=== PATIENT | female | born 1980 ===

== ENCOUNTER 2020-12-05 18:24 | Emergency (ER) | payer OTHER, SELFPAY ==
--- NOTE | ~2020-12-05 | XR_ITS ---
EXAMINATION: XR CHEST CLINICAL INFORMATION: Chest pain COMPARISON: CT chest dated 12/31/2017 TECHNIQUE: Frontal view of the chest was obtained. FINDINGS: Normal symmetric lung volumes. No parenchymal consolidation. No pleural effusion. No pneumothorax. Cardiomediastinal silhouette and pulmonary vascularity are within normal limits. No acute osseous abnormalities. XR/XR chest 1V IMPRESSION: No acute findings
[2020-12-05 18:32] VITALS: BP 131/68; PULSE 74; RESP 18; TEMP 36.6; O2SAT 100; BMI 30.9
--- NOTE | 2020-12-05 18:34 | ECG_ITS ---
Test Reason : HEADACHES Blood Pressure : / mmHG Vent. Rate : 078 BPM Atrial Rate : 078 BPM P-R Int : 144 ms QRS Dur : 072 ms QT Int : 374 ms P-R-T Axes : 031 014 013 degrees QTc Int : 426 ms Normal sinus rhythm Normal ECG When compared with ECG of 09-MAY-2018 08:07, No significant change was found Referred By: Generic ED Physician Electronically Signed By:EVELYNE TAYLOR
[2020-12-05 18:57] LABS: MANUAL DIFF FLAG NO
[2020-12-05 18:59] LABS: Basophils Percent Auto 0.2 % (0-2); Eosinophils Absolute Auto 0.2 X10*3/uL (0.0-0.4); Hematocrit 38.4 % (37-47); Hemoglobin 12.7 g/dl (12.0-16.0); Imm Gran Abs Auto 0.02 X10*3/uL (0.00-0.03); Imm Gran Pct Auto 0.2 % (0.0-0.4); Lymphocytes Absolute Auto 1.6 X10*3/uL (1.2-4.9); Lymphocytes Percent Auto 20.5 % (20-40); Mean Corpuscular HGB Conc 33.1 g/dl (31.0-35.0); Mean Corpuscular Hemoglobin 29.3 pg (27.0-33.0); Mean Corpuscular Volume 88.5 fL (80-98); Mean Platelet Volume 10.9 fL (9.4-12.3); Monocytes Absolute Auto 0.7 X10*3/uL (0.1-1.2); Monocytes Percent Auto 9.1 % (2-11); Neutrophils Absolute Auto 5.4 X10*3/uL (2.0-8.3); Platelet Count 267 X10*3/uL (160-400); Red Blood Count 4.34 X10*6/uL (4.20-5.50); Red Cell Distribution Width 12.2 % (11.0-16.0)
[2020-12-05 19:32] LABS: Anion Gap 13 (12-20); Blood Urea Nitrogen 17 mg/dL (9-16); Calcium 8.6 mg/dL (8.4-10.2); Carbon Dioxide 23 mmol/L (22-29); Chloride 106 mmol/L (96-108); Creatinine Clr Calc Pharmacy 79.6; Estimated Glomerular Filt Rate > 60; Glucose Random 108 mg/dL (60-115); Potassium 4.6 mmol/L (3.3-5.1); Sodium 137 mmol/L (135-145)
[2020-12-05 19:40] LABS: Troponin-I High Sensitivity < 3.5 ng/L (<3.5-17.0)
[2020-12-05 20:50] VITALS: BP 106/51; PULSE 79; RESP 20; TEMP 36.8; O2SAT 100
--- NOTE | 2020-12-05 21:41 | ED_ITS ---
HPI - Headache General Chief Complaint: Chest Pain Stated Complaint: chest pain Time Seen by Provider: 12/05/20 21:00 Source: patient Mode of arrival: ambulatory Limitations: language barrier History of Present Illness HPI Narrative: Patient's history of migraine headaches complaining of headache for last 3 days similar to that in the past also complaining of pain in the upper back with similar history in the past and history of fibromyalgia patient take Fioricet which is not helping and she does not have any more Fioricet left at home. Patient also continue nausea vomited 2 times sensitive to light patient does get headache almost every 2 weeks MD elicited complaint: headache and migraine Onset (ago): day(s) (3) Onset description: gradually Location: frontal Severity: moderate Quality & Timing: throbbing Exacerbating factors: light and noise Relieving factors: nothing Context: occurred at rest Associated symptoms: nausea and vomiting Related Data Previous Rx's Medication Instructions Recorded montelukast 10 mg tablet 10 mg PO DAILY #30 tab 08/22/20 omeprazole 20 mg capsule,delayed 20 mg PO DAILY 90 Days #90 cap 11/14/20 release upbnnjuztt-enxzxxfdojgrj-svti 1 cap PO Q6H PRN #20 cap 12/05/20 [Fioricet] Allergies Allergy/AdvReac Type Severity Reaction Status Date / Time sumatriptan [From IMITREX] Allergy Severe PALPITAITONS, Verified 12/05/20 21:00 palpitations aspirin [ASA] Allergy Intermediate HIVES, rash Verified 12/05/20 21:00 ibuprofen [IBUPROFEN] Allergy Unknown LIP Verified 12/05/20 21:00 SWELLING/RASH rizatriptan Allergy Unknown swelling, Verified 12/05/20 21:00 pruritus Review of Systems Review of Systems: Constitutional : No Weight loss, No Fever, No Chills ENT/Mouth : No sore throat, No Rhinorrhea Eyes: No Eye Pain, No Swelling Cardiovascular : + Chest Pain, no palpitations Respiratory : No Cough, No Sputum, no shortness of breath Gastrointestinal : no Nausea, No Vomiting, No Diarrhea, No abdominal Pain, no black stools Genitourinary : No Dysuria, No Urinary Frequency Musculoskeletal : No joint pain, + Myalgias, No Joint Swelling Skin : No Skin Lesions, No rash Neuro : No Weakness, No Numbness, No Dizziness, No Headache Psych : No Anxiety/Panic, No Depression Heme/Lymph: No Bruising, No Lymphadenopathy Endocrine : No Polyuria, No Polydipsia All other systems reviewed and are negative [facility] Social History Social History Alcohol intake: never Smoking Status: Never smoker Use of substances other than those prescribed or required for medical reasons: No Advance Directives: No Physical Exam Vital Signs: Vital Signs: Last Vital Signs Temp 98.0 F 12/05/20 22:45 Pulse 83 12/05/20 22:45 Resp 20 12/05/20 22:45 BP 116/78 12/05/20 22:45 Pulse Ox 100 12/05/20 22:45 Body Mass Index 30.9 Appearance: Alert. Oriented X3. Moderate distress , light sensitive Eyes: Pupils equal, round and reactive to light. Photosensitive ENT: Pharynx normal. Neck is supple .,temporal artery nontender sinuses nontender Neck: Normal inspection. Neck supple. Tender to touch upper back area CVS: Normal heart rate and rhythm. Pulses normal. Respiratory: No respiratory distress. Breath sounds normal. Abdomen: Soft and nontender. Bowel sounds are present, no mass palpable, no CVA tenderness Skin: Skin warm and dry. Normal skin color. Normal skin turgor. Extremities: No lower extremity edema. Neuro: Oriented X 3. No motor deficit. No sensory deficit. MDM - Headache MDM Narrative Medical decision making narrative: Patient migraine headache typical has in the past feeling much better now after morphine and Zofran patient unable to take T oradol or any other medication because of allergies will discharge her home on Fioricet Differential Diagnosis Differential diagnosis: Likely migraine Lab Data Attestation: I reviewed the patient's lab results. Result diagrams: 12/05/20 18:49 12/05/20 18:49 Labs: Lab Results 12/05/20 12/05/20 12/05/20 Range/Units 18:49 18:49 18:49 WBC 8.0 (4.8-10.8) X10*3/uL RBC 4.34 (4.20-5.50) X10*6/uL Hgb 12.7 (12.0-16.0) g/dl Hct 38.4 (37-47) % MCV 88.5 (80-98) fL MCH 29.3 (27.0-33.0) pg MCHC 33.1 (31.0-35.0) g/dl RDW 12.2 (11.0-16.0) % Plt Count 267 (160-400) X10*3/uL MPV 10.9 (9.4-12.3) fL Immature Gran % (Auto) 0.2 (0.0-0.4) % Neut % (Auto) 68.0 (45-73) % Lymph % (Auto) 20.5 (20-40) % [place] % (Auto) 9.1 (2-11) % Eos % (Auto) 2.0 (0-4) % Baso % (Auto) 0.2 (0-2) % Lymph # (Auto) 1.6 (1.2-4.9) X10*3/uL [place] # (Auto) 0.7 (0.1-1.2) X10*3/uL Eos # (Auto) 0.2 (0.0-0.4) X10*3/uL Baso # (Auto) 0.0 (0.0-0.2) X10*3/uL Abs Immat Gran (auto) 0.02 (0.00-0.03) X10*3/uL Absolute Neuts (auto) 5.4 (2.0-8.3) X10*3/uL Absolute Nucleated RBC 0.000 (0.0-0.012) X10*3/uL Nucleated RBC % (auto) 0.0 (0.0-0.2) /100WBC Hold Blue Top SEE NOTE Sodium 137 (135-145) mmol/L Potassium 4.6 (3.3-5.1) mmol/L Chloride 106 (96-108) mmol/L Carbon Dioxide 23 (22-29) mmol/L Anion Gap 13 (12-20) BUN 17 H (9-16) mg/dL Creatinine 0.97 (0.5-1.4) mg/dL Estim Creat Clear Calc 79.6 Estimated GFR > 60 Random Glucose 108 (60-115) mg/dL Calcium 8.6 (8.4-10.2) mg/dL Troponin I High Sens (<3.5-17.0) ng/L 12/05/20 Range/Units 18:49 WBC (4.8-10.8) X10*3/uL RBC (4.20-5.50) X10*6/uL Hgb (12.0-16.0) g/dl Hct (37-47) % MCV (80-98) fL MCH (27.0-33.0) pg MCHC (31.0-35.0) g/dl RDW (11.0-16.0) % Plt Count (160-400) X10*3/uL MPV (9.4-12.3) fL Immature Gran % (Auto) (0.0-0.4) % Neut % (Auto) (45-73) % Lymph % (Auto) (20-40) % [place] % (Auto) (2-11) % Eos % (Auto) (0-4) % Baso % (Auto) (0-2) % Lymph # (Auto) (1.2-4.9) X10*3/uL [place] # (Auto) (0.1-1.2) X10*3/uL Eos # (Auto) (0.0-0.4) X10*3/uL Baso # (Auto) (0.0-0.2) X10*3/uL Abs Immat Gran (auto) (0.00-0.03) X10*3/uL Absolute Neuts (auto) (2.0-8.3) X10*3/uL Absolute Nucleated RBC (0.0-0.012) X10*3/uL Nucleated RBC % (auto) (0.0-0.2) /100WBC Hold Blue Top Sodium (135-145) mmol/L Potassium (3.3-5.1) mmol/L Chloride (96-108) mmol/L Carbon Dioxide (22-29) mmol/L Anion Gap (12-20) BUN (9-16) mg/dL Creatinine (0.5-1.4) mg/dL Estim Creat Clear Calc Estimated GFR Random Glucose (60-115) mg/dL Calcium (8.4-10.2) mg/dL Troponin I High Sens < 3.5 (<3.5-17.0) ng/L ECG Data Attestation: I personally reviewed and interpreted this ECG as follows: Interpretation: Normal sinus rhythm heart rate 78 beats per minute no acute ST T wave changes normal intervals normal axis impression normal EKG Discharge Plan Discharge Clinical Impression: Migraine Qualifiers: Migraine type: without aura Status migrainosus presence: without status migrainosus Intractability: not intractable Qualified Code(s): G43.009 - Migraine without aura, not intractable, without status migrainosus Patient Disposition: Home, Self-Care Instructions: Migraine Headache (ED) Additional Instructions: Rest at home Take Fioricet for severe headache and follow with neurologist/PCP Prescriptions: New oeqibvzvvi-xwrcrboumwxbi-iwxi [Fioricet] 50-300-40 mg capsule 1 cap PO Q6H PRN (Reason: pain) Qty: 20 RF: 0 No Action montelukast 10 mg tablet 10 mg PO DAILY Qty: 30 RF: 7 omeprazole 20 mg capsule,delayed release(DR/EC) 20 mg PO DAILY 90 Days Qty: 90 RF: 3 Referrals: Renny Obrien MD [Physician] - 2 weeks
[2020-12-05 22:16] VITALS: RESP 20
[2020-12-05] MEDS: Morphine Sulfate 4 MG/ML CARTRIDGE IM (22:16)
[2020-12-05 22:45] VITALS: BP 116/78; PULSE 83; RESP 20; TEMP 36.7; O2SAT 100
[2020-12-05] MEDS: Butalb/Acetamin/Caff 50/325/40 TABLET 1 TAB PO (23:58)
[2020-12-06 00:09] LABS: Glucose, Whole Blood 106 mg/dL (60-115)
== END 2020-12-06 00:16 | disposition home or self-care (01) ==
PROVIDERS: Emergency Provider Internal Medicine; PCP Internal Medicine
DX: G43.909 Migraine, unspecified, not intractable, without status migrainosus (principal); R11.2 Nausea with vomiting, unspecified; Z79.899 Other long term (current) drug therapy
CPT/HCPCS: 36415; 71045; 80048; 82947; 84484; 85025; 93005; 96372; 99284; J2270

== ENCOUNTER 2020-12-24 05:55 | Emergency (ER) | payer OTHER, SELFPAY ==
[2020-12-24 06:31] VITALS: BP 115/78; PULSE 87; RESP 18; TEMP 36.6; O2SAT 98; BMI 31.9
[2020-12-24 06:46] VITALS: BP 118/75; PULSE 87; RESP 118; TEMP 36.6; O2SAT 98
[2020-12-24 07:07] VITALS: BP 118/75; PULSE 96; RESP 16; O2SAT 98
--- NOTE | 2020-12-24 07:12 | ED.GENADULT ---
HPI - General Adult General Chief complaint: General Medical Stated complaint: MULTIPLE COMPLAINTS Time Seen by Provider: 12/24/20 06:05 Source: patient Mode of arrival: ambulatory History of Present Illness HPI narrative: This is a 40-year-old female who presents with persistent nasal congestion and lower back discomfort as well as sinus discomfort for the past week without associated fevers, chills, sore throat, cough, recent travel, or known COVID-19 exposure. Patient states that she has not been evaluated by Neurology or her primary care provider for prior treatments of her migraines. Otherwise, she denies any shortness of breath, chest pain, GI symptoms, or symptoms. LMP: Completed 2 days ago Related Data Previous Rx's Medication Instructions Recorded montelukast 10 mg tablet 10 mg PO DAILY #30 tab 08/22/20 omeprazole 20 mg capsule,delayed 20 mg PO DAILY 90 Days #90 cap 11/14/20 release bygwdtsksg-xslanjifulkrp-camfsmdj 1 cap PO Q6H PRN #20 cap 12/08/20 50 mg-300 mg-40 mg capsule rqzprhohum-tfkydfpomiotz-anqqpkgd 1 tab PO Q6H PRN 30 Days #20 tab 12/08/20 50 mg-325 mg-40 mg tablet Allergies Allergy/AdvReac Type Severity Reaction Status Date / Time sumatriptan [From IMITREX] Allergy Severe PALPITAITONS, Verified 12/05/20 21:00 palpitations aspirin [ASA] Allergy Intermediate HIVES, rash Verified 12/05/20 21:00 ibuprofen [IBUPROFEN] Allergy Unknown LIP Verified 12/05/20 21:00 SWELLING/RASH rizatriptan Allergy Unknown swelling, Verified 12/05/20 21:00 pruritus Review of Systems Review of Systems: Pertinent positives and negatives as stated in HPI 10 point review systems is otherwise negative. [facility] Past Medical History Source: nursing notes reviewed Social History Social History Alcohol intake: never Smoking Status: Never smoker Use of substances other than those prescribed or required for medical reasons: No Advance Directives: No Physical Exam Vital Signs: Vital Signs: Last Vital Signs Temp 97.9 F 12/24/20 06:46 Pulse 96 12/24/20 07:07 Resp 16 12/24/20 07:07 BP 118/75 12/24/20 07:07 Pulse Ox 98 12/24/20 07:07 Body Mass Index 31.9 VITAL SIGNS: Reviewed. GENERAL: Well developed, well nourished, in no acute distress. HEAD: Normocephalic/atraumatic, EYES: PERRLA, EOMI intact without pain EARS: Ext canals without abnormality, TMs non-bulging and non-erythematous NOSE: Nares patent bilateral OROPHARYNX: no oral lesions noted, posterior pharynx clear NECK: Supple, no adenopathy LUNGS: Normal breath sounds. SpO2<98> CARDIOVASCULAR: Regular rate and rhythm without noted murmurs, no JVD or lower extremity edema. ABDOMEN: Soft, non-tender, non-distended with bowel sounds. BACK: No CVA tenderness, mild tenderness palpation paraspinal and lumbar region, no midline vertebral tenderness NEUROLOGIC: Alert and oriented x 4. Strength and sensation to light touch were grossly intact x 4. Course Course Course Narrative: This is a 40-year-old female with history and clinical presentation consistent with similarity with chronic pain syndrome. Patient's history and clinical exam are consistent with nasal congestion without evidence of purulence which would prompt consideration for antibiotics. In addition, patient with chronic back pain and doubt UTI or kidney stones. Signed out to Dr Vazquez: plan to follow up UA, SARS results and overall nasal congestion symptoms. Discharge paperwork is complete. Discharge Plan Discharge Clinical Impression: Nasal congestion, Low back pain Patient Disposition: Home, Self-Care Instructions: Antihistamine/Decongestant (By mouth), Sinusitis (ED), Lower Back Exercises (ED), Back Pain (ED) Additional Instructions: Luis un seguimiento con panchal proveedor de atenci?n primaria para la reevaluaci?n y el manejo ambulatorio de panchal congesti?n nasal y dolor lumbar cr?pal. No dude en volver al servicio de urgencias si desarrolla un empeoramiento samantha de becky s?ntomas, especialmente si est? asociado con fiebres, escalofr?os. Prescriptions: No Action montelukast 10 mg tablet 10 mg PO DAILY Qty: 30 RF: 7 omeprazole 20 mg capsule,delayed release(DR/EC) 20 mg PO DAILY 90 Days Qty: 90 RF: 3 iobnpgpeto-kxpvwnloxtdcq-vueh [Fioricet] 50-300-40 mg capsule 1 cap PO Q6H PRN (Reason: pain) Qty: 20 RF: 0 ewuedvjpcf-giqlyyikhzlsm-hhmr 50-325-40 mg tablet 1 tab PO Q6H PRN (Reason: pain) 30 Days Qty: 20 RF: 0 Referrals: Cecy Suarez MD [Primary Care Provider] - 2 days (Re-evaluation and outpatient treatment for nasal congestion, chronic back pain and chronic migraines.) Print Language: Tajik
[2020-12-24 07:21] LABS: Glucose Urine UA NEG (NEG); Leukocyte Esterase Urine NEG (NEG); Nitrite Urine NEG (NEG); PH 6.5 (5.0-8.0); Specific Gravity - Urine 1.025 (1.005-1.025); Urine Blood NEG (NEG); Urine Ketones NEG (NEG); Urine Protein NEG (NEG-TRACE)
[2020-12-24] MEDS: diphenhydrAMINE HCL 25 MG TABLET PO (07:23)
[2020-12-24 07:30] LABS: Appearance Urine HAZY; Color Urine YELLOW
[2020-12-24] MEDS: Lidocaine 4 % Patch ADH..PATCH 1 PATCH TRANSDERMA (07:34)
[2020-12-24 08:04] LABS: Influenza A PCR NEGATIVE (Negative); Influenza B PCR NEGATIVE (Negative); Resp Syncy Virus RNA Qual PCR NEGATIVE (Negative); SARS COV2 PCR INHOUSE NEGATIVE (Negative)
--- NOTE | 2020-12-24 08:10 | PC.NURSE ---
pt states she is feeling slightly better and feels ready to go home. she states she will follow with her PCP as directed.
== END 2020-12-24 08:21 | disposition home or self-care (01) ==
PROVIDERS: Emergency Provider Student in an Organized Health Care Education/Training Program; PCP Internal Medicine
DX: R09.81 Nasal congestion (principal); M54.5 Low back pain; Z20.822 Contact with and (suspected) exposure to COVID-19
CPT/HCPCS: 0241U; 36415; 81003; 99282; 99284; Q0163

== ENCOUNTER 2021-01-25 15:00 | Outpatient (REF) | payer OTHER, SELFPAY ==
--- NOTE | ~2021-01-25 | XR_ITS ---
EXAMINATION: XR CERVICAL SPINE CLINICAL INFORMATION: Neck pain COMPARISON: Previous x-ray June 2018 TECHNIQUE: 3 views of the cervical spine were obtained. FINDINGS: Bone alignment is normal. No fracture or dislocation is seen. Disc spaces are normal. Prevertebral soft tissues are normal. XR/XR cervical spine 2V IMPRESSION: Unremarkable examination.
== END 2021-01-25 15:01 | disposition home or self-care (01) ==
LOC: HO.XRAY 15:00
PROVIDERS: PCP Physician Assistant; Visit Provider Internal Medicine
DX: M54.2 Cervicalgia (principal)
CPT/HCPCS: 72040

== ENCOUNTER 2021-05-25 05:55 | Emergency (ER) | payer OTHER, SELFPAY ==
[2021-05-25 07:25] VITALS: BP 138/77; PULSE 72; TEMP 36.8; O2SAT 98; BMI 33.8
--- NOTE | 2021-05-25 09:44 | ED_ITS ---
HPI - General Adult General Chief complaint: General Medical Stated complaint: Migraine & abd pain for mult. days Time Seen by Provider: 05/25/21 09:18 Source: patient Mode of arrival: ambulatory Limitations: language barrier (Patient's 1st language is Lithuanian, she does speak and understand some Romansh, staff interpreter was used to obtain information.) History of Present Illness HPI narrative: 40-year-old female who presents emergency department for evaluation of multiple complaints. She states that over the past 2-3 days she has had pain in the back of her neck and her back. She has also had abdominal p ain. She points to her lower abdomen and groin area when asked to localize the pain. She states the pain is a constant, sharp pain which is worse with movement. The pain is 8/10 at its worst. Patient has had associated nausea with 1 episode of vomiting. She states that she has been feeling very tired and fatigued. She states that last night she developed a migraine. She describes the headache as a sharp pressure-like pain located behind her eyes and in her forehead area. The pain is constant and is 8/10. She denied fever, chills, chest pain, shortness of breath, dyspnea on exertion, frequency, urgency or dysuria. The patient was seen in the emergency department on 12/24/2020 with similar complaints. The patient was treated for migraine syndrome with morphine and Zofran with improved her symptoms. Related Data Previous Rx's Medication Instructions Recorded montelukast 10 mg tablet 10 mg PO DAILY #30 tab 08/22/20 omeprazole 20 mg capsule,delayed 20 mg PO DAILY 90 Days #90 cap 11/14/20 release hwsrsnreic-qebqilgjbmydu-xjhzdlnx 1 tab PO Q6H PRN 30 Days #20 tab 12/08/20 50 mg-325 mg-40 mg tablet tizanidine 4 mg tablet 4 mg PO Q8H PRN #60 tab 02/10/21 vtfvhjrvvl-vpodygbasrxfs-mejtbhbq 1 cap PO Q6H PRN #20 cap 04/06/21 50 mg-300 mg-40 mg capsule lidocaine 5 % topical patch 1 patch TOPICAL DAILY #15 ea 05/11/21 Allergies Allergy/AdvReac Type Severity Reaction Status Date / Time sumatriptan [From IMITREX] Allergy Severe PALPITAITONS, Verified 01/25/21 14:22 palpitations aspirin [ASA] Allergy Intermediate HIVES, rash Verified 01/25/21 14:22 ibuprofen [IBUPROFEN] Allergy Unknown LIP Verified 01/25/21 14:22 SWELLING/RASH rizatriptan Allergy Unknown swelling, Verified 01/25/21 14:22 pruritus Review of Systems Review of Systems: Yes all other systems are reviewed and are negative [facility] Past Medical History [facility] Narrative: Past medical history: Fibromyalgia, migraines, lumbar pain. Social history: She denies tobacco, alcohol and drug use. Surgical History History of section Family History Family History Mother No problems noted. Father No problems noted. Social History Social History Alcohol intake: never Use of substances other than those prescribed or required for medical reasons: No Advance Directives: Yes Advance Directives Information Provided: Yes Advance Directives on File: No Physical Exam Vital Signs: Vital Signs: Last Vital Signs Temp 97.9 F 05/25/21 11:05 Pulse 66 05/25/21 12:12 Resp 18 05/25/21 11:05 BP 124/76 05/25/21 12:12 Pulse Ox 99 05/25/21 11:05 Body Mass Index 33.8 Const: General: cooperative Orientation/consciousness: oriented to person and oriented to place Limitations: no limitations HENMT: Other: Tenderness with palpation of the forehead, maxillary sinuses and temporal areas bilaterally Head: Yes normal to inspection, Yes normocephalic and Yes atraumatic Ears: external ears normal General nose exam: Normal external nose present Mouth: Normal oral and palatal mucosa present Throat: Yes posterior oropharynx normal Eyes: Periorbital: periorbital findings normal Eyelids: Yes eyelids normal Conjunctivae: conjunctivae normal Sclerae: sclerae normal Corneas: corneas normal Pupils: Equal, round and reactive pupils present Direct Ophthalmoscopy: normal light reflex Neck: Other: Bilateral tenderness palpation of the trapezius muscles and tenderness to palpation of the cervical spine Chest: Other: Tenderness with palpation of the anterior chest. Chest palpation & inspection: normal palpation of entire chest wall Resp: Effort & Inspection: normal respiratory effort and able to speak in complete sentences Auscultation: clear to auscultation bilaterally Cardio: Rate: regular rate Rhythm: regular rhythm Heart sounds: S1 normal heart sound present, S2 normal heart sound present and no murmurs GI: Inspection: Yes normal to inspection Palpation (GI): Soft to palpation, Tenderness to palpation present (GI) (Gqic-tp-ghpdtdzl diffuse abdominal tenderness), no guarding, not rigid and No hepatosplenomegaly present Back/Spine/Pelvis: Other: Diffuse tenderness with palpation of the patient's thoracic and lumbar sacral paraspinal muscles Skin: Lesions: no lesions Rashes: no rashes Wounds: no wounds Neuro: General: oriented to person and oriented to place Cranial nerves: Yes CN's II-XII intact bilaterally and Yes Equal, round and reactive pupils present Cognition (Neuro): normal cognition Motor exam (neuro): 5/5 motor strength present throughout Extrem: General: Yes normal to inspection and Yes full ROM Psych: Appearance: well kempt Mental Status: mental status grossly normal Speech and movement: Normal speech and movement present Affect: normal affect Attitude: cooperative Thought process: Normal thought process present Thought content: Normal thought content present Course Course Course Narrative: 40-year-old female with history of migraine headaches presents emergency department for evaluation of fatigue, weakness and abdominal pain x2 days with associated nausea 1 episode of vomiting and migraine headache x1 day. Vital signs were stable. Physical examination revealed multiple areas of tenderness including her head, neck, thoracic lumbar sacral paraspinal muscles, diffuse abdominal tenderness. Patient's neuro exam was nonfocal. I ordered a CBC, CMP, lipase, urinalysis and urine test. I do not think the patient is a CT scan of her head at this time. Patient's pain will be treated with morphine 4 mg IV and Zofran 4 mg IV. She also given normal saline IV x1 L. 1333: Patient's laboratory evaluation was unremarkable. Urinalysis was positive for nitrates, microscopic however revealed 0-2 white blood cells, squamous cells and 3+ bacteria. Given this low WBC count I do not think that she has a urinary tract infection and she does not need antibiotics at this time unless her culture comes back positive. The patient required a 2nd dose of morphine and Zofran and is currently feeling significantly better and is pain free. The patient was given verbal and printed instructions prior to discharge. The patient was advised to follow-up with her PCP in 2 days and to return to the emergency department if her symptoms get worse or if she develop any new symptoms that are concerning to her Medical Decision Making Lab Data Result diagrams: 05/25/21 10:19 05/25/21 10:19 Labs: Lab Results 05/25/21 05/25/21 05/25/21 Range/Units 10:19 10:19 12:04 WBC 7.0 (4.8-10.8) X10*3/uL RBC 4.81 (4.20-5.50) X10*6/uL Hgb 13.8 (12.0-16.0) g/dl Hct 42.8 (37-47) % MCV 89.0 (80-98) fL MCH 28.7 (27.0-33.0) pg MCHC 32.2 (31.0-35.0) g/dl RDW 13.2 (11.0-16.0) % Plt Count 273 (160-400) X10*3/uL MPV 10.6 (9.4-12.3) fL Immature Gran % (Auto) 0.3 (0.0-0.4) % Neut % (Auto) 78.6 H (45-73) % Lymph % (Auto) 12.9 L (20-40) % [place] % (Auto) 7.2 (2-11) % Eos % (Auto) 0.9 (0-4) % Baso % (Auto) 0.1 (0-2) % Lymph # (Auto) 0.9 L (1.2-4.9) X10*3/uL [place] # (Auto) 0.5 (0.1-1.2) X10*3/uL Eos # (Auto) 0.1 (0.0-0.4) X10*3/uL Baso # (Auto) 0.0 (0.0-0.2) X10*3/uL Abs Immat Gran (auto) 0.02 (0.00-0.03) X10*3/uL Absolute Neuts (auto) 5.5 (2.0-8.3) X10*3/uL Absolute Nucleated RBC 0.000 (0.0-0.012) X10*3/uL Nucleated RBC % (auto) 0.0 (0.0-0.2) /100WBC Sodium 137 (135-145) mmol/L Potassium 4.3 (3.3-5.1) mmol/L Chloride 107 (96-108) mmol/L Carbon Dioxide 22 (22-29) mmol/L Anion Gap 12 (12-20) BUN 9 (9-16) mg/dL Creatinine 0.70 (0.5-1.4) mg/dL Estim Creat Clear Calc 107.3 Estimated GFR > 60 Random Glucose 104 (60-115) mg/dL Calcium 9.2 D (8.4-10.2) mg/dL Total Bilirubin 0.3 (0.0-1.0) mg/dL AST 17 (5-31) U/L ALT 21 (0-31) U/L Alkaline Phosphatase 136 H (39-117) U/L Total Protein 7.4 (6.5-8.0) g/dL Albumin 4.0 (3.5-5.0) g/dL Lipase 27 (8-78) U/L Urine Color Urine Appearance Urine pH (5.0-8.0) Ur Specific [place] (1.005-1.025) Urine Protein (NEG-TRACE) MG/DL Urine Glucose (UA) (NEG) MG/DL Urine Ketones (NEG) MG/DL Urine Blood (NEG) Urine Nitrite (NEG) Ur Leukocyte Esterase (NEG) Urine RBC (0) /HPF Urine WBC (0-4) /HPF Ur Squamous Epith Cells /LPF Urine Bacteria /LPF Urine Test NEGATIVE (NEGATIVE) 05/25/21 Range/Units 12:05 WBC (4.8-10.8) X10*3/uL RBC (4.20-5.50) X10*6/uL Hgb (12.0-16.0) g/dl Hct (37-47) % MCV (80-98) fL MCH (27.0-33.0) pg MCHC (31.0-35.0) g/dl RDW (11.0-16.0) % Plt Count (160-400) X10*3/uL MPV (9.4-12.3) fL Immature Gran % (Auto) (0.0-0.4) % Neut % (Auto) (45-73) % Lymph % (Auto) (20-40) % [place] % (Auto) (2-11) % Eos % (Auto) (0-4) % Baso % (Auto) (0-2) % Lymph # (Auto) (1.2-4.9) X10*3/uL [place] # (Auto) (0.1-1.2) X10*3/uL Eos # (Auto) (0.0-0.4) X10*3/uL Baso # (Auto) (0.0-0.2) X10*3/uL Abs Immat Gran (auto) (0.00-0.03) X10*3/uL Absolute Neuts (auto) (2.0-8.3) X10*3/uL Absolute Nucleated RBC (0.0-0.012) X10*3/uL Nucleated RBC % (auto) (0.0-0.2) /100WBC Sodium (135-145) mmol/L Potassium (3.3-5.1) mmol/L Chloride (96-108) mmol/L Carbon Dioxide (22-29) mmol/L Anion Gap (12-20) BUN (9-16) mg/dL Creatinine (0.5-1.4) mg/dL Estim Creat Clear Calc Estimated GFR Random Glucose (60-115) mg/dL Calcium (8.4-10.2) mg/dL Total Bilirubin (0.0-1.0) mg/dL AST (5-31) U/L ALT (0-31) U/L Alkaline Phosphatase (39-117) U/L Total Protein (6.5-8.0) g/dL Albumin (3.5-5.0) g/dL Lipase (8-78) U/L Urine Color YELLOW Urine Appearance HAZY Urine pH 6.0 (5.0-8.0) Ur Specific [place] 1.020 (1.005-1.025) Urine Protein NEG (NEG-TRACE) MG/DL Urine Glucose (UA) NEG (NEG) MG/DL Urine Ketones NEG (NEG) MG/DL Urine Blood NEG (NEG) Urine Nitrite POS H (NEG) Ur Leukocyte Esterase NEG (NEG) Urine RBC 0 (0) /HPF Urine WBC 0-2 (0-4) /HPF Ur Squamous Epith Cells 1+ /LPF Urine Bacteria 3+ /LPF Urine Test (NEGATIVE) Discharge Plan Discharge Prescriptions: No Action montelukast 10 mg tablet 10 mg PO DAILY Qty: 30 RF: 7 omeprazole 20 mg capsule,delayed release(DR/EC) 20 mg PO DAILY 90 Days Qty: 90 RF: 3 gurusugsmk-ycacnrdbeenay-idhh 50-325-40 mg tablet 1 tab PO Q6H PRN (Reason: pain) 30 Days Qty: 20 RF: 0 tizanidine 4 mg tablet 4 mg PO Q8H PRN (Reason: muscle spasticity) Qty: 60 RF: 0 ixmvxopofs-mjhciywscjubj-dnbr [Fioricet] 50-300-40 mg capsule 1 cap PO Q6H PRN (Reason: pain) Qty: 20 RF: 0 lidocaine 5 % adhesive patch,medicated 1 patch topical DAILY Qty: 15 RF: 0
[2021-05-25 10:23] LABS: MANUAL DIFF FLAG NO
[2021-05-25 10:25] LABS: Basophils Percent Auto 0.1 % (0-2); Eosinophils Absolute Auto 0.1 X10*3/uL (0.0-0.4); Eosinophils Percent Auto 0.9 % (0-4); Hematocrit 42.8 % (37-47); Hemoglobin 13.8 g/dl (12.0-16.0); Imm Gran Abs Auto 0.02 X10*3/uL (0.00-0.03); Imm Gran Pct Auto 0.3 % (0.0-0.4); Lymphocytes Absolute Auto 0.9 X10*3/uL (1.2-4.9); Lymphocytes Percent Auto 12.9 % (20-40); Mean Corpuscular HGB Conc 32.2 g/dl (31.0-35.0); Mean Corpuscular Hemoglobin 28.7 pg (27.0-33.0); Mean Platelet Volume 10.6 fL (9.4-12.3); Monocytes Absolute Auto 0.5 X10*3/uL (0.1-1.2); Monocytes Percent Auto 7.2 % (2-11); Neutrophils Absolute Auto 5.5 X10*3/uL (2.0-8.3); Neutrophils Percent Auto 78.6 % (45-73); Platelet Count 273 X10*3/uL (160-400); Red Blood Count 4.81 X10*6/uL (4.20-5.50); Red Cell Distribution Width 13.2 % (11.0-16.0)
[2021-05-25] MEDS: 0.9 % Sodium Chloride 1,000 ML 999 ML IV (10:44)
[2021-05-25] MEDS: Morphine Sulfate 4 MG/ML CARTRIDGE IVPUSH ×2 (10:44→12:09)
[2021-05-25 11:01] LABS: Alanine Aminotransferase 21 U/L (0-31); Alkaline Phosphatase 136 U/L (39-117); Anion Gap 12 (12-20); Aspartate Amino Transferase 17 U/L (5-31); Bilirubin Total 0.3 mg/dL (0.0-1.0); Blood Urea Nitrogen 9 mg/dL (9-16); Calcium 9.2 mg/dL (8.4-10.2); Carbon Dioxide 22 mmol/L (22-29); Chloride 107 mmol/L (96-108); Creatinine Clr Calc Pharmacy 107.3; Estimated Glomerular Filt Rate > 60; Glucose Random 104 mg/dL (60-115); Lipase 27 U/L (8-78); Potassium 4.3 mmol/L (3.3-5.1); Sodium 137 mmol/L (135-145); Total Protein 7.4 g/dL (6.5-8.0)
[2021-05-25 11:05] VITALS: BP 124/77; PULSE 69; RESP 18; TEMP 36.6; O2SAT 99
--- NOTE | 2021-05-25 11:10 | PC.NURSE ---
Pt alert and oriented x3. vss, LSCTA. Pt states for the past 2-3 days she has been having constant pain in the back of her neck and her back that worsens with movement. She also c/o abdominal pain, vomited x1 She states that she has been feeling very tired and fatigued and started having migraines last night. She denies fever, chills, chest pain, sob. Pt in no apparent distress, iv established, meds given, fluids hung as documented. lab results pending.
[2021-05-25 12:11] LABS: Glucose Urine UA NEG (NEG); Leukocyte Esterase Urine NEG (NEG); Nitrite Urine POS (NEG); UACC Culture Trigger YES; Urine Blood NEG (NEG); Urine Ketones NEG (NEG); Urine Protein NEG (NEG-TRACE)
[2021-05-25 12:12] VITALS: BP 124/76; PULSE 66
[2021-05-25 12:12] LABS: Appearance Urine HAZY; Color Urine YELLOW
[2021-05-25 12:13] LABS: UPreg QC Valid YES; Urine Pregnancy NEGATIVE (NEGATIVE)
[2021-05-25 12:19] LABS: Bacteria Urine 3+ /LPF; RBC Urine 0 /HPF (0); Squamous Epithelial Cell Urine 1+ /LPF; WBC Urine 0-2 /HPF (0-4)
== END 2021-05-25 14:30 | disposition home or self-care (01) ==
PROVIDERS: Emergency Provider Emergency Medicine Emergency Medical Services
DX: G43.909 Migraine, unspecified, not intractable, without status migrainosus (principal); R10.9 Unspecified abdominal pain
CPT/HCPCS: 36415; 80053; 81001; 81003; 81025; 83690; 85025; 87086; 87088; 87186; 96361; 96374; 96375; 96376; 99284; J2270; J2405

== ENCOUNTER 2021-08-13 11:03 | Outpatient (REF) | payer OTHER, SELFPAY ==
--- NOTE | ~2021-08-13 | XR_ITS ---
EXAMINATION: XR CHEST CLINICAL INFORMATION: Chest pain. COMPARISON: Chest radiograph dated 12/05/2020. TECHNIQUE: 2 views of the chest were obtained. FINDINGS: Minimal right lower lobe atelectasis, new when compared to the prior examination. No pleural effusion or pneumothorax. Stable cardiomediastinal silhouette. No acute osseous abnormality. XR/XR chest 2V IMPRESSION: Minimal right lower lobe atelectasis.
== END 2021-08-13 11:04 | disposition home or self-care (01) ==
LOC: HO.XRAY 11:03
PROVIDERS: PCP Physician Assistant; Visit Provider Internal Medicine
DX: R07.9 Chest pain, unspecified (principal)
CPT/HCPCS: 71046

== ENCOUNTER 2021-08-18 13:58 | Outpatient (REF) | payer OTHER, SELFPAY ==
--- NOTE | ~2021-08-18 | XR_ITS ---
EXAMINATION: XR ABDOMEN CLINICAL INFORMATION: Pain COMPARISON: None TECHNIQUE: Frontal view. FINDINGS: No prior x-rays available for comparison. There is increased amount of stool projecting over the distribution of the colon raising suspicion for constipation. There is no evidence of bowel obstruction, however. There is no evidence of abnormal calcifications. There is no acute skeletal structure changes. There is no evidence of small-bowel obstruction. There is no free air in the abdomen. XR/XR KUB IMPRESSION: Excess amount of stool in the colon especially the right and cecum suggesting constipation. Please correlate with clinical presentation.
== END 2021-08-18 13:59 | disposition home or self-care (01) ==
LOC: HO.XRAY 13:58
PROVIDERS: PCP Physician Assistant; Visit Provider Physician Assistant
DX: M54.50 Low back pain, unspecified (principal)
CPT/HCPCS: 74018

== ENCOUNTER 2021-10-12 08:34 | Outpatient (REF) | payer OTHER, SELFPAY ==
--- NOTE | ~2021-10-12 | US_ITS ---
EXAMINATION: US ABDOMEN COMPLETE CLINICAL INFORMATION: Unspecified abdominal pain. COMPARISON: KUB 08/18/2021. MRI abdomen 04/26/2019. Abdominal ultrasound 04/17/2019. TECHNIQUE: Real-time imaging of the abdominal viscera. FINDINGS: PANCREAS: Normal. ABDOMINAL AORTA: The proximal, mid, and distal segments are normal in caliber. INFERIOR VENA CAVA: Visualized portions are normal. LIVER: The liver is normal in size. The liver contour is normal. There is diffuse increased liver parenchymal echotexture. Within the right hepatic lobe, a 7 x 7 x 8 mm hemangioma is redemonstrated. There is no intrahepatic biliary duct dilatation seen. GALLBLADDER: Normal. The gallbladder is physiologically distended without evidence of stones, sludge, polyps, wall thickening or pericholecystic fluid. COMMON BILE DUCT: Normal in caliber measuring 0.4 cm in diameter. RIGHT KIDNEY: Normal. No hydronephrosis. No renal calculi or focal parenchymal lesions. The kidney measures 10.3 cm in maximum dimension. LEFT KIDNEY: Normal. No hydronephrosis. No renal calculi or focal parenchymal lesions. The kidney measures 11.3 cm in maximum dimension. SPLEEN: Normal. The spleen measures 10.3 cm in maximum dimension. FREE FLUID: None. US/US abdomen complete IMPRESSION: 1. There is generalized increase in hepatic echotexture, consistent with fatty infiltration or hepatocellular disease. Please correlate clinically. No focal hepatic mass or intrahepatic biliary dilatation is seen. 2. An 8 mm benign right hepatic lobe hemangioma is redemonstrated.
== END 2021-10-12 08:35 | disposition home or self-care (01) ==
LOC: HO.US 08:34
PROVIDERS: PCP Internal Medicine; Visit Provider Internal Medicine
DX: R10.9 Unspecified abdominal pain (principal)
CPT/HCPCS: 76700

== ENCOUNTER 2021-10-27 09:28 | Outpatient (REF) | payer OTHER, SELFPAY ==
[2021-10-27 10:57] LABS: Appearance Urine CLEAR; Color Urine YELLOW; Glucose Urine UA NEG (NEG); Leukocyte Esterase Urine NEG (NEG); Nitrite Urine NEG (NEG); Specific Gravity - Urine >= 1.030 (1.005-1.025); Urine Blood NEG (NEG); Urine Ketones NEG (NEG); Urine Protein NEG (NEG-TRACE)
[2021-10-27 10:57] LABS: Estimated Average Glucose 111 mg/dL; Hemoglobin A1c % 5.5 %
[2021-10-27 11:14] LABS: Alanine Aminotransferase 29 U/L (0-31); Alkaline Phosphatase 132 U/L (39-117); Anion Gap 9 (12-20); Aspartate Amino Transferase 24 U/L (5-31); Bilirubin Total 0.9 mg/dL (0.0-1.0); Blood Urea Nitrogen 10 mg/dL (9-16); Calcium 9.2 mg/dL (8.4-10.2); Carbon Dioxide 29 mmol/L (22-29); Chloride 105 mmol/L (96-108); Cholesterol 133 mg/dL; Estimated Glomerular Filt Rate > 60; Glucose Fasting 108 mg/dL (60-99); HDL Cholesterol 54 mg/dL; LDL Cholesterol Calculated 66 mg/dl; Potassium 4.2 mmol/L (3.3-5.1); Sodium 139 mmol/L (135-145); Total Protein 7.3 g/dL (6.5-8.0); Triglycerides 65 mg/dL
[2021-10-27 11:33] LABS: TSH reflex Free T4 1.45 uIU/mL (0.32-4.0)
== END 2021-10-27 09:29 | disposition home or self-care (01) ==
LOC: HO.LAB 09:28
PROVIDERS: PCP Physician Assistant; Visit Provider Physician Assistant
DX: Z13.29 Encounter for screening for other suspected endocrine disorder (principal); Z13.220 Encounter for screening for lipoid disorders; R30.0 Dysuria; E66.09 Other obesity due to excess calories; Z68.35 Body mass index [BMI] 35.0-35.9, adult; R82.90 Unspecified abnormal findings in urine
CPT/HCPCS: 36415; 80053; 80061; 81003; 83036; 84443

== ENCOUNTER 2021-12-09 08:52 | Outpatient (REF) | payer OTHER, SELFPAY ==
--- NOTE | ~2021-12-09 | CT_ITS ---
EXAMINATION: CT HEAD WITHOUT CONTRAST CLINICAL INFORMATION: Migraine without aura, not intractable COMPARISON: None TECHNIQUE: Contiguous axial imaging was performed from the skull base to vertex without intravenous administration of contrast. This CT examination was performed using dose optimization techniques as appropriate, variously including the following: *Automated exposure control *Adjustment of mA and/or kV according to patient size (this includes techniques or standardized protocols for targeted exams where dose is matched to indication/reason for exam; i.e. extremities or head) *Use of iterative reconstruction technique DLP: 672 mGy-cm FINDINGS: There is no evidence of acute intracranial hemorrhage or territorial infarction. No abnormal mass effect or midline shift is seen. Sheets to white matter differentiation is well preserved. No extra-axial fluid collections are identified. The ventricles are normal in size. There is no abnormal attenuation within the brain parenchyma. The osseous structures and soft tissues are normal. The mastoid air cells and visualized portions of the paranasal sinuses are well aerated. CT/CT head/brain wo con IMPRESSION: No acute intracranial process seen.
== END 2021-12-09 08:53 | disposition home or self-care (01) ==
LOC: HO.CT 08:52
PROVIDERS: PCP Physician Assistant; Visit Provider Physician Assistant
DX: G43.009 Migraine without aura, not intractable, without status migrainosus (principal)
CPT/HCPCS: 70450

== ENCOUNTER 2022-01-19 12:39 | Outpatient (REF) | payer OTHER, SELFPAY ==
--- NOTE | ~2022-01-19 | MM_ITS ---
EXAMINATION: MM SCREENING DIGITAL BREAST TOMOSYNTHESIS, BILATERAL CLINICAL INFORMATION: Screening. Asymptomatic. The lifetime risk of breast cancer based on the Tyrer-Cuzick Model is 8.3%. COMPARISON: Mammography: None TECHNIQUE: Digital breast tomosynthesis is performed in both the craniocaudal and mediolateral oblique views along with computer-aided detection (CAD). Synthesized 2D images are generated from the tomosynthesis. FINDINGS: There are scattered areas of fibroglandular density (ACR BI-RADS breast composition Category b). There are no significant masses, abnormal calcifications, or other abnormalities. MM/MM tomosynthesis screening BI IMPRESSION: There are no significant changes from prior study. ASSESSMENT: BI-RADS 1: Negative RECOMMENDATION: Routine annual mammography screening. This patient's information was entered into a reminder system with a target due date for their next mammogram.
== END 2022-01-19 12:40 | disposition home or self-care (01) ==
LOC: HO.MAMMO 12:39
PROVIDERS: PCP Physician Assistant; Visit Provider Physician Assistant
DX: Z12.31 Encounter for screening mammogram for malignant neoplasm of breast (principal)
CPT/HCPCS: 77063; 77067

== ENCOUNTER 2022-06-23 15:50 | Emergency (ER) | payer OTHER, SELFPAY ==
[2022-06-23 16:07] VITALS: BP 154/90; PULSE 107; RESP 16; TEMP 36.9; O2SAT 98; BMI 34.0
== END 2022-06-23 21:36 | disposition left against medical advice (07) ==
PROVIDERS: Emergency Provider Emergency Medicine; PCP Physician Assistant
DX: G43.909 Migraine, unspecified, not intractable, without status migrainosus (principal)
CPT/HCPCS: 99281; 99283

== ENCOUNTER 2022-08-24 11:24 | Outpatient (REF) | payer OTHER, SELFPAY ==
--- NOTE | ~2022-08-24 | XR_ITS ---
EXAMINATION: XR THORACIC SPINE XR LUMBAR SPINE CLINICAL INDICATION: Pain. COMPARISON: XR thoracic spine 03/15/2019. TECHNIQUE: 2 views of the thoracic spine. 5 views of the lumbosacral spine including oblique imaging. FINDINGS: Thoracic Spine: Once again some evidence of early degenerative changes with some loss of disc height and some spurring most noted in the lower thoracic region anterior. There is no evidence for listhesis or compression injury. Lumbosacral Spine: There is no listhesis or compression injury. Vertebral heights and disc heights are fairly well-maintained. There is some likely early degenerative changes in the posterior aspect of the lower lumbar spine articulating facets with some sclerosis here. The SI joints are grossly patent. There is angulation of the distal sacrum dorsally. Difficult to evaluate for change from previous is the previous exam from 2019 and not visualized this level well. The oblique imaging showing no convincing evidence of spondylolysis. 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 There is no listhesis or compression injury. Findings suggest some early degeneration of the lower lumbosacral spine posterior elements. Also angulation in the distal sacrum of uncertain etiology. This could represent the patient's baseline. Correlation recommended clinically.
--- NOTE | ~2022-08-24 | XR_ITS ---
EXAMINATION: XR THORACIC SPINE XR LUMBAR SPINE CLINICAL INDICATION: Pain. COMPARISON: XR thoracic spine 03/15/2019. TECHNIQUE: 2 views of the thoracic spine. 5 views of the lumbosacral spine including oblique imaging. FINDINGS: Thoracic Spine: Once again some evidence of early degenerative changes with some loss of disc height and some spurring most noted in the lower thoracic region anterior. There is no evidence for listhesis or compression injury. Lumbosacral Spine: There is no listhesis or compression injury. Vertebral heights and disc heights are fairly well-maintained. There is some likely early degenerative changes in the posterior aspect of the lower lumbar spine articulating facets with some sclerosis here. The SI joints are grossly patent. There is angulation of the distal sacrum dorsally. Difficult to evaluate for change from previous is the previous exam from 2019 and not visualized this level well. The oblique imaging showing no convincing evidence of spondylolysis. 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 There is no listhesis or compression injury. Findings suggest some early degeneration of the lower lumbosacral spine posterior elements. Also angulation in the distal sacrum of uncertain etiology. This could represent the patient's baseline. Correlation recommended clinically.
[2022-08-24 12:27] LABS: Appearance Urine Clear; Color Urine Yellow; Glucose Urine UA Negative (Negative); Leukocyte Esterase Urine Negative (Negative); Nitrite Urine Negative (Negative); PH 6.5 (5.0-9.0); Urine Blood Negative (Negative); Urine Ketones Negative (Negative); Urine Protein Negative (Neg-Trace)
== END 2022-08-24 11:25 | disposition home or self-care (01) ==
LOC: HO.XRAY 11:24
PROVIDERS: PCP Physician Assistant; Visit Provider Nurse Practitioner Family
DX: M54.9 Dorsalgia, unspecified (principal); R82.90 Unspecified abnormal findings in urine
CPT/HCPCS: 72072; 72110; 81003

== ENCOUNTER 2022-10-02 16:43 | Emergency (ER) | payer OTHER, SELFPAY ==
--- NOTE | ~2022-10-02 | XR_ITS ---
EXAMINATION: XR KNEE, LEFT CLINICAL INFORMATION: Injury, left knee pain COMPARISON: None TECHNIQUE: Four views of the left knee. FINDINGS: Bones and soft tissues are normal. No fracture or joint effusion. Alignment is anatomic. Joint spaces are well maintained. No abnormal soft tissue calcification. XR/XR knee LT 3V IMPRESSION: Normal left knee.
[2022-10-02 16:48] VITALS: BP 137/85; PULSE 138; RESP 18; TEMP 37.6; O2SAT 96; BMI 34.5
--- NOTE | 2022-10-02 16:49 | ED_ITS ---
HPI - URI/Sore Throat General Chief Complaint: Upper Respiratory Symptoms Stated Complaint: body aches and abdominal pain Time Seen by Provider: 10/02/22 18:26 Source: patient and family Mode of arrival: ambulatory Limitations: no limitations History of Present Illness HPI Narrative: 42-year-old female here with complaints of body aches, cough, nausea, abdominal discomfort for 2 days. Both children are sick at home with flu. No vomiting, diarrhea, fever, difficulty breathing, chest pain. Patient reports 3 days ago she also will stepping felt a clicking sensation in her left knee and has had pain since. No numbness, tingling, weakness, redness, swelling of the knee. Related Data Previous Rx's Medication Instructions Recorded montelukast 10 mg tablet 10 mg PO DAILY #30 tabs 08/22/20 sennosides 8.6 mg tablet (Senna 17.2 mg PO BEDTIME 15 days #30 tabs 08/26/21 Lax) dmvfviaqgf-qrwehvezvhrvo-hogoamvz 1 cap PO Q6H PRN pain 4 days #16 10/25/21 50 mg-325 mg-40 mg capsule caps omeprazole 20 mg capsule,delayed 20 mg PO DAILY 90 days #90 caps 01/26/22 release amitriptyline 50 mg tablet 50 mg PO BEDTIME 30 days #30 tabs 03/30/22 ibuprofen 800 mg tablet 800 mg PO Q8H 10 days #30 tabs 08/24/22 tizanidine 4 mg tablet 4 mg PO Q8H PRN muscle spasticity 08/24/22 #60 tabs cyclobenzaprine 10 mg tablet 10 mg PO TID PRN muscle spasm #10 10/02/22 tabs oseltamivir 75 mg capsule (Tamiflu) 75 mg PO Q12H 5 days #10 caps 10/02/22 Allergies Allergy/AdvReac Type Severity Reaction Status Date / Time sumatriptan [From IMITREX] Allergy Severe PALPITAITONS, Verified 08/24/22 10:48 palpitations aspirin [ASA] Allergy Intermediate HIVES, rash Verified 08/24/22 10:48 ibuprofen [IBUPROFEN] Allergy Unknown LIP Verified 08/24/22 10:48 SWELLING/RASH rizatriptan Allergy Unknown swelling, Verified 08/24/22 10:48 pruritus Review of Systems Review of Systems: Yes all other systems are reviewed and are negative Constitutional: Constitutional: Reports no additional constitutional complaints, Reports body ache(s), Denies chills, Denies fever(s), Denies headache(s) and Denies weakness Eyes: Eyes: Reports no additional eye complaints and Denies change in vision ENT: Reports system reviewed and no additional complaints, except as documented, Denies dizziness, Denies headache(s), Denies nasal congestion, Denies nasal discharge and Denies neck pain Cardiovascular: Cardiovascular: Reports no additional cardiovascular complaints, Denies chest pain, Denies leg edema and Denies dyspnea Respiratory: Respiratory: Reports no additional respiratory complaints, Reports cough and Denies dyspnea Gastrointestinal: Gastrointestinal: Reports no additional gastrointestinal complaints, Reports abdominal pain, Denies diarrhea, Reports nausea and Denies vomiting Genitourinary: Genitourinary: Reports no additional female genitourinary complaints and Denies urinary incontinence Musculoskeletal: Musculoskeletal: Reports no additional musculoskeletal complaints, Denies back pain, Reports arthralgias, Denies joint swelling, Denies neck pain, Denies numbness and Denies tingling Integumentary/Breasts: Skin/Breast: Reports system reviewed and no additional complaints, except as docu and Denies rash Neurologic: Reports system reviewed and no additional complaints, except as documented, Denies Abnormal speech present, Denies dizziness, Denies headache(s), Denies numbness, Denies tingling and Denies weakness PMFSH Past Medical History Attestation statement: The following information was validated with the patient. Source: old records reviewed and nursing notes reviewed Medical History Obesity Surgical History History of section Family History Family History Mother No problems noted. Father No problems noted. Social History Social History Housing: House Alcohol intake: never Patient Tobacco Use Status: Never used Tobacco Tobacco use type: Cigarette e-Cigarette/Vaping Use: Never Used Second Hand Smoke Exposure: No Advance Directives: No Advance Directives Information Provided: No Current occupational status: employed Current occupation: [employer] Cognitive needs: No Hearing needs: No Vision needs: No Physical Exam Vital Signs: Vital Signs: Last Vital Signs Temp 98.4 F 10/02/22 18:49 Pulse 128 H 10/02/22 18:47 Resp 18 10/02/22 16:48 BP 137/85 10/02/22 16:48 Pulse Ox 97 10/02/22 18:47 O2 Del Method 10/02/22 18:47 BMI result Body Mass Index 34.5 Const: General: cooperative, healthy appearing, comfortable and no acute distress Orientation/consciousness: patient oriented x3 Limitations: no limitations HEENT: Head: Yes normal to inspection Ears: hearing grossly normal bilaterally and TM's normal bilaterally General nose exam: Normal external nose present Face and sinus: Yes normal facial exam Mouth: Normal oral and palatal mucosa present Throat: Yes posterior oropharynx normal, Yes tonsils normal and Yes uvula midline Eyes: General: appearance normal, both eyes and all related structures Pupils: Equal, round and reactive pupils present Neck: Neck: Yes normal visual inspection Chest: Chest palpation & inspection: normal inspection of the chest Resp: Effort & Inspection: normal respiratory effort Auscultation: clear to auscultation bilaterally Cardio: Rate: tachycardic Rhythm: regular rhythm Peripheral pulses: Peripheral pulses 2+ throughout GI: Inspection: Yes normal to inspection Palpation (GI): Soft to palpation and nontender Auscultation: normal bowel sounds Back/Spine/Pelvis: Thoracic/Lumbar Spine: thoracic and lumbar spine normal to inspection Skin: General skin exam: no rashes or lesions noted Neuro: General: patient oriented x3, no focal motor deficits and normal sensation to monofilament Cranial nerves: Yes Equal, round and reactive pupils present Cognition (Neuro): normal cognition Speech: No Abnormal speech present Gait exam (Neuro): Normal gait present Motor exam (neuro): 5/5 motor strength present throughout Extrem: Other: There is some tenderness the left anterior and medial knee with no obvious swelling, warmth or redness. There is full range of motion of the knee. There is no appreciable ligamental laxity. There are palpable DP and PT pulses distally. Full range of motion of foot and ankle distally to the injury. No calf swelling or calf pain. Negative Swenson test General: Yes normal to inspection, Yes no pedal edema and Yes no calf tenderness Course Course Course Narrative: This is a rapid medical exam. Deferred additional HPI, ROS, PE to the primary provider. Patient presents with abdominal pain, nausea, coughing, body aches the last 2 days. Her son is sick with the flu. Also while walking yesterday felt a popping sensation in her left knee and now has worsening pain in the left knee. Will send testing for flu, COVID, RSV. Will check x-rays of left knee. Patient has a low-grade fever tachycardia triage. Will give Tylenol and re- assess. Reevaluation(s) Reevaluation #1: X-ray is negative for any acute fracture of the knee. Likely sprain. Patient placed in Ko wrap and given crutches for home. Recommend rice. Patient's flu swab is positive for influenza A. Patient wants Tamiflu. Patient is aware side effects or vomiting, diarrhea and upset stomach. Patient is mildly tachycardic with heart rate of 120. Patient reports she is in a lot of pain all over her body and her knee and this is why she feels her heart rate is elevated. Offered IV and IV fluids the patient declined. Will discharge home with Tamiflu, Fle xeril for pain. Reviewed worrisome signs and symptoms when to return to the emergency room. Comfortable plan for discharge home. Medications Administered Discontinued Medications Generic Name Dose Route Start Last Admin Trade Name Freq PRN Reason Stop Dose Admin Acetaminophen 975 mg 10/02/22 16:51 10/02/22 16:55 Acetaminophen 325 Mg Tablet PO 10/02/22 16:52 975 mg ONCE ONE Administration MDM - URI/Sore Throat MDM Narrative Medical decision making narrative: 42-year-old female here with flu-like symptoms for 2 days with exposure to flu as well as left knee pain after an injury which occurred 3 days ago. Will check x-ray of knee, send testing for flu, COVID, RSV. Consider viral syndrome, influenza, sprain versus fracture Low concern for PE Medical Records Attestation: I reviewed the patient's medical records. Lab Data Attestation: I reviewed the patient's lab results. Labs: Lab Results 10/02/22 Range/Units 16:57 Influenza Type A (PCR) POSITIVE A (Negative) Influenza Type B (PCR) NEGATIVE (Negative) RSV RNA Qual (PCR) NEGATIVE (Negative) SARS-CoV-2 RNA (RT-PCR) NEGATIVE (Negative) Imaging Data knee x-ra: Attestation: I personally reviewed and interpreted this imaging study as follows: Radiologist's impression: [facility] [address] [place] [address] XRay Report Signed Patient: Maru Rudd MR#: [id number] : 1980 Acct:[id number] Age/Sex: 42 / F ADM Date: 10/02/22 Loc: HO.ED Attending Dr: Ordering Physician: Shanti Farah NP Date of Service: 10/02/22 Procedure(s): XR knee LT 3V Accession Number(s): [id number] cc: Shanti Faarh NP~ EXAMINATION: XR KNEE, LEFT CLINICAL INFORMATION: Injury, left knee pain? COMPARISON: None? TECHNIQUE: Four views of the left knee. FINDINGS: Bones and soft tissues are normal. No fracture or joint effusion. Alignment is anatomic. Joint spaces are well maintained. No abnormal soft tissue calcification.? XR/XR knee LT 3V IMPRESSION: Normal left knee. ? Discharge Plan Discharge Clinical Impression: Influenza A, Left knee sprain Patient Disposition: Home, Self-Care Instructions: Knee Sprain (ED), Influenza (ED) Additional Instructions: Testing for flu is positive. Testing for COVID and RSV are negative. Alternate Tylenol for pain or fever. Increase fluids, rest Your x-rays of her knee show no fracture. This is likely sprain. Ice to the area, use Ko wrap and crutches for discomfort. Follow-up with primary care doctor for continued symptoms Prescriptions: New oseltamivir [Tamiflu] 75 mg capsule 75 mg PO Q12H 5 Days Qty: 10 0RF cyclobenzaprine 10 mg tablet 10 mg PO TID PRN (Reason: muscle spasm) Qty: 10 0RF No Action montelukast 10 mg tablet 10 mg PO DAILY Qty: 30 7RF sennosides [Senna Lax] 8.6 mg tablet 17.2 mg PO BEDTIME 15 Days Qty: 30 0RF omeprazole 20 mg capsule,delayed release(DR/EC) 20 mg PO DAILY 90 Days Qty: 90 3RF amitriptyline 50 mg tablet 50 mg PO BEDTIME 30 Days Qty: 30 3RF vgmvqwvuox-ncpuamhydrspw-tzlf 50-325-40 mg capsule 1 cap PO Q6H PRN (Reason: pain) 4 Days Qty: 16 0RF tizanidine 4 mg tablet 4 mg PO Q8H PRN (Reason: muscle spasticity) Qty: 60 3RF ibuprofen 800 mg tablet 800 mg PO Q8H 10 Days Qty: 30 0RF Referrals: Physician,Unknown J [Primary Care Provider] - Interventions: ED Discharge Assessment Last Done: 10/02/22 19:45 Discharge Date/Time: 10/02/22 19:45 Print Language: Swedish
[2022-10-02] MEDS: Acetaminophen 325 MG TABLET 975 MG PO (16:55)
[2022-10-02 17:53] LABS: Influenza A PCR POSITIVE (Negative); Influenza B PCR NEGATIVE (Negative); Resp Syncy Virus RNA Qual PCR NEGATIVE (Negative); SARS COV2 PCR INHOUSE NEGATIVE (Negative)
[2022-10-02 18:47] VITALS: PULSE 128; O2SAT 97
[2022-10-02 18:49] VITALS: TEMP 36.9
== END 2022-10-02 19:45 | disposition home or self-care (01) ==
PROVIDERS: Nurse Practitioner Family; Emergency Provider Internal Medicine
DX: J10.1 Influenza due to other identified influenza virus with other respiratory manifestations (principal); M79.10 Myalgia, unspecified site; R05.9 Cough, unspecified; R10.9 Unspecified abdominal pain; M25.562 Pain in left knee; Z20.822 Contact with and (suspected) exposure to COVID-19
CPT/HCPCS: 0241U; 73562; 99283

== ENCOUNTER 2023-01-25 11:18 | Outpatient (REF) | payer OTHER, SELFPAY ==
--- NOTE | ~2023-01-25 | MM_ITS ---
EXAMINATION: MM SCREENING DIGITAL BREAST TOMOSYNTHESIS, BILATERAL CLINICAL INFORMATION: Screening. Asymptomatic. The lifetime risk of breast cancer based on the Tyrer-Cuzick Model is 9%. COMPARISON: Mammography: 01/19/2022 (baseline) TECHNIQUE: Digital breast tomosynthesis is performed in both the craniocaudal and mediolateral oblique views along with computer-aided detection (CAD). Synthesized 2D images are generated from the tomosynthesis. FINDINGS: There are scattered areas of fibroglandular density (ACR BI-RADS breast composition Category b). There are no significant masses, abnormal calcifications, or other abnormalities. Parenchymal pattern is similar to prior baseline exam. There is no architectural abnormality. The axilla and skin contours are unremarkable. No significant changes. MM/MM tomosynthesis screening BI IMPRESSION: No mammographic evidence of malignancy. ASSESSMENT: BI-RADS 1: Negative RECOMMENDATION: Routine annual mammography screening. This patient's information was entered into a reminder system with a target due date for their next mammogram.
== END 2023-01-25 11:19 | disposition home or self-care (01) ==
LOC: HO.MAMMO 11:18
PROVIDERS: Visit Provider Physician Assistant
DX: Z12.31 Encounter for screening mammogram for malignant neoplasm of breast (principal)
CPT/HCPCS: 77063; 77067

== ENCOUNTER 2023-04-12 18:28 | Emergency (ER) | payer OTHER, SELFPAY ==
[2023-04-12 18:33] VITALS: BP 138/81; PULSE 95; RESP 18; TEMP 36.6; O2SAT 100; BMI 39.1
--- NOTE | 2023-04-12 18:35 | ED_ITS ---
HPI - Headache General Chief Complaint: Headache Stated Complaint: nausea, migraine Time Seen by Provider: 04/12/23 19:31 Related Data Previous Rx's Medication Instructions Recorded montelukast 10 mg tablet 10 mg PO DAILY #30 tabs 08/22/20 sennosides 8.6 mg tablet (Senna 17.2 mg PO BEDTIME 15 days #30 tabs 08/26/21 Lax) cfjfximzbf-inatsyosmirnr-hiorjctf 1 cap PO Q6H PRN pain 4 days #16 10/25/21 50 mg-325 mg-40 mg capsule caps ibuprofen 800 mg tablet 800 mg PO Q8H 10 days #30 tabs 08/24/22 tizanidine 4 mg tablet 4 mg PO Q8H PRN muscle spasticity 08/24/22 #60 tabs cyclobenzaprine 10 mg tablet 10 mg PO TID PRN muscle spasm #10 10/02/22 tabs oseltamivir 75 mg capsule (Tamiflu) 75 mg PO Q12H 5 days #10 caps 10/02/22 omeprazole 20 mg capsule,delayed 20 mg PO DAILY 90 days #90 caps 02/11/23 release dfzeoploln-lkdafqnbhomfa-hxmkubii 2 cap PO Q4-6H PRN pain #10 caps 04/12/23 50 mg-300 mg-40 mg capsule (Fioricet) metoclopramide HCl 5 mg tablet 5 mg PO TID PRN nausea and 04/12/23 (Reglan) vomiting #10 tabs amitriptyline 50 mg tablet 50 mg PO BEDTIME 30 days #30 tabs 04/13/23 Allergies Allergy/AdvReac Type Severity Reaction Status Date / Time sumatriptan [From IMITREX] Allergy Severe PALPITAITONS, Verified 08/24/22 10:48 palpitations aspirin [ASA] Allergy Intermediate HIVES, rash Verified 08/24/22 10:48 ibuprofen [IBUPROFEN] Allergy Unknown LIP Verified 08/24/22 10:48 SWELLING/RASH rizatriptan Allergy Unknown swelling, Verified 08/24/22 10:48 pruritus PMFSH Past Medical History Medical History Obesity Surgical History History of section Family History Family History Mother No problems noted. Father No problems noted. Social History Social History Housing: House Alcohol intake: never Patient Tobacco Use Status: Never used Tobacco Tobacco use type: Cigarette e-Cigarette/Vaping Use: Never Used Second Hand Smoke Exposure: No Advance Directives: No Advance Directives Information Provided: No Current occupational status: employed Current occupation: [employer] Cognitive needs: No Hearing needs: No Vision needs: No Physical Exam Vital Signs: Vital Signs: Last Vital Signs Temp 97.0 F 04/12/23 21:47 Pulse 90 04/12/23 21:47 Resp 16 04/12/23 21:47 BP 106/94 H 04/12/23 21:47 Pulse Ox 98 04/12/23 21:47 O2 Del Method Room Air 04/12/23 21:47 BMI result Body Mass Index 39.1 Course Course Course Narrative: RME - 42 yo female with a hx of migraines presents to the ER for migraines. She reports that she has had a headache that started yesterday. She reports weakness, epigastric pain, nausea and vomiting that occurred once. She reports these symptoms are similar to her other migraines in the past. She states she takes fioricet for her migraines but reports that is was unhelpful. Plan: basic labs, lipase Medications Administered Discontinued Medications Generic Name Dose Route Start Last Admin Trade Name Duncanq PRN Reason Stop Dose Admin Diphenhydramine HCl 25 mg 04/12/23 19:47 04/12/23 20:10 Diphenhydramine Hcl 50 Mg/Ml Vial IVPUSH 04/12/23 19:48 25 mg ONCE ONE Administration Sodium Chloride 1,000 mls @ 999 mls/hr 04/12/23 19:47 04/12/23 21:01 Ns IVCONT 04/12/23 20:47 Infused .Q1H1M ONE Infusion Metoclopramide HCl 10 mg 04/12/23 19:47 04/12/23 20:10 Metoclopramide Hcl 10 Mg/2 Ml Vial IVPUSH 04/12/23 19:48 10 mg ONCE ONE Administration Morphine Sulfate 4 mg 04/12/23 19:47 04/12/23 20:10 Morphine Sulfate 4 Mg/Ml Cartridge IVPUSH 04/12/23 19:48 4 mg ONCE ONE Administration Protocol Medical Decision Making Medical Decision Making MDM Narrative: -patient received IV fluids, 4 mg of morphine, 10 mg of Reglan and 25 mg of Benadryl -patient states that she feels completely back to normal, no headache at all. Lab Data 04/12/23 18:55 04/12/23 18:55 Labs: Lab Results 04/12/23 04/12/23 Range/Units 18:55 18:55 WBC 5.1 (4.8-10.8) X10*3/uL RBC 4.45 (4.20-5.50) X10*6/uL Hgb 12.5 (12.0-16.0) g/dl Hct 38.9 (37.0-47.0) % MCV 87.4 (80.0-98.0) fL MCH 28.1 (27.0-33.0) pg MCHC 32.1 (31.0-35.0) g/dl RDW 13.3 (11.0-16.0) % Plt Count 247 (160-400) X10*3/uL MPV 10.8 (9.4-12.3) fL Immature Gran % (Auto) 0.2 (0.0-0.4) % Neut % (Auto) 64.9 (45-73) % Lymph % (Auto) 21.6 (20-40) % [place] % (Auto) 8.3 (2-11) % Eos % (Auto) 4.6 H (0-4) % Baso % (Auto) 0.4 (0-2) % Lymph # (Auto) 1.1 L (1.2-4.9) X10*3/uL [place] # (Auto) 0.4 (0.1-1.2) X10*3/uL Eos # (Auto) 0.2 (0.0-0.4) X10*3/uL Baso # (Auto) 0.0 (0.0-0.2) X10*3/uL Abs Immat Gran (auto) 0.01 (0.00-0.03) X10*3/uL Absolute Neuts (auto) 3.3 (2.0-8.3) x10*3/uL Absolute Nucleated RBC 0.000 (0.0-0.012) X10*3/uL Nucleated RBC % (auto) 0.0 (0.0-0.2) /100WBC Sodium 140 (135-145) mmol/L Potassium 3.9 (3.3-5.1) mmol/L Chloride 107 (96-108) mmol/L Carbon Dioxide 25 (22-29) mmol/L Anion Gap 12 (12-20) BUN 11 (9-16) mg/dL Creatinine 0.64 (0.5-1.4) mg/dL Estim Creat Clear Calc 115.0 Estimated GFR > 60 Random Glucose 141 H (60-115) mg/dL Calcium 8.8 (8.4-10.2) mg/dL Magnesium 1.8 (1.6-2.6) mg/dL Total Bilirubin 0.4 (0.0-1.0) mg/dL Direct Bilirubin 0.1 (0.0-0.5) mg/dL AST 17 (5-31) U/L ALT 22 (0-31) U/L Alkaline Phosphatase 152 H (39-117) U/L Total Protein 7.3 (6.5-8.0) g/dL Albumin 3.6 (3.5-5.0) g/dL Lipase 41 (8-78) U/L Discharge Plan Discharge Clinical Impression: Migraine headache Patient Disposition: Home, Self-Care Instructions: Migraine Headache (ED) Additional Instructions: Please follow-up with your primary care physician tomorrow. If you have any worsening or new symptoms, please return to the emergency room or call 911 Prescriptions: New oxgdvrcldh-pmvivpkghojfo-kbmu [Fioricet] 50-300-40 mg capsule 2 cap PO Q4-6H PRN (Reason: pain) Qty: 10 0RF Rx Instructions: do not exceed 6 caps per day metoclopramide HCl [Reglan] 5 mg tablet 5 mg PO TID PRN (Reason: nausea and vomiting) Qty: 10 0RF Rx Instructions: Take together with Fioricet No Action montelukast 10 mg tablet 10 mg PO DAILY Qty: 30 7RF sennosides [Senna Lax] 8.6 mg tablet 17.2 mg PO BEDTIME 15 Days Qty: 30 0RF omeprazole 20 mg capsule,delayed release(DR/EC) 20 mg PO DAILY 90 Days Qty: 90 3RF amitriptyline 50 mg tablet 50 mg PO BEDTIME 30 Days Qty: 30 3RF oseltamivir [Tamiflu] 75 mg capsule 75 mg PO Q12H 5 Days Qty: 10 0RF cyclobenzaprine 10 mg tablet 10 mg PO TID PRN (Reason: muscle spasm) Qty: 10 0RF xttaoalcts-exuexamvtnvuo-wkhm 50-325-40 mg capsule 1 cap PO Q6H PRN (Reason: pain) 4 Days Qty: 16 0RF tizanidine 4 mg tablet 4 mg PO Q8H PRN (Reason: muscle spasticity) Qty: 60 3RF ibuprofen 800 mg tablet 800 mg PO Q8H 10 Days Qty: 30 0RF Interventions: ED Discharge Assessment Last Done: 04/12/23 21:56 Discharge Date/Time: 04/12/23 21:57
[2023-04-12 18:59] LABS: MANUAL DIFF FLAG NO
[2023-04-12 19:01] LABS: Basophils Percent Auto 0.4 % (0-2); Eosinophils Absolute Auto 0.2 X10*3/uL (0.0-0.4); Eosinophils Percent Auto 4.6 % (0-4); Hematocrit 38.9 % (37.0-47.0); Hemoglobin 12.5 g/dl (12.0-16.0); Imm Gran Abs Auto 0.01 X10*3/uL (0.00-0.03); Imm Gran Pct Auto 0.2 % (0.0-0.4); Lymphocytes Absolute Auto 1.1 X10*3/uL (1.2-4.9); Lymphocytes Percent Auto 21.6 % (20-40); Mean Corpuscular HGB Conc 32.1 g/dl (31.0-35.0); Mean Corpuscular Hemoglobin 28.1 pg (27.0-33.0); Mean Corpuscular Volume 87.4 fL (80.0-98.0); Mean Platelet Volume 10.8 fL (9.4-12.3); Monocytes Absolute Auto 0.4 X10*3/uL (0.1-1.2); Monocytes Percent Auto 8.3 % (2-11); Neutrophils Absolute Auto 3.3 x10*3/uL (2.0-8.3); Neutrophils Percent Auto 64.9 % (45-73); Platelet Count 247 X10*3/uL (160-400); Red Blood Count 4.45 X10*6/uL (4.20-5.50); Red Cell Distribution Width 13.3 % (11.0-16.0); White Blood Count 5.1 X10*3/uL (4.8-10.8)
[2023-04-12 19:20] LABS: Alanine Aminotransferase 22 U/L (0-31); Albumin Level 3.6 g/dL (3.5-5.0); Alkaline Phosphatase 152 U/L (39-117); Anion Gap 12 (12-20); Aspartate Amino Transferase 17 U/L (5-31); Bilirubin Direct 0.1 mg/dL (0.0-0.5); Bilirubin Total 0.4 mg/dL (0.0-1.0); Blood Urea Nitrogen 11 mg/dL (9-16); Calcium 8.8 mg/dL (8.4-10.2); Carbon Dioxide 25 mmol/L (22-29); Chloride 107 mmol/L (96-108); Estimated Glomerular Filt Rate > 60; Glucose Random 141 mg/dL (60-115); Lipase 41 U/L (8-78); Magnesium 1.8 mg/dL (1.6-2.6); Potassium 3.9 mmol/L (3.3-5.1); Sodium 140 mmol/L (135-145); Total Protein 7.3 g/dL (6.5-8.0)
[2023-04-12 19:42] VITALS: BP 127/76; PULSE 90; RESP 16; TEMP 37; O2SAT 98
--- NOTE | 2023-04-12 19:43 | MHC.EDTECH ---
THIS PCT JUST ASSUMED CARE OF PT ,VITALS SIGN TAKEN ,PT RESTING QUIETLY IN BED .
[2023-04-12] MEDS: 0.9 % Sodium Chloride 1,000 ML 999 ML IVCONT (20:09)
[2023-04-12] MEDS: Metoclopramide HCl 10 MG/2 ML VIAL IVPUSH (20:10)
[2023-04-12] MEDS: diphenhydrAMINE HCL 50 MG/ML VIAL 25 MG IVPUSH (20:10)
[2023-04-12] MEDS: Morphine Sulfate 4 MG/ML CARTRIDGE IVPUSH (20:10)
[2023-04-12 21:47] VITALS: BP 106/94; PULSE 90; RESP 16; TEMP 36.1; O2SAT 98
== END 2023-04-12 21:57 | disposition home or self-care (01) ==
PROVIDERS: Physician Assistant; Emergency Provider Emergency Medicine; PCP Physician Assistant
DX: G43.909 Migraine, unspecified, not intractable, without status migrainosus (principal); R10.13 Epigastric pain; R11.2 Nausea with vomiting, unspecified
CPT/HCPCS: 36415; 80048; 80076; 83690; 83735; 85025; 96361; 96374; 96375; 99283; 99284; J1200; J2270; J2765

== ENCOUNTER 2023-06-14 12:39 | Emergency (ER) | payer OTHER, SELFPAY ==
[2023-06-14 12:45] VITALS: BP 151/86; PULSE 75; RESP 20; TEMP 36.7; O2SAT 98; BMI 35.1
--- NOTE | 2023-06-14 12:45 | ED_ITS ---
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 Patient states that she has had a migraine with nausea and vomiting over the last 2 days. Patient states that when this happen she usually gets reglan, morphine, and benadryl and that helps. Patient denies any dizziness, lightheadedness, abdominal pain, fever, chills, blurry vision, double vision, loss of vision, chest pain, difficulty breathing, shortness of breath, back pain, night sweats, pain with urination, increased urinary frequency, increased urinary urgency, blood in her urine or stool, syncope or a near syncopal episode, recent trauma or falls, bowel incontinence, bladder inco ntinence, bowel retention, bladder retention, or any other complaints at this time. MD elicited complaint: migraine Onset (ago): day(s) (2) Severity: mild Quality & Timing: aching Exacerbating factors: none Relieving factors: nothing Associated symptoms: nausea and vomiting Treatments prior to arrival: none Related Data Previous Rx's Medication Instructions Recorded montelukast 10 mg tablet 10 mg PO DAILY #30 tabs 08/22/20 ylaljgfmgv-vgvvtdchtbpwh-cstdzxth 1 cap PO Q6H PRN pain 4 days #16 10/25/21 50 mg-325 mg-40 mg capsule caps ibuprofen 800 mg tablet 800 mg PO Q8H 10 days #30 tabs 08/24/22 tizanidine 4 mg tablet 4 mg PO Q8H PRN muscle spasticity 08/24/22 #60 tabs cyclobenzaprine 10 mg tablet 10 mg PO TID PRN muscle spasm #10 10/02/22 tabs oseltamivir 75 mg capsule (Tamiflu) 75 mg PO Q12H 5 days #10 caps 10/02/22 omeprazole 20 mg capsule,delayed 20 mg PO DAILY 90 days #90 caps 02/11/23 release xvigefexzc-mkhvgrozozouq-ukcncbeg 2 cap PO Q4-6H PRN pain #10 caps 04/12/23 50 mg-300 mg-40 mg capsule (Fioricet) metoclopramide HCl 5 mg tablet 5 mg PO TID PRN nausea and 04/12/23 (Reglan) vomiting #10 tabs amitriptyline 50 mg tablet 50 mg PO BEDTIME 30 days #30 tabs 04/19/23 sennosides 8.6 mg tablet (Senna 17.2 mg PO BEDTIME 15 days #30 tabs 04/19/23 Lax) Allergies Allergy/AdvReac Type Severity Reaction Status Date / Time sumatriptan [From IMITREX] Allergy Severe PALPITAITONS, Verified 08/24/22 10:48 palpitations aspirin [ASA] Allergy Intermediate HIVES, rash Verified 08/24/22 10:48 ibuprofen [IBUPROFEN] Allergy Unknown LIP Verified 08/24/22 10:48 SWELLING/RASH rizatriptan Allergy Unknown swelling, Verified 08/24/22 10:48 pruritus Review of Systems Constitutional: Constitutional: Reports no additional constitutional co mplaints, Denies chills, Denies fever(s), Reports headache(s) and Denies night sweats Eyes: Eyes: Reports no additional eye complaints, Denies blurry vision, Denies change in vision, Denies diplopia, Denies eye discharge, Denies loss of vision and Denies eye pain ENT: Denies dizziness and Reports headache(s) Cardiovascular: Cardiovascular: Reports no additional cardiovascular complaints, Denies chest pain, Denies lightheadedness, Denies Loss of Consciousness and Denies dyspnea Respiratory: Respiratory: Reports no additional respiratory complaints and Denies dyspnea Gastrointestinal: Gastrointestinal: Reports no additional gastrointestinal complaints, Denies abdominal pain, Denies melena, Denies hematochezia, Denies change in bowel habits, Denies change in stool character, Reports nausea and Reports vomiting Genitourinary: Genitourinary: Denies hematuria, Denies urinary frequency, Denies dysuria, Denies urinary incontinence, Denies urinary hesitancy and Denies urinary urgency Musculoskeletal: Musculoskeletal: Reports no additional musculoskeletal complaints, Denies numbness and Denies tingling Neurologic: Denies dizziness, Reports headache(s), Denies loss of vision, Denies numbness and Denies tingling Psychiatric: Psychiatric: Reports no additional psychiatric complaints Endocrine: Endocrine: Reports no additional endocrine complaints Hematologic/Lymphatic: Hematologic/Lymphatic: Reports no additional hematologic/lymphatic complaints Allergic/Immunologic: Allergic/Immunologic: Reports no additional allergic/immunologic complaints PMFSH Past Medical History Attestation statement: The following information was validated with the patient. Source: old records reviewed and nursing notes reviewed Medical History Abnormal urine odor Annual physical exam Back pain Bad odor of urine Breast cancer screening Cervical cancer screening Cervical spine pain Constipation Finger infection Lumbar pain Lumbar spine pain Neck pain Obesity Pre-syncope Right foot pain Screening for diabetes mellitus (DM) Screening for hypercholesterolemia Screening for hypothyroidism Surgical History History of section Family History Family History Mother No problems noted. Father No problems noted. 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 Cognitive needs: No Hearing needs: No Vision needs: No Physical Exam Vital Signs: Vital Signs: Last Vital Signs Temp 97.7 F 06/14/23 15:16 Pulse 58 06/14/23 15:16 Resp 16 06/14/23 15:16 BP 139/82 06/14/23 15:16 Pulse Ox 100 06/14/23 15:16 O2 Del Method Room Air 06/14/23 15:16 BMI result Body Mass Index 35.1 Const: General: cooperative, no acute distress, alert and awake Nutritional Appearance: well nourished Orientation/consciousness: patient oriented x3 Limitations: no limitations HEENT: Head: Yes normal to inspection and Yes atraumatic Ears: hearing grossly normal bilaterally and external ears normal General nose exam: Normal external nose present, no nasal discharge noted and no epistaxis Face and sinus: Yes normal facial exam, No abrasion and No laceration Mouth: Normal oral and palatal mucosa present, no drooling and no muffled voice Eyes: General: appearance normal, both eyes and all related structures Periorbital: periorbital findings normal Eyelids: Yes eyelids normal Conjunctivae: conjunctivae normal Pupils: Equal, round and reactive pupils present EOM: EOMs intact bilaterally Neck: Neck: Yes normal visual inspection, Yes full ROM and Yes no lympha denopathy Chest: Chest palpation & inspection: normal inspection of the chest Resp: Effort & Inspection: normal respiratory effort and able to speak in complete sentences Auscultation: clear to auscultation bilaterally Cardio: Rate: regular rate Rhythm: regular rhythm GI: Inspection: Yes normal to inspection Palpation (GI): Soft to palpation, not firm, nontender and no guarding Neuro: General: patient oriented x3 and moves all extremities Cranial nerves: Yes Equal, round and reactive pupils present Cognition (Neuro): normal cognition Motor exam (neuro): 5/5 motor strength present throughout Sensory Exam: Normal double simultaneous stimulation for sensation Coordination: uguwip-oc-sbdx test normal Extrem: General: Yes normal to inspection, Yes full ROM and Yes capillary refill normal Psych: Appearance: grossly normal Mental Status: mental status grossly normal Affect: normal affect Attitude: cooperative Thought process: Normal thought process present Thought content: Normal thought content present Insight: Good insight present (Psych) Course Course Course Narrative: RME: 59yo F w/PMHx migraines, c/o migraine PACHECO w/nausea, vomiting, photophobia, x2 days. Admits takes Fioricet at home however ran out of prescription last month, has not taken anything today. Denies vision change/loss [facility] [employer] [facility] ordered Full HPI, ROS and PE to be performed by primary ED provider. Medications Administered Discontinued Medications Generic Name Dose Route Start Last Admin Trade Name Duncanq PRN Reason Stop Dose Admin Acetaminophen/Butalbital/Caffeine 2 tab 06/14/23 12:50 06/14/23 13:31 Butalb/Acetamin/Caff 50/325/40 Tablet PO 06/14/23 12:51 2 tab ONCE ONE Administration Diphenhydramine HCl 50 mg 06/14/23 13:47 06/14/23 14:23 Diphenhydramine Hcl 50 Mg/Ml Vial IVPUSH 06/14/23 13:48 50 mg ONCE ONE Administration Sodium Chloride 1,000 mls @ 999 mls/hr 06/14/23 14:00 06/14/23 15:13 Ns IV 06/14/23 15:00 Infused .Q1H1M TANVI Infusion Metoclopramide HCl 10 mg 06/14/23 13:47 06/14/23 14:34 Metoclopramide Hcl 10 Mg/2 Ml Vial IVPUSH 06/14/23 13:48 10 mg ONCE ONE Administration Morphine Sulfate 4 mg 06/14/23 13:47 06/14/23 14:19 Morphine Sulfate 4 Mg/Ml Cartridge IVPUSH 06/14/23 13:48 4 mg ONCE ONE Administration Protocol Ondansetron HCl 4 mg 06/14/23 12:50 06/14/23 13:30 Ondansetron Odt 4 Mg Tab.Rapdis TRANSLINGU 06/14/23 12:51 4 mg ONCE ONE Administration Medical Decision Making Medical Decision Making [facility] Narrative: Patient is a 42 year old assigned female at with a history of migraines presenting to the emergency department today with a migraine headache. Patient's physical exam was unremarkable. I explained my physical exam findings to the patient. I answered all questions asked by the patient. Patient received morphine, reglan, and benadryl which, upon reevaluation, she stated helped her symptoms significantly. I stressed the importance of the patient taking her medication as prescribed. I stressed the importance of the patient following up with her primary care provider and a neurologist. I stressed the importance of the patient returning to the emergency department immediately if her symptoms were to worsen or if she were to develop any dizziness, shortness of breath, difficulty breathing, chest pain, blurry vision, loss of vision, nausea, vomit ing, abdominal pain, fever, chills, back pain, or any other complaints. Patient verbalized agreement and understanding with this treatment plan and discharge. Chronic Conditions Patient?s care impacted by: Other (migraines) Critical Care Time Critical Care Time Critical Care Time: Yes Total Critical Care Time: 40 Attestation: I spent 40 minutes of Critical Care Time with this patient. This does not inc lude time spent on separately reported billable procedures. Discharge Plan Discharge Clinical Impression: Migraine Patient Disposition: Home, Self-Care Instructions: Migraine Headache (ED) Additional Instructions: Follow up with your primary care provider and a neurologist. Return to the emergency department immediately if your symptoms worsen or if you develop any dizziness, shortness of breath, difficulty breathing, chest pain, blurry vision, loss of vision, nausea, vomiting, abdominal pain, fever, chills, back pain, or any other complaints. Kelly un seguimiento con panchal proveedor de atenci?n primaria y un neur?logo. Regrese al departamento de emergencias de inmediato si becky s?ntomas empeoran o si presenta mareos, falta de aire, dificultad para respirar, dolor de pecho, visi?n borrosa, p?rdida de la visi?n, n?useas, v?mitos, dolor abdominal, fiebre, escalofr?os, dolor de espalda o cualquier otras quejas. Prescriptions: No Action montelukast 10 mg tablet 10 mg PO DAILY Qty: 30 7RF omeprazole 20 mg capsule,delayed release(DR/EC) 20 mg PO DAILY 90 Days Qty: 90 3RF amitriptyline 50 mg tablet 50 mg PO BEDTIME 30 Days Qty: 30 3RF sennosides [Senna Lax] 8.6 mg tablet 17.2 mg PO BEDTIME 15 Days Qty: 30 3RF oseltamivir [Tamiflu] 75 mg capsule 75 mg PO Q12H 5 Days Qty: 10 0RF cyclobenzaprine 10 mg tablet 10 mg PO TID PRN (Reason: muscle spasm) Qty: 10 0RF ziqreysmnn-vctxwtwyplesa-oqvr [Fioricet] 50-300-40 mg capsule 2 cap PO Q4-6H PRN (Reason: pain) Qty: 10 0RF Rx Instructions: do not exceed 6 caps per day metoclopramide HCl [Reglan] 5 mg tablet 5 mg PO TID PRN (Reason: nausea and vomiting) Qty: 10 0RF Rx Instructions: Take together with Fioricet nofnvqwbuf-bwgfwvfzjzypx-hyjo 50-325-40 mg capsule 1 cap PO Q6H PRN (Reason: pain) 4 Days Qty: 16 0RF tizanidine 4 mg tablet 4 mg PO Q8H PRN (Reason: muscle spasticity) Qty: 60 3RF ibuprofen 800 mg tablet 800 mg PO Q8H 10 Days Qty: 30 0RF Referrals: [facility] [place] Neuro/Sleep [Provider Group] (Call to establish and follow up with a neurologist. If you already have a neurologist, please follow up with them. Llame para establecer y sam seguimiento con un neur?logo. Si ya tiene un neur?logo, kelly un seguimiento con ?l.) Ryan Dhillon PA-C [Primary Care Provider] - Stand Alone Forms: Work/School Release Interventions: ED Discharge Assessment Last Done: 06/14/23 15:26 Print Language: Sami
[2023-06-14] MEDS: Ondansetron ODT 4 MG TAB.RAPDIS TRANSLINGU (13:30)
[2023-06-14] MEDS: Butalb/Acetamin/Caff 50/325/40 TABLET 2 TAB PO (13:31)
[2023-06-14] MEDS: 0.9 % Sodium Chloride 1,000 ML 999 ML IV (14:09)
[2023-06-14 14:19] VITALS: RESP 15
[2023-06-14] MEDS: Morphine Sulfate 4 MG/ML CARTRIDGE IVPUSH (14:19)
[2023-06-14] MEDS: diphenhydrAMINE HCL 50 MG/ML VIAL IVPUSH (14:23)
[2023-06-14] MEDS: Metoclopramide HCl 10 MG/2 ML VIAL IVPUSH (14:34)
[2023-06-14 15:16] VITALS: BP 139/82; PULSE 58; RESP 16; TEMP 36.5; O2SAT 100
== END 2023-06-14 15:26 | disposition home or self-care (01) ==
PROVIDERS: Emergency Provider Emergency Medicine; PCP Physician Assistant
DX: G43.909 Migraine, unspecified, not intractable, without status migrainosus (principal); R11.2 Nausea with vomiting, unspecified; Z79.899 Other long term (current) drug therapy
CPT/HCPCS: 96361; 96374; 96375; 99284; J1200; J2270; J2765

== ENCOUNTER 2023-08-22 13:29 | Outpatient (AMB) | payer OTHER, SELFPAY ==
[2023-08-22 13:59] VITALS: BP 132/80; PULSE 97; TEMP 36.7; O2SAT 98; BMI 36.4
--- NOTE | 2023-08-22 13:59 | AM.OFFWIN_ITS ---
Intake Vital Signs 08/22/23 13:59 Height 5 ft 2 in Weight 199 lb BMI 36.4 BP 132/80 Blood Pressure Location Lt brachial Position Sitting Pulse 97 Pulse Source Pulse Oximeter Temp 98.0 F Temp Source Temporal Artery Scan Pulse Oximetry (%) 98 Oxygen Delivery Method Room Air Intake Visit Reasons: EP, fatigue, upper back pain Intake Note: pt is here for c/o fatigue and upper back pain Patient Tobacco Use Status: Never used Tobacco Allergies sumatriptan [From IMITREX] Allergy (Severe, Verified 08/22/23 14:30) PALPITAITONS, palpitations aspirin [ASA] Allergy (Intermediate, Verified 08/22/23 14:30) HIVES, rash ibuprofen [IBUPROFEN] Allergy (Unknown, Verified 08/22/23 14:30) LIP SWELLING/RASH rizatriptan Allergy (Unknown, Verified 08/22/23 14:30) swelling, pruritus Medication List - Last Reconciled 08/22/23 by Raul Meredith MD amitriptyline 50 mg PO BEDTIME 30 days egwtozzrxs-dbieyhmerwpoa-hbqd 50-300-40 mg (Fioricet) 2 caps PO Q4-6H PRN ndyuoszwha-flyyirokhsipb-nifr 50-325-40 mg 1 cap PO Q6H PRN 4 days cyclobenzaprine 10 mg PO TID PRN ibuprofen 800 mg PO Q8H 10 days metoclopramide HCl (Reglan) 5 mg PO TID PRN montelukast 10 mg PO DAILY omeprazole 20 mg PO DAILY 90 days oseltamivir (Tamiflu) 75 mg PO Q12H 5 days sennosides (Senna Lax) 17.2 mg (2 x 8.6 mg) PO BEDTIME 15 days tizanidine 4 mg PO Q8H PRN Do you need a note to return to daycare/school/sports/work: Yes HPI EP, fatigue, upper back pain 2 HPI Details 43-year-old female presents to the [facility] for a sick visit. Patient is reporting lower back pain for the past week. Symptoms starts on the left lower side radiating up to the gluteal area. Worse on bending to the side. No history of fall or injury. [facility] Medical History Abnormal urine odor Annual physical exam Back pain Bad odor of urine Breast cancer screening Cervical cancer screening Cervical spine pain Constipation Finger infection Lumbar pain Lumbar spine pain Neck pain Obesity Pre-syncope Right foot pain Screening for diabetes mellitus (DM) Screening for hypercholesterolemia Screening for hypothyroidism Surgical History History of section Family History Mother No problems noted. Father No problems noted. 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 No paraspinal spasm present. Pain on right lateral flexion. Assessment & Plan Assessment & Plan (1) Lower thoracic back pain: Code(s): M54.6 - Pain in thoracic spine Plan Anti-inflammatories called in. Patient already has a prescription for tizanidine. I encouraged her to continue using it. Coding Level of Care Code Est Pt Level 3 (55973) Diagnoses Lower thoracic back pain M54.6
== END 2023-08-22 14:38 | disposition home or self-care (01) ==
PROVIDERS: PCP Physician Assistant; Visit Provider Internal Medicine
DX: M54.6 Pain in thoracic spine (principal)
CPT/HCPCS: 99213

== ENCOUNTER 2023-09-03 17:07 | Emergency (ER) | payer OTHER, SELFPAY ==
--- NOTE | 2023-09-03 17:14 | ED_ITS ---
HPI - Headache General Chief Complaint: Headache Stated Complaint: Migraine, nausea Time Seen by Provider: 09/03/23 17:33 Related Data Previous Rx's Medication Instructions Recorded montelukast 10 mg tablet 10 mg PO DAILY #30 tabs 08/22/20 vseleuribq-dndlmmsoxjblr-mtdeliun 1 cap PO Q6H PRN pain 4 days #16 10/25/21 50 mg-325 mg-40 mg capsule caps ibuprofen 800 mg tablet 800 mg PO Q8H 10 days #30 tabs 08/24/22 tizanidine 4 mg tablet 4 mg PO Q8H PRN muscle spasticity 08/24/22 #60 tabs cyclobenzaprine 10 mg tablet 10 mg PO TID PRN muscle spasm #10 10/02/22 tabs oseltamivir 75 mg capsule (Tamiflu) 75 mg PO Q12H 5 days #10 caps 10/02/22 omeprazole 20 mg capsule,delayed 20 mg PO DAILY 90 days #90 caps 02/11/23 release fvbvzshgmx-rutqimamryqkg-lbmzgbaj 2 cap PO Q4-6H PRN pain #10 caps 04/12/23 50 mg-300 mg-40 mg capsule (Fioricet) metoclopramide HCl 5 mg tablet 5 mg PO TID PRN nausea and 04/12/23 (Reglan) vomiting #10 tabs amitriptyline 50 mg tablet 50 mg PO BEDTIME 30 days #30 tabs 04/19/23 sennosides 8.6 mg tablet (Senna 17.2 mg (2 x 8.6 mg) PO BEDTIME 15 04/19/23 Lax) days #30 tabs meloxicam 15 mg tablet 15 mg PO DAILY #14 tabs 08/22/23 wgbbikipzv-tbsnzucjnodjs-afisjzld 1 cap PO Q4-6H PRN pain #14 caps 09/03/23 50 mg-300 mg-40 mg capsule (Fioricet) Allergies Allergy/AdvReac Type Severity Reaction Status Date / Time sumatriptan [From IMITREX] Allergy Severe PALPITAITONS, Verified 09/03/23 17:19 palpitations aspirin [ASA] Allergy Intermediate HIVES, rash Unverified 09/03/23 17:19 ibuprofen [IBUPROFEN] Allergy Intermediate LIP Verified 09/03/23 17:19 SWELLING/RASH rizatriptan Allergy Intermediate swelling, Verified 09/03/23 17:19 pruritus PMFSH Past Medical History Medical History Bad odor of urine Back pain Right foot pain Screening for diabetes mellitus (DM) Pre-syncope Lumbar spine pain Abnormal urine odor Cervical cancer screening Cervical spine pain Screening for hypercholesterolemia Screening for hypothyroidism Breast cancer screening Annual physical exam Constipation Obesity Lumbar pain Finger infection Neck pain Surgical History History of section Family History Family History Mother No problems noted. Father No problems noted. Social History Social History Housing: House Alcohol intake: never Patient Tobacco Use Status: Never used Tobacco Tobacco use type: Cigarette Smoked in Last 30 Days: No e-Cigarette/Vaping Use: Never Used Second Hand Smoke Exposure: No Use of substances other than those prescribed or required for medical reasons: No Advance Directives: No Advance Directives Information Provided: No Patient : No Current occupational status: employed Current occupation: [employer] Cognitive needs: No Hearing needs: No Vision needs: No Physical Exam 2 Vital Signs: Vital Signs: Last Vital Signs Temp 97.7 F 09/03/23 17:19 Pulse 80 09/03/23 19:35 Resp 16 09/03/23 19:35 BP 130/82 09/03/23 19:35 Pulse Ox 100 09/03/23 19:35 O2 Del Method Room Air 09/03/23 19:35 BMI result Body Mass Index 34.3 Course Course Course Narrative: RME: 43-year-old female with past medical history of migraines, liver mass presenting to the ED complaining of migraine PACHECO & nausea, emesis x2 & photophobia x2 days. Admits this PACHECO is typical for her migraines. Took Tylenol w/o relief. +photophobia, ambulating w/steady gait. Labs ordered Full HPI, ROS and PE to be performed by primary ED provider. Medications Administered Discontinued Medications Generic Name Dose Route Start Last Admin Trade Name Freq PRN Reason Stop Dose Admin Diphenhydramine HCl 50 mg 09/03/23 17:39 09/03/23 18:01 Diphenhydramine Hcl 50 Mg/Ml Vial IVPUSH 09/03/23 17:40 50 mg ONCE ONE Administration Sodium Chloride 1,000 mls @ 999 mls/hr 09/03/23 17:39 09/03/23 19:24 Ns IVCONT 09/03/23 18:39 Infused .Q1H1M ONE Infusion Metoclopramide HCl 10 mg 09/03/23 17:39 09/03/23 18:01 Metoclopramide Hcl 10 Mg/2 Ml Vial IVPUSH 09/03/23 17:40 10 mg ONCE ONE Administration Morphine Sulfate 4 mg 09/03/23 17:39 09/03/23 18:01 Morphine Sulfate 4 Mg/Ml Cartridge IVPUSH 09/03/23 17:40 4 mg ONCE ONE Administration Protocol Medical Decision Making Lab Data 09/03/23 17:54 09/03/23 17:54 Labs: Lab Results 09/03/23 Range/Units 17:54 WBC 5.9 (4.8-10.8) X10*3/uL RBC 4.75 (4.20-5.50) X10*6/uL Hgb 13.4 (12.0-16.0) g/dl Hct 41.1 (37.0-47.0) % MCV 86.5 (80.0-98.0) fL MCH 28.2 (27.0-33.0) pg MCHC 32.6 (31.0-35.0) g/dl RDW 13.2 (11.0-16.0) % Plt Count 257 (160-400) X10*3/uL MPV 10.3 (9.4-12.3) fL Immature Gran % (Auto) 0.2 (0.0-0.4) % Neut % (Auto) 66.0 (45-73) % Lymph % (Auto) 19.6 L (20-40) % [place] % (Auto) 10.5 (2-11) % Eos % (Auto) 3.4 (0-4) % Baso % (Auto) 0.3 (0-2) % Lymph # (Auto) 1.2 (1.2-4.9) X10*3/uL [place] # (Auto) 0.6 (0.1-1.2) X10*3/uL Eos # (Auto) 0.2 (0.0-0.4) X10*3/uL Baso # (Auto) 0.0 (0.0-0.2) X10*3/uL Abs Immat Gran (auto) 0.01 (0.00-0.03) X10*3/uL Absolute Neuts (auto) 3.9 (2.0-8.3) x10*3/uL Absolute Nucleated RBC 0.000 (0.0-0.012) X10*3/uL Nucleated RBC % (auto) 0.0 (0.0-0.2) /100WBC Sodium 139 (135-145) mmol/L Potassium 3.5 (3.3-5.1) mmol/L Chloride 107 (96-108) mmol/L Carbon Dioxide 23 (22-29) mmol/L Anion Gap 13 (12-20) BUN 11 (9-16) mg/dL Creatinine 0.82 (0.5-1.4) mg/dL Estim Creat Clear Calc 96.5 Estimated GFR > 60 Random Glucose 90 (60-115) mg/dL Calcium 9.1 (8.4-10.2) mg/dL Discharge Plan Discharge Clinical Impression: Migraine Patient Disposition: Home, Self-Care Instructions: Migraine Headache (ED) Additional Instructions: Please follow-up with your primary care physician tomorrow. If you have any worsening or new symptoms, please return to the emergency room or call 911 Prescriptions: New qyexgbgmwo-nktumyqqdefxv-gsin [Fioricet] 50-300-40 mg capsule 1 cap PO Q4-6H PRN (Reason: pain) Qty: 14 0RF No Action montelukast 10 mg tablet 10 mg PO DAILY Qty: 30 7RF omeprazole 20 mg capsule,delayed release(DR/EC) 20 mg PO DAILY 90 Days Qty: 90 3RF amitriptyline 50 mg tablet 50 mg PO BEDTIME 30 Days Qty: 30 3RF sennosides [Senna Lax] 8.6 mg tablet 17.2 mg PO BEDTIME 15 Days Qty: 30 3RF oseltamivir [Tamiflu] 75 mg capsule 75 mg PO Q12H 5 Days Qty: 10 0RF cyclobenzaprine 10 mg tablet 10 mg PO TID PRN (Reason: muscle spasm) Qty: 10 0RF wwpojfmgxj-bfhbxikpgpptc-fkek [Fioricet] 50-300-40 mg capsule 2 cap PO Q4-6H PRN (Reason: pain) Qty: 10 0RF Rx Instructions: do not exceed 6 caps per day metoclopramide HCl [Reglan] 5 mg tablet 5 mg PO TID PRN (Reason: nausea and vomiting) Qty: 10 0RF Rx Instructions: Take together with Fioricet khfbijlwvj-csqeavmdbtrim-posr 50-325-40 mg capsule 1 cap PO Q6H PRN (Reason: pain) 4 Days Qty: 16 0RF tizanidine 4 mg tablet 4 mg PO Q8H PRN (Reason: muscle spasticity) Qty: 60 3RF ibuprofen 800 mg tablet 800 mg PO Q8H 10 Days Qty: 30 0RF meloxicam 15 mg tablet 15 mg PO DAILY Qty: 14 0RF Interventions: ED Discharge Assessment Last Done: 09/03/23 20:53 Discharge Date/Time: 09/03/23 20:55
[2023-09-03 17:19] VITALS: BP 149/90; PULSE 106; RESP 20; TEMP 36.5; O2SAT 99; BMI 34.3
--- NOTE | 2023-09-03 17:40 | ED.HA ---
HPI - Headache General Chief Complaint: Headache Stated Complaint: Migraine, nausea Time Seen by Provider: 09/03/23 17:33 Source: patient Mode of arrival: ambulatory Limitations: no limitations History of Present Illness HPI Narrative: Patient comes to the emergency room complaining of migraine headache for 2 days, worse on the right side, complaining of photophobia nausea and no vomiting. Patient took Tylenol multiple times throughout the last couple of days without any relief. Patient has history of migraines. Patient denies visual changes, no neurological deficits Related Data Previous Rx's Medication Instructions Recorded montelukast 10 mg tablet 10 mg PO DAILY #30 tabs 08/22/20 ebkohwhecb-lqtreqoqerflm-ljzsotcs 1 cap PO Q6H PRN pain 4 days #16 10/25/21 50 mg-325 mg-40 mg capsule caps ibuprofen 800 mg tablet 800 mg PO Q8H 10 days #30 tabs 08/24/22 tizanidine 4 mg tablet 4 mg PO Q8H PRN muscle spasticity 08/24/22 #60 tabs cyclobenzaprine 10 mg tablet 10 mg PO TID PRN muscle spasm #10 10/02/22 tabs oseltamivir 75 mg capsule (Tamiflu) 75 mg PO Q12H 5 days #10 caps 10/02/22 omeprazole 20 mg capsule,delayed 20 mg PO DAILY 90 days #90 caps 02/11/23 release nujzlzrwaa-rslyqvdlxkrmp-vukuzqdj 2 cap PO Q4-6H PRN pain #10 caps 04/12/23 50 mg-300 mg-40 mg capsule (Fioricet) metoclopramide HCl 5 mg tablet 5 mg PO TID PRN nausea and 04/12/23 (Reglan) vomiting #10 tabs amitriptyline 50 mg tablet 50 mg PO BEDTIME 30 days #30 tabs 04/19/23 sennosides 8.6 mg tablet (Senna 17.2 mg (2 x 8.6 mg) PO BEDTIME 15 04/19/23 Lax) days #30 tabs meloxicam 15 mg tablet 15 mg PO DAILY #14 tabs 08/22/23 ysebkqiqlr-tnnvzfdadjiwt-cdiczdcc 1 cap PO Q4-6H PRN pain #14 caps 09/03/23 50 mg-300 mg-40 mg capsule (Fioricet) Allergies Allergy/AdvReac Type Severity Reaction Status Date / Time sumatriptan [From IMITREX] Allergy Severe PALPITAITONS, Verified 09/03/23 17:19 palpitations aspirin [ASA] Allergy Intermediate HIVES, rash Unverified 09/03/23 17:19 ibuprofen [IBUPROFEN] Allergy Intermediate LIP Verified 09/03/23 17:19 SWELLING/RASH rizatriptan Allergy Intermediate swelling, Verified 09/03/23 17:19 pruritus Review of Systems Review of Systems: Constitutional : No Weight loss, No Fever, No Chills, No Night Sweats, No Fatigue, No Malaise ENT/Mouth : No Hearing loss, No Ear Pain, No Nasal Congestion, No Sinus Pain, No Hoarseness, No sore throat, No Rhinorrhea, No Swallowing Difficulty Eyes: Complaining of photophobia, No Eye Pain, No Swelling, No Redness, No Foreign Body, No Discharge, No Vision Changes Cardiovascular : No Chest Pain, No SOB, No Dyspnea on Exertion, No Orthopnea, No Edema, No Palpitations Respiratory : No Cough, No Sputum, No Wheezing, No Smoke Exposure, No Dyspnea Gastrointestinal : Complaining of Nausea, No Vomiting, No Diarrhea, No Constipation, No abdominal Pain, No Hematochezia, No Melena Genitourinary : no irregular bleeding, No Dysuria, No Urinary Frequency, No Hematuria, No Urinary Incontinence, No Urgency, No Flank Pain, No Urinary Flow Changes, No Hesitancy Musculoskeletal : No joint pain, No Myalgias, No Joint Swelling Skin : No Skin Lesions, No rash Neuro : No Weakness, No Numbness, No Paresthesias, No Loss of Consciousness, No Dizziness, complaining of right-sided migraine headache Psych : No Anxiety/Panic, No Depression, No SI/HI/AH/VH, No Social Issues, Heme/Lymph: No Bruising, No Bleeding,No Lymphadenopathy Endocrine : No Polyuria, No Polydipsia, No Temperature Intolerance PMFSH Past Medical History Medical History Bad odor of urine Back pain Right foot pain Screening for diabetes mellitus (DM) Pre-syncope Lumbar spine pain Abnormal urine odor Cervical cancer screening Cervical spine pain Screening for hypercholesterolemia Screening for hypothyroidism Breast cancer screening Annual physical exam Constipation Obesity Lumbar pain Finger infection Neck pain Surgical History History of section Family History Family History Mother No problems noted. Father No problems noted. 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 Oriented X3. Patient looks very uncomfortable Eyes: Pupils equal, round and reactive to light. ENT: Pharynx normal. Neck: Normal inspection. Neck supple. No lymph nodes noted. No crepitus CVS: Normal heart rate and rhythm. Pulses normal. Normal S1 and S2 Respiratory: No respiratory distress. Breath sounds normal. No Wheezing. No rales Abdomen: Soft and nontender. No rigidity. No distention. Skin: Skin warm and dry. Normal skin color. Normal skin turgor. Extremities: No lower extremity edema. No Lacerations. No Rash Neuro: Oriented X 3. No motor deficit. No sensory deficit. Moving all extremities. No slurred speech. CN 2 through 12 grossly intact Psych: calm, cooperative, teary Course Course Course Narrative: -patient receiving IV fluids, IV Benadryl, Reglan and morphine. I have seen the patient in the past, patient responds well to this combination of medications. Medications Administered Discontinued Medications Generic Name Dose Route Start Last Admin Trade Name Freq PRN Reason Stop Dose Admin Diphenhydramine HCl 50 mg 09/03/23 17:39 09/03/23 18:01 Diphenhydramine Hcl 50 Mg/Ml Vial IVPUSH 11/05/23 17:40 50 mg ONCE ONE Administration Sodium Chloride 1,000 mls @ 999 mls/hr 09/03/23 17:39 09/03/23 19:24 Ns IVCONT 09/03/23 18:39 Infused .Q1H1M ONE Infusion Metoclopramide HCl 10 mg 09/03/23 17:39 09/03/23 18:01 Metoclopramide Hcl 10 Mg/2 Ml Vial IVPUSH 09/03/23 17:40 10 mg ONCE ONE Administration Morphine Sulfate 4 mg 09/03/23 17:39 09/03/23 18:01 Morphine Sulfate 4 Mg/Ml Cartridge IVPUSH 09/03/23 17:40 4 mg ONCE ONE Administration Protocol Medical Decision Making Medical Decision Making [facility] Narrative: Patient states that her migraine headache completely resolved, patient feeling much better. -patient states that Fioricet works well for her but she ran out of bed, requesting a new prescription. Differential Diagnosis Differential Diagnoses: The differential diagnosis associated with the presentation includes (Tension headache, migraine headache, cluster headache) Lab Data [facility] Lab Attestation statement: I reviewed the patient's lab results. 09/03/23 17:54 09/03/23 17:54 Labs: Lab Results 09/03/23 Range/Units 17:54 WBC 5.9 (4.8-10.8) X10*3/uL RBC 4.75 (4.20-5.50) X10*6/uL Hgb 13.4 (12.0-16.0) g/dl Hct 41.1 (37.0-47.0) % MCV 86.5 (80.0-98.0) fL MCH 28.2 (27.0-33.0) pg MCHC 32.6 (31.0-35.0) g/dl RDW 13.2 (11.0-16.0) % Plt Count 257 (160-400) X10*3/uL MPV 10.3 (9.4-12.3) fL Immature Gran % (Auto) 0.2 (0.0-0.4) % Neut % (Auto) 66.0 (45-73) % Lymph % (Auto) 19.6 L (20-40) % [place] % (Auto) 10.5 (2-11) % Eos % (Auto) 3.4 (0-4) % Baso % (Auto) 0.3 (0-2) % Lymph # (Auto) 1.2 (1.2-4.9) X10*3/uL [place] # (Auto) 0.6 (0.1-1.2) X10*3/uL Eos # (Auto) 0.2 (0.0-0.4) X10*3/uL Baso # (Auto) 0.0 (0.0-0.2) X10*3/uL Abs Immat Gran (auto) 0.01 (0.00-0.03) X10*3/uL Absolute Neuts (auto) 3.9 (2.0-8.3) x10*3/uL Absolute Nucleated RBC 0.000 (0.0-0.012) X10*3/uL Nucleated RBC % (auto) 0.0 (0.0-0.2) /100WBC Sodium 139 (135-145) mmol/L Potassium 3.5 (3.3-5.1) mmol/L Chloride 107 (96-108) mmol/L Carbon Dioxide 23 (22-29) mmol/L Anion Gap 13 (12-20) BUN 11 (9-16) mg/dL Creatinine 0.82 (0.5-1.4) mg/dL Estim Creat Clear Calc 96.5 Estimated GFR > 60 Random Glucose 90 (60-115) mg/dL Calcium 9.1 (8.4-10.2) mg/dL Discharge Plan Discharge Clinical Impression: Migraine Patient Disposition: Home, Self-Care Instructions: Migraine Headache (ED) Additional Instructions: Please follow-up with your primary care physician tomorrow. If you have any worsening or new symptoms, please return to the emergency room or call 911 Prescriptions: New oadluimbeh-awpmosfjmmgha-weht [Fioricet] 50-300-40 mg capsule 1 cap PO Q4-6H PRN (Reason: pain) Qty: 14 0RF No Action montelukast 10 mg tablet 10 mg PO DAILY Qty: 30 7RF omeprazole 20 mg capsule,delayed release(DR/EC) 20 mg PO DAILY 90 Days Qty: 90 3RF amitriptyline 50 mg tablet 50 mg PO BEDTIME 30 Days Qty: 30 3RF sennosides [Senna Lax] 8.6 mg tablet 17.2 mg PO BEDTIME 15 Days Qty: 30 3RF oseltamivir [Tamiflu] 75 mg capsule 75 mg PO Q12H 5 Days Qty: 10 0RF cyclobenzaprine 10 mg tablet 10 mg PO TID PRN (Reason: muscle spasm) Qty: 10 0RF vxqojzinmj-ysyiwdallnzcz-nwmi [Fioricet] 50-300-40 mg capsule 2 cap PO Q4-6H PRN (Reason: pain) Qty: 10 0RF Rx Instructions: do not exceed 6 caps per day metoclopramide HCl [Reglan] 5 mg tablet 5 mg PO TID PRN (Reason: nausea and vomiting) Qty: 10 0RF Rx Instructions: Take together with Fioricet lipaogetma-ksagnphtenruo-occx 50-325-40 mg capsule 1 cap PO Q6H PRN (Reason: pain) 4 Days Qty: 16 0RF tizanidine 4 mg tablet 4 mg PO Q8H PRN (Reason: muscle spasticity) Qty: 60 3RF ibuprofen 800 mg tablet 800 mg PO Q8H 10 Days Qty: 30 0RF meloxicam 15 mg tablet 15 mg PO DAILY Qty: 14 0RF
[2023-09-03] MEDS: 0.9 % Sodium Chloride 1,000 ML 999 ML IVCONT (17:54)
[2023-09-03 17:59] LABS: MANUAL DIFF FLAG NO
[2023-09-03 18:01] LABS: Basophils Percent Auto 0.3 % (0-2); Eosinophils Absolute Auto 0.2 X10*3/uL (0.0-0.4); Eosinophils Percent Auto 3.4 % (0-4); Hematocrit 41.1 % (37.0-47.0); Hemoglobin 13.4 g/dl (12.0-16.0); Imm Gran Abs Auto 0.01 X10*3/uL (0.00-0.03); Imm Gran Pct Auto 0.2 % (0.0-0.4); Lymphocytes Absolute Auto 1.2 X10*3/uL (1.2-4.9); Lymphocytes Percent Auto 19.6 % (20-40); Mean Corpuscular HGB Conc 32.6 g/dl (31.0-35.0); Mean Corpuscular Hemoglobin 28.2 pg (27.0-33.0); Mean Corpuscular Volume 86.5 fL (80.0-98.0); Mean Platelet Volume 10.3 fL (9.4-12.3); Monocytes Absolute Auto 0.6 X10*3/uL (0.1-1.2); Monocytes Percent Auto 10.5 % (2-11); Neutrophils Absolute Auto 3.9 x10*3/uL (2.0-8.3); Platelet Count 257 X10*3/uL (160-400); Red Blood Count 4.75 X10*6/uL (4.20-5.50); Red Cell Distribution Width 13.2 % (11.0-16.0); White Blood Count 5.9 X10*3/uL (4.8-10.8)
[2023-09-03] MEDS: diphenhydrAMINE HCL 50 MG/ML VIAL IVPUSH (18:01)
[2023-09-03] MEDS: Metoclopramide HCl 10 MG/2 ML VIAL IVPUSH (18:01)
[2023-09-03] MEDS: Morphine Sulfate 4 MG/ML CARTRIDGE IVPUSH (18:01)
[2023-09-03 18:13] LABS: Anion Gap 13 (12-20); Blood Urea Nitrogen 11 mg/dL (9-16); Calcium 9.1 mg/dL (8.4-10.2); Carbon Dioxide 23 mmol/L (22-29); Chloride 107 mmol/L (96-108); Creatinine Clr Calc Pharmacy 96.5; Estimated Glomerular Filt Rate > 60; Glucose Random 90 mg/dL (60-115); Potassium 3.5 mmol/L (3.3-5.1); Sodium 139 mmol/L (135-145)
[2023-09-03 19:35] VITALS: BP 130/82; PULSE 80; RESP 16; O2SAT 100
--- NOTE | 2023-09-03 19:53 | PC.NURSE ---
pt a&ox4, initially tachy/hypertensive, post medications vss, 20G IV placed left AC, labs obtained, 1L NS and medicated per DEC. pt intially reporting 08/08 migraine w no relief from at home meds, nausea, photosensitivity, symptoms improved w pain at a 3/10. no new orders at this time
--- NOTE | 2023-09-03 20:50 | PC.NURSE ---
iv removed at discharge. pt ambulatory at discharge. pt significant other at bedside for discharge. pt provided with discharge packet. pt verbalized understanding of discharge plan
== END 2023-09-03 20:55 | disposition home or self-care (01) ==
PROVIDERS: Physician Assistant; Emergency Provider Emergency Medicine; PCP Physician Assistant
DX: G43.909 Migraine, unspecified, not intractable, without status migrainosus (principal); R16.0 Hepatomegaly, not elsewhere classified; R11.2 Nausea with vomiting, unspecified
CPT/HCPCS: 36415; 80048; 85025; 96361; 96374; 96375; 99284; 99285; J1200; J2270; J2765

== ENCOUNTER 2023-10-05 12:25 | Outpatient (AMB) | payer OTHER, SELFPAY ==
[2023-10-05 12:50] VITALS: BP 122/80; PULSE 108; RESP 17; O2SAT 98; BMI 33.7
--- NOTE | 2023-10-05 12:50 | A.OFFPC_ITS ---
Vital Signs 10/05/23 12:50 Height 5 ft 4 in Weight 196 lb 8 oz BMI 33.7 BP 122/80 Blood Pressure Location Lt brachial Position Sitting Respiration 17 Pulse 108 H Pulse Source Pulse Oximeter Pulse Oximetry (%) 98 Oxygen Delivery Method Room Air Intake Visit Reasons: lower back pain/ kidney Intake Note: Pt here for LBP ? UTI; feeling chest pressure for the past . Pomologist Required: Yes Pomologist Language: Tajik Accompanied by: Self / Same As Patient Allergies sumatriptan [From IMITREX] Allergy (Severe, Verified 10/05/23 13:14) PALPITAITONS, palpitations aspirin [ASA] Allergy (Intermediate, Verified 10/05/23 13:14) HIVES, rash ibuprofen [IBUPROFEN] Allergy (Intermediate, Verified 10/05/23 13:14) LIP SWELLING/RASH rizatriptan Allergy (Intermediate, Verified 10/05/23 13:14) swelling, pruritus Medication List - Last Reconciled 10/05/23 by Ryan Dhillon PA-C amitriptyline 50 mg PO BEDTIME 30 days pwbagekqjc-fqrlkigqklptc-mcvk 50-300-40 mg (Fioricet) 2 caps PO Q4-6H PRN fahnieisez-vbfhlcnfubviv-fapk 50-300-40 mg (Fioricet) 1 cap PO Q4-6H PRN cyclobenzaprine 10 mg PO TID PRN ibuprofen 800 mg PO Q8H 10 days meloxicam 15 mg PO DAILY metoclopramide HCl (Reglan) 5 mg PO TID PRN montelukast 10 mg PO DAILY omeprazole 20 mg PO DAILY 90 days sennosides (Senna Lax) 17.2 mg (2 x 8.6 mg) PO BEDTIME 15 days tizanidine 4 mg PO Q8H PRN Tobacco use date assessed: 10/05/23 Dental Screening Dental Screen Date: 10/05/23 Did you have a dental visit in the last 12 months?: No Did you have a dental problem in the last 6 months where you did not have access to dental care?: Yes Was dental information given to patient?: Yes HPI lower back pain/ kidney HPI Details Patient is a 43-year-old female here today for a problem visit. She reports she is having lower back pain . Urinalysis today without evidence a UTI. Will send urine for culture Reports having pain over kidneys bilaterally and lower back, also reports having some difficulty with taking deep breaths. . Does report having increase frequency over the last month. Report change in her urine odor. [facility] Medical History (Updated 10/05/23 @ 13:26 by Ryan Dhillon PA-C) Screening for diabetes mellitus (DM) Bad odor of urine Back pain Right foot pain Pre-syncope Lumbar spine pain Abnormal urine odor Cervical cancer screening Cervical spine pain Screening for hypercholesterolemia Screening for hypothyroidism Breast cancer screening Annual physical exam Constipation Obesity Lumbar pain Finger infection Neck pain Surgical History History of section Family History Mother No problems noted. Father No problems noted. 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 1. Little interest or pleasure in doing things: not at all 2. Feeling down, depressed, or hopeless: not at all 3. Trouble falling or staying asleep, or sleeping too much: not at all 4. Feeling tired or having little energy: not at all 5. Poor appetite or overeating: not at all 6. Feeling bad about yourself - or that you are a failure or have let yourself or your family down: not at all 7. Trouble concentrating on things, such as reading the newspaper or watching television: not at all 8. Moving or speaking so slowly that other people could have noticed. Or the opposite - being so fidgety or restless that you have been moving around a lot more than usual: not at all 9. Thoughts that you would be better off or of hurting yourself in some way: not at all Total score: 0 Depression Screening Interpretation: Negative Depression Screening Done: Yes 66993 - PHQ-9 Billing: Yes Source: Developed by Drs. Joby Gottlieb, Kristel Parada, Deshawn Zabala and colleagues, with an educational alex from [employer]. Thrive Questionnaire Date Thrive assessed: 10/05/23 I am a: Patient What is your living situation today?: I have a steady place to live Within the past 12 months, did the food you bought not last and you didn't have the money to get more?: Never true Within the past 12 months, did you worry whether your food would run out before you got money to buy more?: Never true Do you have trouble paying for medicines?: No Do you have trouble getting transportation to medical appointments?: No Do you have trouble paying your heating and electricity bill?: No Do you have trouble taking care of your child, family member or friend?: No Do you have trouble with day-to-day activities such as bathing, preparing meals, shopping, managing finances, etc.?: No Are you currently unemployed and looking for a job?: No Are you interested in more education?: No Please select the resources that you would like help with: None Currently or been in a relationship where the following occur: no concerns reported AUDIT C Alcohol Use Questionnaire (AUDIT-C) 1. How often do you have a drink containing alcohol?: Never Total Score: 0 VIVIAN-7 AMB Questionnaire VIVIAN-7 Date VIVIAN - 7 assessed: 10/05/23 Feeling nervous, anxious, or on edge: 0 = Not at all Not being able to stop or control worryin = Not at all Worrying too much about different things: 0 = Not at all Trouble relaxin = Not at all Being so restless that it is hard to sit still: 0 = Not at all Becoming easily annoyed or irritable: 0 = Not at all Feeling afraid as if something awful might happen: 0 = Not at all Total VIVIAN-7 score (0-4 normal; 5-9 mild; 10-14 moderate; 15-21 severe): 0 Source: Developed by Drs. Joby Gottlieb, Deshawn Yañez and colleagues, with an educational alex from [employer]. VIVIAN-7 Assessment Billing VIVIAN-7 Assessment Tool: VIVIAN-7 Assessment 44264 Review of Systems Const Denies headache(s) Eyes Denies loss of vision ENT Denies vertigo, Denies dizziness, Denies headache(s) and Denies sore throat Card Denies chest pain, Denies leg edema and Denies lightheadedness Resp Denies cough, Denies hemoptysis and Denies wheezing GI Denies abdominal pain, Denies melena, Denies constipation, Denies diarrhea and Denies vomiting Denies urinary frequency, Denies dysuria and Denies urinary urgency Musc Denies arthralgias, Denies joint swelling, Denies numbness and Denies tingling Neuro Denies Abnormal speech present, Denies behavioral changes, Denies vertigo, Denies dizziness, Denies headache(s), Denies loss of vision, Denies memory loss, Denies numbness and Denies tingling Psych Denies anxiety, Denies behavioral changes, Denies depression, Denies memory loss and Denies panic attacks [place]/Lymph Denies easy bleeding and Denies easy bruising Aller/Immun Denies wheezing Physical exam (Primary Care) Vital Signs: Last Vital Signs Pulse 108 H 10/05/23 12:50 Resp 17 10/05/23 12:50 BP 122/80 10/05/23 12:50 Pulse Ox 98 10/05/23 12:50 Oxygen Delivery Method Room Air 10/05/23 12:50 BMI result Body Mass Index 33.7 Tobacco/Smoking Status: Tobacco use Status Tobacco use date assessed 10/05/23 10/05/23 13:02 Patient Tobacco Use Status Never used Tobacco 10/05/23 12:51 Tobacco use type Cigarette 10/05/23 12:51 e-Cigarette/Vaping Use Never Used 10/05/23 12:51 PHQ-9: PHQ-9 Score PHQ-9: Total score 0 10/05/23 13:06 Depression Screening Interpretation: Negative Thrive Assessment: Date of Thrive Assessment Date Thrive assessed 10/05/23 10/05/23 13:02 Currently or been in a relationship where the following occur: no concerns reported Const General: healthy appearing, no acute distress, alert and awake Nutritional Appearance: well nourished Orientation/consciousness: oriented to person, oriented to place and oriented to time HENMT Ears: TM's normal bilaterally General nose exam: Normal nasal mucous membranes and turbinates present Eyes Conjunctivae: conjunctivae normal Sclerae: sclerae normal Pupils: Equal, round and reactive pupils present Neck Neck: Yes no lymphadenopathy and Yes no JVD Thyroid: Thyroid normal Carotids: no bruits Resp Effort & Inspection: normal respiratory effort and not tachypneic Auscultation: no crackles, no rales, no rhonchi and no wheezes Cardio Rate: regular rate Rhythm: regular rhythm Heart sounds: no murmurs and normal S1 and S2 GI Palpation (GI): Soft to palpation, nontender, no hepatomegaly and no splenomegaly Auscultation: normal bowel sounds Skin General skin exam: no rashes or lesions noted and dry skin Neuro General: oriented to person, oriented to place and oriented to time Cranial nerves: Yes Equal, round and reactive pupils present Speech: No Abnormal speech present Gait exam (Neuro): Normal gait present Motor exam (neuro): no tremor noted Extrem Right upper extremity: full ROM Left upper extremity: full ROM Right lower extremity: full ROM; no edema Left lower extremity: full ROM; no edema Psych Mental Status: mental status grossly normal Speech and movement: Normal speech and movement present Affect: normal affect Attitude: cooperative Thought process: Normal thought process present Results AMB Urinalysis, Automated UA Leukoctes 0 Reji/uL Last Edit by MARU Grimes on 10/05/23 13:05 UA Nitrite Negative Last Edit by MARU Grimes on 10/05/23 13:05 UA Urobilinogen 0 mg/dL Last Edit by MARU Grimes on 10/05/23 13:05 UA Protein 0 mg/dL Last Edit by MARU Grimes on 10/05/23 13:05 UA pH 7.0 Last Edit by MARU Grimes on 10/05/23 13:05 UA Blood 0 Sly/uL Last Edit by MARU Grimes on 10/05/23 13:05 UA Specific [place] 1.020 Last Edit by MARU Grimes on 10/05/23 13:05 UA Ketone Negative Last Edit by MARU Grimes on 10/05/23 13:05 UA Bilirubin 0 mg/dL Last Edit by MARU Grimes on 10/05/23 13:05 UA Glucose 0 mg/dL Last Edit by MARU Grimes on 10/05/23 13:05 Results Reviewed Results Reviewed: Laboratory Last Values Urine pH (Auto) 7.0 10/05/23 13:00 Specific [place] (Auto) 1.020 10/05/23 13:00 Urine Protein (Auto) 0 mg/dL 10/05/23 13:00 Glucose (UA)(Auto) 0 mg/dL 10/05/23 13:00 Urine Ketones (Auto) Negative 10/05/23 13:00 Urine Blood (Auto) 0 Sly/uL 10/05/23 13:00 Urine Nitrite (Auto) Negative 10/05/23 13:00 Urine Bilirubin (Auto) 0 mg/dL 10/05/23 13:00 Urine Urobilinogen (Auto) 0 mg/dL 10/05/23 13:00 Leukocyte Esterase (Auto) 0 Reji/uL 10/05/23 13:00 Assessment and Plan Assessment & Plan (1) Lower back pain: Code(s): M54.50 - Low back pain, unspecified Qualifiers: Chronicity: chronic Back pain laterality: midline Sciatica presence: without sciatica Qualified Code(s): M54.50 - Low back pain, unspecified; G89.29 - Other chronic pain (2) Urinary frequency: Code(s): R35.0 - Frequency of micturition Plan: At this time unclear etiology to patient's urinary frequency. Urinalysis without evidence UTI. Will send for urine for culture. Will empirically treat with macrfobid due to patient's symptoms of urinary frequency and bad odor of urine. (3) Flank pain: Code(s): R10.9 - Unspecified abdominal pain Plan: Will send x-ray of kidneys urinary bladder to evaluate for nephrolithiasis due to patient's report of lower back and bilateral flank pain. (4) Screening for diabetes mellitus (DM): Code(s): Z13.1 - Encounter for screening for diabetes mellitus Orders: Orders AMB Urinalysis Automated Today M54.50 - Low back pain, unspecified XR KUB Today R10.9 - Unspecified abdominal pain Comprehensive [place]. Panel Fast Today Z13.1 - Encounter for screening for diabetes mellitus Urine Culture Today R35.0 - Frequency of micturition Medications: New nitrofurantoin monohyd/m-cryst 100 mg (Macrobid) must administer with a meal/food 100 mg PO Q12H 5 days 10 caps 0RF R35.0 - Frequency of micturition Coding Level of Care Code Est Pt Level 3 (77283) Diagnoses Chronic midline low back pain without sciatica M54.50; G89.29 Chronicity: chronic Back pain laterality: midline Sciatica presence: without sciatica Urinary frequency R35.0 Flank pain R10.9 Screening for diabetes mellitus (DM) Z13.1 Additional Codes VIVIAN-7 Assessment Billing - VIVIAN-7 Assessment Tool: VIVIAN-7 Assessment [id number] ([id number])
== END 2023-10-05 13:34 | disposition home or self-care (01) ==
PROVIDERS: PCP Physician Assistant; Visit Provider Physician Assistant
DX: M54.50 Low back pain, unspecified (principal); G89.29 Other chronic pain; R35.0 Frequency of micturition; R10.9 Unspecified abdominal pain; Z13.1 Encounter for screening for diabetes mellitus
CPT/HCPCS: 81003; 99213

== ENCOUNTER 2023-10-05 17:03 | Outpatient (REF) | payer OTHER, SELFPAY | END 2023-10-05 17:04 | disposition home or self-care (01) | LOC: HO.LNP 17:03 | PROVIDERS: Visit Provider Physician Assistant | DX: R35.0 Frequency of micturition (principal); M54.50 Low back pain, unspecified | CPT/HCPCS: 87086; 87088; 87186 ==

== ENCOUNTER 2023-10-06 06:10 | Outpatient (REF) | payer OTHER, SELFPAY ==
--- NOTE | ~2023-10-06 | XR_ITS ---
EXAMINATION: XR ABDOMEN KUB CLINICAL INDICATION: Bilateral renal pain COMPARISON: Abdominal x-ray on 08/18/2021 TECHNIQUE: AP view of the abdomen. FINDINGS: AP supine x-rays of the abdomen show nonspecific bowel gas pattern. No abnormal bowel dilatation is seen. Ascending colon and right transverse colon are filled with feces. There is normal visualization of descending and sigmoid colon bowel gas. No abnormal renal calcifications could be seen. Bilateral pelvic phleboliths are present, more numerous on the left side. XR/XR KUB IMPRESSION: 1. Unchanged, No evidence of renal calculi. 2. Unchanged fecal retention in the ascending colon and right transverse colon.
[2023-10-06 08:44] LABS: Alanine Aminotransferase 17 U/L (0-31); Albumin Level 3.7 g/dL (3.5-5.0); Alkaline Phosphatase 151 U/L (39-117); Anion Gap 9 (12-20); Aspartate Amino Transferase 14 U/L (5-31); Bilirubin Total 0.6 mg/dL (0.0-1.0); Blood Urea Nitrogen 10 mg/dL (9-16); Calcium 8.7 mg/dL (8.4-10.2); Carbon Dioxide 26 mmol/L (22-29); Chloride 109 mmol/L (96-108); Estimated Glomerular Filt Rate > 60; Glucose Fasting 113 mg/dL (60-99); Potassium 4.2 mmol/L (3.3-5.1); Sodium 140 mmol/L (135-145); Total Protein 7.2 g/dL (6.5-8.0)
== END 2023-10-06 06:11 | disposition home or self-care (01) ==
LOC: HO.XRAY 06:10
PROVIDERS: PCP Physician Assistant; Visit Provider Physician Assistant
DX: Z13.1 Encounter for screening for diabetes mellitus (principal); R10.9 Unspecified abdominal pain
CPT/HCPCS: 36415; 74018; 80053

== ENCOUNTER 2023-11-03 12:54 | Outpatient (REF) | payer OTHER, SELFPAY | END 2023-11-03 12:55 | disposition home or self-care (01) | LOC: HO.US 12:54 | PROVIDERS: PCP Physician Assistant; Visit Provider Physician Assistant | DX: R10.9 Unspecified abdominal pain (principal) | CPT/HCPCS: 76775 ==

== ENCOUNTER 2024-01-04 13:58 | Outpatient (AMB) | payer OTHER, SELFPAY ==
--- NOTE | 2024-01-04 14:06 | MHC.PC.OV ---
Vital Signs 01/04/24 14:07 Height 5 ft 4 in Weight 200 lb BMI 34.3 BP 122/72 Blood Pressure Location Lt brachial Position Sitting Respiration 16 Pulse 102 H Pulse Source Pulse Oximeter Pulse Oximetry (%) 98 Oxygen Delivery Method Room Air Intake Visit Reasons: Annual Exam Intake Note: The patient is present today for a physical examination requesting lab orders. The primary concern raised by the patient is swelling in the abdominal area accompanied by fatigue over the past three months, along with an increase in weight. Child Care Education Coordinator Required: Yes Child Care Education Coordinator Language: Hebrew Accompanied by: Self / Same As Patient Allergies sumatriptan [From IMITREX] Allergy (Severe, Verified 01/04/24 14:16) PALPITAITONS, palpitations aspirin [ASA] Allergy (Intermediate, Verified 01/04/24 14:16) HIVES, rash ibuprofen [IBUPROFEN] Allergy (Intermediate, Verified 01/04/24 14:16) LIP SWELLING/RASH rizatriptan Allergy (Intermediate, Verified 01/04/24 14:16) swelling, pruritus Medication List - Last Reconciled 01/04/24 by Ryan Dhillon PA-C amitriptyline 50 mg PO BEDTIME 30 days zzreiddelr-hczkoooayikcu-xmcr 50-300-40 mg (Fioricet) 1 cap PO Q4-6H PRN cyclobenzaprine 10 mg PO TID PRN ibuprofen 800 mg PO Q8H 10 days meloxicam 15 mg PO DAILY metoclopramide HCl (Reglan) 5 mg PO TID PRN montelukast 10 mg PO DAILY omeprazole 20 mg PO DAILY 90 days sennosides (Senna Lax) 17.2 mg (2 x 8.6 mg) PO BEDTIME 15 days tizanidine 4 mg PO Q8H PRN Tobacco use date assessed: 01/04/24 Dental Screening Dental Screen Date: 01/04/24 Did you have a dental visit in the last 12 months?: No Did you have a dental problem in the last 6 months where you did not have access to dental care?: No Was dental information given to patient?: Yes [facility] Annual Exam HPI Details Patient is a 43-year-old female here today for routine annual physical. Patient has a past medical history significant for GERD, obesity, migraine headaches. . He reports over last 3 months having abdominal bloating that has worsened over the last 3 months, patient reports people are asking if she is . She does have some profound abdominal distention on physical exam today. She denies any constipation diarrhea or vomiting. She does have GERD symptoms from time to time though are usually well managed with omeprazole and Reglan.. Of note did have an ultrasound of her abdomen in 2020 that did show evidence consistent with fatty liver and a liver mass that appears benign .. Migraine disorder: Does use amitriptyline on a daily basis, does use Fioricet on a p.r.n. basis with good effect. Mammogram: Mammogram done in December of 2022 BI-RADS 1, needs repeat Pest Technician: Needs PAP Vaccines: Up-to-date with tetanus vaccine, declines flu vaccine, declines COVID vaccines [facility] Medical History Cervical cancer screening Annual physical exam Screening for diabetes mellitus (DM) Bad odor of urine Back pain Right foot pain Pre-syncope Lumbar spine pain Abnormal urine odor Cervical spine pain Screening for hypercholesterolemia Screening for hypothyroidism Breast cancer screening Constipation Obesity Lumbar pain Finger infection Neck pain Surgical History History of section Family History Mother No problems noted. Father No problems noted. 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 1. Little interest or pleasure in doing things: not at all 2. Feeling down, depressed, or hopeless: not at all 3. Trouble falling or staying asleep, or sleeping too much: not at all 4. Feeling tired or having little energy: not at all 5. Poor appetite or overeating: not at all 6. Feeling bad about yourself - or that you are a failure or have let yourself or your family down: not at all 7. Trouble concentrating on things, such as reading the newspaper or watching television: not at all 8. Moving or speaking so slowly that other people could have noticed. Or the opposite - being so fidgety or restless that you have been moving around a lot more than usual: not at all 9. Thoughts that you would be better off or of hurting yourself in some way: not at all Total score: 0 Depression Screening Interpretation: Negative Depression Screening Done: Yes 86933 - PHQ-9 Billing: Yes Source: Developed by Drs. Joby Gottlieb, Kristel Parada, Deshawn Zabala and colleagues, with an educational alex from [employer]. Thrive Questionnaire Date Thrive assessed: 01/04/24 I am a: Patient What is your living situation today?: I have a steady place to live Within the past 12 months, did the food you bought not last and you didn't have the money to get more?: Never true Within the past 12 months, did you worry whether your food would run out before you got money to buy more?: Never true Do you have trouble paying for medicines?: No Do you have trouble getting transportation to medical appointments?: No Do you have trouble paying your heating and electricity bill?: No Do you have trouble taking care of your child, family member or friend?: No Do you have trouble with day-to-day activities such as bathing, preparing meals, shopping, managing finances, etc.?: No Are you currently unemployed and looking for a job?: No Are you interested in more education?: No Please select the resources that you would like help with: None Currently or been in a relationship where the following occur: no concerns reported THRIVE Score: 0 AUDIT C Alcohol Use Questionnaire (AUDIT-C) 1. How often do you have a drink containing alcohol?: Never Total Score: 0 VIVIAN-7 AMB Questionnaire VIVIAN-7 Date VIVIAN - 7 assessed: 01/04/24 Feeling nervous, anxious, or on edge: 0 = Not at all Not being able to stop or control worryin = Not at all Worrying too much about different things: 0 = Not at all Trouble relaxin = Not at all Being so restless that it is hard to sit still: 0 = Not at all Becoming easily annoyed or irritable: 0 = Not at all Feeling afraid as if something awful might happen: 0 = Not at all Total VIVIAN-7 score (0-4 normal; 5-9 mild; 10-14 moderate; 15-21 severe): 0 Source: Developed by Drs. Joby Gottlieb, Kristel Parada, Deshawn Zabala and colleagues, with an educational alex from [employer]. VIVIAN-7 Assessment Billing VIVIAN-7 Assessment Tool: VIVIAN-7 Assessment 97976 Physical exam (Primary Care) Vital Signs: Last Vital Signs Pulse 102 H 01/04/24 14:07 Resp 16 01/04/24 14:07 BP 122/72 01/04/24 14:07 Pulse Ox 98 01/04/24 14:07 Oxygen Delivery Method Room Air 01/04/24 14:07 BMI result Body Mass Index 34.3 Tobacco/Smoking Status: Tobacco use Status Tobacco use date assessed 01/04/24 01/04/24 14:14 Patient Tobacco Use Status Never used Tobacco 01/04/24 14:11 Tobacco use type Cigarette 01/04/24 14:11 e-Cigarette/Vaping Use Never Used 01/04/24 14:11 PHQ-9: PHQ-9 Score PHQ-9: Total score 0 01/04/24 14:11 Depression Screening Interpretation: Negative Thrive Assessment: Date of Thrive Assessment Date Thrive assessed 01/04/24 01/04/24 14:11 Currently or been in a relationship where the following occur: no concerns reported Assessment and Plan Assessment & Plan (1) Annual physical exam: Code(s): Z00.00 - Encounter for general adult medical examination without abnormal findings (2) Screening for diabetes mellitus (DM): Code(s): Z13.1 - Encounter for screening for diabetes mellitus (3) Abdominal distension: Code(s): R14.0 - Abdominal distension (gaseous) Plan: Has quite profound abdominal distention on physical exam. No guarding or severe pain to palpitation. Will send for CT abdomen to evaluate for hepatosplenomegaly. (4) Cervical cancer screening: Code(s): Z12.4 - Encounter for screening for malignant neoplasm of cervix Plan: Needs Pap (5) Liver mass: Code(s): R16.0 - Hepatomegaly, not elsewhere classified Plan: Has a history for benign appearing liver mass found in 2020 on ultrasound. Now has some significant abdominal distention thus will send for CT of abdomen to evaluate for hepatocellular or splenomegaly disease. She denies any specific pain in her abdomen though does report at times feeling pressure on her diaphragm that causes palpitations. She does have GERD symptoms from time to time though denies having any pain in her epigastrium after eating. Orders: Orders CT abdomen w IV con Today R14.0 - Abdominal distension (gaseous), R16.0 - Hepatomegaly, not elsewhere classified Comprehensive Met. 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 Referral Z12.4 - Encounter for screening for malignant neoplasm of cervix Medications: New gctizpnqgv-sazfylhemicfr-zoai 50-325-40 mg 1 cap PO Q6H 4 days PRN 16 caps 0RF pain G43.009 - Migraine without aura, not intractable, without status migrainosus, G43.909 - Migraine, unspecified, not intractable, without status migrainosus Refilled metoclopramide HCl (Reglan) Take together with Fioricet 5 mg PO TID PRN 10 tabs 0RF nausea and vomiting Discontinued bfgqgrscce-zhoecaytrmajs-hser 50-300-40 mg (Fioricet) Discontinued Reason: Doctor's Order 1 cap PO Q4-6H PRN 14 caps 0RF pain Coding Level of Care Code Est Pt Prev Care 40-64y(30120) Diagnoses Annual physical exam Z00.00 Screening for diabetes mellitus (DM) Z13.1 Abdominal distension R14.0 Cervical cancer screening Z12.4 Liver mass R16.0 Additional Codes VIVIAN-7 Assessment Billing - VIVIAN-7 Assessment Tool: VIVIAN-7 Assessment [id number] ([id number])
[2024-01-04 14:07] VITALS: BP 122/72; PULSE 102; RESP 16; O2SAT 98; BMI 34.3
== END 2024-01-04 14:39 | disposition home or self-care (01) ==
PROVIDERS: PCP Physician Assistant; Visit Provider Physician Assistant
DX: Z00.00 Encounter for general adult medical examination without abnormal findings (principal); Z13.1 Encounter for screening for diabetes mellitus; R14.0 Abdominal distension (gaseous); R16.0 Hepatomegaly, not elsewhere classified; G43.009 Migraine without aura, not intractable, without status migrainosus
CPT/HCPCS: 99396

== ENCOUNTER 2024-01-10 17:00 | Outpatient (REF) | payer OTHER, SELFPAY ==
[2024-01-10 17:24] LABS: Urine Cytology See Pathology rpt
[2024-01-10 17:26] LABS: Hematocrit 36.7 % (37.0-47.0); Hemoglobin 12.1 g/dl (12.0-16.0); Mean Corpuscular Hemoglobin 28.5 pg (27.0-33.0); Mean Corpuscular Volume 86.4 fL (80.0-98.0); Mean Platelet Volume 10.7 fL (9.4-12.3); Platelet Count 275 X10*3/uL (160-400); Red Blood Count 4.25 X10*6/uL (4.20-5.50); Red Cell Distribution Width 13.3 % (11.0-16.0); White Blood Count 6.7 X10*3/uL (4.8-10.8)
[2024-01-10 18:04] LABS: Alanine Aminotransferase 22 U/L (0-31); Albumin Level 3.8 g/dL (3.5-5.0); Alkaline Phosphatase 156 U/L (39-117); Anion Gap 9 (12-20); Aspartate Amino Transferase 19 U/L (5-31); Bilirubin Total 0.3 mg/dL (0.0-1.0); Blood Urea Nitrogen 10 mg/dL (9-16); Calcium 8.7 mg/dL (8.4-10.2); Carbon Dioxide 26 mmol/L (22-29); Chloride 107 mmol/L (96-108); Estimated Glomerular Filt Rate > 60; Glucose Random 122 mg/dL (60-115); Lipase 29 U/L (8-78); Potassium 3.9 mmol/L (3.3-5.1); Sodium 138 mmol/L (135-145); Total Protein 7.4 g/dL (6.5-8.0)
[2024-01-11 21:44] LABS: Transglutaminase Ab IgG <1.0 U/mL; Transglutaminase IgA <1.0 U/mL
== END 2024-01-10 17:01 | disposition home or self-care (01) ==
LOC: HO.LAB 17:00
PROVIDERS: PCP Physician Assistant; Visit Provider Physician Assistant
DX: R14.0 Abdominal distension (gaseous) (principal); R10.9 Unspecified abdominal pain
CPT/HCPCS: 36415; 80053; 83690; 85027; 86364; 88112

== ENCOUNTER 2024-01-17 12:21 | Emergency (ER) | payer OTHER, SELFPAY ==
--- NOTE | ~2024-01-17 | CT_ITS ---
EXAMINATION: CT HEAD WITHOUT CONTRAST CLINICAL INFORMATION: Migraine COMPARISON: CT head from 12/09/2021 TECHNIQUE: Contiguous axial imaging was performed from the skull base to vertex without intravenous administration of contrast. This CT examination was performed using dose optimization techniques as appropriate, variously including the following: *Automated exposure control *Adjustment of mA and/or kV according to patient size (this includes techniques or standardized protocols for targeted exams where dose is matched to indication/reason for exam; i.e. extremities or head) *Use of iterative reconstruction technique DLP: 592 mGy-cm FINDINGS: There is no evidence of acute intracranial hemorrhage or territorial infarction. No abnormal mass effect or midline shift is seen. Sheets to white matter differentiation is well preserved. No extra-axial fluid collections are identified. The ventricles are normal in size. There is no abnormal attenuation within the brain parenchyma. The osseous structures and soft tissues are normal. The mastoid air cells and visualized portions of the paranasal sinuses are well aerated. CT/CT head/brain wo IV con IMPRESSION: No acute intracranial pathology.
[2024-01-17 12:55] VITALS: BP 129/76; PULSE 87; RESP 18; TEMP 36.7; O2SAT 97; BMI 34.2
--- NOTE | 2024-01-17 12:56 | ED_ITS ---
HPI - Headache General Chief Complaint: Headache Stated Complaint: Migraine, abd & back pain Time Seen by Provider: 01/17/24 20:58 Related Data Previous Rx's Medication Instructions Recorded montelukast 10 mg tablet 10 mg PO DAILY #30 tabs 08/22/20 ibuprofen 800 mg tablet 800 mg PO Q8H 10 days #30 tabs 08/24/22 cyclobenzaprine 10 mg tablet 10 mg PO TID PRN muscle spasm #10 10/02/22 tabs omeprazole 20 mg capsule,delayed 20 mg PO DAILY 90 days #90 caps 02/11/23 release amitriptyline 50 mg tablet 50 mg PO BEDTIME 30 days #30 tabs 04/19/23 sennosides 8.6 mg tablet (Senna 17.2 mg (2 x 8.6 mg) PO BEDTIME 15 04/19/23 Lax) days #30 tabs meloxicam 15 mg tablet 15 mg PO DAILY #14 tabs 08/22/23 tizanidine 4 mg tablet 4 mg PO Q8H PRN muscle spasticity 10/09/23 #60 tabs vtocgtrtgq-aogcfstjahlzp-xjbuirty 1 cap PO Q6H PRN pain 4 days #16 01/04/24 50 mg-325 mg-40 mg capsule caps metoclopramide HCl 5 mg tablet 5 mg PO TID PRN nausea and 01/04/24 (Reglan) vomiting #10 tabs Allergies Allergy/AdvReac Type Severity Reaction Status Date / Time sumatriptan [From IMITREX] Allergy Severe PALPITAITONS, Verified 01/04/24 14:16 palpitations aspirin [ASA] Allergy Intermediate HIVES, rash Verified 01/04/24 14:16 ibuprofen [IBUPROFEN] Allergy Intermediate LIP Verified 01/04/24 14:16 SWELLING/RASH rizatriptan Allergy Intermediate swelling, Verified 01/04/24 14:16 pruritus PMFSH Past Medical History Medical History Cervical cancer screening Annual physical exam Screening for diabetes mellitus (DM) Bad odor of urine Back pain Right foot pain Pre-syncope Lumbar spine pain Abnormal urine odor Cervical spine pain Screening for hypercholesterolemia Screening for hypothyroidism Breast cancer screening Constipation Obesity Lumbar pain Finger infection Neck pain Surgical History History of section Family History Family History Mother No problems noted. Father No problems noted. 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 This is a 57-cith-jlv-female, with a hx of migraines, presenting to the ER with a complaint of migraine since yesterday. Patient has been seen here multiple times for acute migraines, states that this migraine is similar to her previous. He is neurologically intact however keeps eyes closed with head down due to pain. Positive photophobia. Plan: CT head, viral swabs, likely would benefit from migraine cocktail Medications Administered Discontinued Medications Generic Name Dose Route Start Last Admin Trade Name Marvin PRN Reason Stop Dose Admin Acetaminophen 975 mg 01/17/24 18:39 01/17/24 18:44 Acetaminophen 325 Mg Tablet PO 01/17/24 18:40 975 mg ONCE ONE Administration Diphenhydramine HCl 25 mg 01/17/24 21:08 01/17/24 21:34 Diphenhydramine Hcl 50 Mg/Ml Vial IVPUSH 01/17/24 21:09 25 mg ONCE ONE Administration Sodium Chloride 1,000 mls @ 999 mls/hr 01/17/24 21:15 01/17/24 22:48 Ns IV 01/17/24 22:15 Infused .Q1H1M TANVI Infusion Metoclopramide HCl 10 mg 01/17/24 21:08 01/17/24 21:34 Metoclopramide Hcl 10 Mg/2 Ml Vial IVPUSH 01/17/24 21:09 10 mg ONCE ONE Administration Medical Decision Making Lab Data 01/17/24 21:26 01/17/24 21:26 Labs: Lab Results 01/17/24 01/17/24 Range/Units 13:56 21:26 WBC 5.5 (4.8-10.8) X10*3/uL RBC 4.48 (4.20-5.50) X10*6/uL Hgb 12.7 (12.0-16.0) g/dl Hct 38.9 (37.0-47.0) % MCV 86.8 (80.0-98.0) fL MCH 28.3 (27.0-33.0) pg MCHC 32.6 (31.0-35.0) g/dl RDW 13.2 (11.0-16.0) % Plt Count 261 (160-400) X10*3/uL MPV 10.1 (9.4-12.3) fL Immature Gran % (Auto) 0.2 (0.0-0.4) % Neut % (Auto) 79.1 H (45-73) % Lymph % (Auto) 13.4 L (20-40) % [place] % (Auto) 5.8 (2-11) % Eos % (Auto) 1.1 (0-4) % Baso % (Auto) 0.4 (0-2) % Lymph # (Auto) 0.7 L (1.2-4.9) X10*3/uL [place] # (Auto) 0.3 (0.1-1.2) X10*3/uL Eos # (Auto) 0.1 (0.0-0.4) X10*3/uL Baso # (Auto) 0.0 (0.0-0.2) X10*3/uL Abs Immat Gran (auto) 0.01 (0.00-0.03) X10*3/uL Absolute Neuts (auto) 4.4 (2.0-8.3) x10*3/uL Absolute Nucleated RBC 0.000 (0.0-0.012) X10*3/uL Nucleated RBC % (auto) 0.0 (0.0-0.2) /100WBC Sodium 138 (135-145) mmol/L Potassium 3.9 (3.3-5.1) mmol/L Chloride 107 (96-108) mmol/L Carbon Dioxide 28 (22-29) mmol/L Anion Gap 7 L (12-20) BUN 11 (9-16) mg/dL Creatinine 0.69 (0.5-1.4) mg/dL Estim Creat Clear Calc 114.5 Estimated GFR > 60 Random Glucose 164 H (60-115) mg/dL Calcium 8.8 (8.4-10.2) mg/dL Total Bilirubin 0.4 (0.0-1.0) mg/dL Direct Bilirubin 0.2 (0.0-0.5) mg/dL AST 19 (5-31) U/L ALT 22 (0-31) U/L Alkaline Phosphatase 148 H (39-117) U/L Total Protein 7.2 (6.5-8.0) g/dL Albumin 3.7 (3.5-5.0) g/dL Lipase 47 (8-78) U/L Beta HCG, Quant < 2 mIU/mL Influenza Type A (PCR) NEGATIVE (Negative) Influenza Type B (PCR) NEGATIVE (Negative) RSV RNA Qual (PCR) NEGATIVE (Negative) SARS-CoV-2 RNA (RT-PCR) NEGATIVE (Negative) Discharge Plan Discharge Clinical Impression: Migraines Patient Disposition: Home, Self-Care Instructions: Migraine Headache (ED) Prescriptions: No Action montelukast 10 mg tablet 10 mg PO DAILY Qty: 30 7RF omeprazole 20 mg capsule,delayed release(DR/EC) 20 mg PO DAILY 90 Days Qty: 90 3RF amitriptyline 50 mg tablet 50 mg PO BEDTIME 30 Days Qty: 30 3RF sennosides [Senna Lax] 8.6 mg tablet 17.2 mg PO BEDTIME 15 Days Qty: 30 3RF tizanidine 4 mg tablet 4 mg PO Q8H PRN (Reason: muscle spasticity) Qty: 60 3RF cyclobenzaprine 10 mg tablet 10 mg PO TID PRN (Reason: muscle spasm) Qty: 10 0RF ibuprofen 800 mg tablet 800 mg PO Q8H 10 Days Qty: 30 0RF meloxicam 15 mg tablet 15 mg PO DAILY Qty: 14 0RF metoclopramide HCl [Reglan] 5 mg tablet 5 mg PO TID PRN (Reason: nausea and vomiting) Qty: 10 0RF Rx Instructions: Take together with Fioricet swuhsbnnrw-lwqjuvbireulh-poia 50-325-40 mg capsule 1 cap PO Q6H PRN (Reason: pain) 4 Days Qty: 16 0RF Referrals: Ryan Dhillon PA-C [Primary Care Provider] - 01/19/24
[2024-01-17 14:37] LABS: Influenza A PCR NEGATIVE (Negative); Influenza B PCR NEGATIVE (Negative); Resp Syncy Virus RNA Qual PCR NEGATIVE (Negative); SARS COV2 PCR INHOUSE NEGATIVE (Negative)
[2024-01-17] MEDS: Acetaminophen 325 MG TABLET 975 MG PO (18:44)
--- NOTE | 2024-01-17 21:09 | ED_ITS ---
HPI - Headache General Chief Complaint: Headache Stated Complaint: Migraine, abd & back pain Time Seen by Provider: 01/17/24 20:58 History of Present Illness HPI Narrative: Patient is a 43-year-old female with a history of migraine headaches presents today with headache to the back of the head tingling very similar to previous bouts of migraine. Associated with nausea worsened with light. No focal weakness. No chest pain or diaphoresis. Also complaining of nausea vomiting. No focal weakness. No fever no chills. Headaches been ongoing for about 1 day. Try some Tylenol did not work. Came to the ED for further evaluation. Does not think she is . Headache is worse with noise. Related Data Previous Rx's Medication Instructions Recorded montelukast 10 mg tablet 10 mg PO DAILY #30 tabs 08/22/20 ibuprofen 800 mg tablet 800 mg PO Q8H 10 days #30 tabs 08/24/22 cyclobenzaprine 10 mg tablet 10 mg PO TID PRN muscle spasm #10 10/02/22 tabs omeprazole 20 mg capsule,delayed 20 mg PO DAILY 90 days #90 caps 02/11/23 release amitriptyline 50 mg tablet 50 mg PO BEDTIME 30 days #30 tabs 04/19/23 sennosides 8.6 mg tablet (Senna 17.2 mg (2 x 8.6 mg) PO BEDTIME 15 04/19/23 Lax) days #30 tabs meloxicam 15 mg tablet 15 mg PO DAILY #14 tabs 08/22/23 tizanidine 4 mg tablet 4 mg PO Q8H PRN muscle spasticity 10/09/23 #60 tabs niimsjqjrg-rwvouxtdfkzye-sklgpbsv 1 cap PO Q6H PRN pain 4 days #16 01/04/24 50 mg-325 mg-40 mg capsule caps metoclopramide HCl 5 mg tablet 5 mg PO TID PRN nausea and 01/04/24 (Reglan) vomiting #10 tabs Allergies Allergy/AdvReac Type Severity Reaction Status Date / Time sumatriptan [From IMITREX] Allergy Severe PALPITAITONS, Verified 01/04/24 14:16 palpitations aspirin [ASA] Allergy Intermediate HIVES, rash Verified 01/04/24 14:16 ibuprofen [IBUPROFEN] Allergy Intermediate LIP Verified 01/04/24 14:16 SWELLING/RASH rizatriptan Allergy Intermediate swelling, Verified 01/04/24 14:16 pruritus Review of Systems 2 Review of Systems: Positive headache Yes all other systems are reviewed and are negative [facility] Past Medical History Medical History Cervical cancer screening Annual physical exam Screening for diabetes mellitus (DM) Bad odor of urine Back pain Right foot pain Pre-syncope Lumbar spine pain Abnormal urine odor Cervical spine pain Screening for hypercholesterolemia Screening for hypothyroidism Breast cancer screening Constipation Obesity Lumbar pain Finger infection Neck pain Surgical History History of section Family History Family History Mother No problems noted. Father No problems noted. 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 Oriented X3. No acute distress. Eyes: Pupils equal, round and reactive to light. ENT: Pharynx normal. Neck: Normal inspection. Neck supple. No lymph nodes noted. No crepitus CVS: Normal heart rate and rhythm. Pulses normal. Normal S1 and S2 Respiratory: No respiratory distress. Breath sounds normal. No Wheezing. No rales Abdomen: Soft and nontender. No rigidity. No distention. good BS x4 Skin: Skin warm and dry. Normal skin color. Normal skin turgor. Extremities: No lower extremity edema. Neurovascular intact to all extremities. No Lacerations. No Rash Neuro: Oriented X 3. No motor deficit. No sensory deficit. Moving all extermities. No slurred speech Medications Administered Discontinued Medications Generic Name Dose Route Start Last Admin Trade Name Marvin PRN Reason Stop Dose Admin Acetaminophen 975 mg 01/17/24 18:39 01/17/24 18:44 Acetaminophen 325 Mg Tablet PO 01/17/24 18:40 975 mg ONCE ONE Administration Diphenhydramine HCl 25 mg 01/17/24 21:08 01/17/24 21:34 Diphenhydramine Hcl 50 Mg/Ml Vial IVPUSH 01/17/24 21:09 25 mg ONCE ONE Administration Sodium Chloride 1,000 mls @ 999 mls/hr 01/17/24 21:15 01/17/24 22:48 Ns IV 01/17/24 22:15 Infused .Q1H1M TANVI Infusion Metoclopramide HCl 10 mg 01/17/24 21:08 01/17/24 21:34 Metoclopramide Hcl 10 Mg/2 Ml Vial IVPUSH 01/17/24 21:09 10 mg ONCE ONE Administration Medical Decision Making Medical Decision Making [facility] Narrative: Patient's headache similar to previous bouts of migraine. Was given Reglan given IV fluid, Benadryl slept for an hour symptoms completely resolved patient in no distress her labs are normal she is being discharged home. Differential Diagnosis Differential Diagnoses: The differential diagnosis associated with the presentation includes Meningitis, intracranial bleed, migraine Admission/Observation Consideration of admission/observation: Escalation of care including admission/observation considered Lab Data [facility] Lab Attestation statement: I reviewed the patient's lab results. 01/17/24 21:26 01/17/24 21:26 Labs: Lab Results 01/17/24 01/17/24 Range/Units 13:56 21:26 WBC 5.5 (4.8-10.8) X10*3/uL RBC 4.48 (4.20-5.50) X10*6/uL Hgb 12.7 (12.0-16.0) g/dl Hct 38.9 (37.0-47.0) % MCV 86.8 (80.0-98.0) fL MCH 28.3 (27.0-33.0) pg MCHC 32.6 (31.0-35.0) g/dl RDW 13.2 (11.0-16.0) % Plt Count 261 (160-400) X10*3/uL MPV 10.1 (9.4-12.3) fL Immature Gran % (Auto) 0.2 (0.0-0.4) % Neut % (Auto) 79.1 H (45-73) % Lymph % (Auto) 13.4 L (20-40) % [place] % (Auto) 5.8 (2-11) % Eos % (Auto) 1.1 (0-4) % Baso % (Auto) 0.4 (0-2) % Lymph # (Auto) 0.7 L (1.2-4.9) X10*3/uL [place] # (Auto) 0.3 (0.1-1.2) X10*3/uL Eos # (Auto) 0.1 (0.0-0.4) X10*3/uL Baso # (Auto) 0.0 (0.0-0.2) X10*3/uL Abs Immat Gran (auto) 0.01 (0.00-0.03) X10*3/uL Absolute Neuts (auto) 4.4 (2.0-8.3) x10*3/uL Absolute Nucleated RBC 0.000 (0.0-0.012) X10*3/uL Nucleated RBC % (auto) 0.0 (0.0-0.2) /100WBC Sodium 138 (135-145) mmol/L Potassium 3.9 (3.3-5.1) mmol/L Chloride 107 (96-108) mmol/L Carbon Dioxide 28 (22-29) mmol/L Anion Gap 7 L (12-20) BUN 11 (9-16) mg/dL Creatinine 0.69 (0.5-1.4) mg/dL Estim Creat Clear Calc 114.5 Estimated GFR > 60 Random Glucose 164 H (60-115) mg/dL Calcium 8.8 (8.4-10.2) mg/dL Total Bilirubin 0.4 (0.0-1.0) mg/dL Direct Bilirubin 0.2 (0.0-0.5) mg/dL AST 19 (5-31) U/L ALT 22 (0-31) U/L Alkaline Phosphatase 148 H (39-117) U/L Total Protein 7.2 (6.5-8.0) g/dL Albumin 3.7 (3.5-5.0) g/dL Lipase 47 (8-78) U/L Beta HCG, Quant < 2 mIU/mL Influenza Type A (PCR) NEGATIVE (Negative) Influenza Type B (PCR) NEGATIVE (Negative) RSV RNA Qual (PCR) NEGATIVE (Negative) SARS-CoV-2 RNA (RT-PCR) NEGATIVE (Negative) Independent Interpretation I performed an independent interpretation of an: CT Scan (CT head was grossly negative) Radiology Impression Discussion of test interpretation with radiology: I have reviewed the radiologist's reading. Independent Historian Clinical information obtained from an independent historian. History obtained from or confirmed by: Other (Patient's daughter) Prescription Management I considered prescription management with: Pain Medication Chronic Conditions History of migraine Discharge Plan Discharge Clinical Impression: Migraines Patient Disposition: Home, Self-Care Instructions: Migraine Headache (ED) Prescriptions: No Action montelukast 10 mg tablet 10 mg PO DAILY Qty: 30 7RF omeprazole 20 mg capsule,delayed release(DR/EC) 20 mg PO DAILY 90 Days Qty: 90 3RF amitriptyline 50 mg tablet 50 mg PO BEDTIME 30 Days Qty: 30 3RF sennosides [Senna Lax] 8.6 mg tablet 17.2 mg PO BEDTIME 15 Days Qty: 30 3RF tizanidine 4 mg tablet 4 mg PO Q8H PRN (Reason: muscle spasticity) Qty: 60 3RF cyclobenzaprine 10 mg tablet 10 mg PO TID PRN (Reason: muscle spasm) Qty: 10 0RF ibuprofen 800 mg tablet 800 mg PO Q8H 10 Days Qty: 30 0RF meloxicam 15 mg tablet 15 mg PO DAILY Qty: 14 0RF metoclopramide HCl [Reglan] 5 mg tablet 5 mg PO TID PRN (Reason: nausea and vomiting) Qty: 10 0RF Rx Instructions: Take together with Fioricet doekoojcaq-jsxmvhnruzplb-eiiw 50-325-40 mg capsule 1 cap PO Q6H PRN (Reason: pain) 4 Days Qty: 16 0RF Referrals: Ryan Dhillon PA-C [Primary Care Provider] - 01/19/24
[2024-01-17] MEDS: 0.9 % Sodium Chloride 1,000 ML 999 ML IV (21:34)
[2024-01-17] MEDS: Metoclopramide HCl 10 MG/2 ML VIAL IVPUSH (21:34)
[2024-01-17] MEDS: diphenhydrAMINE HCL 50 MG/ML VIAL 25 MG IVPUSH (21:34)
[2024-01-17 21:36] LABS: MANUAL DIFF FLAG NO
[2024-01-17 21:38] VITALS: BP 119/54; PULSE 74; RESP 16; TEMP 37.1; O2SAT 98
[2024-01-17 21:42] LABS: Basophils Percent Auto 0.4 % (0-2); Eosinophils Absolute Auto 0.1 X10*3/uL (0.0-0.4); Eosinophils Percent Auto 1.1 % (0-4); Hematocrit 38.9 % (37.0-47.0); Hemoglobin 12.7 g/dl (12.0-16.0); Imm Gran Abs Auto 0.01 X10*3/uL (0.00-0.03); Imm Gran Pct Auto 0.2 % (0.0-0.4); Lymphocytes Absolute Auto 0.7 X10*3/uL (1.2-4.9); Lymphocytes Percent Auto 13.4 % (20-40); Mean Corpuscular HGB Conc 32.6 g/dl (31.0-35.0); Mean Corpuscular Hemoglobin 28.3 pg (27.0-33.0); Mean Corpuscular Volume 86.8 fL (80.0-98.0); Mean Platelet Volume 10.1 fL (9.4-12.3); Monocytes Absolute Auto 0.3 X10*3/uL (0.1-1.2); Monocytes Percent Auto 5.8 % (2-11); Neutrophils Absolute Auto 4.4 x10*3/uL (2.0-8.3); Neutrophils Percent Auto 79.1 % (45-73); Platelet Count 261 X10*3/uL (160-400); Red Blood Count 4.48 X10*6/uL (4.20-5.50); Red Cell Distribution Width 13.2 % (11.0-16.0); White Blood Count 5.5 X10*3/uL (4.8-10.8)
[2024-01-17 22:03] LABS: Alanine Aminotransferase 22 U/L (0-31); Albumin Level 3.7 g/dL (3.5-5.0); Alkaline Phosphatase 148 U/L (39-117); Anion Gap 7 (12-20); Aspartate Amino Transferase 19 U/L (5-31); Bilirubin Direct 0.2 mg/dL (0.0-0.5); Bilirubin Total 0.4 mg/dL (0.0-1.0); Blood Urea Nitrogen 11 mg/dL (9-16); Calcium 8.8 mg/dL (8.4-10.2); Carbon Dioxide 28 mmol/L (22-29); Chloride 107 mmol/L (96-108); Creatinine Clr Calc Pharmacy 114.5; Estimated Glomerular Filt Rate > 60; Glucose Random 164 mg/dL (60-115); HCG Quantitative < 2 mIU/mL; Lipase 47 U/L (8-78); Potassium 3.9 mmol/L (3.3-5.1); Sodium 138 mmol/L (135-145); Total Protein 7.2 g/dL (6.5-8.0)
[2024-01-17 23:33] VITALS: BP 112/59; PULSE 74; RESP 16; TEMP 36.9; O2SAT 99
== END 2024-01-17 23:34 | disposition home or self-care (01) ==
PROVIDERS: Physician Assistant Medical; Emergency Provider Emergency Medicine Emergency Medical Services; PCP Physician Assistant
DX: G43.909 Migraine, unspecified, not intractable, without status migrainosus (principal); Z11.52 Encounter for screening for COVID-19; Z20.828 Contact with and (suspected) exposure to other viral communicable diseases
CPT/HCPCS: 0241U; 36415; 70450; 80048; 80076; 83690; 84702; 85025; 96361; 96374; 96375; 99284; 99285; J1200; J2765

== ENCOUNTER 2024-01-31 11:05 | Outpatient (REF) | payer OTHER, SELFPAY | END 2024-01-31 11:06 | disposition home or self-care (01) | LOC: HO.MAMMO 11:05 | PROVIDERS: PCP Physician Assistant; Visit Provider Physician Assistant | DX: Z12.31 Encounter for screening mammogram for malignant neoplasm of breast (principal) | CPT/HCPCS: 77063; 77067 ==

== ENCOUNTER → 2024-01-31 11:15 | Outpatient (BNV) | payer OTHER, SELFPAY | PROVIDERS: PCP Physician Assistant; Visit Provider Radiology Diagnostic Radiology | DX: Z12.31 Encounter for screening mammogram for malignant neoplasm of breast (principal) | CPT/HCPCS: 77063; 77067 ==

== ENCOUNTER 2024-02-07 10:50 | Outpatient (REF) | payer OTHER, SELFPAY | END 2024-02-07 10:51 | disposition home or self-care (01) | LOC: HO.LNP 10:50 | PROVIDERS: Visit Provider Physician Assistant | DX: R14.0 Abdominal distension (gaseous) (principal) | CPT/HCPCS: 87338 ==

== ENCOUNTER 2024-02-23 08:00 | Outpatient (REF) | payer OTHER, SELFPAY ==
--- NOTE | ~2024-02-23 | CT_ITS ---
EXAMINATION: CT ABDOMEN WITH CONTRAST CLINICAL INFORMATION: Gaseous abdominal distention. COMPARISON: Renal ultrasound dated 11/03/2023; abdominal ultrasound dated 10/12/2021; MRI abdomen dated 04/18/2019. TECHNIQUE: Contiguous axial thin section helical images of the abdomen were performed following the administration of oral contrast and 85 mL of Omnipaque 350 intravenous contrast. The data set was reformatted in the coronal and sagittal planes and reviewed on an independent workstation. This CT examination was performed using dose optimization techniques as appropriate, variously including the following: *Automated exposure control *Adjustment of mA and/or kV according to patient size (this includes techniques or standardized protocols for targeted exams where dose is matched to indication/reason for exam; i.e. extremities or head) *Use of iterative reconstruction technique DLP: 237 mGy-cm FINDINGS: LUNG BASES: The visualized lung bases are unremarkable. LIVER, GALLBLADDER, AND BILIARY TREE: The liver is normal in size, shape, and generally diminished in attenuation, with geographic pattern. No focal hepatic lesion or biliary ductal dilatation is present. The gallbladder is unremarkable, with no evidence of radiopaque gallstones, gallbladder wall thickening or obvious pericholecystic inflammatory changes. PANCREAS: Unremarkable. SPLEEN: Unremarkable. ADRENAL GLANDS: Unremarkable. KIDNEYS AND URETERS: The kidneys are normal in size, shape, and attenuation. No hydronephrosis, hydroureter, or calculi seen. A small mildly complex (Bosniak 2) left renal interpolar cyst with fine septation is noted (3:34). This is stable from the MRI abdomen dated 04/26/2019. This is considered benign and requires no imaging follow-up. No perinephric stranding. GASTROINTESTINAL TRACT: The small and large bowel are unremarkable. There is a moderate stool burden. No obstruction, free intraperitoneal air or abscess is seen. There is no focal bowel wall thickening. The vermiform appendix is unremarkable. ABDOMINAL WALL: There is a small fat-containing umbilical hernia. LYMPH NODES: Normal. VASCULAR: Unremarkable. OSSEOUS STRUCTURES: There is multi-level moderate lower thoracic and mild lumbar endplate arthropathy. No acute or aggressive osseous finding is noted. CT/CT abdomen w IV con IMPRESSION: 1. There is a moderate stool burden. No obstruction, free intraperitoneal air or abscess is seen. The vermiform appendix is normal. No focal bowel wall thickening is seen. 2. No abdominal mass, free fluid or lymphadenopathy is seen. 3. There is geographic hepatic steatosis. 4. There is a small fat-containing umbilical hernia. 5. There are degenerative changes of the spine. Fleischner guidelines were followed.
[2024-02-23] MEDS: iohexoL 350 MG/ML 100 ML INFUS..BTL 85 ML IV (09:22)
[2024-02-23] MEDS: Barium Sulfate Oral (Vanilla) 450 ML ORAL.SUSP PO (09:23)
[2024-02-26 10:45] LABS: Creatinine POC 0.7 mg/dL (0.5-1.4); GFR POC > 60
== END 2024-02-23 08:01 | disposition home or self-care (01) ==
LOC: HO.CT 08:00
PROVIDERS: PCP Physician Assistant; Visit Provider Physician Assistant
DX: R14.0 Abdominal distension (gaseous) (principal); R16.0 Hepatomegaly, not elsewhere classified
CPT/HCPCS: 74160; 82565; Q9967

== ENCOUNTER 2024-03-19 13:04 | Outpatient (AMB) | payer OTHER, SELFPAY ==
--- NOTE | 2024-03-19 13:07 | MHC.OFFVIS ---
Vital Signs 03/19/24 13:17 Height 5 ft 4 in Weight 194 lb BMI 33.3 BP 133/67 Blood Pressure Location Lt brachial Position Sitting Pulse 91 Intake Visit Reasons: Umbilical hernia Intake Note: Patient is seen in office for evaluation and treatment of an umbilical hernia. Pt c/o: feel something not a lump, just hard to breath, fatigue, pain after meals, onset yrs, also gets back pain, had a CT of the abdomen done Tailor'S Aide Required: Yes Tailor'S Aide Language: Service Support Representative Name: Ceci ASHTON Information Interpreted: non-clinical & clinical Cuff Matcher: Cuff Matcher Present Accompanied by: Self / Same As Patient Allergies sumatriptan [From IMITREX] Allergy (Severe, Verified 03/19/24 13:13) PALPITAITONS, palpitations aspirin [ASA] Allergy (Intermediate, Verified 03/19/24 13:13) HIVES, rash ibuprofen [IBUPROFEN] Allergy (Intermediate, Verified 03/19/24 13:13) LIP SWELLING/RASH rizatriptan Allergy (Intermediate, Verified 03/19/24 13:13) swelling, pruritus Medication List - Last Reconciled 03/19/24 by Flo Hager MD amitriptyline 50 mg PO BEDTIME 30 days clarithromycin 500 mg PO BID 14 days meloxicam 15 mg PO DAILY omeprazole 20 mg PO DAILY 90 days HPI Comments Details: 43-year-old female patient presenting for evaluation of an umbilical hernia. She reports complaints of upper abdominal discomfort and bloating. She previously was on MiraLax but stopped taking the meds several months ago. She does report having daily bowel movements and denies nausea or vomiting. She was noted on workup with CT abdomen to have increased stool burden in the colon and a small umbilical hernia containing fat. She does report some discomfort when palpating the umbilicus. She denies previous umbilical surgery but has had previous section. She presents today to discuss repair of the umbilical hernia. FORMERLY [facility], [facility] Medical History Cervical cancer screening Annual physical exam Screening for diabetes mellitus (DM) Bad odor of urine Back pain Right foot pain Pre-syncope Lumbar spine pain Abnormal urine odor Cervical spine pain Screening for hypercholesterolemia Screening for hypothyroidism Breast cancer screening Constipation Obesity Lumbar pain Finger infection Neck pain Surgical History History of section Family History Mother No problems noted. Father No problems noted. 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[employer] Cognitive needs: No Hearing needs: No Vision needs: No Review of Systems Const All systems reviewed & are unremarkable except as noted in HPI and below Denies chills, Denies fever(s), Denies headache(s), Denies poor appetite and Denies weakness ENT Denies headache(s) Card Denies chest pain, Denies irregular heart rhythm, Denies palpitations and Denies dyspnea Resp Denies cough, Denies excessive phlegm production and Denies dyspnea GI Reports abdominal pain, Reports bloating, Denies change in bowel habits, Denies constipation, Denies heartburn, Denies diarrhea, Denies nausea and Denies vomiting Denies urinary frequency Musc Denies back pain, Denies muscle weakness and Denies numbness Skin/Breast Denies changing lesions and Denies unusual bruising Neuro Denies headache(s), Denies numbness, Denies paresthesias and Denies weakness Psych Denies anxiety and Denies depression Endo Denies palpitations [place]/Lymph Denies lymphadenopathy Physical Exam Vital Signs: Last Vital Signs Pulse 91 03/19/24 13:17 BP 133/67 03/19/24 13:17 BMI result Body Mass Index 33.3 Const General: cooperative and no acute distress Nutritional Appearance: well nourished Orientation/consciousness: patient oriented x3 Limitations: no limitations HEENT Head: Yes normocephalic and Yes atraumatic Ears: hearing grossly normal bilaterally Resp Effort & Inspection: normal respiratory effort, no audible wheezes, no cough and no respiratory distress Cardio Jugular venous distension: no JVD GI Other: Soft, mild tenderness with palpation of upper abdomen and umbilicus. No umbilical hernia palpable in the standing position with Valsalva maneuvers. Inspection: Yes normal to inspection Abdomen image: 1. Area of discomfort upper abdomen Skin Other: Warm, dry, no rash Neuro General: patient oriented x3 Extrem General: Yes no clubbing, cyanosis or edema Assessment & Plan Assessment & Plan (1) Umbilical hernia: Code(s): K42.9 - Umbilical hernia without obstruction or gangrene Category: Medical Qualifiers: Obstruction and gangrene presence: without obstruction or gangrene Qualified Code(s): K42.9 - Umbilical hernia without obstruction or gangrene (2) Abdominal bloating: Code(s): R14.0 - Abdominal distension (gaseous) Category: Medical Plan 43-year-old female patient presenting with complaints of upper quadrant abdominal discomfort presenting for evaluation of an umbilical hernia. On examination the patient is mainly tender in the upper abdomen to deep palpation with no palpable umbilical hernia appreciated. Review of CT abdomen does indicate a very small umbilical hernia which is only containing fat. I do not feel repairing the umbilical hernia will improve her upper abdominal symptoms which may be possibly related to IBS. I would suggest gastroenterology evaluation prior to considering any surgery. She was previously referred to Gastroenterology by Ryan Dhillon. I will reconsult the service for evaluation. Orders: Referrals Gastroenterology Referral R14.0 - Abdominal distension (gaseous) Coding Level of Care Code New Pt Level 4 (05021) Diagnoses Umbilical hernia without obstruction and without gangrene K42.9 Obstruction and gangrene presence: without obstruction or gangrene Abdominal bloating R14.0
[2024-03-19 13:17] VITALS: BP 133/67; PULSE 91; BMI 33.3
== END 2024-03-19 13:27 | disposition home or self-care (01) ==
PROVIDERS: PCP Physician Assistant; Visit Provider Surgery
DX: R14.0 Abdominal distension (gaseous) (principal); K42.9 Umbilical hernia without obstruction or gangrene
CPT/HCPCS: 99203

== ENCOUNTER → 2024-03-19 13:04 | Outpatient (BNVA) | payer OTHER, SELFPAY | PROVIDERS: PCP Physician Assistant; Visit Provider Surgery | DX: K42.9 Umbilical hernia without obstruction or gangrene (principal); R14.0 Abdominal distension (gaseous) | CPT/HCPCS: 99202 ==

== ENCOUNTER 2024-03-19 17:04 | Emergency (ER) | payer OTHER, SELFPAY ==
[2024-03-19 17:30] VITALS: BP 120/72; PULSE 79; RESP 16; TEMP 36.8; O2SAT 98; BMI 33.3
[2024-03-19 18:48] LABS: Influenza A PCR NEGATIVE (Negative); Influenza B PCR NEGATIVE (Negative); Resp Syncy Virus RNA Qual PCR NEGATIVE (Negative); SARS COV2 PCR INHOUSE NEGATIVE (Negative)
== END 2024-03-19 23:51 | disposition left against medical advice (07) ==
PROVIDERS: Physician Assistant Medical; Emergency Provider Emergency Medicine; PCP Physician Assistant
DX: G43.909 Migraine, unspecified, not intractable, without status migrainosus (principal)
CPT/HCPCS: 0241U; 99281; 99283

== ENCOUNTER 2024-05-14 09:36 | Outpatient (AMB) | payer OTHER, SELFPAY ==
[2024-05-14 10:16] VITALS: BP 130/80; PULSE 75; O2SAT 98; BMI 33.0
--- NOTE | 2024-05-14 10:16 | MHC.PC.OV ---
Vital Signs 05/14/24 10:16 Height 5 ft 4 in Weight 192 lb BMI 33.0 BP 130/80 Blood Pressure Location Lt brachial Position Sitting Pulse 75 Pulse Source Pulse Oximeter Pulse Oximetry (%) 98 Oxygen Delivery Method Room Air Intake Visit Reasons: Follow-up abdominal distention Intake Note: Pt is here for abdominal distention. Pt state that has stop all medications. Well Service Pump Equipment Operator Required: Yes Well Service Pump Equipment Operator Language: Korean Accompanied by: Self / Same As Patient Allergies sumatriptan [From IMITREX] Allergy (Severe, Verified 05/14/24 10:21) PALPITAITONS, palpitations aspirin [ASA] Allergy (Intermediate, Verified 05/14/24 10:21) HIVES, rash ibuprofen [IBUPROFEN] Allergy (Intermediate, Verified 05/14/24 10:21) LIP SWELLING/RASH rizatriptan Allergy (Intermediate, Verified 05/14/24 10:21) swelling, pruritus Medication List - Last Reconciled 05/14/24 by Ryan Dhillon PA-C No Known Home Meds Tobacco use date assessed: 01/04/24 Dental Screening Dental Screen Date: 01/04/24 HPI Follow-up abdominal distention HPI Details Patient is a 43-year-old female here today for follow-up visit. She has been dealing with abdominal discomfort and distention. She did undergo a CT for abdomen in the spring of 2023 showing--> There is a moderate stool burden. No obstruction, free intraperitoneal air or abscess is seen. The vermiform appendix is normal. No focal bowel wall thickening is seen. She was found to have a positive H pylori stool testing was treated for H pylori which has helped her GI symptoms a bit. There was also an umbilical fat containing hernia noted and followed up with general surgeon who did not recommend surgical fix. Recommendations have been made to see Gastroenterology. She also report lower back pain located particular area. She did have x-ray of her lumbar spine in 2021 which did show some degenerative changes. She is willing to go to pain management for pain reduction modality. He is not interested in physical therapy as he has tried this in the past that was not helpful. She has used NSAIDs and muscle relaxers in the past though have not been effective for her. Obesity: Today's BMI of 33, she still concerned about her weight as she has not been able lose much weight. She has interested in trying a GLP 1 PFSH Medical History (Updated 05/14/24 @ 10:29 by Ryan Dhillon PA-C) Lumbar spine pain Cervical cancer screening Annual physical exam Screening for diabetes mellitus (DM) Bad odor of urine Back pain Right foot pain Pre-syncope Abnormal urine odor Cervical spine pain Screening for hypercholesterolemia Screening for hypothyroidism Breast cancer screening Constipation Obesity Lumbar pain Finger infection Neck pain Surgical History History of section Family History Mother No problems noted. Father No problems noted. 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 Joby Gottlieb, Kristel Parada, Deshawn Zabala and colleagues, with an educational alex from [employer]. Review of Systems Const Denies headache(s) Eyes Denies loss of vision ENT Denies vertigo, Denies dizziness, Denies headache(s) and Denies sore throat Card Denies chest pain, Denies leg edema and Denies lightheadedness Resp Denies cough, Denies hemoptysis and Denies wheezing GI Denies abdominal pain, Denies melena, Denies constipation, Denies diarrhea and Denies vomiting Denies urinary frequency, Denies dysuria and Denies urinary urgency Musc Denies arthralgias, Denies joint swelling, Denies numbness and Denies tingling Neuro Denies Abnormal speech present, Denies behavioral changes, Denies vertigo, Denies dizziness, Denies headache(s), Denies loss of vision, Denies memory loss, Denies numbness and Denies tingling Psych Denies anxiety, Denies behavioral changes, Denies depression, Denies memory loss and Denies panic attacks [place]/Lymph Denies easy bleeding and Denies easy bruising Aller/Immun Denies wheezing Physical exam (Primary Care) Vital Signs: Last Vital Signs Pulse 75 05/14/24 10:16 BP 130/80 05/14/24 10:16 Pulse Ox 98 05/14/24 10:16 Oxygen Delivery Method Room Air 05/14/24 10:16 BMI result Body Mass Index 33.0 Tobacco/Smoking Status: Tobacco use Status Tobacco use date assessed 01/04/24 05/14/24 10:18 Patient Tobacco Use Status Never used Tobacco 05/14/24 10:18 Tobacco use type Cigarette 05/14/24 10:18 e-Cigarette/Vaping Use Never Used 05/14/24 10:18 Thrive Assessment: Date of Thrive Assessment Date Thrive assessed 01/04/24 05/14/24 10:18 Const General: healthy appearing, no acute distress, alert and awake Nutritional Appearance: well nourished Orientation/consciousness: oriented to person, oriented to place and oriented to time HENMT Ears: TM's normal bilaterally General nose exam: Normal nasal mucous membranes and turbinates present Eyes Conjunctivae: conjunctivae normal Sclerae: sclerae normal Pupils: Equal, round and reactive pupils present Neck Neck: Yes no lymphadenopathy and Yes no JVD Thyroid: Thyroid normal Carotids: no bruits Resp Effort & Inspection: normal respiratory effort and not tachypneic Auscultation: no crackles, no rales, no rhonchi and no wheezes Cardio Rate: regular rate Rhythm: regular rhythm Heart sounds: no murmurs and normal S1 and S2 GI Palpation (GI): Soft to palpation, nontender, no hepatomegaly and no splenomegaly Auscultation: normal bowel sounds Skin General skin exam: no rashes or lesions noted and dry skin Neuro General: oriented to person, oriented to place and oriented to time Cranial nerves: Yes Equal, round and reactive pupils present Speech: No Abnormal speech present Gait exam (Neuro): Normal gait present Motor exam (neuro): no tremor noted Extrem Right upper extremity: full ROM Left upper extremity: full ROM Right lower extremity: full ROM; no edema Left lower extremity: full ROM; no edema Psych Mental Status: mental status grossly normal Speech and movement: Normal speech and movement present Affect: normal affect Attitude: cooperative Thought process: Normal thought process present Assessment and Plan Assessment & Plan (1) Abdominal distension: Code(s): R14.0 - Abdominal distension (gaseous) Plan: Will try to set patient up for gastroenterology evaluation due to her chronic abdominal distention. CT of abdomen showing moderate stool burden though no other intra-abdominal pathology noted. Of note was treated for H pylori infection. (2) Lumbar spine pain: Code(s): M54.50 - Low back pain, unspecified Plan: Patient continues with chronic lower lumbar spine pain. She is willing to speak with pain management about pain reduction modality. Will supply patient with high-dose acetaminophen to use for back pain. (3) Obesity: Code(s): E66.9 - Obesity, unspecified Qualifiers: Body mass index: BMI 35.0-35.9 Obesity classification: adult class 2 (BMI 35 - 39.9) Obesity type: due to excess calories Serious obesity comorbidity presence: without serious comorbidity Qualified Code(s): E66.09 - Other obesity due to excess calories; Z68.35 - Body mass index [BMI] 35.0-35.9, adult Plan: Patient is interested in trying a GLP 1 to help her with weight loss. Did discuss the potential side effects of this medication. Orders: Referrals Pain Management Referral M54.50 - Low back pain, unspecified Medications: New semaglutide (weight loss) (Wegovy) administer weeks 1 through 4 of therapy 0.25 mg (0.5 mL) subcut QWEEK 2 mL 0RF 4 weeks E66.09 - Other obesity due to excess calories, Z68.35 - Body mass index [BMI] 35.0-35.9, adult acetaminophen ER (Tylenol Arthritis Pain) 650 mg PO Q12H 60 tabs 2RF 30 days M19.90 - Unspecified osteoarthritis, unspecified site, M54.50 - Low back pain, unspecified Coding Level of Care Code Est Pt Level 4 (25978) Diagnoses Abdominal distension R14.0 Lumbar spine pain M54.50 Class 2 obesity due to excess calories without serious comorbidity with body mass index (BMI) of 35.0 to 35.9 in adult E66.09; Z68.35 Body mass index: BMI 35.0-35.9 Obesity classification: adult class 2 (BMI 35 - 39.9) Obesity type: due to excess calories Serious obesity comorbidity presence: without serious comorbidity
== END 2024-05-14 10:49 | disposition home or self-care (01) ==
PROVIDERS: PCP Physician Assistant; Visit Provider Physician Assistant
DX: R14.0 Abdominal distension (gaseous) (principal); M54.50 Low back pain, unspecified; E66.09 Other obesity due to excess calories; Z68.35 Body mass index [BMI] 35.0-35.9, adult
CPT/HCPCS: 99214

== ENCOUNTER 2024-05-27 08:42 | Outpatient (AMB) | payer OTHER, SELFPAY ==
--- NOTE | 2024-05-27 08:54 | A.OFFVIS_ITS ---
Vital Signs 05/27/24 08:57 Height 5 ft 4 in Weight 192 lb BMI 33.0 BP 130/80 Blood Pressure Location Lt brachial Position Sitting Respiration 14 Pulse 84 Pulse Source Pulse Oximeter Pulse Oximetry (%) 97 Oxygen Delivery Method Room Air Intake Visit Reasons: Low Back Pain Data Visualization Developer Required: Yes Data Visualization Developer Name: Gabriela [id number] Allergies sumatriptan [From IMITREX] Allergy (Severe, Verified 05/27/24 08:59) PALPITAITONS, palpitations aspirin [ASA] Allergy (Intermediate, Verified 05/27/24 08:59) HIVES, rash ibuprofen [IBUPROFEN] Allergy (Intermediate, Verified 05/27/24 08:59) LIP SWELLING/RASH rizatriptan Allergy (Intermediate, Verified 05/27/24 08:59) swelling, pruritus Medication List - Last Reconciled 05/27/24 by Adriane Can LPN acetaminophen ER (Tylenol Arthritis Pain) 650 mg PO Q12H 30 days semaglutide (weight loss) (Wegovy) 0.25 mg (0.5 mL) subcut QWEEK 4 weeks HPI HPI Low Back Pain: Details: 43-year-old female who presents today to the office for an evaluation of low back pain. A certified manager heart failure was present during the visit. She reports neck pain that radiates down to her lower back that started three years ago. She has difficulty sleeping. She did have an x-ray of her lumbar spine in 2021, which did show some degenerative changes. She is not interested in physical therapy as she has tried physical therapy about two years ago for one month, which worsens her pain. She has used NSAIDs, high-dose acetaminophen, and muscle relaxers in the past with no relief. 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 Her job required lifting and bending down and up daily.?She suspects that her pain is related to her overweight and kidney issues. [facility] Medical History (Updated 05/31/24 @ 09:12 by Don Montgomery MD) Lumbar spine pain Cervical cancer screening Annual physical exam Screening for diabetes mellitus (DM) Bad odor of urine Back pain Right foot pain Pre-syncope Abnormal urine odor Cervical spine pain Screening for hypercholesterolemia Screening for hypothyroidism Breast cancer screening Constipation Obesity Lumbar pain Finger infection Neck pain Surgical History History of section Family History Mother No problems noted. Father No problems noted. 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 Alert and oriented. Mood and affect appropriate. Follows and participates in conversation appropriately. Respiratory effort is unlabored. Able to transition from sit to stand unassisted. Ambulates with bilaterally normal heel strike and toe off. Lumber flexion and extension reproduces pain in the lower axial back region. No radiation down the lower extremities. Results Reviewed Results Reviewed: 02/23/24: CT ABDOMEN WITH CONTRAST OSSEOUS STRUCTURES: There is multi-level moderate lower thoracic and mild lumbar endplate arthropathy. No acute or aggressive osseous finding is noted. IMPRESSION: There are degenerative changes of the spine. My review of the CT result revealed moderate degenerative changes in the facets and lower lumbar spine. Assessment & Plan Assessment & Plan (1) Lumbar spondylosis: Code(s): M47.816 - Spondylosis without myelopathy or radiculopathy, lumbar region Category: Medical Plan A referral was provided to physical therapy for three months. The patient will receive a call to schedule an appointment. I also recommended home exercises daily with physical therapy for better pain relief. I advised her to refer to home exercise videos and physical therapy for exercises. If the pain continues to persist after physical therapy and home exercises for three months, she will follow up with us for consideration of interventional therapy. Scribed for Dr. Montgomery by Bertram Robison, er medical technician, on 05/27/2024. I, Dr. Montgomery, have personally reviewed and agree with the information entered by the scribe. Coding Level of Care Code New Pt Level 3 (86951) Diagnoses Lumbar spondylosis M47.816
[2024-05-27 08:57] VITALS: BP 130/80; PULSE 84; RESP 14; O2SAT 97; BMI 33.0
== END 2024-05-27 09:44 | disposition home or self-care (01) ==
LOC: HO.PMC 08:42
PROVIDERS: PCP Physician Assistant; Referring Provider Physician Assistant; Visit Provider Internal Medicine
DX: M47.816 Spondylosis without myelopathy or radiculopathy, lumbar region (principal)
CPT/HCPCS: 99203

== ENCOUNTER → 2024-05-27 08:42 | Outpatient (BNVA) | payer OTHER, SELFPAY | PROVIDERS: PCP Physician Assistant; Referring Provider Physician Assistant; Visit Provider Internal Medicine | DX: M47.816 Spondylosis without myelopathy or radiculopathy, lumbar region (principal) | CPT/HCPCS: 99202 ==

== ENCOUNTER 2024-06-02 19:42 | Emergency (ER) | payer OTHER, SELFPAY ==
--- NOTE | 2024-06-02 | ECG_ITS ---
Test Reason : CHEST PAIN Blood Pressure : / mmHG Vent. Rate : 107 BPM Atrial Rate : 107 BPM P-R Int : 142 ms QRS Dur : 072 ms QT Int : 332 ms P-R-T Axes : 022 024 009 degrees QTc Int : 443 ms Sinus tachycardia Otherwise normal ECG When compared with ECG of 05-DEC-2020 18:40, T wave amplitude has decreased in Lateral leads Referred By: Generic ED Physician Electronically Signed By:BRAYAN MARTINEZ MD
--- NOTE | ~2024-06-02 | XR_ITS ---
EXAMINATION: XR CHEST CLINICAL INFORMATION: Chest pain. COMPARISON: Chest radiograph dated 08/13/2021. TECHNIQUE: Frontal view of the chest was obtained. FINDINGS: The heart is normal in size. The lungs are clear. There is no large pleural effusion. No pneumothorax. No acute osseous abnormality. XR/XR chest 1V IMPRESSION: No acute cardiopulmonary disease.
[2024-06-02 20:11] VITALS: BP 127/93; PULSE 119; RESP 18; TEMP 37.4; O2SAT 97; BMI 33.9
--- NOTE | 2024-06-02 20:17 | ED.CHESTPAIN ---
HPI - Chest Pain General Chief Complaint: Chest Pain Stated Complaint: chest pain Time Seen by Provider: 06/02/24 20:51 History of Present Illness HPI narrative: Seen by Dr. DE JESUS Related Data Previous Rx's ?Medication ?Instructions ?Recorded acetaminophen 650 mg 650 mg PO Q12H 30 days #60 tabs 05/14/24 tablet,extended release (Tylenol Arthritis Pain) semaglutide (weight loss) 0.25 0.25 mg (0.5 mL) subcut QWEEK 4 05/22/24 mg/0.5 mL subcutaneous pen weeks #2 mL injector ([employer] Bio[employer]armavPolar OLED) Allergies Allergy/AdvReac Type Severity Reaction Status Date / Time sumatriptan [From IMITREX] Allergy Severe PALPITAITONS, Verified 06/02/24 20:14 palpitations aspirin [ASA] Allergy Intermediate HIVES, rash Verified 06/02/24 20:14 ibuprofen [IBUPROFEN] Allergy Intermediate LIP Verified 06/02/24 20:14 SWELLING/RASH rizatriptan Allergy Intermediate swelling, Verified 06/02/24 20:14 pruritus PMFSH Past Medical History Medical History Lumbar spine pain Cervical cancer screening Annual physical exam Screening for diabetes mellitus (DM) Bad odor of urine Back pain Right foot pain Pre-syncope Abnormal urine odor Cervical spine pain Screening for hypercholesterolemia Screening for hypothyroidism Breast cancer screening Constipation Obesity Lumbar pain Finger infection Neck pain Surgical History History of section Family History Family History Mother No problems noted. Father No problems noted. 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 For the female presents to ED for chest pain, body pain, neck pain, back pain, facial pain, throat pain and boyfriend states fever 101.1 temporal at home. Patient states also shortness of breath. EKG sinus tach. Negative for pitting edema or calf pain. Positive for chest wall pain on palpation. Lungs are clear. SARs labs EKG ordered. Medications Administered Generic Name Dose Route Start Last Admin Trade Name Freq PRN Reason Stop Dose Admin Sodium Chloride 1,000 mls @ 999 mls/hr 06/02/24 22:00 06/02/24 22:27 Ns IV 06/02/24 23:00 999 mls/hr .Q1H1M TANVI Administration Discontinued Medications Generic Name Dose Route Start Last Admin Trade Name Freq PRN Reason Stop Dose Admin Acetaminophen 975 mg 06/02/24 20:16 06/02/24 20:19 Acetaminophen 325 Mg Tablet PO 06/02/24 20:17 975 mg ONCE ONE Administration Ketorolac Tromethamine 30 mg 06/02/24 21:56 06/02/24 22:27 Ketorolac Tromethamine 30 Mg/Ml Vial IVPUSH 06/02/24 21:57 Not Given ONCE ONE Medical Decision Making Lab Data 06/02/24 21:05 06/02/24 21:05 Labs: Lab Results 06/02/24 06/02/24 Range/Units 20:14 21:05 WBC 5.8 (4.8-10.8) X10*3/uL RBC 4.54 (4.20-5.50) X10*6/uL Hgb 12.6 (12.0-16.0) g/dl Hct 38.1 (37.0-47.0) % MCV 83.9 (80.0-98.0) fL MCH 27.8 (27.0-33.0) pg MCHC 33.1 (31.0-35.0) g/dl RDW 14.2 (11.0-16.0) % Plt Count 222 (160-400) X10*3/uL MPV 11.0 (9.4-12.3) fL Immature Gran % (Auto) 0.2 (0.0-0.4) % Neut % (Auto) 79.8 H (45-73) % Lymph % (Auto) 5.3 L (20-40) % [place] % (Auto) 14.1 H (2-11) % Eos % (Auto) 0.3 (0-4) % Baso % (Auto) 0.3 (0-2) % Lymph # (Auto) 0.3 L (1.2-4.9) X10*3/uL [place] # (Auto) 0.8 (0.1-1.2) X10*3/uL Eos # (Auto) 0.0 (0.0-0.4) X10*3/uL Baso # (Auto) 0.0 (0.0-0.2) X10*3/uL Abs Immat Gran (auto) 0.01 (0.00-0.03) X10*3/uL Absolute Neuts (auto) 4.6 (2.0-8.3) x10*3/uL Absolute Nucleated RBC 0.000 (0.0-0.012) X10*3/uL Nucleated RBC % (auto) 0.0 (0.0-0.2) /100WBC PT 14.1 H (11.1-13.3) SEC INR 1.2 H (0.9-1.1) APTT 33.0 (26.0-36.8) SEC Sodium 136 (135-145) mmol/L Potassium 3.5 (3.3-5.1) mmol/L Chloride 107 (96-108) mmol/L Carbon Dioxide 19 L (22-29) mmol/L Anion Gap 14 (12-20) BUN 8 L (9-16) mg/dL Creatinine 0.70 (0.5-1.4) mg/dL Estim Creat Clear Calc 108.3 Estimated GFR > 60 Random Glucose 114 (60-115) mg/dL Calcium 8.8 (8.4-10.2) mg/dL Total Bilirubin 0.6 (0.0-1.0) mg/dL AST 18 (5-31) U/L ALT 20 (0-31) U/L Alkaline Phosphatase 142 H (39-117) U/L Troponin I High Sens < 2.7 (<3.5-17.0) ng/L Total Protein 7.5 (6.5-8.0) g/dL Albumin 4.0 (3.5-5.0) g/dL Influenza Type A (PCR) NEGATIVE (Negative) Influenza Type B (PCR) NEGATIVE (Negative) RSV RNA Qual (PCR) NEGATIVE (Negative) SARS-CoV-2 RNA (RT-PCR) POSITIVE A (Negative) S. pyogenes GrpA ALICE Negative (Negative) Discharge Plan Discharge Clinical Impression: COVID-19 Patient Disposition: Still a Patient Instructions: COVID-19 (Coronavirus Disease 2019) (ED) Prescriptions: No Action Wegovy 0.25 mg/0.5 mL pen injector 0.25 mg subcut QWEEK 28 Days Qty: 2 0RF Rx Instructions: administer weeks 1 through 4 of therapy acetaminophen [Tylenol Arthritis Pain] 650 mg tablet extended release 650 mg PO Q12H 30 Days Qty: 60 2RF Print Language: Dominican
[2024-06-02] MEDS: Acetaminophen 325 MG TABLET 975 MG PO (20:19)
[2024-06-02 21:06] VITALS: PULSE 106
[2024-06-02 21:12] LABS: MANUAL DIFF FLAG NO
[2024-06-02 21:17] LABS: Basophils Percent Auto 0.3 % (0-2); Eosinophils Percent Auto 0.3 % (0-4); Hematocrit 38.1 % (37.0-47.0); Hemoglobin 12.6 g/dl (12.0-16.0); Imm Gran Abs Auto 0.01 X10*3/uL (0.00-0.03); Imm Gran Pct Auto 0.2 % (0.0-0.4); Lymphocytes Absolute Auto 0.3 X10*3/uL (1.2-4.9); Lymphocytes Percent Auto 5.3 % (20-40); Mean Corpuscular HGB Conc 33.1 g/dl (31.0-35.0); Mean Corpuscular Hemoglobin 27.8 pg (27.0-33.0); Mean Corpuscular Volume 83.9 fL (80.0-98.0); Monocytes Absolute Auto 0.8 X10*3/uL (0.1-1.2); Monocytes Percent Auto 14.1 % (2-11); Neutrophils Absolute Auto 4.6 x10*3/uL (2.0-8.3); Neutrophils Percent Auto 79.8 % (45-73); Platelet Count 222 X10*3/uL (160-400); Red Blood Count 4.54 X10*6/uL (4.20-5.50); Red Cell Distribution Width 14.2 % (11.0-16.0); White Blood Count 5.8 X10*3/uL (4.8-10.8)
[2024-06-02 21:23] LABS: IDNOW Serial# 08D9AD1C; Strep A Nucleic Acid Negative (Negative)
[2024-06-02 21:28] LABS: Alanine Aminotransferase 20 U/L (0-31); Alkaline Phosphatase 142 U/L (39-117); Anion Gap 14 (12-20); Aspartate Amino Transferase 18 U/L (5-31); Bilirubin Total 0.6 mg/dL (0.0-1.0); Blood Urea Nitrogen 8 mg/dL (9-16); Calcium 8.8 mg/dL (8.4-10.2); Carbon Dioxide 19 mmol/L (22-29); Chloride 107 mmol/L (96-108); Creatinine Clr Calc Pharmacy 108.3; Estimated Glomerular Filt Rate > 60; Glucose Random 114 mg/dL (60-115); Potassium 3.5 mmol/L (3.3-5.1); Sodium 136 mmol/L (135-145); Total Protein 7.5 g/dL (6.5-8.0)
[2024-06-02 21:37] LABS: INTERNATIONAL NORM RATIO 1.2 (0.9-1.1); Prothrombin Time 14.1 SEC (11.1-13.3)
[2024-06-02 21:39] LABS: Troponin-I High Sensitivity < 2.7 ng/L (<3.5-17.0)
[2024-06-02 21:51] LABS: Influenza A PCR NEGATIVE (Negative); Influenza B PCR NEGATIVE (Negative); Resp Syncy Virus RNA Qual PCR NEGATIVE (Negative); SARS COV2 PCR INHOUSE POSITIVE (Negative)
--- NOTE | 2024-06-02 22:16 | ED.CHESTPAIN ---
HPI - Chest Pain General Chief Complaint: Chest Pain Stated Complaint: chest pain Time Seen by Provider: 06/02/24 20:51 History of Present Illness HPI narrative: Patient is a 43-year-old female presents today with having generalized total body ache including the chest the back the head the face the throat the legs have a low-grade fever 100.1. Patient is also complaining of some mild coughing. Patient never received the COVID vaccine. She is from home. Related Data Previous Rx's ?Medication ?Instructions ?Recorded acetaminophen 650 mg 650 mg PO Q12H 30 days #60 tabs 05/14/24 tablet,extended release (Tylenol Arthritis Pain) semaglutide (weight loss) 0.25 0.25 mg (0.5 mL) subcut QWEEK 4 05/22/24 mg/0.5 mL subcutaneous pen weeks #2 mL injector (Tykligovy) nirmatrelvir 300 mg (150 mg See Rx Instructions PO .COMPLEX 06/02/24 x2)-ritonavir 100 mg tablet,dose #30 ea pack (Paxlovid) Allergies Allergy/AdvReac Type Severity Reaction Status Date / Time sumatriptan [From IMITREX] Allergy Severe PALPITAITONS, Verified 06/02/24 20:14 palpitations aspirin [ASA] Allergy Intermediate HIVES, rash Verified 06/02/24 20:14 ibuprofen [IBUPROFEN] Allergy Intermediate LIP Verified 06/02/24 20:14 SWELLING/RASH rizatriptan Allergy Intermediate swelling, Verified 06/02/24 20:14 pruritus Review of Systems Review of Systems: Positive coughing generalized malaise Yes all other systems are reviewed and are negative PMFSH Past Medical History Attestation statement: The following information was validated with the patient. Medical History Lumbar spine pain Cervical cancer screening Annual physical exam Screening for diabetes mellitus (DM) Bad odor of urine Back pain Right foot pain Pre-syncope Abnormal urine odor Cervical spine pain Screening for hypercholesterolemia Screening for hypothyroidism Breast cancer screening Constipation Obesity Lumbar pain Finger infection Neck pain Surgical History History of section Family History Family History Mother No problems noted. Father No problems noted. 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 Oriented X3. No acute distress. Eyes: Pupils equal, round and reactive to light. ENT: Pharynx normal. Neck: Normal inspection. Neck supple. No lymph nodes noted. No crepitus CVS: Normal heart rate and rhythm. Pulses normal. Normal S1 and S2 Respiratory: No respiratory distress. Breath sounds normal. No Wheezing. No rales Abdomen: Soft and nontender. No rigidity. No distention. good BS x4 Skin: Skin warm and dry. Normal skin color. Normal skin turgor. Extremities: No lower extremity edema. Neurovascular intact to all extremities. No Lacerations. No Rash Neuro: Oriented X 3. No motor deficit. No sensory deficit. Moving all extermities. No slurred speech Medications Administered Discontinued Medications Generic Name Dose Route Start Last Admin Trade Name Freq PRN Reason Stop Dose Admin Acetaminophen 975 mg 06/02/24 20:16 06/02/24 20:19 Acetaminophen 325 Mg Tablet PO 06/02/24 20:17 975 mg ONCE ONE Administration Sodium Chloride 1,000 mls @ 999 mls/hr 06/02/24 22:00 06/02/24 22:27 Ns IV 06/02/24 23:00 999 mls/hr .Q1H1M TANVI Administration Ketorolac Tromethamine 30 mg 06/02/24 21:56 06/02/24 22:27 Ketorolac Tromethamine 30 Mg/Ml Vial IVPUSH 06/02/24 21:57 Not Given ONCE ONE Medical Decision Making Medical Decision Making [facility] Narrative: Patient's O2 sat is normal. No acute distress. Tachycardic will give IV fluids. Patient's COVID test came back positive. Likely the cause of total body ache. Allergic to NSAIDs. Tylenol was given initially. Will monitor. Differential Diagnosis Differential Diagnoses: The differential diagnosis associated with the presentation includes COVID, UTI, , electrolyte disturbance, pneumonia Admission/Observation Consideration of admission/observation: Escalation of care including admission/observation considered Lab Data [facility] Lab Attestation statement: I reviewed the patient's lab results. 06/02/24 21:05 06/02/24 21:05 Labs: Lab Results 06/02/24 06/02/24 Range/Units 20:14 21:05 WBC 5.8 (4.8-10.8) X10*3/uL RBC 4.54 (4.20-5.50) X10*6/uL Hgb 12.6 (12.0-16.0) g/dl Hct 38.1 (37.0-47.0) % MCV 83.9 (80.0-98.0) fL MCH 27.8 (27.0-33.0) pg MCHC 33.1 (31.0-35.0) g/dl RDW 14.2 (11.0-16.0) % Plt Count 222 (160-400) X10*3/uL MPV 11.0 (9.4-12.3) fL Immature Gran % (Auto) 0.2 (0.0-0.4) % Neut % (Auto) 79.8 H (45-73) % Lymph % (Auto) 5.3 L (20-40) % [place] % (Auto) 14.1 H (2-11) % Eos % (Auto) 0.3 (0-4) % Baso % (Auto) 0.3 (0-2) % Lymph # (Auto) 0.3 L (1.2-4.9) X10*3/uL [place] # (Auto) 0.8 (0.1-1.2) X10*3/uL Eos # (Auto) 0.0 (0.0-0.4) X10*3/uL Baso # (Auto) 0.0 (0.0-0.2) X10*3/uL Abs Immat Gran (auto) 0.01 (0.00-0.03) X10*3/uL Absolute Neuts (auto) 4.6 (2.0-8.3) x10*3/uL Absolute Nucleated RBC 0.000 (0.0-0.012) X10*3/uL Nucleated RBC % (auto) 0.0 (0.0-0.2) /100WBC PT 14.1 H (11.1-13.3) SEC INR 1.2 H (0.9-1.1) APTT 33.0 (26.0-36.8) SEC Sodium 136 (135-145) mmol/L Potassium 3.5 (3.3-5.1) mmol/L Chloride 107 (96-108) mmol/L Carbon Dioxide 19 L (22-29) mmol/L Anion Gap 14 (12-20) BUN 8 L (9-16) mg/dL Creatinine 0.70 (0.5-1.4) mg/dL Estim Creat Clear Calc 108.3 Estimated GFR > 60 Random Glucose 114 (60-115) mg/dL Calcium 8.8 (8.4-10.2) mg/dL Total Bilirubin 0.6 (0.0-1.0) mg/dL AST 18 (5-31) U/L ALT 20 (0-31) U/L Alkaline Phosphatase 142 H (39-117) U/L Troponin I High Sens < 2.7 (<3.5-17.0) ng/L Total Protein 7.5 (6.5-8.0) g/dL Albumin 4.0 (3.5-5.0) g/dL Influenza Type A (PCR) NEGATIVE (Negative) Influenza Type B (PCR) NEGATIVE (Negative) RSV RNA Qual (PCR) NEGATIVE (Negative) SARS-CoV-2 RNA (RT-PCR) POSITIVE A (Negative) S. pyogenes GrpA ALICE Negative (Negative) Independent Interpretation I performed an independent interpretation of an: EKG (My interpretation patient's EKG showed a sinus rhythm heart rate is 70 DC QRS QTC within normal limits is no acute ST segment elevation noted.) and Plain X-Ray (Chest x-ray grossly negative) Radiology Impression Discussion of test interpretation with radiology: I have reviewed the radiologist's reading. Independent Historian Clinical information obtained from an independent historian. History obtained from or confirmed by: Friend Discharge Plan Discharge Clinical Impression: COVID-19 Patient Disposition: Home, Self-Care Instructions: COVID-19 (Coronavirus Disease 2019) (ED) Prescriptions: New Paxlovid 300 mg (150 mg x 2)-100 mg tablets,dose pack See Rx Instructions .ROUTE .COMPLEX Qty: 30 0RF Rx Instructions: take TWO 150 mg tablets of nirmatrelvir with ONE 100 mg tablet of ritonavir twice daily for 5 days No Action Wegovy 0.25 mg/0.5 mL pen injector 0.25 mg subcut QWEEK 28 Days Qty: 2 0RF Rx Instructions: administer weeks 1 through 4 of therapy acetaminophen [Tylenol Arthritis Pain] 650 mg tablet extended release 650 mg PO Q12H 30 Days Qty: 60 2RF Referrals: Ryan Dhillon PA-C [Primary Care Provider] - 06/05/24 Print Language: Hong Konger
[2024-06-02] MEDS: 0.9 % Sodium Chloride 1,000 ML 999 ML IV (22:27)
[2024-06-02 22:45] VITALS: BP 114/66; PULSE 92; RESP 17; TEMP 37.1; O2SAT 96
[2024-06-02 23:58] LABS: Appearance Urine Clear; Color Urine Yellow; Glucose Urine UA Negative (Negative); Leukocyte Esterase Urine Negative (Negative); Nitrite Urine Positive (Negative); UMIC TRIGGER UACC YES; Urine Blood Negative (Negative); Urine Ketones 40 mg/dL (Negative); Urine Protein Negative (Neg-Trace)
[2024-06-03 00:01] LABS: UPreg QC Valid YES; Urine Pregnancy NEGATIVE (NEGATIVE)
[2024-06-03 00:04] VITALS: BP 118/68; PULSE 94; RESP 17; TEMP 37.1; O2SAT 96
[2024-06-03 00:13] LABS: Bacteria Urine 4+ (None Seen); Hyaline Casts Urine 0-2 /LPF (0-2); RBC Urine 0-2 /HPF (0-2); Squamous Epithelial Cell Urine 0-2 /HPF (0-2); UACC Culture Trigger YES; WBC Urine 0-5 /HPF (0-5)
== END 2024-06-03 00:05 | disposition home or self-care (01) ==
PROVIDERS: Physician Assistant; Emergency Provider Emergency Medicine Emergency Medical Services; PCP Physician Assistant
DX: U07.1 COVID-19 (principal); R07.89 Other chest pain; M79.10 Myalgia, unspecified site; R51.9 Headache, unspecified; R05.9 Cough, unspecified; Z79.899 Other long term (current) drug therapy
CPT/HCPCS: 0241U; 36415; 71045; 80053; 81001; 81025; 84484; 85025; 85610; 85730; 87086; 87088; 87186; 87651; 93005; 99284; 99285

== ENCOUNTER → 2024-06-02 19:42 | Outpatient (BNV) | payer OTHER, SELFPAY | PROVIDERS: Emergency Provider Emergency Medicine Emergency Medical Services; PCP Physician Assistant; Visit Provider Internal Medicine Cardiovascular Disease | DX: R07.9 Chest pain, unspecified (principal); R00.0 Tachycardia, unspecified | CPT/HCPCS: 93010 ==

== ENCOUNTER 2024-06-09 08:11 | Emergency (ER) | payer OTHER, SELFPAY ==
[2024-06-09 08:13] VITALS: BP 140/92; PULSE 84; RESP 20; TEMP 35.5; O2SAT 100; BMI 33.8
[2024-06-09 08:34] VITALS: BP 145/87; PULSE 77; RESP 17; TEMP 36.4; O2SAT 99
--- NOTE | 2024-06-09 08:46 | ED.HA ---
HPI - Headache General Chief Complaint: General Medical Stated Complaint: Abd pain Time Seen by Provider: 06/09/24 08:27 Source: patient Mode of arrival: ambulatory Limitations: no limitations History of Present Illness ED Provider: SELVIN RAGLAND Narrative: 43 yo female with PMH of migraines, obesity, liver mass, h pylori infection, not on thinners just dx with COVID-19 on 06/02 completed paxlovid then dx with martinez S E. Coli UTI 06/07 started on ceftin took two doses then two days ago started with gradual onset migraine, vomiting, no fevers, has upper abdominal pain. Cannot keep anything down. States she has has migraines like this before on her R side. No head trauma. Has not been able to keep any meds down in last 24 hours. MD elicited complaint: headache and migraine Pertinent past history: migraines Onset (ago): day(s) (2) Onset description: gradually Location: right and temporal Severity: severe Quality & Timing: throbbing Exacerbating factors: light and noise Relieving factors: rest Context: occurred at rest Associated symptoms: nausea, vomiting and other (abdominal pain) Treatments prior to arrival: none Related Data Previous Rx's ?Medication ?Instructions ?Recorded acetaminophen 650 mg 650 mg PO Q12H 30 days #60 tabs 05/14/24 tablet,extended release (Tylenol Arthritis Pain) semaglutide (weight loss) 0.25 0.25 mg (0.5 mL) subcut QWEEK 4 05/22/24 mg/0.5 mL subcutaneous pen weeks #2 mL injector (Wegovy) nirmatrelvir 300 mg (150 mg See Rx Instructions PO .COMPLEX 06/02/24 x2)-ritonavir 100 mg tablet,dose #30 ea pack (Paxlovid) cefuroxime axetil 250 mg tablet 250 mg PO BID 7 days #14 tabs 06/07/24 cyclobenzaprine 10 mg tablet 10 mg PO TID PRN muscle spasm #20 06/09/24 tabs nitrofurantoin 100 mg PO BID 7 days #14 caps 06/09/24 monohydrate/macrocrystals 100 mg capsule (Macrobid) ondansetron 4 mg disintegrating 4 mg PO Q8H PRN nausea and 06/09/24 tablet vomiting #20 tabs Allergies Allergy/AdvReac Type Severity Reaction Status Date / Time sumatriptan [From IMITREX] Allergy Severe PALPITAITONS, Verified 06/09/24 08:17 palpitations aspirin [ASA] Allergy Intermediate HIVES, rash Verified 06/09/24 08:17 ibuprofen [IBUPROFEN] Allergy Intermediate LIP Verified 06/09/24 08:17 SWELLING/RASH rizatriptan Allergy Intermediate swelling, Verified 06/09/24 08:17 pruritus Review of Systems Review of Systems: Constitutional : No Weight loss, No Fever, No Chills ENT/Mouth : No sore throat, No Rhinorrhea Eyes: No Swelling, No Redness Cardiovascular : No Chest Pain, No SOB, NoEdema Respiratory : No Cough, No Sputum, No Wheezing Gastrointestinal : Positive Nausea, pos Vomiting, no Diarrhea, positive abdominal Pain, No Hematochezia, No Melena Genitourinary : No Dysuria, No Urinary Frequency, No Hematuria, No Urgency Musculoskeletal : No joint pain, No Myalgias, No Joint Swelling Skin : No Skin Lesions, No rash Neuro : No Weakness, No Numbness, No Dizziness, pos Headache Psych : No Anxiety/Panic, No Depression All other systems reviewed and are negative. [facility] Past Medical History Attestation statement: The following information was validated with the patient. Source: old records reviewed Medical History Lumbar spine pain Cervical cancer screening Annual physical exam Screening for diabetes mellitus (DM) Bad odor of urine Back pain Right foot pain Pre-syncope Abnormal urine odor Cervical spine pain Screening for hypercholesterolemia Screening for hypothyroidism Breast cancer screening Constipation Obesity Lumbar pain Finger infection Neck pain Surgical History History of section Family History Family History Mother No problems noted. Father No problems noted. 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 Oriented X3. in pain active dry heaving mild acute distress. Eyes: Pupils equal, round and reactive to light. ENT: Pharynx dry MM Neck: Normal inspection. Neck supple. no meningeal signs CVS: Normal heart rate and rhythm. Pulses normal. Respiratory: No respiratory distress. Breath sounds normal. Abdomen: Soft and ttp in epigstaric area no rebound or guarding. Skin: Skin warm and dry. pale skin color. Normal skin turgor. Extremities: No lower extremity edema. No calf ttp Neuro: Oriented X 3. No motor deficit. No sensory deficit. Medications Administered Discontinued Medications Generic Name Dose Route Start Last Admin Trade Name Freq PRN Reason Stop Dose Admin Diphenhydramine HCl 25 mg 06/09/24 08:37 06/09/24 08:55 Diphenhydramine Hcl 50 Mg/Ml Vial IVPUSH 06/09/24 08:38 25 mg ONCE ONE Administration Sodium Chloride 1,000 mls @ 999 mls/hr 06/09/24 08:37 06/09/24 08:49 Ns IV 06/09/24 09:37 999 mls/hr .Q1H1M ONE Administration Magnesium Sulfate 2 gm in 50 mls @ 25 mls/hr 06/09/24 08:37 06/09/24 08:56 Magnesium Sulfate/H2o IV 06/09/24 10:36 25 mls/hr ONCE ONE Administration Ceftriaxone Sodium 1 gm/ 50 mls @ 100 mls/hr 06/09/24 10:26 06/09/24 10:51 Sodium Chloride IV 06/09/24 10:55 100 mls/hr ONCE ONE Administration Metoclopramide HCl 10 mg 06/09/24 08:38 06/09/24 08:55 Metoclopramide Hcl 10 Mg/2 Ml Vial IVPUSH 06/09/24 08:39 10 mg ONCE ONE Administration Morphine Sulfate 4 mg 06/09/24 08:38 06/09/24 08:55 Morphine Sulfate 4 Mg/Ml Cartridge IVPUSH 06/09/24 08:39 4 mg ONCE ONE Administration Protocol Medical Decision Making Medical Decision Making [facility] Narrative: 43 yo female with PMH of migraines, obesity, liver mass, h pylori infection, not on thinners here with c/o gradual onset R sided headache x 48 hours took day for severe pain at this no focal deficits afebrile has epigastric pain not flank pain with UTI pyelo seems less likely did take two doses of antibiotics. 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 Doubt clot even though she just had COVID as she describes this as a typical migraine for her Differential Diagnosis Differential Diagnoses: The differential diagnosis associated with the presentation includes migraine, dehydration, UTI has no focal deficits and reports she gets migraines this bad in past would not think she has central venous thrombosis or clot post COVID she is afebrile she has been ill for 2 days without deficits and has no meningeal signs gradual onset worsening over 24 hours doubt SAH Admission/Observation Consideration of admission/observation: Escalation of care including admission/observation considered feels much better tolerating PO symptoms resolved stable for DC Lab Data [facility] Lab Attestation statement: I reviewed the patient's lab results. 06/09/24 08:48 06/09/24 08:48 Labs: Lab Results 06/09/24 Range/Units 08:48 WBC 6.1 (4.8-10.8) X10*3/uL RBC 4.51 (4.20-5.50) X10*6/uL Hgb 12.4 (12.0-16.0) g/dl Hct 37.7 (37.0-47.0) % MCV 83.6 (80.0-98.0) fL MCH 27.5 (27.0-33.0) pg MCHC 32.9 (31.0-35.0) g/dl RDW 13.6 (11.0-16.0) % Plt Count 261 (160-400) X10*3/uL MPV 10.8 (9.4-12.3) fL Immature Gran % (Auto) 0.2 (0.0-0.4) % Neut % (Auto) 77.7 H (45-73) % Lymph % (Auto) 14.8 L (20-40) % [place] % (Auto) 6.4 (2-11) % Eos % (Auto) 0.7 (0-4) % Baso % (Auto) 0.2 (0-2) % Lymph # (Auto) 0.9 L (1.2-4.9) X10*3/uL [place] # (Auto) 0.4 (0.1-1.2) X10*3/uL Eos # (Auto) 0.0 (0.0-0.4) X10*3/uL Baso # (Auto) 0.0 (0.0-0.2) X10*3/uL Abs Immat Gran (auto) 0.01 (0.00-0.03) X10*3/uL Absolute Neuts (auto) 4.8 (2.0-8.3) x10*3/uL Absolute Nucleated RBC 0.000 (0.0-0.012) X10*3/uL Nucleated RBC % (auto) 0.0 (0.0-0.2) /100WBC Sodium 140 (135-145) mmol/L Potassium 3.6 (3.3-5.1) mmol/L Chloride 107 (96-108) mmol/L Carbon Dioxide 25 (22-29) mmol/L Anion Gap 12 (12-20) BUN 8 L (9-16) mg/dL Creatinine 0.75 (0.5-1.4) mg/dL Estim Creat Clear Calc 104.6 Estimated GFR > 60 Random Glucose 134 H (60-115) mg/dL Calcium 9.4 D (8.4-10.2) mg/dL Magnesium 1.9 (1.6-2.6) mg/dL Total Bilirubin 0.5 (0.0-1.0) mg/dL Direct Bilirubin 0.1 (0.0-0.5) mg/dL AST 18 (5-31) U/L ALT 20 (0-31) U/L Alkaline Phosphatase 122 H (39-117) U/L Total Protein 7.3 (6.5-8.0) g/dL Albumin 3.8 (3.5-5.0) g/dL Lipase 18 (8-78) U/L Beta HCG, Quant < 2 mIU/mL Independent Historian Clinical information obtained from an independent historian. History obtained from or confirmed by: Spouse External Record Review External record reviewed: Inpatient record and Outpatient record Prescription Management I considered prescription management with: Pain Medication, Antibiotic and Other Discharge Plan Discharge Clinical Impression: Migraines Qualifiers: Migraine type: unspecified Status migrainosus presence: without status migrainosus Intractability: not intractable Qualified Code(s): G43.909 - Migraine, unspecified, not intractable, without status migrainosus Nausea & vomiting Qualifiers: Vomiting type: unspecified Qualified Code(s): R11.2 - Nausea with vomiting, unspecified Patient Disposition: Home, Self-Care Instructions: Migraine Headache (ED), Acute Nausea and Vomiting (ED) Additional Instructions: return for worsening pain, fevers, unable to eat or drink take antibiotic tomorrow AM stop taking cefuroxime Prescriptions: New cyclobenzaprine 10 mg tablet 10 mg PO TID PRN (Reason: muscle spasm) Qty: 20 0RF ondansetron 4 mg tablet,disintegrating 4 mg PO Q8H PRN (Reason: nausea and vomiting) Qty: 20 0RF nitrofurantoin monohyd/m-cryst [Macrobid] 100 mg capsule 100 mg PO BID 7 Days Qty: 14 0RF Rx Instructions: must administer with a meal/food No Action Wegovy 0.25 mg/0.5 mL pen injector 0.25 mg subcut QWEEK 28 Days Qty: 2 0RF Rx Instructions: administer weeks 1 through 4 of therapy Paxlovid 300 mg (150 mg x 2)-100 mg tablets,dose pack See Rx Instructions .ROUTE .COMPLEX Qty: 30 0RF Rx Instructions: take TWO 150 mg tablets of nirmatrelvir with ONE 100 mg tablet of ritonavir twice daily for 5 days cefuroxime axetil 250 mg tablet 250 mg PO BID 7 Days Qty: 14 0RF acetaminophen [Tylenol Arthritis Pain] 650 mg tablet extended release 650 mg PO Q12H 30 Days Qty: 60 2RF Stand Alone Forms: Work/School Release Print Language: Polish
[2024-06-09] MEDS: 0.9 % Sodium Chloride 1,000 ML 999 ML IV (08:49)
[2024-06-09 08:53] LABS: MANUAL DIFF FLAG NO
[2024-06-09] MEDS: diphenhydrAMINE HCL 50 MG/ML VIAL 25 MG IVPUSH (08:55)
[2024-06-09] MEDS: Morphine Sulfate 4 MG/ML CARTRIDGE IVPUSH (08:55)
[2024-06-09] MEDS: Metoclopramide HCl 10 MG/2 ML VIAL IVPUSH (08:55)
[2024-06-09 08:56] LABS: Basophils Percent Auto 0.2 % (0-2); Eosinophils Percent Auto 0.7 % (0-4); Hematocrit 37.7 % (37.0-47.0); Hemoglobin 12.4 g/dl (12.0-16.0); Imm Gran Abs Auto 0.01 X10*3/uL (0.00-0.03); Imm Gran Pct Auto 0.2 % (0.0-0.4); Lymphocytes Absolute Auto 0.9 X10*3/uL (1.2-4.9); Lymphocytes Percent Auto 14.8 % (20-40); Mean Corpuscular HGB Conc 32.9 g/dl (31.0-35.0); Mean Corpuscular Hemoglobin 27.5 pg (27.0-33.0); Mean Corpuscular Volume 83.6 fL (80.0-98.0); Mean Platelet Volume 10.8 fL (9.4-12.3); Monocytes Absolute Auto 0.4 X10*3/uL (0.1-1.2); Monocytes Percent Auto 6.4 % (2-11); Neutrophils Absolute Auto 4.8 x10*3/uL (2.0-8.3); Neutrophils Percent Auto 77.7 % (45-73); Platelet Count 261 X10*3/uL (160-400); Red Blood Count 4.51 X10*6/uL (4.20-5.50); Red Cell Distribution Width 13.6 % (11.0-16.0); White Blood Count 6.1 X10*3/uL (4.8-10.8)
[2024-06-09] MEDS: Magnesium Sulfate/H2O 2 GM/50 ML PIGGYBACK IV (08:56)
[2024-06-09 09:11] LABS: Alanine Aminotransferase 20 U/L (0-31); Albumin Level 3.8 g/dL (3.5-5.0); Alkaline Phosphatase 122 U/L (39-117); Anion Gap 12 (12-20); Aspartate Amino Transferase 18 U/L (5-31); Bilirubin Direct 0.1 mg/dL (0.0-0.5); Bilirubin Total 0.5 mg/dL (0.0-1.0); Blood Urea Nitrogen 8 mg/dL (9-16); Calcium 9.4 mg/dL (8.4-10.2); Carbon Dioxide 25 mmol/L (22-29); Chloride 107 mmol/L (96-108); Creatinine Clr Calc Pharmacy 104.6; Estimated Glomerular Filt Rate > 60; Glucose Random 134 mg/dL (60-115); Lipase 18 U/L (8-78); Magnesium 1.9 mg/dL (1.6-2.6); Potassium 3.6 mmol/L (3.3-5.1); Sodium 140 mmol/L (135-145); Total Protein 7.3 g/dL (6.5-8.0)
[2024-06-09 09:26] LABS: HCG Quantitative < 2 mIU/mL
[2024-06-09 10:31] VITALS: BP 122/70; PULSE 74; RESP 17; TEMP 36.5; O2SAT 99
[2024-06-09] MEDS: cefTRIAXone sodium 1 GM in 0.9 % Sodium Chloride 50 ML IV (10:51)
[2024-06-09 11:10] VITALS: BP 168/78; PULSE 118; RESP 17; TEMP 37.3; O2SAT 97
[2024-06-09 11:51] VITALS: BP 158/88; PULSE 94; RESP 18; TEMP 37.2; O2SAT 98
== END 2024-06-09 11:51 | disposition home or self-care (01) ==
PROVIDERS: Emergency Provider Emergency Medicine; PCP Physician Assistant
DX: G43.909 Migraine, unspecified, not intractable, without status migrainosus (principal); R11.2 Nausea with vomiting, unspecified; R10.9 Unspecified abdominal pain; Z79.899 Other long term (current) drug therapy
CPT/HCPCS: 36415; 80048; 80076; 83690; 83735; 84702; 85025; 96361; 96365; 96366; 96375; 99284; J0696; J1200; J2270; J2765; J3475

== ENCOUNTER 2024-07-01 08:32 | Emergency (ER) | payer OTHER, SELFPAY ==
--- NOTE | 2024-07-01 | ECG_ITS ---
Test Reason : EPIGASTRIC PAIN Blood Pressure : / mmHG Vent. Rate : 075 BPM Atrial Rate : 075 BPM P-R Int : 140 ms QRS Dur : 074 ms QT Int : 378 ms P-R-T Axes : 006 014 012 degrees QTc Int : 422 ms Normal sinus rhythm Normal ECG When compared with ECG of 02-JUN-2024 19:42, T wave amplitude has increased in Lateral leads Heart rate has decreased Referred By: Generic ED Physician Electronically Signed By:MAXIMINO TENA
[2024-07-01 08:35] VITALS: BP 126/78; PULSE 79; RESP 20; TEMP 36.5; O2SAT 98; BMI 33.8
[2024-07-01 08:54] LABS: MANUAL DIFF FLAG NO
[2024-07-01 08:59] LABS: Basophils Percent Auto 0.2 % (0-2); Eosinophils Absolute Auto 0.1 X10*3/uL (0.0-0.4); Eosinophils Percent Auto 2.1 % (0-4); Hematocrit 37.7 % (37.0-47.0); Hemoglobin 12.4 g/dl (12.0-16.0); Imm Gran Abs Auto 0.01 X10*3/uL (0.00-0.03); Imm Gran Pct Auto 0.2 % (0.0-0.4); Lymphocytes Absolute Auto 0.8 X10*3/uL (1.2-4.9); Lymphocytes Percent Auto 17.1 % (20-40); Mean Corpuscular HGB Conc 32.9 g/dl (31.0-35.0); Mean Corpuscular Hemoglobin 27.9 pg (27.0-33.0); Mean Corpuscular Volume 84.9 fL (80.0-98.0); Mean Platelet Volume 10.9 fL (9.4-12.3); Monocytes Absolute Auto 0.4 X10*3/uL (0.1-1.2); Monocytes Percent Auto 8.4 % (2-11); Neutrophils Absolute Auto 3.5 x10*3/uL (2.0-8.3); Platelet Count 226 X10*3/uL (160-400); Red Blood Count 4.44 X10*6/uL (4.20-5.50); Red Cell Distribution Width 13.9 % (11.0-16.0); White Blood Count 4.9 X10*3/uL (4.8-10.8)
[2024-07-01 09:08] LABS: Alanine Aminotransferase 20 U/L (0-31); Albumin Level 3.7 g/dL (3.5-5.0); Alkaline Phosphatase 140 U/L (39-117); Anion Gap 11 (12-20); Aspartate Amino Transferase 17 U/L (5-31); Bilirubin Total 0.6 mg/dL (0.0-1.0); Blood Urea Nitrogen 10 mg/dL (9-16); Calcium 8.9 mg/dL (8.4-10.2); Carbon Dioxide 25 mmol/L (22-29); Chloride 107 mmol/L (96-108); Creatinine Clr Calc Pharmacy 99.5; Estimated Glomerular Filt Rate > 60; Glucose Random 122 mg/dL (60-115); Potassium 3.6 mmol/L (3.3-5.1); Sodium 139 mmol/L (135-145); Total Protein 7.1 g/dL (6.5-8.0)
[2024-07-01 09:19] LABS: Troponin-I High Sensitivity < 2.7 ng/L (<3.5-17.0)
== END 2024-07-01 18:18 | disposition left against medical advice (07) ==
PROVIDERS: Emergency Provider Emergency Medicine; PCP Physician Assistant
DX: R10.13 Epigastric pain (principal); R11.2 Nausea with vomiting, unspecified; R06.02 Shortness of breath; Z53.21 Procedure and treatment not carried out due to patient leaving prior to being seen by health care provider
CPT/HCPCS: 36415; 80053; 84484; 85025; 93005; 99281; 99283

== ENCOUNTER 2024-07-03 09:16 | Outpatient (AMB) | payer OTHER, SELFPAY ==
[2024-07-03 09:18] VITALS: BP 128/86; PULSE 84; O2SAT 98; BMI 34.1
--- NOTE | 2024-07-03 09:18 | MHC.PC.OV ---
Vital Signs 07/03/24 09:18 Height 5 ft 3 in Weight 192 lb 4 oz BMI 34.1 BP 128/86 Blood Pressure Location Lt brachial Position Sitting Pulse 84 Pulse Source Pulse Oximeter Pulse Oximetry (%) 98 Oxygen Delivery Method Room Air Intake Visit Reasons: f/u weight check Photo Offset Printer Required: Yes Photo Offset Printer Language: [place] Accompanied by: Self / Same As Patient Allergies sumatriptan [From IMITREX] Allergy (Severe, Verified 07/03/24 09:30) PALPITAITONS, palpitations aspirin [ASA] Allergy (Intermediate, Verified 07/03/24 09:30) HIVES, rash ibuprofen [IBUPROFEN] Allergy (Intermediate, Verified 07/03/24 09:30) LIP SWELLING/RASH rizatriptan Allergy (Intermediate, Verified 07/03/24 09:30) swelling, pruritus Medication List - Last Reconciled 07/03/24 by Ryan Dhillon PA-C acetaminophen ER (Tylenol Arthritis Pain) 650 mg PO Q12H 30 days cyclobenzaprine 10 mg PO TID PRN ondansetron 4 mg PO Q8H PRN semaglutide (weight loss) (Wegovy) 0.25 mg (0.5 mL) subcut QWEEK 4 weeks Tobacco use date assessed: 01/04/24 Dental Screening Dental Screen Date: 01/04/24 HPI f/u weight check HPI Details Patient is a 43-year-old female here today for follow-up visit. At thus visit we discussed starting a GLP 1 for weight unfortunately has not been able to receive due to insurance coverage. She is still willing to try injectable GLP 1 for weight loss. Will try an alternative GLP 1 (Zepbound). Will try to set patient up nurse visit to give instruction on giving subcutaneous injection. : Lumbar spine pain has followed with pain management whom advised on physical therapy. Patient is interested in getting a lidocaine patch in trying a new muscle relaxer for pain. [facility] Medical History Lumbar spine pain Cervical cancer screening Annual physical exam Screening for diabetes mellitus (DM) Bad odor of urine Back pain Right foot pain Pre-syncope Abnormal urine odor Cervical spine pain Screening for hypercholesterolemia Screening for hypothyroidism Breast cancer screening Constipation Obesity Lumbar pain Finger infection Neck pain Surgical History History of section Family History Mother No problems noted. Father No problems noted. 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 Joby Gottlieb, Kristel Parada, Deshawn Zabala and colleagues, with an educational alex from [employer]. Review of Systems Const Denies headache(s) Eyes Denies loss of vision ENT Denies vertigo, Denies dizziness, Denies headache(s) and Denies sore throat Card Denies chest pain, Denies leg edema and Denies lightheadedness Resp Denies cough, Denies hemoptysis and Denies wheezing GI Reports abdominal pain, Denies melena, Reports bloating, Reports constipation, Denies diarrhea and Denies vomiting Denies urinary frequency, Denies dysuria and Denies urinary urgency Musc Reports back pain, Denies arthralgias, Denies joint swelling, Denies numbness and Denies tingling Neuro Denies Abnormal speech present, Denies behavioral changes, Denies vertigo, Denies dizziness, Denies headache(s), Denies loss of vision, Denies memory loss, Denies numbness and Denies tingling Psych Denies anxiety, Denies behavioral changes, Denies depression, Denies memory loss and Denies panic attacks [place]/Lymph Denies easy bleeding and Denies easy bruising Aller/Immun Denies wheezing Physical exam (Primary Care) Vital Signs: Last Vital Signs Pulse 84 07/03/24 09:18 BP 128/86 07/03/24 09:18 Pulse Ox 98 07/03/24 09:18 Oxygen Delivery Method Room Air 07/03/24 09:18 BMI result Body Mass Index 34.1 Tobacco/Smoking Status: Tobacco use Status Tobacco use date assessed 01/04/24 07/03/24 09:23 Patient Tobacco Use Status Never used Tobacco 07/03/24 09:23 Tobacco use type Cigarette 07/03/24 09:23 e-Cigarette/Vaping Use Never Used 07/03/24 09:23 Thrive Assessment: Date of Thrive Assessment Date Thrive assessed 01/04/24 07/03/24 09:23 Const General: healthy appearing, no acute distress, alert and awake Nutritional Appearance: well nourished Orientation/consciousness: oriented to person, oriented to place and oriented to time HENMT Ears: TM's normal bilaterally General nose exam: Normal nasal mucous membranes and turbinates present Eyes Conjunctivae: conjunctivae normal Sclerae: sclerae normal Pupils: Equal, round and reactive pupils present Neck Neck: Yes no lymphadenopathy and Yes no JVD Thyroid: Thyroid normal Carotids: no bruits Resp Effort & Inspection: normal respiratory effort and not tachypneic Auscultation: no crackles, no rales, no rhonchi and no wheezes Cardio Rate: regular rate Rhythm: regular rhythm Heart sounds: no murmurs and normal S1 and S2 GI Palpation (GI): Soft to palpation, nontender, no hepatomegaly and no splenomegaly Auscultation: normal bowel sounds Skin General skin exam: no rashes or lesions noted and dry skin Neuro General: oriented to person, oriented to place and oriented to time Cranial nerves: Yes Equal, round and reactive pupils present Speech: No Abnormal speech present Gait exam (Neuro): Normal gait present Motor exam (neuro): no tremor noted Extrem Right upper extremity: full ROM Left upper extremity: full ROM Right lower extremity: full ROM; no edema Left lower extremity: full ROM; no edema Psych Mental Status: mental status grossly normal Speech and movement: Normal speech and movement present Affect: normal affect Attitude: cooperative Thought process: Normal thought process present Assessment and Plan Assessment & Plan (1) Obesity: Code(s): E66.9 - Obesity, unspecified Qualifiers: Body mass index: BMI 35.0-35.9 Obesity classification: adult class 2 (BMI 35 - 39.9) Obesity type: due to excess calories Serious obesity comorbidity presence: without serious comorbidity Qualified Code(s): E66.09 - Other obesity due to excess calories; Z68.35 - Body mass index [BMI] 35.0-35.9, adult Plan: Patient is interested in trying a GLP 1 to help her with weight loss. Unfortunately did not have Wegovy covered. She would like to try an alternative GLP 1 to which we though will start 2.5 mg of Zepbound. Did discuss the potential side effects of this medication. (2) Abdominal distension: Code(s): R14.0 - Abdominal distension (gaseous) Plan: Will try to set patient up for gastroenterology evaluation due to her chronic abdominal distention. CT of abdomen showing moderate stool burden though no other intra-abdominal pathology noted. Will supply patient with laxative to use on a p.r.n. basis (3) Lumbar spine pain: Code(s): M54.50 - Low back pain, unspecified Plan: She has followed up with [facility] pain management who recommended physical therapy. Patient continues to be in lower lumbar spine pain that limits her ability to be more physically active. She is interested in lidocaine patches and a new muscle relaxer to help her with her pain. Medications: New tirzepatide (weight loss) (Zepbound) for 4 weeks 2.5 mg (0.5 mL) subcut QWEEK 2 mL 0RF 4 weeks E66.09 - Other obesity due to excess calories, Z68.35 - Body mass index [BMI] 35.0-35.9, adult lidocaine 5% leave on most painful area for up to 12 hrs 1 patch topical DAILY 30 ea 2RF 30 days M54.50 - Low back pain, unspecified methocarbamol 500 mg PO TID 90 tabs 1RF 30 days M54.50 - Low back pain, unspecified sennosides (Senna Lax) 17.2 mg (2 x 8.6 mg) PO BEDTIME 60 tabs 3RF 30 days R14.0 - Abdominal distension (gaseous) Discontinued cyclobenzaprine Discontinued Reason: Doctor's Order 10 mg PO TID PRN 20 tabs 0RF muscle spasm semaglutide (weight loss) (Wegovy) administer weeks 1 through 4 of therapy Discontinued Reason: Doctor's Order 0.25 mg (0.5 mL) subcut QWEEK 4 weeks 2 mL 0RF E66.09 - Other obesity due to excess calories, Z68.35 - Body mass index [BMI] 35.0-35.9, adult Coding Level of Care Code Est Pt Level 4 (83325) Diagnoses Class 2 obesity due to excess calories without serious comorbidity with body mass index (BMI) of 35.0 to 35.9 in adult E66.09; Z68.35 Body mass index: BMI 35.0-35.9 Obesity classification: adult class 2 (BMI 35 - 39.9) Obesity type: due to excess calories Serious obesity comorbidity presence: without serious comorbidity Abdominal distension R14.0 Lumbar spine pain M54.50
== END 2024-07-03 09:52 | disposition home or self-care (01) ==
PROVIDERS: PCP Physician Assistant; Visit Provider Physician Assistant
DX: E66.09 Other obesity due to excess calories (principal); Z68.35 Body mass index [BMI] 35.0-35.9, adult; R14.0 Abdominal distension (gaseous); M54.50 Low back pain, unspecified
CPT/HCPCS: 99214

== ENCOUNTER 2024-07-26 23:13 | Emergency (ER) | payer OTHER, SELFPAY ==
[2024-07-26 23:20] VITALS: BP 126/84; PULSE 97; RESP 17; TEMP 36.8; O2SAT 100; BMI 33.0
--- NOTE | 2024-07-26 23:30 | MHC.EDTECH ---
Patient brought into triage area,labs drawn and sent to lab,patient brought to bed 21
[2024-07-26 23:40] LABS: Basophils Percent Auto 0.1 % (0-2); Eosinophils Percent Auto 0.3 % (0-4); Hematocrit 36.6 % (37.0-47.0); Hemoglobin 12.1 g/dl (12.0-16.0); Imm Gran Abs Auto 0.02 X10*3/uL (0.00-0.03); Imm Gran Pct Auto 0.2 % (0.0-0.4); Lymphocytes Absolute Auto 1.1 X10*3/uL (1.2-4.9); Lymphocytes Percent Auto 12.2 % (20-40); MANUAL DIFF FLAG NO; Mean Corpuscular HGB Conc 33.1 g/dl (31.0-35.0); Mean Corpuscular Volume 84.7 fL (80.0-98.0); Mean Platelet Volume 10.8 fL (9.4-12.3); Monocytes Absolute Auto 0.7 X10*3/uL (0.1-1.2); Monocytes Percent Auto 7.6 % (2-11); Neutrophils Absolute Auto 6.9 x10*3/uL (2.0-8.3); Neutrophils Percent Auto 79.6 % (45-73); Platelet Count 266 X10*3/uL (160-400); Red Blood Count 4.32 X10*6/uL (4.20-5.50); Red Cell Distribution Width 14.1 % (11.0-16.0); White Blood Count 8.6 X10*3/uL (4.8-10.8)
[2024-07-26 23:53] LABS: Alanine Aminotransferase 22 U/L (0-31); Albumin Level 4.1 g/dL (3.5-5.0); Alkaline Phosphatase 150 U/L (39-117); Anion Gap 15 (12-20); Aspartate Amino Transferase 17 U/L (5-31); Bilirubin Total 0.7 mg/dL (0.0-1.0); Blood Urea Nitrogen 8 mg/dL (9-16); Carbon Dioxide 20 mmol/L (22-29); Chloride 107 mmol/L (96-108); Creatinine Clr Calc Pharmacy 113.9; Estimated Glomerular Filt Rate > 60; Glucose Random 131 mg/dL (60-115); Magnesium 1.7 mg/dL (1.6-2.6); Potassium 3.6 mmol/L (3.3-5.1); Sodium 138 mmol/L (135-145); Total Protein 7.7 g/dL (6.5-8.0)
[2024-07-27] MEDS: Acetaminophen 1,000 MG/100 ML PIGGYBACK 400 MG IV (00:02)
[2024-07-27] MEDS: 0.9 % Sodium Chloride 1,000 ML 999 ML IV (00:02)
[2024-07-27] MEDS: droPERidol 5 MG/2 ML VIAL 1.25 MG IVPUSH (00:02)
[2024-07-27] MEDS: diphenhydrAMINE HCL 50 MG/ML VIAL 25 MG IVPUSH (00:02)
[2024-07-27 00:41] VITALS: BP 105/61; PULSE 72; RESP 16; TEMP 36.9; O2SAT 98
--- NOTE | 2024-07-27 01:03 | ED_ITS ---
HPI - Headache General Chief Complaint: Headache Stated Complaint: migraine Time Seen by Provider: 07/26/24 23:40 Source: patient Limitations: language barrier History of Present Illness ED Provider: Tawnya Wynn PA-C HPI Narrative: 43-year-old female with a history of migraines presents with migraine headache since earlier this afternoon. The pain is retro-orbital, diffuse, with associated phonophobia, photophobia, nausea and dizziness. Patient states she did not try any medications at home to help alleviate her symptoms. Patient has been prescribed migraine medications in the past. Denies recent illness, cough cold symptoms, fever or neck pain. Related Data Previous Rx's ?Medication ?Instructions ?Recorded acetaminophen 650 mg 650 mg PO Q12H 30 days #60 tabs 05/14/24 tablet,extended release (Tylenol Arthritis Pain) ondansetron 4 mg disintegrating 4 mg PO Q8H PRN nausea and 06/09/24 tablet vomiting #20 tabs lidocaine 5 % topical patch 1 patch topical DAILY 30 days #30 07/03/24 ea methocarbamol 500 mg tablet 500 mg PO TID 30 days #90 tabs 07/03/24 sennosides 8.6 mg tablet (Senna 17.2 mg (2 x 8.6 mg) PO BEDTIME 30 07/03/24 Lax) days #60 tabs tirzepatide (weight loss) 2.5 2.5 mg (0.5 mL) subcut QWEEK 4 07/03/24 mg/0.5 mL subcutaneous pen weeks #2 mL injector (Zepbound) Allergies Allergy/AdvReac Type Severity Reaction Status Date / Time sumatriptan [From IMITREX] Allergy Severe PALPITAITONS, Verified 07/26/24 23:21 palpitations aspirin [ASA] Allergy Intermediate HIVES, rash Verified 07/26/24 23:21 ibuprofen [IBUPROFEN] Allergy Intermediate LIP Verified 07/26/24 23:21 SWELLING/RASH rizatriptan Allergy Intermediate swelling, Verified 07/26/24 23:21 pruritus Review of Systems 2 Review of Systems: Yes all other systems are reviewed and are negative Constitutional: Constitutional: Denies fever(s) and Reports headache(s) ENT: Reports headache(s) and Denies nasal congestion Cardiovascular: Cardiovascular: Denies chest pain and Denies dyspnea Respiratory: Respiratory: Denies cough and Denies dyspnea Gastrointestinal: Gastrointestinal: Denies abdominal pain, Reports nausea and Denies vomiting Neurologic: Reports headache(s) [facility] Past Medical History Attestation statement: The following information was validated with the patient. Medical History Lumbar spine pain Cervical cancer screening Annual physical exam Screening for diabetes mellitus (DM) Bad odor of urine Back pain Right foot pain Pre-syncope Abnormal urine odor Cervical spine pain Screening for hypercholesterolemia Screening for hypothyroidism Breast cancer screening Constipation Obesity Lumbar pain Finger infection Neck pain Surgical History History of section Family History Family History Mother No problems noted. Father No problems noted. 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 Cognitive needs: No Hearing needs: No Vision needs: No Physical Exam 2 Vital Signs: Vital Signs: Last Vital Signs Temp 98.5 F 07/27/24 01:08 Pulse 72 07/27/24 01:08 Resp 16 07/27/24 01:08 BP 105/61 07/27/24 01:08 Pulse Ox 98 07/27/24 01:08 O2 Del Method Room Air 07/27/24 01:08 BMI result Body Mass Index 33.0 Const: Other: Alert, appears uncomfortable, she has a blanket over her head Orientation/consciousness: patient oriented x3 Neck: Other: Soft, supple, full range of motion, no meningeal signs Resp: Effort & Inspection: normal respiratory effort Cardio: Other: Normal peripheral perfusion Skin: Other: Warm dry no rash Neuro: General: patient oriented x3, gait normal, no focal motor deficits and CN's II-XI intact bilaterally Psych: Other: Calm cooperative Course Reevaluation(s) Reevaluation #1: Headache resolved with migraine cocktail, she is eager for discharge Medications Administered Discontinued Medications Generic Name Dose Route Start Last Admin Trade Name Marvin PRN Reason Stop Dose Admin Diphenhydramine HCl 25 mg 07/26/24 23:50 07/27/24 00:02 Diphenhydramine Hcl 50 Mg/Ml Vial IVPUSH 07/26/24 23:51 25 mg ONCE ONE Administration Droperidol 1.25 mg 07/26/24 23:50 07/27/24 00:02 Droperidol 5 Mg/2 Ml Vial IVPUSH 07/26/24 23:51 1.25 mg ONCE ONE Administration Sodium Chloride 1,000 mls @ 999 mls/hr 07/26/24 23:45 07/27/24 00:02 Ns IV 07/27/24 00:45 999 mls/hr .Q1H1M TANVI Administration Acetaminophen 1,000 mg in 100 mls @ 400 mls/hr 07/26/24 23:51 07/27/24 00:46 Ofirmev IV 07/27/24 00:05 Infused ONCE ONE Infusion Medical Decision Making Medical Decision Making [facility] Narrative: 43-year-old female with a history of migraines presents with migraine headache since earlier this afternoon. The pain is retro-orbital, diffuse, with associated phonophobia, photophobia, nausea and dizziness. Patient states she did not try any medications at home to help alleviate her symptoms. Patient has been prescribed migraine medications in the past. Denies recent illness, cough cold symptoms, fever or neck pain. Problem: Migraine History: Per patient I have considered the following differential diagnoses: Migraine, intracranial hemorrhage, meningitis Plan: Patient is a history of migraines, her headache today is consistent with prior migraines. We will give a migraine cocktail. Thought about intracranial hemorrhage, however there has been no preceding trauma, she is not on a blood thinner, she is not altered, she is neurologically intact. Thought about meningitis, however she has not had preceding viral syndrome, she is afebrile, no meningeal signs on exam no indication for imaging Lab Data 07/26/24 23:29 07/26/24 23:29 Labs: Lab Results 07/26/24 Range/Units 23:29 WBC 8.6 (4.8-10.8) X10*3/uL RBC 4.32 (4.20-5.50) X10*6/uL Hgb 12.1 (12.0-16.0) g/dl Hct 36.6 L (37.0-47.0) % MCV 84.7 (80.0-98.0) fL MCH 28.0 (27.0-33.0) pg MCHC 33.1 (31.0-35.0) g/dl RDW 14.1 (11.0-16.0) % Plt Count 266 (160-400) X10*3/uL MPV 10.8 (9.4-12.3) fL Immature Gran % (Auto) 0.2 (0.0-0.4) % Neut % (Auto) 79.6 H (45-73) % Lymph % (Auto) 12.2 L (20-40) % Terrell % (Auto) 7.6 (2-11) % Eos % (Auto) 0.3 (0-4) % Baso % (Auto) 0.1 (0-2) % Lymph # (Auto) 1.1 L (1.2-4.9) X10*3/uL Terrell # (Auto) 0.7 (0.1-1.2) X10*3/uL Eos # (Auto) 0.0 (0.0-0.4) X10*3/uL Baso # (Auto) 0.0 (0.0-0.2) X10*3/uL Abs Immat Gran (auto) 0.02 (0.00-0.03) X10*3/uL Absolute Neuts (auto) 6.9 (2.0-8.3) x10*3/uL Absolute Nucleated RBC 0.000 (0.0-0.012) X10*3/uL Nucleated RBC % (auto) 0.0 (0.0-0.2) /100WBC Sodium 138 (135-145) mmol/L Potassium 3.6 (3.3-5.1) mmol/L Chloride 107 (96-108) mmol/L Carbon Dioxide 20 L (22-29) mmol/L Anion Gap 15 (12-20) BUN 8 L (9-16) mg/dL Creatinine 0.68 (0.5-1.4) mg/dL Estim Creat Clear Calc 113.9 Estimated GFR > 60 Random Glucose 131 H (60-115) mg/dL Calcium 9.0 (8.4-10.2) mg/dL Magnesium 1.7 (1.6-2.6) mg/dL Total Bilirubin 0.7 (0.0-1.0) mg/dL AST 17 (5-31) U/L ALT 22 (0-31) U/L Alkaline Phosphatase 150 H (39-117) U/L Total Protein 7.7 (6.5-8.0) g/dL Albumin 4.1 (3.5-5.0) g/dL Discharge Plan Discharge Clinical Impression: Migraine Patient Disposition: Home, Self-Care Instructions: Migraine Headache (ED) Additional Instructions: You were treated for a migraine type headache, your symptoms resolved with a migraine cocktail. See home care instructions. Follow up with your primary care provider, you may require medication to help prevent headaches if your headaches become frequent. You should also inquire about a medication to take when you develop an acute migraine. Prescriptions: No Action ondansetron 4 mg tablet,disintegrating 4 mg PO Q8H PRN (Reason: nausea and vomiting) Qty: 20 0RF acetaminophen [Tylenol Arthritis Pain] 650 mg tablet extended release 650 mg PO Q12H 30 Days Qty: 60 2RF Zepbound 2.5 mg/0.5 mL pen injector 2.5 mg subcut QWEEK 28 Days Qty: 2 0RF Rx Instructions: for 4 weeks sennosides [Senna Lax] 8.6 mg tablet 17.2 mg PO BEDTIME 30 Days Qty: 60 3RF lidocaine 5 % adhesive patch,medicated 1 patch topical DAILY 30 Days Qty: 30 2RF Rx Instructions: leave on most painful area for up to 12 hrs methocarbamol 500 mg tablet 500 mg PO TID 30 Days Qty: 90 1RF Interventions: ED Discharge Assessment Last Done: 07/27/24 01:08 Discharge Date/Time: 07/27/24 01:10 Print Language: Congolese
[2024-07-27 01:08] VITALS: BP 105/61; PULSE 72; RESP 16; TEMP 36.9; O2SAT 98
== END 2024-07-27 01:10 | disposition home or self-care (01) ==
PROVIDERS: Emergency Provider Emergency Medicine; PCP Physician Assistant
DX: G43.909 Migraine, unspecified, not intractable, without status migrainosus (principal); Z79.899 Other long term (current) drug therapy
CPT/HCPCS: 36415; 80053; 83735; 85025; 96365; 96375; 99284; J0131; J1200; J1790

== ENCOUNTER 2024-08-14 09:50 | Outpatient (AMB) | payer OTHER, SELFPAY ==
--- NOTE | 2024-08-14 09:52 | A.OFFPC_ITS ---
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 Required: No Accompanied by: Daughter Allergies sumatriptan [From IMITREX] Allergy (Severe, Verified 08/14/24 10:06) PALPITAITONS, palpitations aspirin [ASA] Allergy (Intermediate, Verified 08/14/24 10:06) HIVES, rash ibuprofen [IBUPROFEN] Allergy (Intermediate, Verified 08/14/24 10:06) LIP SWELLING/RASH rizatriptan Allergy (Intermediate, Verified 08/14/24 10:06) swelling, pruritus Medication List - Last Reconciled 08/14/24 by Ryan Dhillon PA-C acetaminophen ER (Tylenol Arthritis Pain) 650 mg PO Q12H 30 days lidocaine 5% 1 patch topical DAILY 30 days methocarbamol 500 mg PO TID 30 days ondansetron 4 mg PO Q8H PRN sennosides (Senna Lax) 17.2 mg (2 x 8.6 mg) PO BEDTIME 30 days tirzepatide (weight loss) (Zepbound) 2.5 mg (0.5 mL) subcut QWEEK 4 weeks Tobacco use date assessed: 01/04/24 Dental Screening Dental Screen Date: 01/04/24 HPI f/u weight check HPI Details Patient is a 43-year-old female here today for follow-up visit. We have discussed patient's need to reduce her weight to help her with her lower back pain. We have prescribed patient Wegovy though has been not in stock at her pharmacy. She would like to use an alternative pharmacy and started on medication. She also reports she has been a bit depressed as her brother from high blood pressure. She has concerns about her own blood pressure as she has been having some neck pain and migraine headaches. She did check her blood pressure during a migraine headache and reports 160/110. Reports she does have a family history of high blood pressure and hypertensive heart disease. PLAN: Will supply patient with low-dose amlodipine to help with blood pressure regulation. Also give her p.r.n. medication for migraine headaches. [facility] Medical History Lumbar spine pain Cervical cancer screening Annual physical exam Screening for diabetes mellitus (DM) Bad odor of urine Back pain Right foot pain Pre-syncope Abnormal urine odor Cervical spine pain Screening for hypercholesterolemia Screening for hypothyroidism Breast cancer screening Constipation Obesity Lumbar pain Finger infection Neck pain Surgical History History of section Family History Mother No problems noted. Father No problems noted. 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 Joby Gottlieb, Kristel Parada, Deshawn Zabala and colleagues, with an educational alex from [employer]. Review of Systems Const Denies headache(s) Eyes Denies loss of vision ENT Denies vertigo, Denies dizziness, Denies headache(s) and Denies sore throat Card Denies chest pain, Denies leg edema and Denies lightheadedness Resp Denies cough, Denies hemoptysis and Denies wheezing GI Denies abdominal pain, Denies melena, Denies constipation, Denies diarrhea and Denies vomiting Denies urinary frequency, Denies dysuria and Denies urinary urgency Musc Denies arthralgias, Denies joint swelling, Denies numbness and Denies tingling Neuro Denies Abnormal speech present, Denies behavioral changes, Denies vertigo, Denies dizziness, Denies headache(s), Denies loss of vision, Denies memory loss, Denies numbness and Denies tingling Psych Denies anxiety, Denies behavioral changes, Denies depression, Denies memory loss and Denies panic attacks [place]/Lymph Denies easy bleeding and Denies easy bruising Aller/Immun Denies wheezing Physical exam (Primary Care) Vital Signs: Last Vital Signs Pulse 65 08/14/24 09:56 BP 114/72 08/14/24 09:56 Pulse Ox 99 08/14/24 09:56 Oxygen Delivery Method Room Air 08/14/24 09:56 BMI result Body Mass Index 32.4 Tobacco/Smoking Status: Tobacco use Status Tobacco use date assessed 01/04/24 08/14/24 09:52 Patient Tobacco Use Status Never used Tobacco 08/14/24 09:52 Tobacco use type Cigarette 08/14/24 09:52 e-Cigarette/Vaping Use Never Used 08/14/24 09:52 Thrive Assessment: Date of Thrive Assessment Date Thrive assessed 01/04/24 08/14/24 09:52 Const General: healthy appearing, no acute distress, alert and awake Nutritional Appearance: well nourished Orientation/consciousness: oriented to person, oriented to place and oriented to time HENMT Ears: TM's normal bilaterally General nose exam: Normal nasal mucous membranes and turbinates present Eyes Conjunctivae: conjunctivae normal Sclerae: sclerae normal Pupils: Equal, round and reactive pupils present Neck Neck: Yes no lymphadenopathy and Yes no JVD Thyroid: Thyroid normal Carotids: no bruits Resp Effort & Inspection: normal respiratory effort and not tachypneic Auscultation: no crackles, no rales, no rhonchi and no wheezes Cardio Rate: regular rate Rhythm: regular rhythm Heart sounds: no murmurs and normal S1 and S2 GI Palpation (GI): Soft to palpation, nontender, no hepatomegaly and no splenomegaly Auscultation: normal bowel sounds Skin General skin exam: no rashes or lesions noted and dry skin Neuro General: oriented to person, oriented to place and oriented to time Cranial nerves: Yes Equal, round and reactive pupils present Speech: No Abnormal speech present Gait exam (Neuro): Normal gait present Motor exam (neuro): no tremor noted Extrem Right upper extremity: full ROM Left upper extremity: full ROM Right lower extremity: full ROM; no edema Left lower extremity: full ROM; no edema Psych Mental Status: mental status grossly normal Speech and movement: Normal speech and movement present Affect: normal affect Attitude: cooperative Thought process: Normal thought process present Office Procedures Flu Questionnaire Does the patient have a severe egg allergy?: No Immunizations Fluarix Triv [id number] (PF) 45 mcg (15 mcg x 3)/0.5 mL IM syringe Performing Provider: Ryan Dhillon PA-C [facility] Documented (not given) by: MARU Grimes on 08/14/24 10:05 Reason Not Given: Patient Refused Coding Level of Care Code Est Pt Level 4 (36532) Diagnoses Primary hypertension I10 Hypertension type: primary hypertension Class 1 obesity E66.811 Migraine without aura and without status migrainosus, not intractable G43.909 Intractability: not intractable Migraine type: unspecified Status migrainosus presence: without status migrainosus Assessment & Plan Assessment & Plan (1) HTN (hypertension): Code(s): I10 - Essential (primary) hypertension Category: Medical Qualifiers: Hypertension type: primary hypertension Qualified Code(s): I10 - Essential (primary) hypertension Plan: patient does report having some elevated blood pressures at home and reports had pain at times. Will supply patient with amlodipine 2.5 mg to take daily and advised to monitor blood pressure closely. (2) Class 1 obesity: Code(s): E66.811 - Obesity, class 1 Category: Medical Plan: Patient does understand her BMI is over 30 will work on being more physically active and adapt to better eating habits to reduce her weight. She is awaiting to get Wegovy to start her weight loss journey. She would like this to be sent to a alternative pharmacy (3) Migraines: Code(s): G43.909 - Migraine, unspecified, not intractable, without status migrainosus Category: Medical Qualifiers: Intractability: not intractable Migraine type: unspecified Status migrainosus presence: without status migrainosus Qualified Code(s): G43.909 - Migraine, unspecified, not intractable, without status migrainosus Plan: will supply patient with an as needed Fioricet to be taken for acute migraines. Orders: Orders Comprehensive [place]. Panel Fast Today Z13.1 - Encounter for screening for diabetes mellitus Complete Blood Count no Diff Today Z13.1 - Encounter for screening for diabetes mellitus Influenza [id number] Immunization Today Z23 - Encounter for immunization Medications: New semaglutide (weight loss) (Wegovy) administer weeks 1 through 4 of therapy 0.25 mg (0.5 mL) subcut QWEEK 2 mL 0RF 4 weeks E66.09 - Other obesity due to excess calories, Z68.35 - Body mass index [BMI] 35.0-35.9, adult amlodipine 2.5 mg PO DAILY 30 tabs 1RF 30 days I10 - Essential (primary) hypertension qboorzglfu-bwxzdsvxvewfi-cjyp 50-325-40 mg 1 cap PO Q6H PRN 16 caps 0RF pain 4 days G43.909 - Migraine, unspecified, not intractable, without status migrainosus Refilled ondansetron 4 mg PO Q8H PRN 20 tabs 0RF nausea and vomiting E66.09 - Other obesity due to excess calories, Z68.35 - Body mass index [BMI] 35.0-35.9, adult Discontinued tirzepatide (weight loss) (Zepbound) for 4 weeks Discontinued Reason: Doctor's Order 2.5 mg (0.5 mL) subcut QWEEK 4 weeks 2 mL 0RF E66.09 - Other obesity due to excess calories, Z68.35 - Body mass index [BMI] 35.0-35.9, adult Patient Instructions: Goal: Blood pressure to be below 140/90 Barriers: Adherence to physical activity and healthy eating habits
[2024-08-14 09:56] VITALS: BP 114/72; PULSE 65; O2SAT 99; BMI 32.4
== END 2024-08-14 10:29 | disposition home or self-care (01) ==
PROVIDERS: PCP Physician Assistant; Visit Provider Physician Assistant
DX: I10 Essential (primary) hypertension (principal); E66.811 Obesity, class 1; Z68.32 Body mass index [BMI] 32.0-32.9, adult; G43.909 Migraine, unspecified, not intractable, without status migrainosus

== ENCOUNTER → 2024-08-14 09:50 | Outpatient (BNVA) | payer OTHER, SELFPAY | PROVIDERS: PCP Physician Assistant; Visit Provider Physician Assistant | DX: I10 Essential (primary) hypertension (principal); E66.811 Obesity, class 1; Z68.32 Body mass index [BMI] 32.0-32.9, adult; G43.909 Migraine, unspecified, not intractable, without status migrainosus; Z71.3 Dietary counseling and surveillance | CPT/HCPCS: 90471; 99212 ==

== ENCOUNTER 2024-09-18 09:46 | Outpatient (AMB) | payer OTHER, SELFPAY ==
[2024-09-18 09:55] VITALS: BP 110/72; PULSE 78; O2SAT 98; BMI 32.4
--- NOTE | 2024-09-18 09:55 | MHC.PC.OV ---
Vital Signs 09/18/24 09:55 Height 5 ft 4 in Weight 189 lb 0.6 oz BMI 32.4 BP 110/72 Blood Pressure Location Lt brachial Position Sitting Pulse 78 Pulse Source Pulse Oximeter Pulse Oximetry (%) 98 Oxygen Delivery Method Room Air Intake Visit Reasons: f/u Weight check. HTN/ migraines Allergies sumatriptan [From IMITREX] Allergy (Severe, Verified 09/18/24 10:26) PALPITAITONS, palpitations aspirin [ASA] Allergy (Intermediate, Verified 09/18/24 10:26) HIVES, rash ibuprofen [IBUPROFEN] Allergy (Intermediate, Verified 09/18/24 10:26) LIP SWELLING/RASH rizatriptan Allergy (Intermediate, Verified 09/18/24 10:26) swelling, pruritus Medication List - Last Reconciled 09/18/24 by Ryan Dhillon PA-C acetaminophen ER (Tylenol Arthritis Pain) 650 mg PO Q12H 30 days amlodipine 2.5 mg PO DAILY 30 days moklpeydoh-vagvnpepneubr-zugn 50-325-40 mg 1 cap PO Q6H PRN 4 days lidocaine 5% 1 patch topical DAILY 30 days methocarbamol 500 mg PO TID 30 days ondansetron 4 mg PO Q8H PRN semaglutide (weight loss) (Wegovy) 0.25 mg (0.5 mL) subcut QWEEK 4 weeks sennosides (Senna Lax) 17.2 mg (2 x 8.6 mg) PO BEDTIME 30 days Tobacco use date assessed: 01/04/24 Dental Screening Dental Screen Date: 01/04/24 HPI f/u Weight check. HTN/ migraines HPI Details Patient is a 44-year-old female here today for follow-up visit. We have discussed patient's need to reduce her weight to help her with her lower back pain. We have prescribed patient Wegovy though has been not in stock at her pharmacy. She would like to use an alternative pharmacy and started on medication. Concerns-- Having right shoulder pain at night over the last 2 weeks . No reported injury. PLAN: Likely soft tissue tendinitis. She will work on resting and using NSAID as needed for pain. Hypertension: Last visit patient started amlodipine 2.5 mg. Today's blood pressure much improved. She reports having less headaches. PLAN: Will continue current dose of amlodipine PFSH Medical History Umbilical hernia H. pylori infection Cervical cancer screening Annual physical exam Screening for diabetes mellitus (DM) Bad odor of urine Back pain Right foot pain Pre-syncope Abnormal urine odor Cervical spine pain Screening for hypercholesterolemia Screening for hypothyroidism Breast cancer screening Constipation Obesity Lumbar pain Finger infection Neck pain Surgical History History of section Family History Mother No problems noted. Father No problems noted. 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 How often do you have a drink containing alcohol?: Never 3. How often do you have six or more drinks on one occasion?: Never Total Score: 0 VIVIAN-7 AMB Questionnaire VIVIAN-7 Date VIVIAN - 7 assessed: 01/04/24 Source: Developed by Drs. Joby Gottlieb, Kristel Parada, Deshawn Zabala and colleagues, with an educational alex from [employer]. Review of Systems Const Denies headache(s) Eyes Denies loss of vision ENT Denies vertigo, Denies dizziness, Denies headache(s) and Denies sore throat Card Denies chest pain, Denies leg edema and Denies lightheadedness Resp Denies cough, Denies hemoptysis and Denies wheezing GI Denies abdominal pain, Denies melena, Denies constipation, Denies diarrhea and Denies vomiting Denies urinary frequency, Denies dysuria and Denies urinary urgency Musc Denies arthralgias, Denies joint swelling, Denies numbness and Denies tingling Neuro Denies Abnormal speech present, Denies behavioral changes, Denies vertigo, Denies dizziness, Denies headache(s), Denies loss of vision, Denies memory loss, Denies numbness and Denies tingling Psych Denies anxiety, Denies behavioral changes, Denies depression, Denies memory loss and Denies panic attacks [place]/Lymph Denies easy bleeding and Denies easy bruising Aller/Immun Denies wheezing Physical exam (Primary Care) Vital Signs: Last Vital Signs Pulse 78 09/18/24 09:55 BP 110/72 09/18/24 09:55 Pulse Ox 98 09/18/24 09:55 Oxygen Delivery Method Room Air 09/18/24 09:55 BMI result Body Mass Index 32.4 Tobacco/Smoking Status: Tobacco use Status Tobacco use date assessed 01/04/24 09/18/24 09:55 Patient Tobacco Use Status Never used Tobacco 09/18/24 09:55 Tobacco use type Cigarette 09/18/24 09:55 e-Cigarette/Vaping Use Never Used 09/18/24 09:55 Thrive Assessment: Date of Thrive Assessment Date Thrive assessed 01/04/24 09/18/24 09:55 Const General: healthy appearing, no acute distress, alert and awake Nutritional Appearance: well nourished Orientation/consciousness: oriented to person, oriented to place and oriented to time HENMT Ears: TM's normal bilaterally General nose exam: Normal nasal mucous membranes and turbinates present Eyes Conjunctivae: conjunctivae normal Sclerae: sclerae normal Pupils: Equal, round and reactive pupils present Neck Neck: Yes no lymphadenopathy and Yes no JVD Thyroid: Thyroid normal Carotids: no bruits Resp Effort & Inspection: normal respiratory effort and not tachypneic Auscultation: no crackles, no rales, no rhonchi and no wheezes Cardio Rate: regular rate Rhythm: regular rhythm Heart sounds: no murmurs and normal S1 and S2 GI Palpation (GI): Soft to palpation, nontender, no hepatomegaly and no splenomegaly Auscultation: normal bowel sounds Skin General skin exam: no rashes or lesions noted and dry skin Neuro General: oriented to person, oriented to place and oriented to time Cranial nerves: Yes Equal, round and reactive pupils present Speech: No Abnormal speech present Gait exam (Neuro): Normal gait present Motor exam (neuro): no tremor noted Extrem Right upper extremity: full ROM Left upper extremity: full ROM Right lower extremity: full ROM; no edema Left lower extremity: full ROM; no edema Psych Mental Status: mental status grossly normal Speech and movement: Normal speech and movement present Affect: normal affect Attitude: cooperative Thought process: Normal thought process present Coding Level of Care Code Est Pt Level 4 (80562) Diagnoses Primary hypertension I10 Hypertension type: primary hypertension Class 1 obesity E66.811 Assessment & Plan Assessment & Plan (1) HTN (hypertension): Code(s): I10 - Essential (primary) hypertension Category: Medical Qualifiers: Hypertension type: primary hypertension Qualified Code(s): I10 - Essential (primary) hypertension Plan: blood pressure acceptable today in office. Will continue her current dose of amlodipine at 2.5 mg. Goal blood pressures to remain below 140/90 (2) Class 1 obesity: Code(s): E66.811 - Obesity, class 1 Category: Medical Plan: Patient does understand her BMI is over 30 will continue working on lifestyle and dietary modifications to reduce her weight. She has not been able to find Wegovy at her local pharmacies.
== END 2024-09-18 10:35 | disposition home or self-care (01) ==
PROVIDERS: PCP Physician Assistant; Visit Provider Physician Assistant
DX: I10 Essential (primary) hypertension (principal); E66.811 Obesity, class 1; Z68.32 Body mass index [BMI] 32.0-32.9, adult

== ENCOUNTER → 2024-09-18 09:46 | Outpatient (BNVA) | payer OTHER, SELFPAY | PROVIDERS: PCP Physician Assistant; Visit Provider Physician Assistant | DX: I10 Essential (primary) hypertension (principal); E66.811 Obesity, class 1; Z68.32 Body mass index [BMI] 32.0-32.9, adult; Z71.3 Dietary counseling and surveillance | CPT/HCPCS: 99212 ==

== ENCOUNTER → 2024-11-07 10:30 | Outpatient (BNV) | payer OTHER, SELFPAY | PROVIDERS: Emergency Provider Emergency Medicine; PCP Physician Assistant; Visit Provider Internal Medicine | DX: M79.602 Pain in left arm (principal); Z53.21 Procedure and treatment not carried out due to patient leaving prior to being seen by health care provider | CPT/HCPCS: 93010 ==

== ENCOUNTER 2025-01-08 10:16 | Outpatient (AMB) | payer OTHER, SELFPAY ==
--- NOTE | 2025-01-08 10:38 | MHC.PC.OV ---
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 Sheet Music Language: Engineering Technician Parking Name: ID # [id number] Accompanied by: Self / Same As Patient Allergies sumatriptan [From IMITREX] Allergy (Severe, Verified 01/08/25 11:10) PALPITAITONS, palpitations aspirin [ASA] Allergy (Intermediate, Verified 01/08/25 11:10) HIVES, rash ibuprofen [IBUPROFEN] Allergy (Intermediate, Verified 01/08/25 11:10) LIP SWELLING/RASH rizatriptan Allergy (Intermediate, Verified 01/08/25 11:10) swelling, pruritus Medication List - Last Reconciled 01/08/25 by Ryan Dhillon PA-C acetaminophen ER (Tylenol Arthritis Pain) 650 mg PO Q12H 30 days amlodipine 2.5 mg PO DAILY xovkzccslh-fnobrasyojegf-foml 50-325-40 mg 1 tab PO Q6H PRN 3 days lidocaine 5% 1 patch topical DAILY 30 days methocarbamol 500 mg PO TID 30 days rimegepant (Nurtec ODT) 75 mg PO Q OTHER DAY 30 days sennosides (Senna Lax) 17.2 mg (2 x 8.6 mg) PO BEDTIME 30 days Tobacco use date assessed: 01/08/25 Dental Screening Dental Screen Date: 01/08/25 Did you have a dental visit in the last 12 months?: Yes Did you have a dental problem in the last 6 months where you did not have access to dental care?: No Was dental information given to patient?: Patient has dentist HPI Annual exam HPI Details Patient is a 44-year-old female here today for a PE. We have prescribed patient Wegovy though has been not in stock at her pharmacy. She would like to use an alternative pharmacy and started on medication. Concerns-- Having right shoulder pain at night over the last 2 weeks . No reported injury. PLAN: Likely soft tissue tendinitis. She will work on resting and using NSAID as needed for pain. Hypertension: Last visit patient started amlodipine 2.5 mg. Today's blood pressure much improved. She reports having less headaches. PLAN: Will continue current dose of amlodipine .. Migraines: Has been fairly well controlled though still does have migraines from time to time. Since her blood pressure being controlled her migraines have been better though still uses Fioricet from time to time to reduce her acute headaches. 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 pylori infection Cervical cancer screening Annual physical exam Screening for diabetes mellitus (DM) Bad odor of urine Back pain Right foot pain Pre-syncope Abnormal urine odor Cervical spine pain Screening for hypercholesterolemia Screening for hypothyroidism Breast cancer screening Constipation Obesity Lumbar pain Finger infection Neck pain Surgical History History of section Family History Mother No problems noted. Father No problems noted. 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 1. Little interest or pleasure in doing things: not at all 2. Feeling down, depressed, or hopeless: not at all 3. Trouble falling or staying asleep, or sleeping too much: not at all 4. Feeling tired or having little energy: not at all 5. Poor appetite or overeating: not at all 6. Feeling bad about yourself - or that you are a failure or have let yourself or your family down: not at all 7. Trouble concentrating on things, such as reading the newspaper or watching television: not at all 8. Moving or speaking so slowly that other people could have noticed. Or the opposite - being so fidgety or restless that you have been moving around a lot more than usual: not at all 9. Thoughts that you would be better off or of hurting yourself in some way: not at all Total score: 0 Depression Screening Interpretation: Negative Depression Screening Done: Yes Source: Developed by Drs. Joby Gottlieb, Kristel Parada, Deshawn Zabala and colleagues, with an educational alex from [employer]. Thrive Questionnaire Date Thrive assessed: 01/08/25 I am a: Patient What is your living situation today?: I choose not to answer this question Within the past 12 months, did the food you bought not last and you didn't have the money to get more?: I choose not to answer this question Within the past 12 months, did you worry whether your food would run out before you got money to buy more?: I choose not to answer this question Do you have trouble paying for medicines?: I choose not to answer this question Do you have trouble getting transportation to medical appointments?: I choose not to answer this question Do you have trouble paying your heating and electricity bill?: I choose not to answer this question Do you have trouble taking care of your child, family member or friend?: I choose not to answer this question Do you have trouble with day-to-day activities such as bathing, preparing meals, shopping, managing finances, etc.?: I choose not to answer this question Are you currently unemployed and looking for a job?: I choose not to answer this question Are you interested in more education?: I choose not to answer this question Please select the resources that you would like help with: None Currently or been in a relationship where the following occur: I choose not to answer THRIVE Score: 0 AUDIT C Alcohol Use Questionnaire (AUDIT-C) 1. How often do you have a drink containing alcohol?: Never Total Score: 0 VIVIAN-7 AMB Questionnaire VIVIAN-7 Date VIVIAN - 7 assessed: 01/08/25 Feeling nervous, anxious, or on edge: 1 = Several days Not being able to stop or control worryin = Several days Worrying too much about different things: 0 = Not at all Trouble relaxin = Not at all Being so restless that it is hard to sit still: 0 = Not at all Becoming easily annoyed or irritable: 0 = Not at all Feeling afraid as if something awful might happen: 0 = Not at all Total VIVIAN-7 score (0-4 normal; 5-9 mild; 10-14 moderate; 15-21 severe): 2 Source: Developed by Drs. Joby Gottlieb, Kristel Parada, Deshawn Zabala and colleagues, with an educational alex from [employer]. Review of Systems Const Denies body aches, Denies chills, Denies excessive sweating, Denies fatigue, Denies fever(s) and Denies headache(s) Eyes Denies blurry vision ENT Denies dysphagia, Denies vertigo, Denies dizziness, Denies headache(s), Denies hearing loss and Denies tinnitus Card Denies chest pain, Denies chest pain with activity, Denies syncope, Denies irregular heart rhythm and Denies dyspnea Resp Denies chest congestion, Denies cough, Denies hemoptysis, Denies dyspnea and Denies wheezing GI Denies abdominal pain, Denies melena, Denies hematochezia, Denies coffee ground emesis, Denies dysphagia, Denies diarrhea, Denies nausea and Denies vomiting Denies urinary frequency, Denies dysuria, Denies urinary hesitancy and Denies urinary urgency Musc Denies arthralgias, Denies limited range of motion, Denies muscle cramps and Denies muscle weakness Skin/Breast Denies rash and Denies skin ulcer Neuro Denies Abnormal speech present, Denies confusion, Denies vertigo, Denies dizziness, Denies syncope, Denies headache(s), Denies memory loss and Denies seizure-like activity Psych Denies anxiety, Denies confusion, Denies depression, Denies memory loss, Denies panic attacks and Denies paranoia Endo Denies excessive sweating, Denies fatigue, Denies flushing, Denies polydipsia and Denies polyuria Aller/Immun Denies wheezing Physical exam (Primary Care) Vital Signs: Last Vital Signs Pulse 73 01/08/25 10:40 BP 118/82 01/08/25 10:40 Pulse Ox 97 01/08/25 10:40 Oxygen Delivery Method Room Air 01/08/25 10:40 BMI result Body Mass Index 33.1 BMI Assessment/Plan discussion: High BMI High, discussed plan: lifestyle, weight reduction, dietary and physical activity Tobacco/Smoking Status: Tobacco use Status Tobacco use date assessed 01/08/25 01/08/25 10:52 Patient Tobacco Use Status Never used Tobacco 01/08/25 10:52 Tobacco use type 01/08/25 10:52 e-Cigarette/Vaping Use Never Used 01/08/25 10:52 PHQ-9: PHQ-9 Score PHQ-9: Total score 0 01/08/25 11:12 Depression Screening Interpretation: Negative Thrive Assessment: Date of Thrive Assessment Date Thrive assessed 01/08/25 01/08/25 10:52 Currently or been in a relationship where the following occur: I choose not to answer Const General: cooperative, comfortable, no acute distress, alert and awake; No confusion Orientation/consciousness: oriented to person, oriented to place, patient oriented x3 and No confusion HENMT Head: Yes normocephalic Ears: external ears normal and TM's normal bilaterally Face and sinus: No sinus tenderness Mouth: Normal oral and palatal mucosa present and tongue normal Teeth and gingiva: dentition normal and gingiva normal Throat: Yes posterior oropharynx normal, Yes tonsils normal and Yes uvula midline Eyes Conjunctivae: conjunctivae normal Sclerae: sclerae normal Pupils: Equal, round and reactive pupils present EOM: EOMs intact bilaterally Direct Ophthalmoscopy: No no photophobia Neck Neck: Yes no lymphadenopathy, No tender and Yes no JVD Thyroid: Thyroid normal Carotids: no bruits Chest Chest palpation & inspection: no tenderness Resp Effort & Inspection: normal respiratory effort, no audible wheezes, not labored and no stridor Auscultation: no crackles, no rales, no rhonchi and no wheezes Cardio Jugular venous distension: no JVD Rate: regular rate, not bradycardic and not tachycardic Rhythm: regular rhythm Bruits: no carotid bruits Peripheral pulses: Peripheral pulses 2+ throughout GI Inspection: Yes normal to inspection, No abdominal wall ecchymosis and No visible herniation Palpation (GI): Soft to palpation, nontender, no guarding, not rigid and No hepatosplenomegaly present Auscultation: normoactive bowel sounds General: Yes no CVA tenderness Back/Spine/Pelvis Back: no CVA tenderness and No back tenderness Cervical Spine: cervical ROM normal Thoracic/Lumbar Spine: thoracic and lumbar spine normal to inspection, straight leg raise negative bilaterally, No thoraco-lumbar ROM limited and No lumbar spinal tenderness Skin Lesions: no lesions Rashes: no rashes Wounds: no wounds Neuro General: oriented to person, oriented to place, patient oriented x3, CN's II-XI intact bilaterally and No confusion Cranial nerves: Yes Equal, round and reactive pupils present and Yes Normal accommodation reflex present Cognition (Neuro): normal cognition Speech: No Abnormal speech present Gait exam (Neuro): Normal gait present Motor exam (neuro): 5/5 motor strength present throughout Extrem Right upper extremity: full ROM; no cyanosis Left upper extremity: full ROM; no cyanosis Right lower extremity: no edema Left lower extremity: no edema Psych Appearance: grossly normal Mental Status: mental status grossly normal Affect: normal affect Attitude: cooperative Thought process: Normal thought process present Coding Level of Care Code Est Pt Prev Care 40-64y([id number]) Diagnoses Annual physical exam Z00.00 Primary hypertension I10 Hypertension type: primary hypertension Right shoulder tendinitis M77.8 Migraine without aura and without status migrainosus, not intractable G43.909 Migraine type: unspecified Status migrainosus presence: without status migrainosus Intractability: not intractable Class 1 obesity E66.811 Abdominal bloating R14.0 Assessment & Plan Assessment & Plan (1) Annual physical exam: Code(s): Z00.00 - Encounter for general adult medical examination without abnormal findings Category: Medical Plan: As per HPI (2) HTN (hypertension): Code(s): I10 - Essential (primary) hypertension Category: Medical Qualifiers: Hypertension type: primary hypertension Qualified Code(s): I10 - Essential (primary) hypertension Plan: Patient's blood pressure acceptable today in office. Will continue her current dose of amlodipine 2.5 mg with goal blood pressure to remain below 140/90 (3) Right shoulder tendinitis: Code(s): M77.8 - Other enthesopathies, not elsewhere classified Category: Medical Plan: Patient reports right shoulder pain and some decreased range of motion worse in the mornings. She attributes this to lying on her side while sleeping. Will consider physical therapy (4) Migraines: Code(s): G43.909 - Migraine, unspecified, not intractable, without status migrainosus Category: Medical Qualifiers: Migraine type: unspecified Status migrainosus presence: without status migrainosus Intractability: not intractable Qualified Code(s): G43.909 - Migraine, unspecified, not intractable, without status migrainosus Plan: Patient reports her migraines have been fairly well controlled. Does use Fioricet from time to time for acute migraines. We did discuss the rebound headache effect of using Fioricet more than 2-3 days. (5) Class 1 obesity: Code(s): E66.811 - Obesity, class 1 Category: Medical Plan: Patient does understand her BMI is over 30 work on being more physically active and adapting to better eating habits to reduce her weight. (6) Abdominal bloating: Code(s): R14.0 - Abdominal distension (gaseous) Category: Medical Plan: Patient continues to have abdominal bloating. We did investigate this in the past with a CT of her abdomen which did show-- >moderate stool burden. No obstruction, free ntraperitoneal air or abscess is seen, and a fat containing umbilical hernia. Will supply patient with omeprazole though reduce acid buildup in stomach. Orders: Orders XR shoulder RT 1V 01/08/25 M77.8 - Other enthesopathies, not elsewhere classified Microalbumin, Random (w Creat) 01/08/25 I10 - Essential (primary) hypertension Referrals [facility] Referral Z12.4 - Encounter for screening for malignant neoplasm of cervix Medications: New omeprazole 20 mg PO DAILY 30 days 30 caps 3RF R14.0 - Abdominal distension (gaseous) Refilled txzupqidxm-vvrzxdixhsguh-hufh 50-325-40 mg 1 tab PO Q6H 3 days PRN 12 tabs 0RF pain G43.909 - Migraine, unspecified, not intractable, without status migrainosus Patient Instructions: Goal: Blood pressure to remain below 140/90 Barriers: Adherence to physical activity and healthy eating habits
[2025-01-08 10:40] VITALS: BP 118/82; PULSE 73; O2SAT 97; BMI 33.1
== END 2025-01-08 11:27 | disposition home or self-care (01) ==
LOC: HO.HMCH 10:17
PROVIDERS: PCP Physician Assistant; Visit Provider Physician Assistant
DX: Z00.00 Encounter for general adult medical examination without abnormal findings (principal); I10 Essential (primary) hypertension; E66.811 Obesity, class 1; Z68.33 Body mass index [BMI] 33.0-33.9, adult; M77.8 Other enthesopathies, not elsewhere classified; G43.909 Migraine, unspecified, not intractable, without status migrainosus; R14.0 Abdominal distension (gaseous)

== ENCOUNTER → 2025-01-08 10:16 | Outpatient (BNVA) | payer OTHER, SELFPAY | PROVIDERS: PCP Physician Assistant; Visit Provider Physician Assistant | DX: Z00.00 Encounter for general adult medical examination without abnormal findings (principal); I10 Essential (primary) hypertension; M77.8 Other enthesopathies, not elsewhere classified; G43.909 Migraine, unspecified, not intractable, without status migrainosus; E66.811 Obesity, class 1; R14.0 Abdominal distension (gaseous) | CPT/HCPCS: 99396 ==

== ENCOUNTER 2025-01-19 12:46 | Emergency (ER) | payer OTHER, SELFPAY ==
--- NOTE | ~2025-01-19 | CT_ITS ---
CLINICAL HISTORY: headache worse than baseline CT head without contrast Comparison: CT/REG/MI/SR - CT HEAD/BRAIN WO IV CON - 01/17/24 13:14 EDT Findings: No intra-axial mass, midline shift, hydrocephalus, or acute hemorrhage. No significant atrophy-like change or white matter disease. The visualized paranasal sinuses and mastoid air cells are normal. The orbits are unremarkable. There is no acute fracture. IMPRESSION: 1. No acute intracranial findings. This document has been electronically signed by: Leon Taveras MD on 01/19/2025 13:59:01
--- NOTE | ~2025-01-19 | XR_ITS ---
CLINICAL HISTORY: R shoulder pain Exam: AP, Grashey, and scapular Y-views of the right shoulder. Comparison: None. Findings: Bony alignment is anatomic without fracture, dislocation, or separation. Glenohumeral joint and AC joint are well maintained. Impression: Negative right shoulder radiographs. This document has been electronically signed by: Leon Taveras MD on 01/19/2025 13:47:27
--- NOTE | ~2025-01-19 | CT_ITS ---
CLINICAL HISTORY: b l neck pain atraumatic CT cervical spine without contrast Comparison: None Findings: There is straightening of the normal cervical lordosis. No focal bony malalignment identified. No fracture or prevertebral soft tissue swelling. Disc space heights are well preserved. Mild scattered facet joint degenerative change. Bony central canal is widely patent. Upper airway is patent. No apical pneumothorax. IMPRESSION: 1. No fracture. 2. Straightening of the normal cervical lordosis can be seen with muscle spasm. This document has been electronically signed by: Leon Taveras MD on 01/19/2025 13:59:31
[2025-01-19 12:50] VITALS: BP 131/75; PULSE 85; RESP 18; TEMP 37.1; O2SAT 97; BMI 35.2
--- NOTE | 2025-01-19 12:58 | ED_ITS ---
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 Patient states that over the last 6 days she had had neck pain, right arm pain, and a headache. Patient denies any dizziness, lightheadedness, abdominal pain, nausea, vomiting, fever, chills, blurry vision, double vision, loss of vision, chest pain, difficulty breathing, shortness of breath, back pain, night sweats, pain with urination, increased urinary frequency, increased urinary urgency, blood in her urine or stool, syncope or a near syncopal episode, recent trauma or falls, bowel incontinence, bladder incontinence, or any other complaints at this time. Related Data Previous Rx's ?Medication ?Instructions ?Recorded acetaminophen 650 mg 650 mg PO Q12H 30 days #60 tabs 05/14/24 tablet,extended release (Tylenol Arthritis Pain) sennosides 8.6 mg tablet (Senna 17.2 mg (2 x 8.6 mg) PO BEDTIME 30 07/03/24 Lax) days #60 tabs rimegepant 75 mg disintegrating 75 mg PO Q OTHER DAY 30 days #15 09/30/24 tablet (Nurtec ODT) tabs amlodipine 2.5 mg tablet 2.5 mg PO DAILY #90 tabs 10/18/24 lidocaine 5 % topical patch 1 patch topical DAILY 30 days #30 11/24/24 ea methocarbamol 500 mg tablet 500 mg PO TID 30 days #90 tabs 12/23/24 slpsvzyyep-lblazvnmbifwu-dfiwwmec 1 tab PO Q6H PRN pain 3 days #12 01/08/25 50 mg-325 mg-40 mg tablet tabs omeprazole 20 mg capsule,delayed 20 mg PO DAILY 30 days #30 caps 01/08/25 release cyclobenzaprine 5 mg tablet 5 mg PO TID PRN spasm 7 days #21 01/19/25 tabs Allergies Allergy/AdvReac Type Severity Reaction Status Date / Time sumatriptan [From IMITREX] Allergy Severe PALPITAITONS, Verified 01/19/25 12:52 palpitations aspirin [ASA] Allergy Intermediate HIVES, rash Verified 01/19/25 12:52 ibuprofen [IBUPROFEN] Allergy Intermediate LIP Verified 01/19/25 12:52 SWELLING/RASH rizatriptan Allergy Intermediate swelling, Verified 01/19/25 12:52 pruritus Review of Systems 2 Constitutional: Constitutional: Reports no additional constitutional complaints, Denies chills, Denies fever(s), Reports headache(s) and Denies night sweats Eyes: Eyes: Reports no additional eye complaints, Denies blurry vision, Denies change in vision, Denies diplopia, Denies eye discharge, Denies loss of vision and Denies eye pain ENT: Denies dizziness, Reports headache(s) and Reports neck pain Cardiovascular: Cardiovascular: Reports no additional cardiovascular complaints, Denies chest pain, Denies lightheadedness, Denies Loss of Consciousness and Denies dyspnea Respiratory: Respiratory: Reports no additional respiratory complaints and Denies dyspnea Gastrointestinal: Gastrointestinal: Reports no additional gastrointestinal complaints, Denies abdominal pain, Denies melena, Denies hematochezia, Denies change in bowel habits and Denies change in stool character Genitourinary: Genitourinary: Denies hematuria, Denies urinary frequency, Denies dysuria, Denies urinary incontinence, Denies urinary hesitancy and Denies urinary urgency Musculoskeletal: Musculoskeletal: Reports no additional musculoskeletal complaints, Reports neck pain, Denies numbness and Denies tingling Comments: right arm pain Neurologic: Denies dizziness, Reports headache(s), Denies loss of vision, Denies numbness and Denies tingling Psychiatric: Psychiatric: Reports no additional psychiatric complaints Endocrine: Endocrine: Reports no additional endocrine complaints Hematologic/Lymphatic: Hematologic/Lymphatic: Reports no additional hematologic/lymphatic complaints Allergic/Immunologic: Allergic/Immunologic: Reports no additional allergic/immunologic complaints PMFSH Past Medical History Attestation statement: The following information was validated with the patient. Source: old records reviewed and nursing notes reviewed Medical History Umbilical hernia H. pylori infection Cervical cancer screening Annual physical exam Screening for diabetes mellitus (DM) Bad odor of urine Back pain Right foot pain Pre-syncope Abnormal urine odor Cervical spine pain Screening for hypercholesterolemia Screening for hypothyroidism Breast cancer screening Constipation Obesity Lumbar pain Finger infection Neck pain Surgical History History of section Family History Family History Mother No problems noted. Father No problems noted. 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 Cognitive needs: No Hearing needs: No Vision needs: No Physical Exam 2 Vital Signs: Vital Signs: Last Vital Signs Temp 98.8 F 01/19/25 12:50 Pulse 85 01/19/25 12:50 Resp 18 01/19/25 12:50 BP 131/75 01/19/25 12:50 Pulse Ox 97 01/19/25 12:50 O2 Del Method Room Air 01/19/25 12:50 BMI result Body Mass Index 35.2 Const: General: cooperative, no acute distress, alert and awake Nutritional Appearance: well nourished Orientation/consciousness: patient oriented x3 Limitations: no limitations HEENT: Head: Yes normal to inspection and Yes atraumatic Ears: hearing grossly normal bilaterally and external ears normal General nose exam: Normal external nose present, no nasal discharge noted and no epistaxis Face and sinus: Yes normal facial exam, No abrasion and No laceration Mouth: Normal oral and palatal mucosa present, no drooling and no muffled voice Eyes: General: appearance normal, both eyes and all related structures P eriorbital: periorbital findings normal Eyelids: Yes eyelids normal C onjunctivae: conjunctivae normal Pupils: Equal, round and reactive pupils present EOM: EOMs intact bilaterally Neck: Neck: Yes normal visual inspection, Yes full ROM and Yes no lymphadenopathy Chest: Chest palpation & inspection: normal inspection of the chest Resp: Effort & Inspection: normal respiratory effort and able to speak in complete sentences GI: Inspection: Yes normal to inspection Neuro: General: patient oriented x3, moves all extremities and CN's II-XI intact bilaterally Cranial nerves: Yes Equal, round and reactive pupils present Cognition (Neuro): normal cognition Extrem: General: Yes normal to inspection, Yes full ROM and Yes capillary refill normal Psych: Appearance: grossly normal Mental Status: mental status grossly normal Affect: normal affect Attitude: cooperative Thought process: N ormal thought process present Thought content: Normal thought content present Insight: Good insight present (Psych) Course Course Course Narrative: This is a Rapid Medical Examination (RME) performed by Rufus Elam PA-C in triage. Full HPI, ROS, assessment and treatment plan per primary provider in the Main ED. Hx: 44 yo pashto speaking female hx migraines, HTN, R shoulder tendonitis here w/ atraumatic b/l neck pain radiating to right shoulder and up into her head. pain worse w/ movement. unable to sleep d/t pain. 10/10 headache, different from typical migraine. not responsive to fioricet. assoc. blurred vision and mild dizziness. no N/V, double vision PE/vitals: exam nonfocal - NIH 0. ambulating w/ steady gait. from intact to right shoulder w/ pain on abduction. from intact to c spine w/ pain on L/R motions. no meningeal signs. Plan: screening labs, xr shoulder, CT head/ c spine. Medical Decision Making Medical Decision Making [facility] Narrative: Patient is a 44 year old assigned female at with a history of migraines and HTN presenting to the emergency department today with neck, right arm pain, and headache. Patient's physical exam was unremarkable. Patient's blood work was unremarkable. Patient's right shoulder x-ray and head CT showed no acute process. Patient's CT c-spine showed evidence of a cervical spasm. I explained my physical exam findings as well as all test results to the patient. I answered all questions asked by the patient. I stressed the importance of the patient taking her medication as directed (either prescribed or as the over the counter packaging recommends). I stressed the importance of the patient following up with her primary care provider. I stressed the importance of the patient returning to the emergency department immediately if her symptoms were to worsen or if she were to develop any dizziness, shortness of breath, difficulty breathing, chest pain, blurry vision, loss of vision, nausea, vomiting, abdominal pain, fever, chills, back pain, or any other complaints. Patient verbalized agreement and understanding with this treatment plan and discharge. Differential Diagnosis Differential Diagnoses: The differential diagnosis associated with the presentation includes Cervical spasm Neck pain Headache Admission/Observation Consideration of admission/observation: Escalation of care including admission/observation considered Patient would have been admitted to the hospital had her work up had any findings where hospital admission was appropriate and her clinical presentation warranted hospital admission. Lab Data [facility] Lab Attestation statement: I reviewed the patient's lab results. My interpretation of these results are in the [facility] Rationale portion of this note. 01/19/25 13:19 01/19/25 13:19 Labs: Lab Results 01/19/25 Range/Units 13:19 WBC 5.3 (4.8-10.8) X10*3/uL RBC 4.54 (4.20-5.50) X10*6/uL Hgb 12.3 (12.0-16.0) g/dl Hct 37.7 (37.0-47.0) % MCV 83.0 (80.0-98.0) fL MCH 27.1 (27.0-33.0) pg MCHC 32.6 (31.0-35.0) g/dl RDW 14.2 (11.0-16.0) % Plt Count 285 (160-400) X10*3/uL MPV 10.9 (9.4-12.3) fL Immature Gran % (Auto) 0.2 (0.0-0.4) % Neut % (Auto) 64.4 (45-73) % Lymph % (Auto) 21.9 (20-40) % [place] % (Auto) 10.4 (2-11) % Eos % (Auto) 2.5 (0-4) % Baso % (Auto) 0.6 (0-2) % Lymph # (Auto) 1.2 (1.2-4.9) X10*3/uL [place] # (Auto) 0.6 (0.1-1.2) X10*3/uL Eos # (Auto) 0.1 (0.0-0.4) X10*3/uL Baso # (Auto) 0.0 (0.0-0.2) X10*3/uL Abs Immat Gran (auto) 0.01 (0.00-0.03) X10*3/uL Absolute Neuts (auto) 3.4 (2.0-8.3) x10*3/uL Absolute Nucleated RBC 0.000 (0.0-0.012) X10*3/uL Nucleated RBC % (auto) 0.0 (0.0-0.2) /100WBC Sodium 141 (135-145) mmol/L Potassium 3.8 (3.3-5.1) mmol/L Chloride 109 H (96-108) mmol/L Carbon Dioxide 26 (22-29) mmol/L Anion Gap 10 L (12-20) BUN 11 (9-16) mg/dL Creatinine 0.63 (0.5-1.4) mg/dL Estim Creat Clear Calc 116.8 Estimated GFR > 60 Random Glucose 109 (60-115) mg/dL Calcium 8.7 (8.4-10.2) mg/dL Magnesium 1.7 (1.6-2.6) mg/dL Total Bilirubin 0.5 (0.0-1.0) mg/dL AST 20 (5-31) U/L ALT 21 (0-31) U/L Alkaline Phosphatase 140 H (39-117) U/L Total Protein 7.5 (6.5-8.0) g/dL Albumin 3.8 (3.5-5.0) g/dL Beta HCG, Quant < 2 mIU/mL Independent Interpretation I performed an independent interpretation of an: EKG and CT Scan Interpretation: My interpretation is in agreement with the radiologist's impression of these imaging studies. L CLINICAL HISTORY: R shoulder pain Exam: AP, Grashey, and scapular Y-views of the right shoulder. Comparison: None. Findings: Bony alignment is anatomic without fracture, dislocation, or separation. Glenohumeral joint and AC joint are well maintained. Impression: Negative right shoulder radiographs. This document has been electronically signed by: Leon Taveras MD on 01/19/2025 13:47:27 Dictated By: Leon Taveras MD Signed By: Electronically signed by Leon Taveras MD 01/19/25 1348 Report Number: [id number]: Total DLP = 467.00 mGy-cm CLINICAL HISTORY: b l neck pain atraumatic CT cervical spine without contrast Comparison: None Findings: There is straightening of the normal cervical lordosis. No focal bony malalignment identified. No fracture or prevertebral soft tissue swelling. Disc space heights are well preserved. Mild scattered facet joint degenerative change. Bony central canal is widely patent. Upper airway is patent. No apical pneumothorax. IMPRESSION: 1. No fracture. 2. Straightening of the normal cervical lordosis can be seen with muscle spasm. This document has been electronically signed by: Leon Taveras MD on 01/19/2025 13:59:31 Dictated By: Leon Taveras MD Signed By: Electronically signed by Leon Taveras MD 01/19/25 1400 Report Number: [id number]: Total DLP = 635.00 mGy-cm CLINICAL HISTORY: headache worse than baseline CT head without contrast Comparison: CT/REG/MT/SR - CT HEAD/BRAIN WO IV CON - 01/17/24 13:14 EDT Findings: No intra-axial mass, midline shift, hydrocephalus, or acute hemorrhage. No significant atrophy-like change or white matter disease. The visualized paranasal sinuses and mastoid air cells are normal. The orbits are unremarkable. There is no acute fracture. IMPRESSION: 1. No acute intracranial findings. This document has been electronically signed by: Leon Taveras MD on 01/19/2025 13:59:01 Dictated By: Leon Taveras MD Signed By: Electronically signed by Leon Taveras MD 01/19/25 7450 Radiology Impression Discussion of test interpretation with radiology: I have reviewed the radiologist's reading. Prescription Management I considered prescription management with: Pain Medication (patient prescribed pain medication) Discharge Plan Discharge Clinical Impression: Cervical paraspinal muscle spasm Patient Disposition: Home, Self-Care Instructions: Muscle Spasm (ED) Additional Instructions: Your imaging today revealed a cervical (neck) muscle spasm. [place] imagen de hoy revel? un espasmo muscular cervical (sheyla). Follow up with your primary care provider. Return to the emergency department immediately if your symptoms worsen or if you develop any dizziness, shortness of breath, difficulty breathing, chest pain, blurry vision, loss of vision, nausea, vomiting, abdominal pain, fever, chills, back pain, or any other complaints. Luis?seguimiento?con [place] m?dico de atenci?n primaria. Acuda inmediatamente al servicio de urgencias si becky s?ntomas empeoran o si presenta falta de aliento, dificultad para respirar, dolor tor?cico, mareos, aturdimiento, dolor de espalda, dolor abdominal, fiebre, escalofr?os o cualquier otro s?ntoma. Please see the information below about our Patient Portal. If you are not yet enrolled in the [facility] Patient Portal, you will receive an enrollment email invitation following your visit to any [facility] care setting. You may also self-enroll in the Patient Portal by visiting our website: [email or web address] The following information is required to access the Patient Portal: - Your [facility] Medical Record Number - Your personal home email address (must match what is in your electronic medical record, Registration staff can assist with this) - Name - Date of Capabilities of the Patient Portal: - Message some providers - View upcoming appointments - Access your health summary, medical history, and visit history - View current conditions and allergies - View procedure and lab results - View your medications, including guidelines, side effects, and precautions - Complete pre-appointment questionnaires requested by your provider - Ready summary reports of your office visits and procedures To access the Patient Portal Mobile Bob, follow these directions: - Search [facility] in the Bob Store or Google [employer] Planet Store - Download the Bob - Search for [facility] - Enter your login/password Portal del paciente Si usted no esta inscrito en el portal de pacientes de [facility] y [facility], recibira amelia invitacion de inscripcion despues de [place] visita al [facility] o al [facility] via correo electronico. Tambien puede inscribirse voluntariamente en el portal de pacientes visitando nuestra pagina web: [email or web address] La siguiente informacion sera requerida para acceder al portal: - [place] precious de historia medica de [facility] - [place] direccion de correo electronico personal - Nombre - Fecha de nacimiento Capacidades: Las siguientes capacidades estan disponibles en el portal de pacientes: - Enviar mensajes a algunos doctores - Verificar proximas citas - Acceso a [place] historial de lewis, registro medico e historial de visitas - Kyle las condiciones actuales y alergias kyle procedimientos y resultados del laboratorio - Kyle becky medicamentos, incluyendo las pautas - Efectos secundarios y precauciones - Completar o llenar formularios / cuestionarios de - Citas solicitadas por [place] doctor - Leer los resumenes de reportes medicos de becky visitas y procedimientos Olga acceder a la aplicacion movil: - [place] [facility] en la Bob Store o [employer]you Store - Descargue la aplicacion - Busque [facility] - Ingrese [place] nombre de usuario / Contrasena Prescriptions: New cyclobenzaprine 5 mg tablet 5 mg PO TID PRN (Reason: spasm) 7 Days Qty: 21 0RF No Action Nurtec ODT 75 mg tablet,disintegrating 75 mg PO Q OTHER DAY 30 Days Qty: 15 0RF amlodipine 2.5 mg tablet 2.5 mg PO DAILY Qty: 90 0RF lidocaine 5 % adhesive patch,medicated 1 patch topical DAILY 30 Days Qty: 30 2RF Rx Instructions: leave on most painful area for up to 12 hrs methocarbamol 500 mg tablet 500 mg PO TID 30 Days Qty: 90 2RF acetaminophen [Tylenol Arthritis Pain] 650 mg tablet extended release 650 mg PO Q12H 30 Days Qty: 60 2RF sennosides [Senna Lax] 8.6 mg tablet 17.2 mg PO BEDTIME 30 Days Qty: 60 3RF svntjubznl-meoonbmvthyso-gcvb 50-325-40 mg tablet 1 tab PO Q6H PRN (Reason: pain) 3 Days Qty: 12 0RF omeprazole 20 mg capsule,delayed release(DR/EC) 20 mg PO DAILY 30 Days Qty: 30 3RF Referrals: Ryan Dhillon PA-C [Primary Care Provider] - Stand Alone Forms: Work/School Release Print Language: Kittitian
[2025-01-19 13:24] LABS: MANUAL DIFF FLAG NO
[2025-01-19 13:25] LABS: Basophils Percent Auto 0.6 % (0-2); Eosinophils Absolute Auto 0.1 X10*3/uL (0.0-0.4); Eosinophils Percent Auto 2.5 % (0-4); Hematocrit 37.7 % (37.0-47.0); Hemoglobin 12.3 g/dl (12.0-16.0); Imm Gran Abs Auto 0.01 X10*3/uL (0.00-0.03); Imm Gran Pct Auto 0.2 % (0.0-0.4); Lymphocytes Absolute Auto 1.2 X10*3/uL (1.2-4.9); Lymphocytes Percent Auto 21.9 % (20-40); Mean Corpuscular HGB Conc 32.6 g/dl (31.0-35.0); Mean Corpuscular Hemoglobin 27.1 pg (27.0-33.0); Mean Platelet Volume 10.9 fL (9.4-12.3); Monocytes Absolute Auto 0.6 X10*3/uL (0.1-1.2); Monocytes Percent Auto 10.4 % (2-11); Neutrophils Absolute Auto 3.4 x10*3/uL (2.0-8.3); Neutrophils Percent Auto 64.4 % (45-73); Platelet Count 285 X10*3/uL (160-400); Red Blood Count 4.54 X10*6/uL (4.20-5.50); Red Cell Distribution Width 14.2 % (11.0-16.0); White Blood Count 5.3 X10*3/uL (4.8-10.8)
[2025-01-19 13:49] LABS: Alanine Aminotransferase 21 U/L (0-31); Albumin Level 3.8 g/dL (3.5-5.0); Alkaline Phosphatase 140 U/L (39-117); Anion Gap 10 (12-20); Aspartate Amino Transferase 20 U/L (5-31); Bilirubin Total 0.5 mg/dL (0.0-1.0); Blood Urea Nitrogen 11 mg/dL (9-16); Calcium 8.7 mg/dL (8.4-10.2); Carbon Dioxide 26 mmol/L (22-29); Chloride 109 mmol/L (96-108); Creatinine Clr Calc Pharmacy 116.8; Estimated Glomerular Filt Rate > 60; Glucose Random 109 mg/dL (60-115); Magnesium 1.7 mg/dL (1.6-2.6); Potassium 3.8 mmol/L (3.3-5.1); Sodium 141 mmol/L (135-145); Total Protein 7.5 g/dL (6.5-8.0)
[2025-01-19 13:53] LABS: HCG Quantitative < 2 mIU/mL
[2025-01-19] MEDS: Cyclobenzaprine HCl 5 MG TABLET PO (14:43)
[2025-01-19 14:47] VITALS: BP 131/75; PULSE 85; RESP 18; TEMP 37.1; O2SAT 97
== END 2025-01-19 14:47 | disposition home or self-care (01) ==
PROVIDERS: Physician Assistant Medical; Emergency Provider Emergency Medicine; PCP Physician Assistant
DX: M62.838 Other muscle spasm (principal); M54.2 Cervicalgia; M79.601 Pain in right arm; R51.9 Headache, unspecified; M25.511 Pain in right shoulder
CPT/HCPCS: 36415; 70450; 72125; 73030; 80053; 83735; 84702; 85025; 99283; 99284

== ENCOUNTER → 2025-01-19 12:57 | Outpatient (BNV) | payer OTHER, SELFPAY | PROVIDERS: PCP Physician Assistant; Visit Provider Radiology Diagnostic Radiology | DX: M54.2 Cervicalgia (principal); R51.9 Headache, unspecified; M25.511 Pain in right shoulder | CPT/HCPCS: 70450; 72125; 73030 ==

== ENCOUNTER 2025-02-12 09:39 | Outpatient (REF) | payer OTHER, SELFPAY ==
--- OUTSIDE RECORDS SUMMARY | 2025-02-12 10:49 | XMS_ITS | Continuity of Care Document ---
Author Organization [facility] Address [address] [place] [address] Dr [address]Hyes [address] [place] [id number] Phone Care Team Providers Care Assistant Tennis Coach Name Role Phone Lei HUDSON FACS RVT [...] E&M Established 15 Mins [facility], [address] [place] [address] Dr Hayes [address], [place], [id number], [place] tel:[phone] [facility] - [place] Chronic venous hypertension (idiopathic) with other complications of bilateral lower extremity Oct-3 3 Lei HUDSON FACS RVAminata Mares. [address] [facility] [address], [facility] [address], [place]. tel:[phone] Referring Provider: Ryan Rossi, [address], [address], [place], [address]. tel:[phone] [facility], [address] [place] [address] Dr [address], [place], [id number], [place] tel:[phone] [facility] - [place] - [place] Encntr for f/u exam aft trtmt for cond oth than malig neoplmPain in left leg Jun- 3 Lei HUDSON FACS RVT RENA Mares. [address] [facility], [address], [place], [address], [place]. [phone] Referring Provider: Ryan Rossi, [facility] [address], [address], [place], [address]. tel:[phone] [facility], [address] [place] [address] [address], [place], [id number], [place] tel:[phone] [facility] [place] Varicose veins of left lower extremity with inflammation Jun- 3 Lei HUDSON FACS RVT RENA Mares. [address] [facility], [address], [place], [address], [place]. [phone] Referring Provider: Ryan Rossi, [facility] [address], [address], [place], [address]. tel:[phone] [facility], [address] [place] [address] [address], [place], [id number], [place] tel:[phone] [facility] [place] Encntr for f/u exam aft trtmt for cond oth than malig neoplmChronic venous hypertension w oth comp of r low extrem 3 Lei HUDSON FACS RVT RPALMA DELIA Mares. [address] [facility], [address], [place], [address], [place]. [phone] Referring Provider: Ryan Rossi, [address], [address], [place], [address]. tel:[phone] [facility], [address] [place] [address] [address]Debby [place], [id number], [place] tel:[phone] [facility] - [place] Chronic venous hypertension w inflammation of r low extrem 3 Lei HUDSON FACS Aminata Mares. [address] [facility], Suite [facility], [place], [address], [place]. tel:[phone] Referring Provider: Ryan Rossi, [facility] [address], [address], [place], [address]. tel:[phone] Offic/outpt E&m Estab 5 Min Trial - Telemedicine [facility], [address] [place] [address] Dr Hayes [address]Debby [place], [id number], [place] tel:[phone] [facility] [place] Venous insufficiency (chronic) (peripheral) 3 Lei Mares. [address] [facility], [place] [address], [place], [address], [place]. tel:[phone] Referring Provider: Ryan Rossi, [address] [place] [address], suite [facility], [place], [address]. tel:[phone] Office/Outpt E&M Established 15 Mins [facility], [address] [place] [address] Dr Hayes [address]Suite Debby Alarcon [place], [id number], [place] tel:[phone] [facility] [place] Venous insufficiency (chronic) (peripheral) 3 Lei Mares. [address] [facility], [place] [address], [place], [address], [place]. tel:[phone] Referring Provider: Ryan Rossi, [address] [place] [address], [address], [place], [address]. tel:[phone] [facility], [address] [place] [address] Dr Hayes [address]Suite Debby Alarcon [place], [id number], [place] tel:[phone] CVR - [facility] Encntr for f/u exam aft trtmt for cond oth than malig neoplmVenous insufficiency (chronic) (peripheral) 3 Lei HUDSON FACS T ALMA DELIA Tequila Vishnu. [address] [facility], [address], [place], [address], [place]. tel:[phone] Referring Provider: Ryan Rossi, [address], [address], [place], [address]. tel:[phone] Offic Cons New/estab Low 30 Id [facility], [address] [facility] [address], [place], [id number], [place] tel:[phone] [facility] - [facility] Venous insufficiency (chronic) (peripheral)Pa in in right legPain in left legFlail joint, unspecified jointCramp and spasm 3 Lei HUDSON FACS T ALMA DELIA Mares. [address] [facility], [address], [place], [address], [place]. tel:[phone] Referring Provider: Ryan Rossi, [address], [address], [place], [address]. tel:[phone] Family History Family Member Type Diagnosis Age At Onset No Information Payers Payer name Insurance type Covered republican ID Jimmie linder(s) [facility] [place] [id number] Social History Type Description Quantity Date [...] Body mass index (BMI) 34.0-34.9, adult) ordered History Of Present Illness Encounter Date Complaint [...]
== END 2025-02-12 09:40 | disposition home or self-care (01) ==
LOC: HO.MAMMO 09:39
PROVIDERS: PCP Physician Assistant; Visit Provider Physician Assistant
DX: Z12.31 Encounter for screening mammogram for malignant neoplasm of breast (principal)
CPT/HCPCS: 77063; 77067

== ENCOUNTER → 2025-02-12 10:15 | Outpatient (BNV) | payer OTHER, SELFPAY | PROVIDERS: PCP Physician Assistant; Visit Provider Internal Medicine | DX: Z12.31 Encounter for screening mammogram for malignant neoplasm of breast (principal) | CPT/HCPCS: 77063; 77067 ==

== ENCOUNTER 2025-03-08 19:34 | Emergency (ER) | payer OTHER, SELFPAY ==
[2025-03-08 19:36] VITALS: BP 145/88; PULSE 89; RESP 18; TEMP 36.3; O2SAT 100; BMI 35.8
--- NOTE | 2025-03-08 19:39 | ED_ITS ---
HPI - General Adult General Chief complaint: Headache Stated complaint: migraine Time Seen by Provider: 03/08/25 21:22 Source: patient Mode of arrival: ambulatory Limitations: no limitations History of Present Illness ED Provider: HPI narrative: Patient's history of migraines complaining of headache nausea since yesterday took Tylenol without much relief patient does get headache once a month and been here multiple times for same Related Data Previous Rx's ?Medication ?Instructions ?Recorded acetaminophen 650 mg 650 mg PO Q12H 30 days #60 tabs 05/14/24 tablet,extended release (Tylenol Arthritis Pain) sennosides 8.6 mg tablet (Senna 17.2 mg (2 x 8.6 mg) PO BEDTIME 30 07/03/24 Lax) days #60 tabs rimegepant 75 mg disintegrating 75 mg PO Q OTHER DAY 30 days #15 09/30/24 tablet (Nurtec ODT) tabs lidocaine 5 % topical patch 1 patch topical DAILY 30 days #30 11/24/24 ea methocarbamol 500 mg tablet 500 mg PO TID 30 days #90 tabs 12/23/24 yagxhbvvqy-xtvrhbodwdelh-fozlgiyj 1 tab PO Q6H PRN pain 3 days #12 01/08/25 50 mg-325 mg-40 mg tablet tabs omeprazole 20 mg capsule,delayed 20 mg PO DAILY 30 days #30 caps 01/08/25 release cyclobenzaprine 5 mg tablet 5 mg PO TID PRN spasm 7 days #21 01/19/25 tabs multivitamin 1 tab PO DAILY 90 days #90 tabs 01/22/25 amlodipine 2.5 mg tablet 2.5 mg PO DAILY #90 tabs 01/26/25 vgogpogsvy-qkoeiqiukrjor-dpzwjrue 1 tab PO Q6H PRN haeadace #20 tabs 03/08/25 50 mg-325 mg-40 mg tablet Allergies Allergy/AdvReac Type Severity Reaction Status Date / Time sumatriptan [From IMITREX] Allergy Severe PALPITAITONS, Verified 03/08/25 19:41 palpitations aspirin [ASA] Allergy Intermediate HIVES, rash Verified 03/08/25 19:41 ibuprofen [IBUPROFEN] Allergy Intermediate LIP Verified 03/08/25 19:41 SWELLING/RASH rizatriptan Allergy Intermediate swelling, Verified 03/08/25 19:41 pruritus Review of Systems 2 Review of Systems: Yes all other systems are reviewed and are negative [facility] Past Medical History Medical History Umbilical hernia H. pylori infection Cervical cancer screening Annual physical exam Screening for diabetes mellitus (DM) Bad odor of urine Back pain Right foot pain Pre-syncope Abnormal urine odor Cervical spine pain Screening for hypercholesterolemia Screening for hypothyroidism Breast cancer screening Constipation Obesity Lumbar pain Finger infection Neck pain Surgical History History of section Family History Family History Mother No problems noted. Father No problems noted. 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 Oriented X3. No acute distress. Photosensitive Eyes: PERRLA, No Nystagmus ENT: Pharynx normal. Oral Mucosa moist temporal artery not tender Neck: Normal inspection. Neck supple. CVS: Normal heart rate and rhythm. Pulses normal. Respiratory: No respiratory distress. Equal air entry bilateral, no wheezing/rales/rhonchi Abdomen: Soft and nontender. Bowel sounds are present, Skin: Skin warm and dry. Normal skin color. Normal skin turgor. Extremities: No lower extremity edema. No calf tenderness Neuro: Oriented X 3. No motor deficit. Course Course Course Narrative: RME performed by Adriane Titus PA-C. Patient is a 44 year old assigned female at presenting to the emergency department with a migraine headache. Detailed physical exam and review of systems are deferred to the display and banner designer. Labs ordered. Patient placed back in the waiting room pending room availability and results. Medications Administered Discontinued Medications Generic Name Dose Route Start Last Admin Trade Name Freq PRN Reason Stop Dose Admin Diphenhydramine HCl 25 mg 03/08/25 21:31 03/08/25 21:51 Diphenhydramine Hcl 50 Mg/Ml Vial IVPUSH 03/08/25 21:32 25 mg ONCE ONE Administration Sodium Chloride 1,000 mls @ 999 mls/hr 03/08/25 21:30 03/08/25 23:57 Ns IV 03/08/25 22:30 Infused .Q1H1M ONE Infusion Metoclopramide HCl 10 mg 03/08/25 21:30 03/08/25 21:51 Metoclopramide Hcl 10 Mg/2 Ml Vial IVPUSH 03/08/25 21:31 10 mg ONCE ONE Administration Medical Decision Making Medical Decision Making MDM Narrative: Patient's migraine headache responded to IV Benadryl and rectal much better now will discharge patient home Lab Data MDM Lab Attestation statement: I reviewed the patient's lab results. 03/08/25 20:07 03/08/25 20:06 Labs: Lab Results 03/08/25 03/08/25 Range/Units 20:06 20:07 WBC 7.0 (4.8-10.8) X10*3/uL RBC 4.31 (4.20-5.50) X10*6/uL Hgb 11.7 L (12.0-16.0) g/dl Hct 36.1 L (37.0-47.0) % MCV 83.8 (80.0-98.0) fL MCH 27.1 (27.0-33.0) pg MCHC 32.4 (31.0-35.0) g/dl RDW 14.3 (11.0-16.0) % Plt Count 260 (160-400) X10*3/uL MPV 11.1 (9.4-12.3) fL Immature Gran % (Auto) 0.1 (0.0-0.4) % Neut % (Auto) 66.3 (45-73) % Lymph % (Auto) 19.2 L (20-40) % Stephenson % (Auto) 10.5 (2-11) % Eos % (Auto) 3.6 (0-4) % Baso % (Auto) 0.3 (0-2) % Lymph # (Auto) 1.4 (1.2-4.9) X10*3/uL Stephenson # (Auto) 0.7 (0.1-1.2) X10*3/uL Eos # (Auto) 0.3 (0.0-0.4) X10*3/uL Baso # (Auto) 0.0 (0.0-0.2) X10*3/uL Abs Immat Gran (auto) 0.01 (0.00-0.03) X10*3/uL Absolute Neuts (auto) 4.7 (2.0-8.3) x10*3/uL Absolute Nucleated RBC 0.000 (0.0-0.012) X10*3/uL Nucleated RBC % (auto) 0.0 (0.0-0.2) /100WBC Sodium 139 (135-145) mmol/L Potassium 3.9 (3.3-5.1) mmol/L Chloride 109 H (96-108) mmol/L Carbon Dioxide 23 (22-29) mmol/L Anion Gap 11 L (12-20) BUN 14 (9-16) mg/dL Creatinine 0.67 (0.5-1.4) mg/dL Estim Creat Clear Calc 110.9 Estimated GFR > 60 Random Glucose 110 (60-115) mg/dL Calcium 8.8 (8.4-10.2) mg/dL Magnesium 1.8 (1.6-2.6) mg/dL Total Bilirubin 0.2 (0.0-1.0) mg/dL AST 18 (5-31) U/L ALT 21 (0-31) U/L Alkaline Phosphatase 145 H (39-117) U/L Total Protein 7.3 (6.5-8.0) g/dL Albumin 3.9 (3.5-5.0) g/dL Discharge Plan Discharge Clinical Impression: Migraine Patient Disposition: Home, Self-Care Instructions: Migraine Headache (ED) Additional Instructions: Rest at home Take medication for migraine as prescribed and follow up with your PCP Prescriptions: New ldrwnothgx-kxksqciheeapt-cdig 50-325-40 mg tablet 1 tab PO Q6H PRN (Reason: haeadace) Qty: 20 0RF No Action Nurtec ODT 75 mg tablet,disintegrating 75 mg PO Q OTHER DAY 30 Days Qty: 15 0RF lidocaine 5 % adhesive patch,medicated 1 patch topical DAILY 30 Days Qty: 30 2RF Rx Instructions: leave on most painful area for up to 12 hrs methocarbamol 500 mg tablet 500 mg PO TID 30 Days Qty: 90 2RF multivitamin Tablet 1 tab PO DAILY 90 Days Qty: 90 1RF amlodipine 2.5 mg tablet 2.5 mg PO DAILY Qty: 90 0RF cyclobenzaprine 5 mg tablet 5 mg PO TID PRN (Reason: spasm) 7 Days Qty: 21 0RF acetaminophen [Tylenol Arthritis Pain] 650 mg tablet extended release 650 mg PO Q12H 30 Days Qty: 60 2RF sennosides [Senna Lax] 8.6 mg tablet 17.2 mg PO BEDTIME 30 Days Qty: 60 3RF bcuqclwfwt-dentsrskyafwk-meaf 50-325-40 mg tablet 1 tab PO Q6H PRN (Reason: pain) 3 Days Qty: 12 0RF omeprazole 20 mg capsule,delayed release(DR/EC) 20 mg PO DAILY 30 Days Qty: 30 3RF Interventions: ED Discharge Assessment Last Done: 03/08/25 23:58 Discharge Date/Time: 03/08/25 23:59 Print Language: Latvian
[2025-03-08 20:18] LABS: MANUAL DIFF FLAG NO
[2025-03-08 20:20] LABS: Basophils Percent Auto 0.3 % (0-2); Eosinophils Absolute Auto 0.3 X10*3/uL (0.0-0.4); Eosinophils Percent Auto 3.6 % (0-4); Hematocrit 36.1 % (37.0-47.0); Hemoglobin 11.7 g/dl (12.0-16.0); Imm Gran Abs Auto 0.01 X10*3/uL (0.00-0.03); Imm Gran Pct Auto 0.1 % (0.0-0.4); Lymphocytes Absolute Auto 1.4 X10*3/uL (1.2-4.9); Lymphocytes Percent Auto 19.2 % (20-40); Mean Corpuscular HGB Conc 32.4 g/dl (31.0-35.0); Mean Corpuscular Hemoglobin 27.1 pg (27.0-33.0); Mean Corpuscular Volume 83.8 fL (80.0-98.0); Mean Platelet Volume 11.1 fL (9.4-12.3); Monocytes Absolute Auto 0.7 X10*3/uL (0.1-1.2); Monocytes Percent Auto 10.5 % (2-11); Neutrophils Absolute Auto 4.7 x10*3/uL (2.0-8.3); Neutrophils Percent Auto 66.3 % (45-73); Platelet Count 260 X10*3/uL (160-400); Red Blood Count 4.31 X10*6/uL (4.20-5.50); Red Cell Distribution Width 14.3 % (11.0-16.0)
[2025-03-08 20:33] LABS: Alanine Aminotransferase 21 U/L (0-31); Albumin Level 3.9 g/dL (3.5-5.0); Alkaline Phosphatase 145 U/L (39-117); Anion Gap 11 (12-20); Aspartate Amino Transferase 18 U/L (5-31); Bilirubin Total 0.2 mg/dL (0.0-1.0); Blood Urea Nitrogen 14 mg/dL (9-16); Calcium 8.8 mg/dL (8.4-10.2); Carbon Dioxide 23 mmol/L (22-29); Chloride 109 mmol/L (96-108); Creatinine Clr Calc Pharmacy 110.9; Estimated Glomerular Filt Rate > 60; Glucose Random 110 mg/dL (60-115); Magnesium 1.8 mg/dL (1.6-2.6); Potassium 3.9 mmol/L (3.3-5.1); Sodium 139 mmol/L (135-145); Total Protein 7.3 g/dL (6.5-8.0)
[2025-03-08] MEDS: 0.9 % Sodium Chloride 1,000 ML 999 ML IV (21:51)
[2025-03-08] MEDS: Metoclopramide HCl 10 MG/2 ML VIAL IVPUSH (21:51)
[2025-03-08] MEDS: diphenhydrAMINE HCL 50 MG/ML VIAL 25 MG IVPUSH (21:51)
[2025-03-08 22:00] VITALS: BP 129/73; PULSE 82; RESP 16; TEMP 36.6; O2SAT 99
[2025-03-08 23:58] VITALS: BP 136/78; PULSE 79; RESP 20; TEMP 36.8; O2SAT 99
== END 2025-03-08 23:59 | disposition home or self-care (01) ==
PROVIDERS: Physician Assistant Medical; Emergency Provider Internal Medicine; PCP Physician Assistant
DX: G43.909 Migraine, unspecified, not intractable, without status migrainosus (principal); R11.0 Nausea; Z79.899 Other long term (current) drug therapy
CPT/HCPCS: 36415; 80053; 83735; 85025; 96361; 96374; 96375; 99284; J1200; J2765

== ENCOUNTER 2025-04-05 09:16 | Emergency (ER) | payer OTHER, SELFPAY ==
--- NOTE | ~2025-04-05 | XR_ITS ---
CLINICAL HISTORY: left rib pain Two views of the chest. COMPARISON: None FINDINGS: Normal heart and mediastinal contours. No consolidation. No pleural effusion or pneumothorax. No acute fracture. No rib fracture identified. IMPRESSION: 1. No consolidation. This document has been electronically signed by: Wojciech Anthony MD on 04/05/2025 14:50:45
[2025-04-05 09:34] VITALS: BP 128/72; PULSE 76; RESP 18; TEMP 36.8; O2SAT 99; BMI 34.5
--- NOTE | 2025-04-05 13:59 | ECG_ITS ---
Test Reason : LEFT RIB PAIN Blood Pressure : */* mmHG Vent. Rate : 63 BPM Atrial Rate : 63 BPM P-R Int : 134 ms QRS Dur : 72 ms QT Int : 408 ms P-R-T Axes : -6 10 8 degrees QTcB Int : 417 ms Normal sinus rhythm with sinus arrhythmia Minimal voltage criteria for LVH, may be normal variant ( R in aVL ) Borderline ECG When compared with ECG of 07-Nov-2024 10:50, No significant change was found Referred By: Generic ED Physician Electronically Signed By: EVELYNE TAYLOR
[2025-04-05 14:18] LABS: MANUAL DIFF FLAG NO
[2025-04-05 14:19] LABS: Basophils Percent Auto 0.2 % (0-2); Eosinophils Absolute Auto 0.2 X10*3/uL (0.0-0.4); Eosinophils Percent Auto 3.3 % (0-4); Hematocrit 38.3 % (37.0-47.0); Hemoglobin 12.6 g/dl (12.0-16.0); Imm Gran Abs Auto 0.01 X10*3/uL (0.00-0.03); Imm Gran Pct Auto 0.2 % (0.0-0.4); Lymphocytes Absolute Auto 1.4 X10*3/uL (1.2-4.9); Lymphocytes Percent Auto 26.2 % (20-40); Mean Corpuscular HGB Conc 32.9 g/dl (31.0-35.0); Mean Corpuscular Hemoglobin 27.5 pg (27.0-33.0); Mean Corpuscular Volume 83.4 fL (80.0-98.0); Mean Platelet Volume 10.4 fL (9.4-12.3); Monocytes Absolute Auto 0.5 X10*3/uL (0.1-1.2); Monocytes Percent Auto 10.1 % (2-11); Neutrophils Absolute Auto 3.1 x10*3/uL (2.0-8.3); Platelet Count 230 X10*3/uL (160-400); Red Blood Count 4.59 X10*6/uL (4.20-5.50); Red Cell Distribution Width 14.3 % (11.0-16.0); White Blood Count 5.2 X10*3/uL (4.8-10.8)
[2025-04-05 14:37] LABS: Alanine Aminotransferase 19 U/L (0-31); Albumin Level 4.1 g/dL (3.5-5.0); Anion Gap 11 (12-20); Aspartate Amino Transferase 24 U/L (5-31); Bilirubin Total 0.5 mg/dL (0.0-1.0); Blood Urea Nitrogen 10 mg/dL (9-16); Calcium 8.9 mg/dL (8.4-10.2); Carbon Dioxide 25 mmol/L (22-29); Chloride 108 mmol/L (96-108); Estimated Glomerular Filt Rate > 60; Glucose Random 92 mg/dL (60-115); Potassium 3.9 mmol/L (3.3-5.1); Sodium 140 mmol/L (135-145); Total Protein 7.2 g/dL (6.5-8.0)
--- NOTE | 2025-04-05 15:41 | ED_ITS ---
HPI - General Adult General Chief complaint: General Medical Stated complaint: head numbness diff breathing multi issues Time Seen by Provider: 04/05/25 15:41 Source: patient, RN notes reviewed, old records reviewed and facility administrator Mode of arrival: ambulatory Limitations: language barrier History of Present Illness ED Provider: Ana M HPI narrative: Patient is a 44-year-old female with history of HTN, migraines presenting to the emergency department with complaint of pruritus to her whole body which began last night. States that she had a rash to her forehead, felt as though her eyes were swollen and had a rash on her back. She took a shower but symptoms persisted. She took 2 Benadryl this morning prior to coming to the emergency department. Reports that she felt short of breath and had difficulty sleeping due to her symptoms. States that the right side of her face felt heavy last night. Also complains of a stabbing pain under her right breast which began last night and has since spontaneously resolved. Reports that she ate a new type of pasta sauce last night but she has never had before. Denies history of anaphylaxis. Denies any abdominal pain, nausea, vomiting, diarrhea. MD complaint: rash Onset (ago): hour(s) Related Data Previous Rx's ?Medication ?Instructions ?Recorded acetaminophen 650 mg 650 mg PO Q12H 30 days #60 tabs 05/14/24 tablet,extended release (Tylenol Arthritis Pain) sennosides 8.6 mg tablet (Senna 17.2 mg (2 x 8.6 mg) PO BEDTIME 30 07/03/24 Lax) days #60 tabs rimegepant 75 mg disintegrating 75 mg PO Q OTHER DAY 30 days #15 09/30/24 tablet (Nurtec ODT) tabs lidocaine 5 % topical patch 1 patch topical DAILY 30 days #30 11/24/24 ea methocarbamol 500 mg tablet 500 mg PO TID 30 days #90 tabs 12/23/24 wqaaxuhhny-zrkrayicpjcxr-xxkkfqis 1 tab PO Q6H PRN pain 3 days #12 01/08/25 50 mg-325 mg-40 mg tablet tabs omeprazole 20 mg capsule,delayed 20 mg PO DAILY 30 days #30 caps 01/08/25 release cyclobenzaprine 5 mg tablet 5 mg PO TID PRN spasm 7 days #21 01/19/25 tabs multivitamin 1 tab PO DAILY 90 days #90 tabs 01/22/25 amlodipine 2.5 mg tablet 2.5 mg PO DAILY #90 tabs 01/26/25 gzvmjlhprb-rwonwsaqsjuav-ftornhpr 1 tab PO Q6H PRN haeadace #20 tabs 03/08/25 50 mg-325 mg-40 mg tablet semaglutide (weight loss) 0.25 0.25 mg (0.5 mL) subcut QWEEK 4 03/17/25 mg/0.5 mL subcutaneous pen weeks #2 mL injector (MiTiovNERI) Allergies Allergy/AdvReac Type Severity Reaction Status Date / Time sumatriptan [From IMITREX] Allergy Severe PALPITAITONS, Verified 04/05/25 09:37 palpitations aspirin [ASA] Allergy Intermediate HIVES, rash Verified 04/05/25 09:37 ibuprofen [IBUPROFEN] Allergy Intermediate LIP Verified 04/05/25 09:37 SWELLING/RASH rizatriptan Allergy Intermediate swelling, Verified 04/05/25 09:37 pruritus Review of Systems 2 Review of Systems: As per HPI Yes all other systems are reviewed and are negative Constitutional: Constitutional: Reports as per HPI PMFSH Past Medical History Medical History Umbilical hernia H. pylori infection Cervical cancer screening Annual physical exam Screening for diabetes mellitus (DM) Bad odor of urine Back pain Right foot pain Pre-syncope Abnormal urine odor Cervical spine pain Screening for hypercholesterolemia Screening for hypothyroidism Breast cancer screening Constipation Obesity Lumbar pain Finger infection Neck pain Surgical History History of section Family History Family History Mother No problems noted. Father No problems noted. 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 Blood pressure normal. Heart rate normal. Respiratory rate normal. Temperature normal. Oxygen saturation normal. Const General: cooperative, healthy appearing and no acute distress Orientation/consciousness: oriented to person, oriented to place, oriented to time and patient oriented x3 Limitations: no limitations [facility] Head: Yes normocephalic and Yes atraumatic Ears: external ears normal General nose exam: Normal external nose present Face and sinus: Yes normal facial exam, Yes face symmetric and Yes other (no rash noted to face) Mouth: Normal oral and palatal mucosa present, lip normal, tongue normal, oropharynx normal, moist mucous membranes, no audible dysphonia and no drooling Throat: Yes posterior oropharynx normal, Yes uvula midline and No uvular edema Eyes General: appearance normal, both eyes and all related structures Periorbital: periorbital findings normal Eyelids: Yes eyelids normal Pupils: Equal, round and reactive pupils present Neck Neck: Yes normal visual inspection, Yes no meningeal signs and Yes supple Resp Effort & Inspection: normal respiratory effort and able to speak in complete sentences Auscultation: clear to auscultation bilaterally Cardio Rate: regular rate Rhythm: regular rhythm Heart sounds: S1 normal heart sound present and S2 normal heart sound present GI Palpation (GI): Soft to palpation and nontender Auscultation: normoactive bowel sounds General: Yes no CVA tenderness Back/Spine/Pelvis Back: no CVA tenderness Skin General skin exam: no rashes or lesions noted, elasticity normal and turgor normal Neuro General: oriented to person, oriented to place, oriented to time, patient oriented x3, gait normal, tone normal, moves all extremities, Normal light touch and pain sensation, no meningeal signs, no focal motor deficits, CN's II-XI intact bilaterally and deep tendon reflexes 2+ bilaterally Cranial nerves: Yes Equal, round and reactive pupils present Cognition (Neuro): normal cognition Motor exam (neuro): 5/5 motor strength present throughout, Normal motor muscle tone present throughout and Motor abnormalities not present Extrem General: Yes full ROM, Yes no pedal edema and Yes no calf tenderness Psych Mental Status: mental status grossly normal Affect: normal affect Thought process: Normal thought process present Medical Decision Making Medical Decision Making [facility] Narrative: Patient is a 44-year-old female with history of HTN, migraines presenting to the emergency department with complaint of pruritus to her whole body which began last night. On exam patient is awake, A+Ox3, VS WNL, afebrile, normal neurological exam without focal deficits, physical exam findings as above. Given reported symptoms and physical exam findings, initial differential includes but is not limited to allergic reaction, contact dermatitis. Do not suspect anaphylaxis. Given that pain under right breast has since resolved, PE unlikely. Labs unremarkable. X-ray chest notable for no evidence of pneumonia or pneumothorax. My interpretation is in agreement with the radiologist's interpretation. No visible rash, swelling to eyelids, or neuro deficits noted on physical exam. Patient reports that itching has improved since taking Benadryl. Advised patient she should continue to use daily cetirizine for the next several days, can also use famotidine. Advised to follow up with PCP. Return precautions discussed at bedside. Patient verbalized understanding of and agreement with plan. In-person kapok machine operator was utilized for all interactions, assessments, and discussions. Differential Diagnosis Differential Diagnoses: The differential diagnosis associated with the presentation includes As per [facility] Admission/Observation Consideration of admission/observation: Escalation of care including admission/observation considered Patient would have been admitted to the hospital had their work up had any findings where hospital admission was appropriate and their clinical presentation warranted hospital admission. Lab Data [facility] Lab Attestation statement: I reviewed the patient's lab results. As per [facility] 04/05/25 14:13 04/05/25 14:13 Labs: Lab Results 04/05/25 Range/Units 14:13 WBC 5.2 (4.8-10.8) X10*3/uL RBC 4.59 (4.20-5.50) X10*6/uL Hgb 12.6 (12.0-16.0) g/dl Hct 38.3 (37.0-47.0) % MCV 83.4 (80.0-98.0) fL MCH 27.5 (27.0-33.0) pg MCHC 32.9 (31.0-35.0) g/dl RDW 14.3 (11.0-16.0) % Plt Count 230 (160-400) X10*3/uL MPV 10.4 (9.4-12.3) fL Immature Gran % (Auto) 0.2 (0.0-0.4) % Neut % (Auto) 60.0 (45-73) % Lymph % (Auto) 26.2 (20-40) % Darke % (Auto) 10.1 (2-11) % Eos % (Auto) 3.3 (0-4) % Baso % (Auto) 0.2 (0-2) % Lymph # (Auto) 1.4 (1.2-4.9) X10*3/uL Darke # (Auto) 0.5 (0.1-1.2) X10*3/uL Eos # (Auto) 0.2 (0.0-0.4) X10*3/uL Baso # (Auto) 0.0 (0.0-0.2) X10*3/uL Abs Immat Gran (auto) 0.01 (0.00-0.03) X10*3/uL Absolute Neuts (auto) 3.1 (2.0-8.3) x10*3/uL Absolute Nucleated RBC 0.000 (0.0-0.012) X10*3/uL Nucleated RBC % (auto) 0.0 (0.0-0.2) /100WBC Sodium 140 (135-145) mmol/L Potassium 3.9 (3.3-5.1) mmol/L Chloride 108 (96-108) mmol/L Carbon Dioxide 25 (22-29) mmol/L Anion Gap 11 L (12-20) BUN 10 (9-16) mg/dL Creatinine 0.62 (0.5-1.4) mg/dL Estim Creat Clear Calc 122.0 Estimated GFR > 60 Random Glucose 92 (60-115) mg/dL Calcium 8.9 (8.4-10.2) mg/dL Total Bilirubin 0.5 (0.0-1.0) mg/dL AST 24 (5-31) U/L ALT 19 (0-31) U/L Total Protein 7.2 (6.5-8.0) g/dL Albumin 4.1 (3.5-5.0) g/dL Independent Interpretation I performed an independent interpretation of an: Plain X-Ray Interpretation: Unremarkable chest x-ray. Radiology Impression Discussion of test interpretation with radiology: I have reviewed the radiologist's reading. Radiologist Impression: CLINICAL HISTORY: left rib pain Two views of the chest. COMPARISON: None FINDINGS: Normal heart and mediastinal contours. No consolidation. No pleural effusion or pneumothorax. No acute fracture. No rib fracture identified. IMPRESSION: 1. No consolidation. External Record Review External record reviewed: Inpatient record, Office record and Outpatient record Discharge Plan Discharge Clinical Impression: Allergic reaction Patient Disposition: Home, Self-Care Instructions: General Allergic Reaction (ED) Additional Instructions: You were evaluated in the emergency department today for an allergic reaction. You have been given medications to control your symptoms. You have been observed for several hours in the emergency department and you are stable for discharge at this time. You can take cetirizine (Zyrtec) and Pepcid, which are available jjyl-dnd-lrmhzoj, to help control your symptoms at home. Please schedule an appointment with your primary care physician for follow-up. Return to the emergency department if you experience rashes, difficulty breathing or swallowing, lip/mouth/tongue swelling, vomiting, or for any other concerning symptoms. Prescriptions: No Action Nurtec ODT 75 mg tablet,disintegrating 75 mg PO Q OTHER DAY 30 Days Qty: 15 0RF lidocaine 5 % adhesive patch,medicated 1 patch topical DAILY 30 Days Qty: 30 2RF Rx Instructions: leave on most painful area for up to 12 hrs methocarbamol 500 mg tablet 500 mg PO TID 30 Days Qty: 90 2RF multivitamin Tablet 1 tab PO DAILY 90 Days Qty: 90 1RF amlodipine 2.5 mg tablet 2.5 mg PO DAILY Qty: 90 0RF Wegovy 0.25 mg/0.5 mL pen injector 0.25 mg subcut QWEEK 28 Days Qty: 2 0RF Rx Instructions: administer weeks 1 through 4 of therapy cyclobenzaprine 5 mg tablet 5 mg PO TID PRN (Reason: spasm) 7 Days Qty: 21 0RF vvsqkyuvrg-reygsjoxtviye-otfq 50-325-40 mg tablet 1 tab PO Q6H PRN (Reason: haeadace) Qty: 20 0RF acetaminophen [Tylenol Arthritis Pain] 650 mg tablet extended release 650 mg PO Q12H 30 Days Qty: 60 2RF sennosides [Senna Lax] 8.6 mg tablet 17.2 mg PO BEDTIME 30 Days Qty: 60 3RF qedvshymbb-fvjrrthhpxgrn-djoi 50-325-40 mg tablet 1 tab PO Q6H PRN (Reason: pain) 3 Days Qty: 12 0RF omeprazole 20 mg capsule,delayed release(DR/EC) 20 mg PO DAILY 30 Days Qty: 30 3RF Print Language: Ukrainian
[2025-04-05 15:42] VITALS: BP 115/71; PULSE 72; RESP 19; TEMP 36.7; O2SAT 99
[2025-04-05 17:32] VITALS: BP 115/71; PULSE 72; RESP 19; TEMP 36.7; O2SAT 99
[2025-04-05 18:43] LABS: Alkaline Phosphatase 139 U/L (39-117)
== END 2025-04-05 17:32 | disposition home or self-care (01) ==
PROVIDERS: Emergency Provider Emergency Medicine; PCP Physician Assistant
DX: T78.40XA Allergy, unspecified, initial encounter (principal); R21 Rash and other nonspecific skin eruption; X58.XXXA Exposure to other specified factors, initial encounter; Y92.9 Unspecified place or not applicable; Y93.9 Activity, unspecified; Y99.9 Unspecified external cause status; R07.81 Pleurodynia
CPT/HCPCS: 36415; 71046; 80053; 85025; 93005; 99283; 99284

== ENCOUNTER → 2025-04-05 13:59 | Outpatient (BNV) | payer OTHER, SELFPAY | PROVIDERS: PCP Physician Assistant; Visit Provider Radiology Diagnostic Radiology | DX: R07.89 Other chest pain (principal) | CPT/HCPCS: 71046 ==

== ENCOUNTER → 2025-04-05 13:59 | Outpatient (BNV) | payer OTHER, SELFPAY | PROVIDERS: Emergency Provider Emergency Medicine; PCP Physician Assistant; Visit Provider Internal Medicine | DX: R07.81 Pleurodynia (principal) | CPT/HCPCS: 93010 ==

== ENCOUNTER 2025-04-14 18:51 | Emergency (ER) | payer OTHER, SELFPAY ==
[2025-04-14 19:02] VITALS: BP 134/73; PULSE 94; RESP 18; TEMP 36.8; O2SAT 98; BMI 34.9
--- NOTE | 2025-04-14 19:21 | ED.HA ---
HPI - Headache General Chief Complaint: Headache Stated Complaint: migraine Time Seen by Provider: 04/14/25 19:16 Source: patient, old records reviewed and director of respiratory therapy Mode of arrival: ambulatory Limitations: no limitations History of Present Illness ED Provider: DR. Trinidad HPI Narrative: 44-year-old female PMH of migraine, obesity, liver mass, H pylori infection presented with headache described as severe gradual onset over the last 2 days, headache is associated with nausea, vomiting, and photophobia. Patient stated that she had similar even more severe form of headache in the past and this headache today is similar to her usual presentation. Related Data Previous Rx's ?Medication ?Instructions ?Recorded acetaminophen 650 mg 650 mg PO Q12H 30 days #60 tabs 05/14/24 tablet,extended release (Tylenol Arthritis Pain) sennosides 8.6 mg tablet (Senna 17.2 mg (2 x 8.6 mg) PO BEDTIME 30 07/03/24 Lax) days #60 tabs rimegepant 75 mg disintegrating 75 mg PO Q OTHER DAY 30 days #15 09/30/24 tablet (Nurtec ODT) tabs lidocaine 5 % topical patch 1 patch topical DAILY 30 days #30 11/24/24 ea methocarbamol 500 mg tablet 500 mg PO TID 30 days #90 tabs 12/23/24 zeztzdomah-uzdfixcywhoyk-ksdhgmif 1 tab PO Q6H PRN pain 3 days #12 01/08/25 50 mg-325 mg-40 mg tablet tabs omeprazole 20 mg capsule,delayed 20 mg PO DAILY 30 days #30 caps 01/08/25 release cyclobenzaprine 5 mg tablet 5 mg PO TID PRN spasm 7 days #21 01/19/25 tabs multivitamin 1 tab PO DAILY 90 days #90 tabs 01/22/25 amlodipine 2.5 mg tablet 2.5 mg PO DAILY #90 tabs 01/26/25 kskrndyyet-kenitrrynuxlk-evtoucct 1 tab PO Q6H PRN haeadace #20 tabs 03/08/25 50 mg-325 mg-40 mg tablet semaglutide (weight loss) 0.25 0.25 mg (0.5 mL) subcut QWEEK 4 03/17/25 mg/0.5 mL subcutaneous pen weeks #2 mL injector (Kristie) Allergies Allergy/AdvReac Type Severity Reaction Status Date / Time sumatriptan [From IMITREX] Allergy Severe PALPITAITONS, Verified 04/14/25 19:04 palpitations aspirin [ASA] Allergy Intermediate HIVES, rash Verified 04/14/25 19:04 ibuprofen [IBUPROFEN] Allergy Intermediate LIP Verified 04/14/25 19:04 SWELLING/RASH rizatriptan Allergy Intermediate swelling, Verified 04/14/25 19:04 pruritus Review of Systems Review of Systems: all other systems are reviewed and are negative Constitutional: Reports as per HPI and Reports no additional constitutional complaints Eyes: Reports as per HPI and Reports no additional eye complaints Reports system reviewed and no additional complaints, except as documented Cardiovascular: Reports as per HPI and Reports no additional cardiovascular complaints Respiratory: Reports as per HPI and Reports no additional respiratory complaints Gastrointestinal: Reports as per HPI and Reports no additional gastrointestinal complaints Genitourinary: Reports no additional female genitourinary complaints Musculoskeletal: Reports no additional musculoskeletal complaints Skin/Breast: Reports system reviewed and no additional complaints, except as docu Psychiatric: Reports no additional psychiatric complaints Endocrine: Reports no additional endocrine complaints Hematologic/Lymphatic: Reports no additional hematologic/lymphatic complaints Allergic/Immunologic: Reports no additional allergic/immunologic complaints Reports system reviewed and no additional complaints, except as documented and Reports Abnormal speech present PMFSH Past Medical History Medical History Umbilical hernia H. pylori infection Cervical cancer screening Annual physical exam Screening for diabetes mellitus (DM) Bad odor of urine Back pain Right foot pain Pre-syncope Abnormal urine odor Cervical spine pain Screening for hypercholesterolemia Screening for hypothyroidism Breast cancer screening Constipation Obesity Lumbar pain Finger infection Neck pain Surgical History History of section Family History Family History Mother No problems noted. Father No problems noted. 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 Blood pressure elevated. Heart rate normal. Respiratory rate normal. Temperature normal. Oxygen saturation normal. Appearance: Alert. Oriented X3. No acute distress. Head: Normal external exam. Normocephalic. Atraumatic. No Lamas signs noted. No raccoon eyes noted Eyes: PERRLA. EOMI. Conjunctiva and sclera normal. Eyelids normal. ENT: TM's Normal. Pharynx normal. Uvula midline. Moist mucous membranes. No trismus noted. No drooling noted. No muffled voice noted. Neck: Normal inspection. Neck supple. FROM. No adenopathy. Thyroid Normal. No meningeal signs. No neck mass noted. CVS: Normal heart rate and rhythm. Heart sound normal. No murmurs noted. Pulses normal throughout. Respiratory: No respiratory distress. Painless inspiration. Breath sounds normal. No wheezes/rales/rhonchi noted. Chest nontender. No accessory muscle usage noted or decreased air movement noted. Abdomen: Soft and nontender. Bowel sounds normal in all 4 quadrants. No distention noted. No organomegaly noted. No visible injury noted. Back: No CVA tenderness. Full range of motion noted. Skin: Skin warm and dry. Normal skin color. Normal skin turgor. No rashes/lesions/lacerations noted. Extremities: No lower extremity edema. Extremities exhibit normal range of motion. Extremities nontender. Neuro: Mental status: Normal attention, orientation, memory, and affect. Cranial nerves: Pupils are equal, round and reactive to light, EOMI, visual verma are fall, face is symmetric, facial sensations are normal. Motor examination normal muscle tone, strength to 4 extremities. DTR are +2, planter's are flexor. Sensory exam; normal coordination, no ataxia, gait stable. Cerebellar exam: Exzwfy-re-hlun and trlz-js-siuj is normal. Extrapyramidal system: No tremors, no rigidity with normal facial expressions. Pronator drift not present Course Reevaluation(s) Reevaluation #1: 44-year-old female with history of recurrent and frequent migraine presented with typical presentation of patient's migraine that did not response to Fioricet patient tried to take a home. Patient feels better after hydration, Benadryl, Tylenol. Was instructed to follow-up with her neurologist. that typical presentation of the patient's with her symptoms and improvement of patient's symptoms after IV hydration and Tylenol with Benadryl making other differential diagnosis of SAH, venous thrombosis, meningitis are unfavorable and extremely unlikely. Patient was instructed to follow-up with her neurologist (already have an appointment with her neurologist in May). Time: 20:01 Medications Administered Discontinued Medications Generic Name Dose Route Start Last Admin Trade Name Freq PRN Reason Stop Dose Admin Diphenhydramine HCl 25 mg 04/14/25 19:18 04/14/25 20:09 Diphenhydramine Hcl 50 Mg/Ml Vial IVPUSH 04/14/25 19:19 25 mg ONCE ONE Administration Acetaminophen 1,000 mg in 100 mls @ 400 mls/hr 04/14/25 19:18 04/14/25 20:09 Ofirmev IV 04/14/25 19:32 400 mls/hr ONCE ONE Administration Sodium Chloride 1,000 mls @ 999 mls/hr 04/14/25 19:20 04/14/25 20:09 Ns IV 04/14/25 20:20 999 mls/hr .Q1H1M ONE Administration Metoclopramide HCl 10 mg 04/14/25 19:18 04/14/25 20:12 Metoclopramide Hcl 10 Mg/2 Ml Vial IVPUSH 10 mg ONCE PRN Administration Pain, Mild 1-3,fever,headache Medical Decision Making Differential Diagnosis Differential Diagnoses: The differential diagnosis associated with the presentation includes ( Migraine, subarachnoid hemorrhage,) Admission/Observation Consideration of admission/observation: Escalation of care including admission/observation considered Discharge Plan Discharge Clinical Impression: Migraines Qualifiers: Migraine type: unspecified Status migrainosus presence: without status migrainosus Intractability: not intractable Qualified Code(s): G43.909 - Migraine, unspecified, not intractable, without status migrainosus Patient Disposition: Home, Self-Care Instructions: Migraine Headache (ED) Prescriptions: No Action Nurtec ODT 75 mg tablet,disintegrating 75 mg PO Q OTHER DAY 30 Days Qty: 15 0RF lidocaine 5 % adhesive patch,medicated 1 patch topical DAILY 30 Days Qty: 30 2RF Rx Instructions: leave on most painful area for up to 12 hrs methocarbamol 500 mg tablet 500 mg PO TID 30 Days Qty: 90 2RF multivitamin Tablet 1 tab PO DAILY 90 Days Qty: 90 1RF amlodipine 2.5 mg tablet 2.5 mg PO DAILY Qty: 90 0RF Wegovy 0.25 mg/0.5 mL pen injector 0.25 mg subcut QWEEK 28 Days Qty: 2 0RF Rx Instructions: administer weeks 1 through 4 of therapy cyclobenzaprine 5 mg tablet 5 mg PO TID PRN (Reason: spasm) 7 Days Qty: 21 0RF tyiaekppmr-ftjbsifpahlzi-pxcu 50-325-40 mg tablet 1 tab PO Q6H PRN (Reason: haeadace) Qty: 20 0RF acetaminophen [Tylenol Arthritis Pain] 650 mg tablet extended release 650 mg PO Q12H 30 Days Qty: 60 2RF sennosides [Senna Lax] 8.6 mg tablet 17.2 mg PO BEDTIME 30 Days Qty: 60 3RF dyeqlhsczd-aosuphpyzdbex-upjm 50-325-40 mg tablet 1 tab PO Q6H PRN (Reason: pain) 3 Days Qty: 12 0RF omeprazole 20 mg capsule,delayed release(DR/EC) 20 mg PO DAILY 30 Days Qty: 30 3RF Referrals: Ryan Dhillon PA-C [Primary Care Provider] - Print Language: Libyan
[2025-04-14 19:24] VITALS: BP 137/83; PULSE 79; RESP 16; TEMP 37.1; O2SAT 98
[2025-04-14] MEDS: diphenhydrAMINE HCL 50 MG/ML VIAL 25 MG IVPUSH (20:09)
[2025-04-14] MEDS: 0.9 % Sodium Chloride 1,000 ML 999 ML IV (20:09)
[2025-04-14] MEDS: Acetaminophen 1,000 MG/100 ML PIGGYBACK 400 MG IV (20:09)
[2025-04-14] MEDS: Metoclopramide HCl 10 MG/2 ML VIAL IVPUSH (20:12)
[2025-04-14 21:20] VITALS: BP 121/81; PULSE 58; RESP 16; TEMP 36.8; O2SAT 97
== END 2025-04-14 21:26 | disposition home or self-care (01) ==
PROVIDERS: Emergency Provider Emergency Medicine; PCP Physician Assistant
DX: G43.909 Migraine, unspecified, not intractable, without status migrainosus (principal)
CPT/HCPCS: 96361; 96374; 96375; 99284; J0131; J1200; J2765

== ENCOUNTER 2025-05-16 20:07 | Emergency (ER) | payer OTHER, SELFPAY ==
[2025-05-16 20:19] VITALS: BP 125/80; PULSE 85; RESP 18; TEMP 36.8; O2SAT 98; BMI 35.1
[2025-05-16 22:15] LABS: Resp Syncy Virus RNA Qual PCR NEGATIVE (Negative); SARS COV2 PCR INHOUSE NEGATIVE (Negative)
[2025-05-16 22:21] VITALS: BP 126/82; PULSE 59; RESP 18; TEMP 36.6; O2SAT 98
[2025-05-16 23:40] LABS: Hematocrit 35.4 % (37.0-47.0); Hemoglobin 11.6 g/dl (12.0-16.0); Imm Gran Abs Auto 0.01 X10*3/uL (0.00-0.03); Imm Gran Pct Auto 0.2 % (0.0-0.4); Lymphocytes Absolute Auto 1.5 X10*3/uL (1.2-4.9); MANUAL DIFF FLAG NO; Mean Corpuscular HGB Conc 32.8 g/dl (31.0-35.0); Mean Corpuscular Hemoglobin 27.1 pg (27.0-33.0); Mean Corpuscular Volume 82.7 fL (80.0-98.0); NRBC Abs Auto 0.000 X10*3/uL (0.0-0.012); NRBC Pct Auto 0.0 /100WBC (0.0-0.2); Platelet Count 244 X10*3/uL (160-400); Red Blood Count 4.28 X10*6/uL (4.20-5.50); White Blood Count 5.2 X10*3/uL (4.8-10.8)
--- NOTE | 2025-05-16 23:54 | PC.NURSE ---
IV established, pt medicated per DEC, reporting 10/10 pain to head, resting in bed. Pt aware of plan of care, continue to monitor.
[2025-05-16 23:57] LABS: Alanine Aminotransferase 19 U/L (0-31); Albumin Level 3.8 g/dL (3.5-5.0); Alkaline Phosphatase 129 U/L (39-117); Anion Gap 10 (12-20); Aspartate Amino Transferase 22 U/L (5-31); Blood Urea Nitrogen 13 mg/dL (9-16); Calcium 8.0 mg/dL (8.4-10.2); Carbon Dioxide 24 mmol/L (22-29); Chloride 109 mmol/L (96-108); Creatinine Clr Calc Pharmacy 116.7; Estimated Glomerular Filt Rate > 60; Potassium 4.2 mmol/L (3.3-5.1); Sodium 139 mmol/L (135-145); Total Protein 6.7 g/dL (6.5-8.0)
--- NOTE | 2025-05-17 00:07 | ED_ITS ---
HPI - Headache General Chief Complaint: Headache Stated Complaint: N/V Headache Time Seen by Provider: 05/16/25 22:26 Source: patient Mode of arrival: ambulatory Limitations: no limitations History of Present Illness ED Provider: HPI Narrative: Patient's history of migraine headache comes here for left-sided headache for last 3 days with light sensitivity nausea took her Fioricet and extra Tylenol without much relief history of same in the past been here multiple times had previous head CT scan which were negative Related Data Previous Rx's ?Medication ?Instructions ?Recorded acetaminophen 650 mg 650 mg PO Q12H 30 days #60 t abs 05/14/24 tablet,extended release (Tylenol Arthritis Pain) sennosides 8.6 mg tablet (Senna 17.2 mg (2 x 8.6 mg) P O BEDTIME 30 07/03/24 Lax) days #60 tabs lidocaine 5 % topical patch 1 patch topical DAILY 30 d ays #30 11/24/24 ea pchsryezpb-ovxiszsodwxns-ufxknlys 1 tab PO Q6H PRN nelsy n 3 days #12 01/08/25 50 mg-325 mg-40 mg tablet tabs multivitamin 1 tab PO DAILY 90 days #90 t abs 01/22/25 zkqfoikbvx-rkzswndzneovj-mwutbrdk 1 tab PO Q6H PRN hae adace #20 tabs 03/08/25 50 mg-325 mg-40 mg tablet semaglutide (weight loss) 0.25 0.25 mg (0.5 mL) subcut QWEEK 4 03/17/25 mg/0.5 mL subcutaneous pen weeks #2 mL injector (Wegrealdo) amlodipine 2.5 mg tablet 2.5 mg PO DAILY #90 tabs omeprazole 20 mg capsule,delayed 20 mg PO DAILY #90 ca ps 05/11/25 release rhvotxuife-openfwcpzxsth-bliryeed 1 tab PO Q6H PRN hae adace #20 tabs 05/17/25 50 mg-325 mg-40 mg tablet diazepam 5 mg tablet (Valium) 5 mg PO TID PRN muscle s pasm #10 05/19/25 tabs magnesium oxide 400 mg (241.3 mg 400 mg PO BEDTIME #90 tabs 05/21/25 magnesium) tablet riboflavin (vitamin B2) 400 mg 400 mg PO QAM #90 tabs 05/21/25 tablet topiramate 25 mg tablet 25 mg PO BEDTIME #30 tabs ubrogepant 100 mg tablet (Ubrelvy) 100 mg PO ONCE PRN migraine #14 05/21/25 tabs Allergies Allergy/AdvReac Type Severity Reaction Status Date / Time sumatriptan (From IMITREX) Allergy Severe PALPITAITONS, Verified 05/21/25 08:33 palpitations aspirin (ASA) Allergy Intermediate HIVES, rash Verified 05/21/25 08:33 ibuprofen (IBUPROFEN) Allergy Intermediate LIP Verified 05/21/25 08:33 SWELLING/RASH rizatriptan Allergy Intermediate swelling, Verified 05/21/25 08:33 pruritus Review of Systems 2 Review of Systems: Yes all other systems are reviewed and are negative [facility] Past Medical History Medical History (Updated 05/21/25 @ 09:14 by Saundra Anton MD) Cervicalgia Hypersomnia Snoring Chronic migraine with aura Umbilical hernia H. pylori infection Cervical cancer screening Annual physical exam Screening for diabetes mellitus (DM) Bad odor of urine Back pain Right foot pain Pre-syncope Abnormal urine odor Cervical spine pain Screening for hypercholesterolemia Screening for hypothyroidism Breast cancer screening Constipation Obesity Lumbar pain Finger infection Neck pain Surgical History History of section Family History Family History Mother No problems noted. Father No problems noted. 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 Oriented X3. No acute distress. Eyes: PERRLA, No Nystagmus photosensitive ENT: Pharynx normal. Oral Mucosa moist temporal artery nontender Neck: Normal inspection. Neck supple. CVS: Normal heart rate and rhythm. Pulses normal. Respiratory: No respiratory distress. Equal air entry bilateral, no wheezing/rales/rhonchi Abdomen: Soft and nontender. Bowel sounds are present, no mass palpable, no CVA tenderness Skin: Skin warm and dry. Normal skin color. Normal skin turgor. Extremities: No lower extremity edema. No calf tenderness Neuro: Oriented X 3. No motor deficit. No sensory deficit.No cerebellar signs , cranial nerves II-XII intact Medications Administered Discontinued Medications Generic Name Dose Route Start Last Admin Trade Name Freq PRN Reason Stop Dose Admin Diphenhydramine HCl 25 mg 05/16/25 23:10 05/16/25 23:47 Diphenhydramine Hcl 50 Mg/Ml Vial IVPUSH 05/16/25 23:11 25 mg ONCE ONE Administration Sodium Chloride 1,000 mls @ 999 mls/hr 05/16/25 23:05 05/16/25 23:49 Ns IV 05/17/25 00:05 999 mls/hr .Q1H1M ONE Administration Metoclopramide HCl 10 mg 05/16/25 23:05 05/16/25 23:47 Metoclopramide Hcl 10 Mg/2 Ml Vial IVPUSH 05/16/25 23:06 10 mg ONCE ONE Administration Morphine Sulfate 4 mg 05/16/25 23:11 05/16/25 23:47 Morphine Sulfate 4 Mg/Ml Cartridge IVPUSH 05/16/25 23:12 4 mg ONCE ONE Administration Protocol Medical Decision Making Medical Decision Making [facility] Narrative: Patient's history of migraine headache comes here for headache similar to that in the past with previous CT scan negative improved after migraine cocktail feeling much better time of discharge patient home Differential Diagnosis Differential Diagnoses: The differential diagnosis associated with the presentation includes Lab Data [facility] Lab Attestation statement: I reviewed the patient's lab results. 05/16/25 23:34 05/16/25 23:34 Labs: Lab Results 05/16/25 05/16/25 Range/Units 21:32 23:34 WBC 5.2 (4.8-10.8) X10*3/uL RBC 4.28 (4.20-5.50) X10*6/uL Hgb 11.6 L (12.0-16.0) g/dl Hct 35.4 L (37.0-47.0) % MCV 82.7 (80.0-98.0) fL MCH 27.1 (27.0-33.0) pg MCHC 32.8 (31.0-35.0) g/dl RDW 13.9 (11.0-16.0) % Plt Count 244 (160-400) X10*3/uL MPV 10.6 (9.4-12.3) fL Immature Gran % (Auto) 0.2 (0.0-0.4) % Neut % (Auto) 56.1 (45-73) % Lymph % (Auto) 29.3 (20-40) % [place] % (Auto) 9.6 (2-11) % Eos % (Auto) 4.6 H (0-4) % Baso % (Auto) 0.2 (0-2) % Lymph # (Auto) 1.5 (1.2-4.9) X10*3/uL [place] # (Auto) 0.5 (0.1-1.2) X10*3/uL Eos # (Auto) 0.2 (0.0-0.4) X10*3/uL Baso # (Auto) 0.0 (0.0-0.2) X10*3/uL Abs Immat Gran (auto) 0.01 (0.00-0.03) X10*3/uL Absolute Neuts (auto) 2.9 (2.0-8.3) x10*3/uL Absolute Nucleated RBC 0.000 (0.0-0.012) X10*3/uL Nucleated RBC % (auto) 0.0 (0.0-0.2) /100WBC Sodium 139 (135-145) mmol/L Potassium 4.2 (3.3-5.1) mmol/L Chloride 109 H (96-108) mmol/L Carbon Dioxide 24 (22-29) mmol/L Anion Gap 10 L (12-20) BUN 13 (9-16) mg/dL Creatinine 0.63 (0.5-1.4) mg/dL Estim Creat Clear Calc 116.7 Estimated GFR > 60 Random Glucose 104 (60-115) mg/dL Calcium 8.0 L D (8.4-10.2) mg/dL Total Bilirubin 0.3 (0.0-1.0) mg/dL AST 22 (5-31) U/L ALT 19 (0-31) U/L Alkaline Phosphatase 129 H (39-117) U/L Total Protein 6.7 (6.5-8.0) g/dL Albumin 3.8 (3.5-5.0) g/dL Influenza Type A (PCR) NEGATIVE (Negative) Influenza Type B (PCR) NEGATIVE (Negative) RSV RNA Qual (PCR) NEGATIVE (Negative) SARS-CoV-2 RNA (RT-PCR) NEGATIVE (Negative) Discharge Plan Discharge Clinical Impression: Migraine Patient Disposition: Home, Self-Care Instructions: Migraine Headache (ED) Additional Instructions: Rest at home Take your Fioricet as prescribed for your headaches and follow up with your PCP Prescriptions: New wghxqyctzm-xnmebhzheouzl-lgdi 50-325-40 mg tablet 1 tab PO Q6H PRN (Reason: haeadace) Qty: 20 0RF No Action lidocaine 5 % adhesive patch,medicated 1 patch topical DAILY 30 Days Qty: 30 2RF Rx Instructions: leave on most painful area for up to 12 hrs multivitamin Tablet 1 tab PO DAILY 90 Days Qty: 90 1RF Wegovy 0.25 mg/0.5 mL pen injector 0.25 mg subcut QWEEK 28 Days Qty: 2 0RF Rx Instructions: administer weeks 1 through 4 of therapy amlodipine 2.5 mg tablet 2.5 mg PO DAILY Qty: 90 0RF omeprazole 20 mg capsule,delayed release(DR/EC) 20 mg PO DAILY Qty: 90 1RF btaxfygzaz-gwzibzwffakrb-ipug 50-325-40 mg tablet 1 tab PO Q6H PRN (Reason: haeadace) Qty: 20 0RF diazepam [Valium] 5 mg tablet 5 mg PO TID PRN (Reason: muscle spasm) Qty: 10 0RF Rx Instructions: partial fill is okay acetaminophen [Tylenol Arthritis Pain] 650 mg tablet extended release 650 mg PO Q12H 30 Days Qty: 60 2RF sennosides [Senna Lax] 8.6 mg tablet 17.2 mg PO BEDTIME 30 Days Qty: 60 3RF khwxwfkece-bebkecjocoyrn-ckqo 50-325-40 mg tablet 1 tab PO Q6H PRN (Reason: pain) 3 Days Qty: 12 0RF topiramate 25 mg tablet 25 mg PO BEDTIME Qty: 30 6RF magnesium oxide 400 mg (241.3 mg magnesium) tablet 400 mg PO BEDTIME Qty: 90 6RF riboflavin (vitamin B2) 400 mg tablet 400 mg PO QAM Qty: 90 3RF Ubrelvy 100 mg tablet 100 mg PO ONCE PRN (Reason: migraine) Qty: 14 6RF Rx Instructions: 1 tab at onset of migraine , can repeat in 2 hrs as needed Maximum 2 tabs a day Interventions: ED Discharge Assessment Last Done: 05/17/25 02:00 Discharge Date/Time: 05/17/25 02:01 Print Language: Setswana
[2025-05-17 02:00] VITALS: BP 133/72; PULSE 63; RESP 16; TEMP -17.7; TEMP 0; O2SAT 98
== END 2025-05-17 02:01 | disposition home or self-care (01) ==
PROVIDERS: Emergency Provider Internal Medicine; PCP Physician Assistant
DX: G43.909 Migraine, unspecified, not intractable, without status migrainosus (principal); Z03.818 Encounter for observation for suspected exposure to other biological agents ruled out
CPT/HCPCS: 36415; 80053; 85025; 87637; 96374; 96375; 99284; J1200; J2270; J2765

== ENCOUNTER 2025-05-19 14:04 | Emergency (ER) | payer OTHER, SELFPAY ==
--- OUTSIDE RECORDS SUMMARY | 2023-08-28 07:15 | XMS_ITS | Continuity of Care Document ---
Author Organization [facility] Address [address] [place] [address] Dr [address] [place] [address] Phone Care Team Providers Care Radiology Clerk Name Role Phone Lei HUDSON FACS RVT Tequila CHASE Unavailable Unavailable Allergies, Adverse Reactions, Alerts Substance Reaction Status Criticality aspirin Active No Information Medications Medication Instructions Dosage Effective Dates (start - stop) Status Comments No Drug Therapy Prescribed Procedures Procedure Date Office/Outpt E&M Established 15 Mins Jul Duplex Scan-extrem Veins; Uni/ Endovenous Laser, 1st Vein Duplex Scan-extrem Veins; Uni/ Endovenous Laser, 1st Vein Offic/outpt E&m Estab 5 Min Trial - Tele medicine Office/Outpt E&M Established 15 Mins Jan Duplex Scan-extrem Veins; Comp Offic Cons New/estab Low 30 Mi Advance Directives Directive Yes / No Effective Date File Name No Information Encounters Encounter Description Practice Location Reason(s) For Visit Diagnoses Date Provider Providers Copied on Encounter Office/Outpt E&M Established 15 Mins [facility], [address] [place] [address] Dr Hayes [address], [place], [id number], [place] tel:[phone] [facility] [place] Chronic venous hypertension (idiopathic) with other complications of bilateral lower extremity Oct-3 3 Lei HUDSON FACS RVAminata Mares. [address] [facility] [address], [facility] [address] [place]. tel:[phone] Referring Provider: Ryan Rossi, [address], [address], [place], [address]. tel:[phone] [facility], [address] [place] [address] Dr [address], [place], [id number], [place] tel:[phone] [facility] [place] [facility] [place] Encntr for f/u exam aft trtmt for cond oth than malig neoplmPain in left leg Jun- 3 Lei HUDSON FACS RVT RENA Mares. [address] [facility], [address], [place], [address], [place]. [phone] Referring Provider: Ryan Rossi, [facility] [address], [address], [place], [address]. tel:[phone] [facility], [address] [place] [address] [address], [place], [id number], [place] tel:[phone] [facility] [place] [facility] [place] Varicose veins of left lower extremity with inflammation Jun- 3 Lei HUDSON FACS RVT RENA Mares. [address] [facility], [address], [place], [address], [place]. [phone] Referring Provider: Ryan Rossi, [facility] [address], [address], [place], [address]. tel:[phone] [facility], [address] [place] [address] [address], [place], [id number], [place] tel:[phone] [facility] [place] [facility] [place] Encntr for f/u exam aft trtmt for cond oth than malig neoplmChronic venous hypertension w oth comp of r low extrem 3 Lei HUDSON FACS RVT RPALMA DELIA Mares. [address] [facility], [address], [place], [address], [place]. [phone] Referring Provider: Ryan Rossi, [address], [address], [place], [address]. tel:[phone] [facility], [address] [place] [address] [address]Deb[place], [id number], [place] tel:[phone] [facility] [place] [facility] [place] Chronic venous hypertension w inflammation of r low extrem 3 Lei HUDSON FACS Aminata Mares. [address] [facility], Suite [facility], [place], [address], [place]. tel:[phone] Referring Provider: Ryan Rossi, [facility] [address], [address], [place], [address]. tel:[phone] Offic/outpt E&m Estab 5 Min Trial - Telemedicine [facility], [address] [place] [address] Dr [address]Deb[place], [id number], [place] tel:[phone] [facility] [place] [facility] [place] Venous insufficiency (chronic) (peripheral) 3 Lei Mares. [address] [facility], [place] [address], [place], [address], [place]. tel:[phone] Referring Provider: Ryan Rossi, [address] [place] [address], suite [facility], [place], [address]. tel:[phone] Office/Outpt E&M Established 15 Mins [facility], [address] [place] [address] Dr Hayes [address]Suite [place], [id number], [place] tel:[phone] [facility] [place] [facility] [place] Venous insufficiency (chronic) (peripheral) 3 Lei Mares. [address] [facility], [place] [address], [place], [address], [place]. tel:[phone] Referring Provider: Ryan Rossi, [address] [place] [address], [address], [place], [address]. tel:[phone] [facility], [address] [place] [address] Dr Hayes [address]Suite [place]by [place], [id number], [place] tel:[phone] [facility] - [facility] Encntr for f/u exam aft trtmt for cond oth than malig neoplmVenous insufficiency (chronic) (peripheral) 3 Lei HUDSON FACS T ALMA DELIA Tequila Vishnu. [address] [facility], [address], [place], [address], [place]. tel:[phone] Referring Provider: Ryan Rossi, [address], [address], [place], [address]. tel:[phone] Offic Cons New/estab Low 30 Me [facility], [address] [facility] [address], [place], [id number], [place] tel:[phone] [facility] - [facility] Venous insufficiency (chronic) (peripheral)Pa in in right legPain in left legFlail joint, unspecified jointCramp and spasm 3 Lei HUDSON FACS T ALMA DELIA Mares. [address] [facility], [address], [place], [address], [place]. tel:[phone] Referring Provider: Ryan Rossi, [address], [address], [place], [address]. tel:[phone] Family History Family Member Type Diagnosis Age At Onset No Information Payers Payer name Insurance type Covered constitution party ID Jimmie linder(s) [facility] [id number] Social History Type Description Quantity Date Captured Comments Alcohol Use Details No Caffeine Use Details Unknown Tobacco Use Status Never smoked tobacco 2022 Smoking Status Never smoker Non-Smoking Tobacco Use Details : No Details Available : No Details Available Sex Female Vital Signs Date / Time: Height Weight BMI Pulse Rate Blood Pressure Temperature Respiratory Rate Body Surface Area Head Circumference Head Circ. Percentile Wt./Jm. Percentile BMI percentile Pulse Ox Inhaled Ox 11:12 AM 63.00 in Chief Complaint And Reason For Visit No Information Reason For Referral Reason For Referral No Information Plan Of Treatment Date Type Action Status Goal Diet education completed Goal Diet education completed Referral Ordered: Ryan Dhillon timeframe: 3 Months (related to Essential (primary) hypertension) ordered Referral Ordered: Weight management: Referral to physician timeframe: 3 Months (related to Body mass index (BMI) 34.0-34.9, adult) ordered Appointment Maru Mcintosh BOOKED Appointment Maru Mcintosh BOOKED History Of Present Illness Encounter Date Complaint History Of Prese nt Illness No Information Functional Status Date Functional Assessmen t No Information Medications Administered Medication Instructions Dosage Effective Dates (start - stop) Status Comments No Drug Therapy Prescribed Instructions Date Instruction Additional Infor mation Patient education booklet given Related to Chrn Vns Hyprtnsn w/Compl (Pain Edema Swelling); BILAT Continue compression stocking us e Related to Chrn Vns Hyprtnsn w/Compl (Pain Edema Swelling); BILAT Patient education booklet given Related to Venous Insufficiency (Chronic / Peripheral) Continue compression stocking us e Related to Venous Insufficiency (Chronic / Peripheral) Compression stocking usage as conservative measure Related to Venous insufficiency (chronic) (peripheral) Diet education Related to Essen tial (primary) hypertension Exercise education Related to Es sential (primary) hypertension Lifestyle education Related to E ssential (primary) hypertension Diet education Related to Body mass index (BMI) 34.0-34.9, adult Giving Encouragement to exercise Related to Body mass index (BMI) 34.0-34.9, adult Lifestyle education Related to B rani mass index (BMI) 34.0-34.9, adult Patient education booklet given Related to Venous insufficiency (chronic) (peripheral) Assessments Type Assessment Date assessment Chronic venous hyper tension (idiopathic) with other complications of bilateral lower extremity Patient Care Teams Name Effective Dates (start - stop) Status Members No Information
--- NOTE | ~2025-05-19 | CT_ITS ---
EXAMINATION: CT HEAD WITHOUT CONTRAST CLINICAL INFORMATION: Change in quality of headache, midline stabbing pain COMPARISON: January 19, 2025 TECHNIQUE: Contiguous axial imaging was performed from the skull base to vertex without intravenous administration of contrast. This CT examination was performed using dose optimization techniques as appropriate, variously including the following: *Automated exposure control *Adjustment of mA and/or kV according to patient size (this includes techniques or standardized protocols for targeted exams where dose is matched to indication/reason for exam; i.e. extremities or head) *Use of iterative reconstruction technique DLP: 664 mGY*cm FINDINGS: There is no acute ischemic change. There is no intracranial hemorrhage. There is no mass-effect or midline shift. Basal cisterns and ventricles are within normal limits for age/cerebral volume. Orbits are symmetrical and unremarkable. Paranasal sinuses and mastoid air cells are pneumatized. There are no bony abnormalities. CT/CT head/brain wo IV con IMPRESSION: No acute intracranial abnormality. Electronically signed by: Yordan Meeks MD 05/19/2025 04:58 PM EDT
[2025-05-19 14:08] VITALS: BP 155/93; PULSE 80; RESP 18; TEMP 36.3; O2SAT 98; BMI 35.5
--- NOTE | 2025-05-19 14:08 | ED.HA ---
HPI - Headache General Chief Complaint: Headache Stated Complaint: migraine Time Seen by Provider: 05/19/25 15:38 Source: patient, old records reviewed and registration clerk Mode of arrival: ambulatory Limitations: no limitations History of Present Illness ED Provider: SELVIN RAGLAND Narrative: 44 yo female with PMH of migraines, neck pain, back pain, HTN, not on blood thinners here with c/o bilateral shoulder pain, bilateral neck pain, headaches, hurts to move and touch. No fevers, no headstrike. She denies chiropractor or trauma. She is taking fiorice but it doesn't help. She has nausea. She notes no recent neck pain or injury. It is both sides of the neck. She was just seen here 05/17 but no improvement in symptoms. No imaging done but has hx of neg head CT in past. MD elicited complaint: headache Pertinent past history: migraines Onset (ago): day(s) () Onset description: gradually Location: right, left, frontal, occipital, neck and other (shoulder) Severity: moderate Quality & Timing: throbbing, constant and progressively worsening Exacerbating factors: movement of head/neck, light and noise Relieving factors: nothing Context: occurred at rest Associated symptoms: nausea, vomiting and photophobia Treatments prior to arrival: migraine medication Related Data Previous Rx's ?Medication ?Instructions ?Recorded acetaminophen 650 mg 650 mg PO Q12H 30 days #60 tabs 05/14/24 tablet,extended release (Tylenol Arthritis Pain) sennosides 8.6 mg tablet (Senna 17.2 mg (2 x 8.6 mg) PO BEDTIME 30 07/03/24 Lax) days #60 tabs rimegepant 75 mg disintegrating 75 mg PO Q OTHER DAY 30 days #15 09/30/24 tablet (Nurtec ODT) tabs lidocaine 5 % topical patch 1 patch topical DAILY 30 days #30 11/24/24 ea methocarbamol 500 mg tablet 500 mg PO TID 30 days #90 tabs 12/23/24 ujekiixqxz-dyfubtwjacxrh-udawture 1 tab PO Q6H PRN pain 3 days #12 01/08/25 50 mg-325 mg-40 mg tablet tabs cyclobenzaprine 5 mg tablet 5 mg PO TID PRN spasm 7 days #01/19/25 tabs multivitamin 1 tab PO DAILY 90 days #90 tabs 01/22/25 bterrjbhws-kduckauaplbfz-yltbquyh 1 tab PO Q6H PRN haeadace #20 tabs 03/08/25 50 mg-325 mg-40 mg tablet semaglutide (weight loss) 0.25 0.25 mg (0.5 mL) subcut QWEEK 4 03/17/25 mg/0.5 mL subcutaneous pen weeks #2 mL injector (Wegovy) amlodipine 2.5 mg tablet 2.5 mg PO DAILY #90 tabs 04/26/25 omeprazole 20 mg capsule,delayed 20 mg PO DAILY #90 caps 05/11/25 release wzerofmhxg-wjdaoctcqixid-mnaszuya 1 tab PO Q6H PRN haeadace #20 tabs 05/17/25 50 mg-325 mg-40 mg tablet diazepam 5 mg tablet (Valium) 5 mg PO TID PRN muscle spasm #10 05/19/25 tabs Allergies Allergy/AdvReac Type Severity Reaction Status Date / Time sumatriptan (From IMITREX) Allergy Severe PALPITAITONS, Verified 05/19/25 14:10 palpitations aspirin (ASA) Allergy Intermediate HIVES, rash Verified 05/19/25 14:10 ibuprofen (IBUPROFEN) Allergy Intermediate LIP Verified 05/19/25 14:10 SWELLING/RASH rizatriptan Allergy Intermediate swelling, Verified 05/19/25 14:10 pruritus Review of Systems Review of Systems: Constitutional : No Fever, No Chills, No Fatigue ENT/Mouth : No sore throat, No Rhinorrhea Eyes: pos Eye Pain, No Swelling, No Redness Cardiovascular : No Chest Pain, No SOB, No Dyspnea on Exertion Respiratory : No Cough, No Sputum Gastrointestinal : pos Nausea, pos Vomiting, No Diarrhea, No abdominal Pain Genitourinary : No Dysuria, No Urinary Frequency, No Hematuria, Musculoskeletal : No joint pain, No Myalgias, No Joint Swelling Skin : No Skin Lesions, No rash Neuro : No Weakness, No Numbness, No Dizziness, positive Headache All other systems reviewed and are negative [facility] Past Medical History Attestation statement: The following information was validated with the patient. Source: old records reviewed Medical History Umbilical hernia H. pylori infection Cervical cancer screening Annual physical exam Screening for diabetes mellitus (DM) Bad odor of urine Back pain Right foot pain Pre-syncope Abnormal urine odor Cervical spine pain Screening for hypercholesterolemia Screening for hypothyroidism Breast cancer screening Constipation Obesity Lumbar pain Finger infection Neck pain Surgical History History of section Family History Family History Mother No problems noted. Father No problems noted. Social History Social History Housing: House Alcohol intake: never Patient Tobacco Use Status: Never used Tobacco Smoked in Last 30 Days: No e-Cigarette/Vaping Use: Never Used Second Hand Smoke Exposure: No Use of substances other than those prescribed or required for medical reasons: No Advance Directives: No Advance Directives Information Provided: No service: No Current occupational status: employed Current occupation: [employer] Cognitive needs: No Hearing needs: No Vision needs: No Physical Exam Vital Signs: Vital Signs: Last Vital Signs Temp 97.9 F 05/19/25 15:44 Pulse 78 05/19/25 17:31 Resp 18 05/19/25 17:31 BP 140/84 H 05/19/25 17:31 Pulse Ox 100 05/19/25 17:31 O2 Del Method Room Air 05/19/25 17:31 BMI result Body Mass Index 35.5 Appearance: Alert. Oriented X3. No acute distress. Eyes: Pupils equal, round and reactive to light. ENT: Pharynx normal. Neck: Normal inspection. Neck supple. no meningeal signs has ttp along bilateral trapezius distal NV intact CVS: Normal heart rate and rhythm. Pulses normal. Respiratory: No respiratory distress. Breath sounds normal. Abdomen: Soft and nontender. Skin: Skin warm and dry. Normal skin color. Normal skin turgor. Extremities: No lower extremity edema. No calf ttp Neuro: Oriented X 3. No motor deficit. No sensory deficit. CN2-12 intact Course Course Course Narrative: This is an RME performed by Albino Collado CHECK EXAMINER: Additional HPI, ROS, PE not included below will be deferred to primary provider. Patient is a 44 old female who presents emergency department for evaluation. She reports over the past 5 days she has been experiencing a headache endorsing pain to the bilateral shoulders that radiates up her neck into the head diffusely bilateral eyes and states that she has a stabbing pain/pressure to the midline of her head. She reports over the past 5 days she has been seen here a few times has been treated but she is still not feeling any better. Reporting the midline stabbing sensation is new, and has not previously had pain in the shoulders with her headache/ migraines. She does admit that last night she had 2 episodes of diarrhea which is a new symptom for her. She arrives to emergency department in tears. She states she has not taken any medication today. No focal neurological deficits. Plan: Serum labs, viral serologies, CT head given acute change from her baseline by her account Medications Administered Discontinued Medications Generic Name Dose Route Start Last Admin Trade Name Marvin PRN Reason Stop Dose Admin Diazepam 2.5 mg 05/19/25 16:17 05/19/25 16:27 Diazepam 10 Mg/2 Ml Cartridge IVPUSH 05/19/25 16:18 2.5 mg STAT STA Administration Droperidol 1.25 mg 05/19/25 17:37 05/19/25 17:42 Droperidol 5 Mg/2 Ml Vial IVPUSH 05/19/25 17:38 1.25 mg ONCE ONE Administration Lactated Ringer's 1,000 mls @ 999 mls/hr 05/19/25 16:17 05/19/25 17:30 Lr IV 05/19/25 17:17 Infused .Q1H1M ONE Infusion Medical Decision Making Medical Decision Making [facility] Narrative: 44 yo female with PMH of migraines, neck pain, back pain, HTN, here with c/o neck pain and headache that is reproducible she has no fevers, no head trauma, no meningeal signs she is NIH 0 at this time given her repeat visit will image and start on IV medications. Low susp for [employer] HEL[employer] infection, hx of gradual onset and reproducible pain doubt SAH. Differential Diagnosis Differential Diagnoses: The differential diagnosis associated with the presentation includes migraine, spasm, low susp for dissection/SAH Admission/Observation Consideration of admission/observation: Escalation of care including admission/observation considered feels better stable for DC Lab Data [facility] Lab Attestation statement: I reviewed the patient's lab results. 05/19/25 14:45 05/19/25 14:45 Labs: Lab Results 05/19/25 Range/Units 14:45 WBC 4.8 (4.8-10.8) X10*3/uL RBC 4.37 (4.20-5.50) X10*6/uL Hgb 11.8 L (12.0-16.0) g/dl Hct 36.8 L (37.0-47.0) % MCV 84.2 (80.0-98.0) fL MCH 27.0 (27.0-33.0) pg MCHC 32.1 (31.0-35.0) g/dl RDW 13.7 (11.0-16.0) % Plt Count 261 (160-400) X10*3/uL MPV 10.7 (9.4-12.3) fL Immature Gran % (Auto) 0.2 (0.0-0.4) % Neut % (Auto) 68.1 (45-73) % Lymph % (Auto) 20.0 (20-40) % [place] % (Auto) 9.2 (2-11) % Eos % (Auto) 2.3 (0-4) % Baso % (Auto) 0.2 (0-2) % Lymph # (Auto) 1.0 L (1.2-4.9) X10*3/uL [place] # (Auto) 0.4 (0.1-1.2) X10*3/uL Eos # (Auto) 0.1 (0.0-0.4) X10*3/uL Baso # (Auto) 0.0 (0.0-0.2) X10*3/uL Abs Immat Gran (auto) 0.01 (0.00-0.03) X10*3/uL Absolute Neuts (auto) 3.3 (2.0-8.3) x10*3/uL Absolute Nucleated RBC 0.000 (0.0-0.012) X10*3/uL Nucleated RBC % (auto) 0.0 (0.0-0.2) /100WBC Sodium 140 (135-145) mmol/L Potassium 4.1 (3.3-5.1) mmol/L Chloride 108 (96-108) mmol/L Carbon Dioxide 25 (22-29) mmol/L Anion Gap 11 L (12-20) BUN 8 L (9-16) mg/dL Creatinine 0.63 (0.5-1.4) mg/dL Estim Creat Clear Calc 117.4 Estimated GFR > 60 Random Glucose 107 (60-115) mg/dL Calcium 8.8 D (8.4-10.2) mg/dL Magnesium 2.0 (1.6-2.6) mg/dL Total Bilirubin 0.4 (0.0-1.0) mg/dL AST 22 (5-31) U/L ALT 23 (0-31) U/L Alkaline Phosphatase 130 H (39-117) U/L Total Protein 6.9 (6.5-8.0) g/dL Albumin 4.0 (3.5-5.0) g/dL Beta HCG, Quant < 2 mIU/mL Influenza Type A (PCR) NEGATIVE (Negative) Influenza Type B (PCR) NEGATIVE (Negative) RSV RNA Qual (PCR) NEGATIVE (Negative) SARS-CoV-2 RNA (RT-PCR) NEGATIVE (Negative) Independent Interpretation I performed an independent interpretation of an: CT Scan (normal ) Radiology Impression Discussion of test interpretation with radiology: I have reviewed the radiologist's reading. Independent Historian Clinical information obtained from an independent historian. History obtained from or confirmed by: Spouse and Friend External Record Review External record reviewed: Inpatient record, Outpatient record and Prior outpatient radiology Prescription Management I considered prescription management with: Other Discharge Plan Discharge Clinical Impression: Migraines Qualifiers: Migraine type: unspecified Status migrainosus presence: without status migrainosus Intractability: not intractable Qualified Code(s): G43.909 - Migraine, unspecified, not intractable, without status migrainosus Patient Disposition: Home, Self-Care Instructions: Migraine Headache (ED) Additional Instructions: labs and CT head normal rest and stay hydrated return for any worsening symptoms or concerns Prescriptions: New diazepam [Valium] 5 mg tablet 5 mg PO TID PRN (Reason: muscle spasm) Qty: 10 0RF Rx Instructions: partial fill is okay No Action Nurtec ODT 75 mg tablet,disintegrating 75 mg PO Q OTHER DAY 30 Days Qty: 15 0RF lidocaine 5 % adhesive patch,medicated 1 patch topical DAILY 30 Days Qty: 30 2RF Rx Instructions: leave on most painful area for up to 12 hrs methocarbamol 500 mg tablet 500 mg PO TID 30 Days Qty: 90 2RF multivitamin Tablet 1 tab PO DAILY 90 Days Qty: 90 1RF Wegovy 0.25 mg/0.5 mL pen injector 0.25 mg subcut QWEEK 28 Days Qty: 2 0RF Rx Instructions: administer weeks 1 through 4 of therapy amlodipine 2.5 mg tablet 2.5 mg PO DAILY Qty: 90 0RF omeprazole 20 mg capsule,delayed release(DR/EC) 20 mg PO DAILY Qty: 90 1RF cyclobenzaprine 5 mg tablet 5 mg PO TID PRN (Reason: spasm) 7 Days Qty: 21 0RF dxlagkrijq-bqtmttuhpvtmn-qhkl 50-325-40 mg tablet 1 tab PO Q6H PRN (Reason: haeadace) Qty: 20 0RF mzfrxgldso-itbuyixhsrbmz-hfre 50-325-40 mg tablet 1 tab PO Q6H PRN (Reason: haeadace) Qty: 20 0RF acetaminophen [Tylenol Arthritis Pain] 650 mg tablet extended release 650 mg PO Q12H 30 Days Qty: 60 2RF sennosides [Senna Lax] 8.6 mg tablet 17.2 mg PO BEDTIME 30 Days Qty: 60 3RF meppabeukv-rkmgubhfpoxmd-rfru 50-325-40 mg tablet 1 tab PO Q6H PRN (Reason: pain) 3 Days Qty: 12 0RF Print Language: Czech
[2025-05-19 15:05] LABS: MANUAL DIFF FLAG NO
[2025-05-19 15:11] LABS: Hematocrit 36.8 % (37.0-47.0); Hemoglobin 11.8 g/dl (12.0-16.0); Imm Gran Abs Auto 0.01 X10*3/uL (0.00-0.03); Imm Gran Pct Auto 0.2 % (0.0-0.4); Lymphocytes Absolute Auto 1.0 X10*3/uL (1.2-4.9); Mean Corpuscular HGB Conc 32.1 g/dl (31.0-35.0); Mean Corpuscular Hemoglobin 27.0 pg (27.0-33.0); Mean Corpuscular Volume 84.2 fL (80.0-98.0); NRBC Abs Auto 0.000 X10*3/uL (0.0-0.012); NRBC Pct Auto 0.0 /100WBC (0.0-0.2); Platelet Count 261 X10*3/uL (160-400); Red Blood Count 4.37 X10*6/uL (4.20-5.50); White Blood Count 4.8 X10*3/uL (4.8-10.8)
[2025-05-19 15:37] LABS: Alanine Aminotransferase 23 U/L (0-31); Albumin Level 4.0 g/dL (3.5-5.0); Alkaline Phosphatase 130 U/L (39-117); Anion Gap 11 (12-20); Aspartate Amino Transferase 22 U/L (5-31); Blood Urea Nitrogen 8 mg/dL (9-16); Calcium 8.8 mg/dL (8.4-10.2); Carbon Dioxide 25 mmol/L (22-29); Chloride 108 mmol/L (96-108); Creatinine Clr Calc Pharmacy 117.4; Estimated Glomerular Filt Rate > 60; Magnesium 2.0 mg/dL (1.6-2.6); Potassium 4.1 mmol/L (3.3-5.1); Sodium 140 mmol/L (135-145); Total Protein 6.9 g/dL (6.5-8.0)
[2025-05-19 15:44] VITALS: BP 148/89; PULSE 72; RESP 18; TEMP 36.6; O2SAT 97
[2025-05-19 15:46] LABS: Resp Syncy Virus RNA Qual PCR NEGATIVE (Negative); SARS COV2 PCR INHOUSE NEGATIVE (Negative)
--- NOTE | 2025-05-19 16:15 | PC.NURSE ---
44 F presents to ED with sharp headache to top of head that radiates to bilat shoulder since 05/15/25, nausea x 2 days, and diarrhea since this morning. Pt sts she has been to the hospital for headaches 5 times but they are still ongoing. RR even and unlabored, denies SOB. Pt is calm, cooperative.
[2025-05-19] MEDS: Lactated Ringers 1,000 ML 999 ML IV (16:27)
[2025-05-19] MEDS: diazePAM 10 MG/2 ML CARTRIDGE 2.5 MG IVPUSH (16:27)
[2025-05-19 17:31] VITALS: BP 140/84; PULSE 78; RESP 18; O2SAT 100
[2025-05-19 19:02] VITALS: BP 126/77; PULSE 100; RESP 18; O2SAT 100
[2025-05-19 19:05] VITALS: BP 126/77; PULSE 100; RESP 18; TEMP -17.7; TEMP 0; O2SAT 100
== END 2025-05-19 19:06 | disposition home or self-care (01) ==
PROVIDERS: Nurse Practitioner Family; Emergency Provider Emergency Medicine; PCP Physician Assistant
DX: G43.909 Migraine, unspecified, not intractable, without status migrainosus (principal); Z03.818 Encounter for observation for suspected exposure to other biological agents ruled out; I10 Essential (primary) hypertension
CPT/HCPCS: 36415; 70450; 80053; 83735; 84702; 85025; 87637; 96361; 96374; 96375; 99284; J1790; J3360; J7120

== ENCOUNTER → 2025-05-19 14:15 | Outpatient (BNV) | payer OTHER, SELFPAY | PROVIDERS: Emergency Provider Emergency Medicine; PCP Physician Assistant; Visit Provider Radiology Diagnostic Radiology | DX: R51.9 Headache, unspecified (principal) | CPT/HCPCS: 70450 ==

== ENCOUNTER 2025-05-21 08:10 | Outpatient (AMB) | payer OTHER, SELFPAY ==
--- OUTSIDE RECORDS SUMMARY | 2023-08-28 07:15 | XMS_ITS | Continuity of Care Document ---
Author Organization [facility] Address [address] [place] [address] Dr [address] [place] [phone] Phone Care Team Providers Care Submarine Advisory Team Watch Officer Name Role Phone Lei HUDSON FACS RVT [...] E&M Established 15 Mins [facility], [address] [place] [address] Dr Hayes [address], [place], [id number], [place] tel:[phone] [facility] [place] Chronic venous hypertension (idiopathic) with other complications of bilateral lower extremity Oct-3 3 Lei HUDSON FACS RVAminata Mares. [address] [facility] [address], [facility] [address], [place]. tel:[phone] Referring Provider: Ryan Rossi, [address], [address], [place], [address]. tel:[phone] [facility], [address] [place] [address] Dr [address], [place], [id number], [place] tel:[phone] [facility] [place] Encntr for f/u exam aft trtmt for cond oth than malig neoplmPain in left leg Jun- 3 Lei HUDSON FACS RVT RENA Mares. [address] [facility], [address], [place], [address], [place]. [phone] Referring Provider: Ryan Rossi, [facility] [address], [address], [place], [address]. tel:[phone] [facility], [address] [place] [address] [address], [place], [id number], [place] tel:[phone] [facility] [place] Varicose veins of left lower extremity with inflammation Jun- 3 Lei HUDSON FACS RVT RENA Mares. [address] [facility], [address], [place], [address], [place]. [phone] Referring Provider: Ryan Rossi, [facility] [address], [address], [place], [address]. tel:[phone] [facility], [address] [place] [address] [address], [place], [id number], [place] tel:[phone] [facility] [place] Encntr for f/u exam aft trtmt for cond oth than malig neoplmChronic venous hypertension w oth comp of r low extrem 3 Lei HUDSON FACS RVT RPALMA DELIA Mares. [address] [facility], [address], [place], [address], [place]. [phone] Referring Provider: Ryan Rossi, [address], [address], [place], [address]. tel:[phone] [facility], [address] [place] [address] [address]Debby [place], [id number], [place] tel:[phone] [facility] - [place] [facility] [place] Chronic venous hypertension w inflammation of r low extrem 3 Lei HUDSON FACS Aminata Mares. [address] [facility], Suite [facility], [place], [address], [place]. tel:[phone] Referring Provider: Ryan Rossi, [facility] [address], [address], [place], [address]. tel:[phone] Offic/outpt E&m Estab 5 Min Trial - [facility]medicine [facility], [address] [place] [address] Dr [address] 1000Debby [place], [id number], [place] tel:[phone] [facility] - [place] [facility] [place] Venous insufficiency (chronic) (peripheral) 3 Lei Mares. [address] [facility], [place] [address], [place], [address], [place]. tel:[phone] Referring Provider: Ryan Rossi, [address] [place] [address], suite [facility], [place], [address]. tel:[phone] Office/Outpt E&M Established 15 Mins [facility], [address] [place] [address] Dr Hayes [address]Suite [place] Alarcon [place], [id number], [place] tel:[phone] [facility] [place] [facility] [place] Venous insufficiency (chronic) (peripheral) 3 Lei Mares. [address] [facility], [place] [address], [place], [address], [place]. tel:[phone] Referring Provider: Ryan Rossi, [address] [place] [address], [address], [place], [address]. tel:[phone] [facility], [address] [place] [address] Dr Hayes 1000Suite [place]by Alarcon [place], [id number], [place] tel:[phone] [facility] - [facility] Encntr for f/u exam aft trtmt for cond oth than malig neoplmVenous insufficiency (chronic) (peripheral) 3 Lei HUDSON FACS T ALMA DELIA Tequila Vishnu. [address] [facility], [address], [place], [address], [place]. tel:[phone] Referring Provider: Ryan Rossi, [address], [address], [place], [address]. tel:[phone] Offic Cons New/estab Low 30 Wi [facility], [address] [facility] [address], [place], [id number], [place] tel:[phone] [facility] - [facility] Venous insufficiency (chronic) (peripheral)Pa in in right legPain in left legFlail joint, unspecified jointCramp and spasm 3 Lei HUDSON FACS T ALMA DELIA Mares. [address] [facility], [address], [place], [address], [place]. tel:[phone] Referring Provider: Ryan Rossi, [address], [address], [place], [address]. tel:[phone] Family History Family Member Type Diagnosis Age At Onset No Information Payers Payer name Insurance type Covered libertarian ID Jimmie linder(s) [facility] [id number] Social History Type Description Quantity Date [...] completed Goal Diet education completed Referral Ordered: Weight management: Referral to physician timeframe: 3 Months (related to Body mass index (BMI) 34.0-34.9, adult) ordered Referral Ordered: Ryan Dhillon timeframe: 3 Months (related to Essential (primary) hypertension) ordered Appointment Maru Mcintosh BOOKED Appointment Maru Mcintosh BOOKED History Of Present Illness Encounter Date Complaint History Of Prese nt Illness No Information Functional Status Date Functional Assessmen t No Information Medications Administered Medication Instructions Dosage Effective Dates (start - stop) Status Comments No Drug Therapy Prescribed Instructions Date Instruction Additional Infor mation Continue compression stocking us e Related to Chrn Vns Hyprtnsn w/Compl (Pain Edema Swelling); BILAT Patient education booklet given Related to Chrn Vns Hyprtnsn w/Compl (Pain Edema Swelling); BILAT Continue compression stocking us e Related to Venous Insufficiency (Chronic / Peripheral) Patient education booklet given Related to Venous Insufficiency (Chronic / Peripheral) Patient education booklet given Related to Venous insufficiency (chronic) (peripheral) Lifestyle education Related to B rani mass index (BMI) 34.0-34.9, adult Giving Encouragement to exercise Related to Body mass index (BMI) 34.0-34.9, adult Diet education Related to Body mass index (BMI) 34.0-34.9, adult Lifestyle education Related to E ssential (primary) hypertension Exercise education Related to Es sential (primary) hypertension Diet education Related to Essen tial (primary) hypertension Compression stocking usage as conservative measure Related to Venous insufficiency (chronic) (peripheral) Assessments Type Assessment Date assessment Chronic venous hyper tension (idiopathic) with other complications of bilateral lower extremity Patient Care Teams Name Effective Dates (start - stop) Status Members No Information
--- NOTE | 2025-05-21 08:26 | MHC.OFFVIS ---
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 Accompanied by: Self / Same As Patient Allergies sumatriptan (From IMITREX) Allergy (Severe, Verified 05/21/25 08:33) PALPITAITONS, palpitations aspirin (ASA) Allergy (Intermediate, Verified 05/21/25 08:33) HIVES, rash ibuprofen (IBUPROFEN) Allergy (Intermediate, Verified 05/21/25 08:33) LIP SWELLING/RASH rizatriptan Allergy (Intermediate, Verified 05/21/25 08:33) swelling, pruritus Medication List - Last Reconciled 05/21/25 by Saundra Anton MD acetaminophen ER (Tylenol Arthritis Pain) 650 mg PO Q12H 30 days amlodipine 2.5 mg PO DAILY jybbycznsw-qltimwyljfnwx-qcdq 50-325-40 mg 1 tab PO Q6H PRN jnnnheaepq-bklvrmgtevrax-fhcj 50-325-40 mg 1 tab PO Q6H PRN ijeimhluvb-bvvvrcgyqwefe-zson 50-325-40 mg 1 tab PO Q6H PRN 3 days diazepam (Valium) 5 mg PO TID PRN lidocaine 5% 1 patch topical DAILY 30 days magnesium oxide 400 mg PO BEDTIME multivitamin 1 tab PO DAILY 90 days omeprazole 20 mg PO DAILY riboflavin (vitamin B2) 400 mg PO QAM semaglutide (weight loss) (Wegovy) 0.25 mg (0.5 mL) subcut QWEEK 4 weeks sennosides (Senna Lax) 17.2 mg (2 x 8.6 mg) PO BEDTIME 30 days topiramate 25 mg PO BEDTIME ubrogepant (Ubrelvy) 100 mg PO ONCE PRN HPI Comments Details: 44y/o female comes for further management of headaches she started having frequent headaches since she was 17 .The headaches start in neelima shoulders, radiates to back of the neck , occipital region and involves the whole head,throbbing pain with retroorbital pressure and eye pain with severe light sensitivity noise sensitivty, nausea, occasional vomiting.she also has visual aura- sees flashes of lights and lines. The headaches last 2-3 days- she used to take fioricet but when she does not respond she goes to ER. she has 5-6 headaches each lasting 2-3 days . She also has some sensory symptoms - in her UE and LE during her headaches. sleep deprivation, dehydration, stress triggers migraines. No recent head injury Her mother had frequent headaches. she has loud snoring and frequent arousals and wakes up with headaches She tried sumatriptan - had severe palpitations she has tried amitriptyline (poor response) zanaflex [facility] Medical History (Updated 05/21/25 @ 09:14 by Saundra Anton MD) Cervicalgia Hypersomnia Snoring Chronic migraine with aura Umbilical hernia H. pylori infection Cervical cancer screening Annual physical exam Screening for diabetes mellitus (DM) Bad odor of urine Back pain Right foot pain Pre-syncope Abnormal urine odor Cervical spine pain Screening for hypercholesterolemia Screening for hypothyroidism Breast cancer screening Constipation Obesity Lumbar pain Finger infection Neck pain Surgical History History of section Family History Mother No problems noted. Father No problems noted. 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 Cognitive needs: No Hearing needs: No Vision needs: No Physical Exam Vital Signs: Last Vital Signs Pulse 85 05/21/25 08:33 BP 130/80 05/21/25 08:33 Pulse Ox 96 05/21/25 08:33 Oxygen Delivery Method Room Air 05/21/25 08:33 Const General: cooperative, comfortable, no acute distress and anxious Nutritional Appearance: obese Orientation/consciousness: patient oriented x3 Eyes Pupils: Equal, round and reactive pupils present Neuro Other: neck- tightness and pain in neelima trapezius and semispinalis General: patient oriented x3, gait normal, tone normal, moves all extremities and no focal motor deficits Cranial nerves: Yes Facial sensation intact/muscles of mastication intact, Yes Equal, round and reactive pupils present, Yes Bilaterally intact EOM present, Yes Nystagmus not present, Yes Normal facial strength present, Yes Midline tongue present, Yes Symmetric palate elevation present and Yes Ability to bilaterally elevate shoulders present Cognition (Neuro): abnormal cognition Gait exam (Neuro): Normal gait present Motor exam (neuro): 5/5 motor strength present throughout and Normal motor muscle tone present throughout Deep tendon reflexes (DTR's): Right triceps reflex intensity grade: 2+, Left triceps reflex intensity grade: 2+, Rt Biceps (C5, C6): 2+, Left biceps reflex intensity grade: 2+, Right brachioradialis reflex intensity grade: 2+, Left brachioradialis reflex intensity grade: 2+, Right patellar reflex intensity grade: 2+ and Left patellar reflex intensity grade: 2+ Coordination: xkspwu-bx-cqun test normal Assessment & Plan Assessment & Plan (1) Chronic migraine with aura: Code(s): G43.E09 - Chronic migraine with aura, not intractable, without status migrainosus Category: Medical Qualifiers: Status migrainosus presence: without status migrainosus Intractability: intractable Qualified Code(s): G43.E19 - Chronic migraine with aura, intractable, without status migrainosus (2) Snoring: Code(s): R06.83 - Snoring Category: Medical (3) Hypersomnia: Code(s): G47.10 - Hypersomnia, unspecified Category: Medical Plan I will trial her on Ubrelvy 50 mg as needed for migraines. she had severe palpitation with sumatriptan . For prevention- I will start her on magnesium 400mg qhs Riboflavin 400mmg qam and topiramate 25 mg qd Neck pain- PT for myofascial release SNoring and Hypersomnia Home sleep test to r/o sleep apnea. Orders: Orders RT home sleep study Today G47.10 - Hypersomnia, unspecified, R06.83 - Snoring PT Evaluation and Treatment Today M54.2 - Cervicalgia Medications: New riboflavin (vitamin B2) 400 mg PO QAM 90 tabs 3RF ubrogepant (Ubrelvy) 1 tab at onset of migraine , can repeat in 2 hrs as needed Maximum 2 tabs a day 100 mg PO ONCE PRN 14 tabs 6RF migraine magnesium oxide 400 mg PO BEDTIME 90 tabs 6RF topiramate 25 mg PO BEDTIME 30 tabs 6RF Discontinued cyclobenzaprine Discontinued Reason: Patient no longer taking 5 mg PO TID 7 days PRN 21 tabs 0RF spasm rimegepant (Nurtec ODT) Discontinued Reason: Patient no longer taking 75 mg PO Q OTHER DAY 30 days 15 tabs 0RF G43.909 - Migraine, unspecified, not intractable, without status migrainosus methocarbamol Discontinued Reason: Patient no longer taking 500 mg PO TID 30 days 90 tabs 2RF M54.50 - Low back pain, unspecified Coding Level of Care Code New Pt Level 4 (79427) Complex EM visit Add On G2211 Diagnoses Intractable chronic migraine with aura and without status migrainosus G43.E19 Status migrainosus presence: without status migrainosus Intractability: intractable Snoring R06.83 Hypersomnia G47.10
[2025-05-21 08:33] VITALS: BP 130/80; PULSE 85; O2SAT 96
== END 2025-05-21 09:18 | disposition home or self-care (01) ==
LOC: HO.HSMS 08:11
PROVIDERS: Absent Provider Psychiatry & Neurology Neurology; PCP Physician Assistant; Visit Provider Psychiatry & Neurology Neurology
DX: G43.E19 Chronic migraine with aura, intractable, without status migrainosus (principal); R06.83 Snoring; G47.10 Hypersomnia, unspecified
CPT/HCPCS: 99204; G2211

== ENCOUNTER → 2025-05-21 08:10 | Outpatient (BNVA) | payer OTHER, SELFPAY | PROVIDERS: Absent Provider Psychiatry & Neurology Neurology; PCP Physician Assistant; Visit Provider Psychiatry & Neurology Neurology | DX: G43.E19 Chronic migraine with aura, intractable, without status migrainosus (principal); R06.83 Snoring; G47.10 Hypersomnia, unspecified; Z79.899 Other long term (current) drug therapy | CPT/HCPCS: 99202 ==

== ENCOUNTER 2025-06-06 08:24 | Emergency (ER) | payer OTHER, SELFPAY ==
--- NOTE | ~2025-06-06 | XR_ITS ---
EXAMINATION: XR CHEST CLINICAL INFORMATION: chest pain COMPARISON: 04/05/2025. TECHNIQUE: 2 views of the chest were obtained. FINDINGS: The cardiac, hilar, and mediastinal contours are normal. The lungs are clear bilaterally. There is no pneumothorax or pleural effusion. There is no focal osseous or soft tissue abnormality. XR/XR chest 2V IMPRESSION: Normal chest. Electronically signed by: Martín Lanier MD 06/06/2025 09:42 AM EDT
--- NOTE | ~2025-06-06 | US_ITS ---
EXAMINATION: US TRIPLEX LOWER EXTREMITY, BILATERAL CLINICAL INFORMATION: Bilateral calf pain and heaviness. COMPARISON: None available. TECHNIQUE: Color-flow triplex imaging with spectral analysis and compression Doppler were performed on the bilateral lower extremities. FINDINGS: Respiratory variation, normal compression and augmented flow are noted throughout the bilateral lower extremities. The visualized common femoral vein, superficial femoral vein, profunda femoral vein, popliteal vein and midcalf peroneal and posterior tibial venous segments show no evidence of deep venous thrombosis bilaterally. There is no Downing's cyst. US/US venous duplex LE BI IMPRESSION: No evidence of deep venous thrombosis involving the bilateral lower extremities. Electronically signed by: Martín Lanier MD 06/06/2025 03:10 PM EDT
--- NOTE | ~2025-06-06 | CT_ITS ---
EXAMINATION: CT ABDOMEN AND PELVIS WITH CONTRAST CLINICAL INFORMATION: Bilateral flank pain. COMPARISON: CT abdomen 02/23/2024. TECHNIQUE: Multidetector volumetric images were obtained from the superior aspect of the liver through the pubic symphysis following administration 85 mL of Omnipaque 350 intravenous contrast. Sagittal and coronal reformatted images were obtained on the technologist's workstation. Oral contrast: No This CT examination was performed using dose optimization techniques as appropriate, variously including the following: *Automated exposure control *Adjustment of mA and/or kV according to patient size (this includes techniques or standardized protocols for targeted exams where dose is matched to indication/reason for exam; i.e. extremities or head) *Use of iterative reconstruction technique FINDINGS: LUNG BASES: Borderline cardiac enlargement. Mild dependent type atelectasis in the lung bases. Lung bases otherwise clear. No effusions. Normal GE junction. LIVER, GALLBLADDER, AND BILIARY TREE: The liver is normal in size, shape, and demonstrates mild decreased attenuation in keeping with mild steatosis. No focal hepatic lesion or biliary ductal dilatation is present. The gallbladder is unremarkable with no evidence of radiopaque gallstones, gallbladder wall thickening, or obvious pericholecystic inflammatory changes. PANCREAS: Unremarkable. SPLEEN: Unremarkable. ADRENAL GLANDS: Unremarkable. KIDNEYS AND URETERS: The kidneys are normal in size, shape, and attenuation. No hydronephrosis, hydroureter, or calculi seen. No perinephric stranding. There is a subcentimeter cyst in the midpole of the left kidney. BLADDER: Normal in appearance. GASTROINTESTINAL TRACT: Normal appendix. The stomach, duodenum, and small bowel are normal in course, caliber, and appearance. No wall thickening or inflammation. The colon is normal in course, caliber, without wall thickening or inflammation. No significant diverticular disease. The rectum appears normal. PERITONEUM/RETROPERITONEUM: No ascites. No free air. No lymphadenopathy. ABDOMINAL WALL: No significant hernia is appreciated. LYMPH NODES: Normal. VASCULAR: Unremarkable. PELVIC VISCERA: The uterus and adnexa are unremarkable. OSSEOUS STRUCTURES: No suspicious lytic or blastic bone lesions. Mild degenerative changes throughout the spine. It is most notable at L4-S1 involving the facet joints and discs. Normal hip joints and SI joints. CT/CT abdomen pelvis w IV con IMPRESSION: 1. No acute findings in the abdomen or pelvis. No urological calculus or obstruction. 2. Mild diffuse fatty infiltration of the liver. 3. Additional ancillary findings as discussed in the body of the report. Electronically signed by: Martín Lanier MD 06/06/2025 03:44 PM EDT
--- NOTE | 2025-06-06 09:04 | ED.ABDPAIN ---
HPI - Abdominal Pain General Chief Complaint: Abdominal Pain Stated Complaint: Stomach Pain Time Seen by Provider: 06/06/25 11:42 Source: patient and RN notes reviewed Mode of arrival: ambulatory Limitations: no limitations History of Present Illness ED Provider: Bo Huntley PA-C HPI narrative: 44-year-old female with history of cervicalgia, migraine, lumbar back pain presents to ED due to 2 days of abdominal pain, nausea, vomiting. Patient reports symptoms occurred after she took her Ubrelvy for migraine relief, but symptoms now improving. Patient states last bowel movement was this morning and it was normal for her. Patient denies recent travel, hormone use, tobacco use, not anticoagulated. Patient denies fevers, chills, vomiting, dark/tarry stool, blood in the stool, lightheadedness, dizziness, headaches, urinary symptoms. Related Data Previous Rx's ?Medication ?Instructions ?Recorded acetaminophen 650 mg 650 mg PO Q12H 30 days #60 tabs 05/14/24 tablet,extended release (Tylenol Arthritis Pain) sennosides 8.6 mg tablet (Senna 17.2 mg (2 x 8.6 mg) PO BEDTIME 30 07/03/24 Lax) days #60 tabs lidocaine 5 % topical patch 1 patch topical DAILY 30 days #30 11/24/24 ea yzuefrtwgy-zrufveaskgvuw-cireeajy 1 tab PO Q6H PRN pain 3 days #12 01/08/25 50 mg-325 mg-40 mg tablet tabs multivitamin 1 tab PO DAILY 90 days #90 tabs 01/22/25 htfjqkailj-jmlggvaliklhq-rwxlzxwp 1 tab PO Q6H PRN haeadace #20 tabs 03/08/25 50 mg-325 mg-40 mg tablet semaglutide (weight loss) 0.25 0.25 mg (0.5 mL) subcut QWEEK 4 03/17/25 mg/0.5 mL subcutaneous pen weeks #2 mL injector (Wegovy) amlodipine 2.5 mg tablet 2.5 mg PO DAILY #90 tabs 04/26/25 omeprazole 20 mg capsule,delayed 20 mg PO DAILY #90 caps 05/11/25 release ykjewvtbda-gjyfdeofcvkvb-evlwgqlq 1 tab PO Q6H PRN haeadace #20 tabs 05/17/25 50 mg-325 mg-40 mg tablet diazepam 5 mg tablet (Valium) 5 mg PO TID PRN muscle spasm #10 05/19/25 tabs magnesium oxide 400 mg (241.3 mg 400 mg PO BEDTIME #90 tabs 05/21/25 magnesium) tablet riboflavin (vitamin B2) 400 mg 400 mg PO QAM #90 tabs 05/21/25 tablet topiramate 25 mg tablet 25 mg PO BEDTIME #30 tabs 05/21/25 ubrogepant 100 mg tablet (Ubrelvy) 100 mg PO ONCE PRN migraine #14 06/05/25 tabs cyclobenzaprine 5 mg tablet 5 mg PO TID PRN muscle spasm #15 06/06/25 tabs ondansetron HCl 4 mg tablet 4 mg PO Q8H PRN nausea and 06/06/25 vomiting #15 tabs Allergies Allergy/AdvReac Type Severity Reaction Status Date / Time sumatriptan (From IMITREX) Allergy Severe PALPITAITONS, Verified 06/06/25 09:15 palpitations aspirin (ASA) Allergy Intermediate HIVES, rash Verified 06/06/25 09:15 ibuprofen (IBUPROFEN) Allergy Intermediate LIP Verified 06/06/25 09:15 SWELLING/RASH rizatriptan Allergy Intermediate swelling, Verified 06/06/25 09:15 pruritus PMFSH Past Medical History Attestation statement: The following information was validated with the patient. Source: old records reviewed and nursing notes reviewed Medical History Cervicalgia Hypersomnia Snoring Chronic migraine with aura Umbilical hernia H. pylori infection Cervical cancer screening Annual physical exam Screening for diabetes mellitus (DM) Bad odor of urine Back pain Right foot pain Pre-syncope Abnormal urine odor Cervical spine pain Screening for hypercholesterolemia Screening for hypothyroidism Breast cancer screening Constipation Obesity Lumbar pain Finger infection Neck pain Surgical History History of section Family History Family History Mother No problems noted. Father No problems noted. 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 HEENT: ?NC, AT. MMM. EOMI, clear conjunctiva, oropharynx clear. NECK: ?Supple without lymphadenopathy.? No stiffness or restricted ROM. HEART:? Normal rate and regular rhythm, normal S1/S2, no m/r/g LUNGS:? CTAB, moving air well. No crackles or wheezes are heard. ABDOMEN: ?Soft, nondistended, no rigidity, diffusely tender throughout abdomen BACK: B/L CVAT, no obvious deformity. EXTREMITIES: ?Without cyanosis, clubbing or edema. NEUROLOGICAL: ?Grossly nonfocal. Alert and oriented, moving all 4 extremities. Observed to ambulate with normal gait. Skin: ?Warm and dry without any rash. Course Course Course Narrative: 44 yo female with PMH of HTN, obesity, migraines, obesity here with c/o LUQ and RUQ pain for 2 days + n/v/d. No fevers. Has pain in R back of leg. She also has pain on both lower lungs when she breathes - no recent travel or procedures, no OCPs. Her neurologist gave her a new medication for migraines - Ubrelvy she took one two weeks ago to sleep when she woke up she felt terrible and exhausted. She could not stand. She notes she also takes topiramate. She felt another migraine yesterday and took the Ubrelvy feeling terrible again with leg cramps, lung pain, weakness. She feels like she will pass out. She walked in no issues to triage. Will obtain labs, EKG, she is PERC negative doubt PE. Leg pain is in back of both thigns and aches this is a RAPID medical screening exam the rest of the history and physical exam is to be done by the main provider. SELVIN 06/06/25 913am Medical Decision Making Medical Decision Making [facility] Narrative: 4-year-old female with history of cervicalgia, migraine, lumbar back pain presents to ED due to 2 days of abdominal pain, nausea, vomiting. Patient reports symptoms occurred after she took her Ubrelvy for migraine relief, but symptoms now improving. Patient states last bowel movement was this morning and it was normal for her. Patient denies recent travel, hormone use, tobacco use, not anticoagulated. VSS, BP 132/79, pulse rate 60 beats per minute, respiratory rate of 16, patient afebrile with oral temperature of 97.9?, O2 saturation 100% on room air. On physical exam patient has bilateral CVAT, diffuse abdominal tenderness without distention, rigidity, negative Will's sign, negative psoas obturator sign, no overlying skin changes. Lower extremities without pitting edema, no erythema, no warmth, no overlying skin changes, strength 5/5 bilaterally EKG reveals normal sinus rhythm with sinus arrhythmia, without ST elevation/depression, initial troponin undetectable at < 2.7, patient without chest pain- less likely ACS Labs without leukocytosis, H and H stable, no electrolyte abnormality, lipase WNL, LFTs WNL- less likely acute abdomen UA with 1+ urine blood, no evidence of infection. Will obtain CT abdomen/pelvis for evaluation of nephrolithiasis. U/S venous Doppler of bilateral lower extremities negative for DVT, patient without tachypnea, tachycardia, shortness of breath, O2 saturation 100% on room air- DVT/PE less likely At this time I believe patient is experiencing leg pain due to longstanding venous insufficiency, she states she used to [place] [facility] [place], but has not been evaluated in a few years. I believe the CVA tenderness is more musculoskeletal, as patient has pain along lumbar paraspinal muscles when palpating. I will discharge patient with 5 day course of Flexeril, patient states she is allergic to ibuprofen so I counseled patient on using 500 mg of Tylenol every 6 hours for pain management. Patient has PCP I encouraged her to follow up with them this week and discuss possible physical therapy for lumbar back, referral to vascular for venous insufficiency. Differential Diagnosis Differential Diagnoses: The differential diagnosis associated with the presentation includes ACS PE Acute abdomen Nephrolithiasis Lumbar strain Venous insufficiency Admission/Observation Consideration of admission/observation: Escalation of care including admission/observation considered Lab Data MDM Lab Attestation statement: I reviewed the patient's lab results. 06/06/25 09:33 06/06/25 09:33 Labs: Lab Results 06/06/25 Range/Units 09:33 WBC 5.5 (4.8-10.8) X10*3/uL RBC 4.67 (4.20-5.50) X10*6/uL Hgb 12.7 (12.0-16.0) g/dl Hct 38.6 (37.0-47.0) % MCV 82.7 (80.0-98.0) fL MCH 27.2 (27.0-33.0) pg MCHC 32.9 (31.0-35.0) g/dl RDW 14.7 (11.0-16.0) % Plt Count 300 (160-400) X10*3/uL MPV 10.0 (9.4-12.3) fL Immature Gran % (Auto) 0.4 (0.0-0.4) % Neut % (Auto) 81.7 H (45-73) % Lymph % (Auto) 11.2 L (20-40) % [place] % (Auto) 5.4 (2-11) % Eos % (Auto) 1.1 (0-4) % Baso % (Auto) 0.2 (0-2) % Lymph # (Auto) 0.6 L (1.2-4.9) X10*3/uL [place] # (Auto) 0.3 (0.1-1.2) X10*3/uL Eos # (Auto) 0.1 (0.0-0.4) X10*3/uL Baso # (Auto) 0.0 (0.0-0.2) X10*3/uL Abs Immat Gran (auto) 0.02 (0.00-0.03) X10*3/uL Absolute Neuts (auto) 4.5 (2.0-8.3) x10*3/uL Absolute Nucleated RBC 0.000 (0.0-0.012) X10*3/uL Nucleated RBC % (auto) 0.0 (0.0-0.2) /100WBC Sodium 138 (135-145) mmol/L Potassium 3.5 (3.3-5.1) mmol/L Chloride 109 H (96-108) mmol/L Carbon Dioxide 24 (22-29) mmol/L Anion Gap 9 L (12-20) BUN 11 (9-16) mg/dL Creatinine 0.65 (0.5-1.4) mg/dL Estim Creat Clear Calc 113.7 Estimated GFR > 60 Random Glucose 127 H (60-115) mg/dL Calcium 8.6 (8.4-10.2) mg/dL Magnesium 1.8 (1.6-2.6) mg/dL Total Bilirubin 0.3 (0.0-1.0) mg/dL Direct Bilirubin 0.1 (0.0-0.5) mg/dL AST 24 (5-31) U/L ALT 24 (0-31) U/L Alkaline Phosphatase 145 H (39-117) U/L Total Creatine Kinase 60 (26-140) U/L Troponin I High Sens < 2.7 (<3.5-17.0) ng/L Total Protein 7.8 (6.5-8.0) g/dL Albumin 4.3 (3.5-5.0) g/dL Lipase 29 (8-78) U/L Urine Color Dark Yellow Urine Appearance Clear Urine pH 5.5 (5.0-9.0) Ur Specific [place] 1.025 (1.005-1.025) Urine Protein Negative (Neg-Trace) mg/dL Urine Glucose (UA) Negative (Negative) mg/dL Urine Ketones Negative (Negative) mg/dL Urine Blood Small (1+) H (Negative) Urine Nitrite Negative (Negative) Ur Leukocyte Esterase Negative (Negative) Urine RBC 0-2 (0-2) /HPF Urine WBC 0-5 (0-5) /HPF Ur Squamous Epith Cells 0-2 (0-2) /HPF Urine Bacteria 1+ (None Seen) Hyaline Casts 0-2 (0-2) /LPF Urine Test NEGATIVE (NEGATIVE) Independent Interpretation I performed an independent interpretation of an: EKG Interpretation: I personally interpreted the EKG which reveals normal sinus rhythm with sinus arrhythmia, no ST-elevation/depression or T-wave abnormality indicative of ischemia Vent. Rate : 69 BPM Atrial Rate : 69 BPM P-R Int : 146 ms QRS Dur : 78 ms QT Int : 380 ms P-R-T Axes : 2 19 20 degrees QTcB Int : 407 ms Normal sinus rhythm with sinus arrhythmia Normal ECG When compared with ECG of 05-Apr-2025 14:05, Nonspecific T wave abnormality no longer evident in Anterior leads I personally interpreted the chest x-ray which was negative for cardiomegaly, pleural effusion, pleural edema, pneumothorax, I agree with the radiologist's interpretation Radiology Impression Discussion of test interpretation with radiology: I have reviewed the radiologist's reading. Radiologist Impression: CXR FINDINGS: The cardiac, hilar, and mediastinal contours are normal. The lungs are clear bilaterally. There is no pneumothorax or pleural effusion. There is no focal osseous or soft tissue abnormality. XR/XR chest 2V IMPRESSION: Normal chest. Electronically signed by: Martín Lanier MD 06/06/2025 09:42 AM EDT Dictated By: Martín Lanier MD Signed By: <Electronically signed by Martín Lanier MD in OV> 06/06/[address] abdomen and pelvis Venous duplex US B/L LE FINDINGS: Respiratory variation, normal compression and augmented flow are noted throughout the bilateral lower extremities. The visualized common femoral vein, superficial femoral vein, profunda femoral vein, popliteal vein and midcalf peroneal and posterior tibial venous segments show no evidence of deep venous thrombosis bilaterally. There is no Downing's cyst. US/US venous duplex LE BI IMPRESSION: No evidence of deep venous thrombosis involving the bilateral lower extremities. Electronically signed by: Martín Lanier MD 06/06/2025 03:10 PM EDT RP Dictated By: Martín Lanier MD Signed By: <Electronically signed by Martín Lanier MD in OV> 06/06/25 1510 External Record Review External record reviewed: Inpatient record, Office record and Outpatient record Chronic Conditions Patient?s care impacted by: Hypertension and Other (Cervicalgia, lumbar back pain, migraines) Medications Administered Discontinued Medications Generic Name Dose Route Start Last Admin Trade Name Marvin PRN Reason Stop Dose Admin Lactated Ringer's 1,000 mls @ 999 mls/hr 06/06/25 14:10 06/06/25 16:35 Lr IV 06/06/25 15:10 Infused .Q1H1M ONE Infusion Iohexol 100 ml 06/06/25 15:34 06/06/25 15:34 Iohexol 350 Mg/Ml 100 Ml Infus..Btl IV 06/06/25 15:35 85 ml ONCE ONE Administration Morphine Sulfate 4 mg 06/06/25 14:10 06/06/25 15:03 Morphine Sulfate 4 Mg/Ml Cartridge IVPUSH 06/06/25 14:11 4 mg ONCE ONE Administration Protocol Ondansetron HCl 4 mg 06/06/25 14:15 06/06/25 15:04 Ondansetron Hcl 4 Mg/2 Ml Vial IVPUSH 06/06/25 14:16 4 mg ONCE ONE Administration Discharge Plan Discharge Clinical Impression: Lumbar strain, Leg heaviness Patient Disposition: Home, Self-Care Instructions: Low Back Strain (ED) Additional Instructions: You were evaluated in the ED today due to abdominal pain, back pain, leg heaviness, nausea/vomiting/diarrhea for 2 days. Your labs were negative for infection, or electrolyte imbalance. Your urinary analysis was negative for infection. Your EKG did not reveal any emergent cardiac process, your troponin which is an enzyme that your heart gives off under damaged strain was negative. Your chest x-ray was normal, the CT of your abdomen and pelvis did not reveal any emergent process of your abdominal organs, or any stone of your kidneys. Your CT scan did show degenerative changes, most likely arthritic changes of the lumbar back which could be contributing to your back pain. Your nausea, vomiting, diarrhea is most likely due to viral illness. This is usually self-limiting. Please stay hydrated with plenty of water, sports drinks, bland diet and advance as tolerated. I will prescribe you took a 5 day course of Flexeril which was a muscle relaxer for lumbar strain, and Zofran that you can use for nausea. To manage the back pain at home you can take 500 mg of Tylenol every 6 hours for pain management. You should call your primary care doctor and make an appointment for follow up to ensure improvement. Please return to the emergency department if you experience fevers over 100.4?, chest pain, shortness of breath, worsening abdominal pain, blood in stool or vomit, worsening back pain, difficulty walking, or any other new/worsening/concerning symptoms Prescriptions: New cyclobenzaprine 5 mg tablet 5 mg PO TID PRN (Reason: muscle spasm) Qty: 15 0RF ondansetron HCl 4 mg tablet 4 mg PO Q8H PRN (Reason: nausea and vomiting) Qty: 15 0RF No Action lidocaine 5 % adhesive patch,medicated 1 patch topical DAILY 30 Days Qty: 30 2RF Rx Instructions: leave on most painful area for up to 12 hrs multivitamin Tablet 1 tab PO DAILY 90 Days Qty: 90 1RF Wegovy 0.25 mg/0.5 mL pen injector 0.25 mg subcut QWEEK 28 Days Qty: 2 0RF Rx Instructions: administer weeks 1 through 4 of therapy amlodipine 2.5 mg tablet 2.5 mg PO DAILY Qty: 90 0RF omeprazole 20 mg capsule,delayed release(DR/EC) 20 mg PO DAILY Qty: 90 1RF Ubrelvy 100 mg tablet 100 mg PO ONCE PRN (Reason: migraine) Qty: 14 6RF Rx Instructions: 1 tab at onset of migraine , can repeat in 2 hrs as needed Maximum 2 tabs a day jbcouodwoo-cvnvihnytbstu-wbnj 50-325-40 mg tablet 1 tab PO Q6H PRN (Reason: haeadace) Qty: 20 0RF diazepam [Valium] 5 mg tablet 5 mg PO TID PRN (Reason: muscle spasm) Qty: 10 0RF Rx Instructions: partial fill is okay bsxehavpjw-uazdcphvfcbfh-axui 50-325-40 mg tablet 1 tab PO Q6H PRN (Reason: haeadace) Qty: 20 0RF acetaminophen [Tylenol Arthritis Pain] 650 mg tablet extended release 650 mg PO Q12H 30 Days Qty: 60 2RF sennosides [Senna Lax] 8.6 mg tablet 17.2 mg PO BEDTIME 30 Days Qty: 60 3RF kpuglorrre-fpjcogqebefou-rjhq 50-325-40 mg tablet 1 tab PO Q6H PRN (Reason: pain) 3 Days Qty: 12 0RF topiramate 25 mg tablet 25 mg PO BEDTIME Qty: 30 6RF magnesium oxide 400 mg (241.3 mg magnesium) tablet 400 mg PO BEDTIME Qty: 90 6RF riboflavin (vitamin B2) 400 mg tablet 400 mg PO QAM Qty: 90 3RF Print Language: Bengali
[2025-06-06 09:14] VITALS: BP 133/81; PULSE 71; RESP 16; TEMP 35.8; O2SAT 100; BMI 35.5
--- NOTE | 2025-06-06 09:20 | ECG_ITS ---
Test Reason : CP Blood Pressure : */* mmHG Vent. Rate : 69 BPM Atrial Rate : 69 BPM P-R Int : 146 ms QRS Dur : 78 ms QT Int : 380 ms P-R-T Axes : 2 19 20 degrees QTcB Int : 407 ms Normal sinus rhythm with sinus arrhythmia Normal ECG When compared with ECG of 05-Apr-2025 14:05, Nonspecific T wave abnormality no longer evident in Anterior leads Referred By: Tona Vazquez Electronically Signed By: EVELYNE TAYLOR
[2025-06-06 09:39] LABS: MANUAL DIFF FLAG NO
[2025-06-06 09:40] LABS: Hematocrit 38.6 % (37.0-47.0); Hemoglobin 12.7 g/dl (12.0-16.0); Imm Gran Abs Auto 0.02 X10*3/uL (0.00-0.03); Imm Gran Pct Auto 0.4 % (0.0-0.4); Lymphocytes Absolute Auto 0.6 X10*3/uL (1.2-4.9); Mean Corpuscular HGB Conc 32.9 g/dl (31.0-35.0); Mean Corpuscular Hemoglobin 27.2 pg (27.0-33.0); Mean Corpuscular Volume 82.7 fL (80.0-98.0); NRBC Abs Auto 0.000 X10*3/uL (0.0-0.012); NRBC Pct Auto 0.0 /100WBC (0.0-0.2); Platelet Count 300 X10*3/uL (160-400); Red Blood Count 4.67 X10*6/uL (4.20-5.50); White Blood Count 5.5 X10*3/uL (4.8-10.8)
[2025-06-06 09:43] LABS: Appearance Urine Clear; Glucose Urine UA Negative (Negative); PH 5.5 (5.0-9.0); Specific Gravity - Urine 1.025 (1.005-1.025); UMIC TRIGGER UACC YES
[2025-06-06 09:44] LABS: UPreg QC Valid YES
[2025-06-06 10:04] LABS: Alanine Aminotransferase 24 U/L (0-31); Albumin Level 4.3 g/dL (3.5-5.0); Alkaline Phosphatase 145 U/L (39-117); Anion Gap 9 (12-20); Aspartate Amino Transferase 24 U/L (5-31); Blood Urea Nitrogen 11 mg/dL (9-16); Calcium 8.6 mg/dL (8.4-10.2); Carbon Dioxide 24 mmol/L (22-29); Chloride 109 mmol/L (96-108); Creatinine Clr Calc Pharmacy 113.7; Estimated Glomerular Filt Rate > 60; Lipase 29 U/L (8-78); Magnesium 1.8 mg/dL (1.6-2.6); Potassium 3.5 mmol/L (3.3-5.1); Sodium 138 mmol/L (135-145); Total Protein 7.8 g/dL (6.5-8.0)
[2025-06-06 10:18] LABS: Troponin-I High Sensitivity < 2.7 ng/L (<3.5-17.0)
[2025-06-06 11:47] VITALS: TEMP 36.7
[2025-06-06 13:12] VITALS: BP 128/72; PULSE 67; RESP 16; TEMP 36.2; O2SAT 98
--- NOTE | 2025-06-06 13:56 | PC.NURSE ---
Pt appears more confused at this time; PCT entered the room and pt had pulled off all monitoring equipment and ripped out on IV from R hand; pt oriented X3 but seems disoriented; hospitalist at bedside at this time; pt refusing to have 2nd liter of IVF's because it makes her need to urinate too much; pt received 1,000ml of the ordered fluids; MD polanco
[2025-06-06 14:23] VITALS: BP 132/79; PULSE 60; RESP 16; TEMP 36.6; O2SAT 100
[2025-06-06] MEDS: Lactated Ringers 1,000 ML 999 ML IV (15:03)
[2025-06-06] MEDS: iohexoL 350 MG/ML 100 ML INFUS..BTL IV (15:34)
== END 2025-06-06 17:00 | disposition home or self-care (01) ==
PROVIDERS: Emergency Medicine; Emergency Provider Emergency Medicine Emergency Medical Services; PCP Physician Assistant
DX: S39.012A Strain of muscle, fascia and tendon of lower back, initial encounter (principal); X58.XXXA Exposure to other specified factors, initial encounter; Y93.9 Activity, unspecified; Y92.9 Unspecified place or not applicable; Y99.9 Unspecified external cause status; R07.9 Chest pain, unspecified; M79.662 Pain in left lower leg; M79.661 Pain in right lower leg; R11.2 Nausea with vomiting, unspecified
CPT/HCPCS: 36415; 71046; 74177; 80048; 80076; 81001; 81025; 82550; 83690; 83735; 84484; 85025; 93005; 93970; 96361; 96374; 96375; 99284; 99285; J2270; J2405; J7120; Q9967

== ENCOUNTER → 2025-06-06 09:20 | Outpatient (BNV) | payer OTHER, SELFPAY | PROVIDERS: Emergency Provider Emergency Medicine Emergency Medical Services; PCP Physician Assistant; Visit Provider Internal Medicine | DX: R07.9 Chest pain, unspecified (principal) | CPT/HCPCS: 93010 ==

== ENCOUNTER → 2025-06-06 09:20 | Outpatient (BNV) | payer OTHER, SELFPAY | PROVIDERS: PCP Physician Assistant; Visit Provider Radiology Diagnostic Radiology | DX: R10.9 Unspecified abdominal pain (principal); M79.661 Pain in right lower leg; M79.662 Pain in left lower leg; R07.9 Chest pain, unspecified | CPT/HCPCS: 71046; 74177; 93970 ==

== ENCOUNTER 2025-06-13 20:24 | Emergency (ER) | payer OTHER, SELFPAY ==
[2025-06-13 20:35] VITALS: BP 134/78; PULSE 78; RESP 18; TEMP 36.6; O2SAT 98; BMI 35.1
--- NOTE | 2025-06-13 20:37 | ED_ITS ---
HPI - Headache General Chief Complaint: Headache Stated Complaint: headache and abdominal pain Time Seen by Provider: 06/13/25 20:54 Source: patient Mode of arrival: ambulatory Limitations: no limitations History of Present Illness ED Provider: Dr. Kaleigh Hare HPI Narrative: Patient comes to the emergency room complaining of a migraine headache that has been present for about 2 weeks. Patient states that she sees a migraine specialist. Patient is still being worked up. Patient does not have any medications for migraine at this time. Patient states that her neurologist told her to not take sumatriptan. Patient complaining photophobia, nausea, no vomiting, generalized malaise, is a bit of neck pain but no rigidity. Denies any fever or chills. Related Data Previous Rx's ?Medication ?Instructions ?Recorded acetaminophen 650 mg 650 mg PO Q12H 30 days #60 t abs 05/14/24 tablet,extended release (Tylenol Arthritis Pain) sennosides 8.6 mg tablet (Senna 17.2 mg (2 x 8.6 mg) P O BEDTIME 30 07/03/24 Lax) days #60 tabs lidocaine 5 % topical patch 1 patch topical DAILY 30 d ays #30 11/24/24 ea catjdjaqjl-uuqvfiaqpdlex-tyewfent 1 tab PO Q6H PRN nelsy n 3 days #12 01/08/25 50 mg-325 mg-40 mg tablet tabs multivitamin 1 tab PO DAILY 90 days #90 t abs 01/22/25 ulvxlmesyb-yznmvnpngbkks-gcqvaygs 1 tab PO Q6H PRN hae adace #20 tabs 03/08/25 50 mg-325 mg-40 mg tablet semaglutide (weight loss) 0.25 0.25 mg (0.5 mL) subcut QWEEK 4 03/17/25 mg/0.5 mL subcutaneous pen weeks #2 mL injector (Wegovy) amlodipine 2.5 mg tablet 2.5 mg PO DAILY #90 tabs omeprazole 20 mg capsule,delayed 20 mg PO DAILY #90 ca ps 05/11/25 release ztbvrzgsdx-ujlwggpizxdvw-hfhgwpsq 1 tab PO Q6H PRN hae adace #20 tabs 05/17/25 50 mg-325 mg-40 mg tablet diazepam 5 mg tablet (Valium) 5 mg PO TID PRN muscle s pasm #10 05/19/25 tabs magnesium oxide 400 mg (241.3 mg 400 mg PO BEDTIME #90 tabs 05/21/25 magnesium) tablet riboflavin (vitamin B2) 400 mg 400 mg PO QAM #90 tabs 05/21/25 tablet topiramate 25 mg tablet 25 mg PO BEDTIME #30 tabs ubrogepant 100 mg tablet (Ubrelvy) 100 mg PO ONCE PRN migraine #14 06/05/25 tabs cyclobenzaprine 5 mg tablet 5 mg PO TID PRN muscle spa sm #15 06/06/25 tabs ondansetron HCl 4 mg tablet 4 mg PO Q8H PRN nausea and 06/06/25 vomiting #15 tabs metoclopramide HCl 5 mg tablet 5 mg PO TID PRN nausea and 06/14/25 (Reglan) vomiting #9 tabs tramadol 50 mg tablet 50 mg PO TID PRN pain #9 tab s 06/14/25 Allergies Allergy/AdvReac Type Severity Reaction Status Date / Time sumatriptan (From IMITREX) Allergy Severe PALPITAITONS, Verified 06/13/25 20:39 palpitations aspirin (ASA) Allergy Intermediate HIVES, rash Verified 06/13/25 20:39 ibuprofen (IBUPROFEN) Allergy Intermediate LIP Verified 06/13/25 20:39 SWELLING/RASH rizatriptan Allergy Intermediate swelling, Verified 06/13/25 20:39 pruritus Review of Systems Review of Systems: Constitutional : No Weight loss, No Fever, No Chills, No Night Sweats, No Fatigue, No Malaise ENT/Mouth : No Hearing loss, No Ear Pain, No Nasal Congestion, No Sinus Pain, No Hoarseness, No sore throat, No Rhinorrhea, No Swallowing Difficulty Eyes: No Eye Pain, No Swelling, No Redness, No Foreign Body, No Discharge, No Vision Changes Cardiovascular : No Chest Pain, No SOB, No Dyspnea on Exertion, No Orthopnea, No Edema, No Palpitations Respiratory : No Cough, No Sputum, No Wheezing, No Smoke Exposure, No Dyspnea Gastrointestinal : No Nausea, No Vomiting, No Diarrhea, No Constipation, No abdominal Pain, No Hematochezia, No Melena Genitourinary : no irregular bleeding, No Dysuria, No Urinary Frequency, No Hematuria, No Urinary Incontinence, No Urgency, No Flank Pain, No Urinary Flow Changes, No Hesitancy Musculoskeletal : No joint pain, No Myalgias, No Joint Swelling Skin : No Skin Lesions, No rash Neuro : No Weakness, No Numbness, No Paresthesias, No Loss of Consciousness, No Dizziness, complaining of a posterior migraine headache Psych : No Anxiety/Panic, No Depression, No SI/HI/AH/VH, No Social Issues, Heme/Lymph: No Bruising, No Bleeding,No Lymphadenopathy Endocrine : No Polyuria, No Polydipsia, No Temperature Intolerance [facility] Past Medical History Medical History Cervicalgia Hypersomnia Snoring Chronic migraine with aura Umbilical hernia H. pylori infection Cervical cancer screening Annual physical exam Screening for diabetes mellitus (DM) Bad odor of urine Back pain Right foot pain Pre-syncope Abnormal urine odor Cervical spine pain Screening for hypercholesterolemia Screening for hypothyroidism Breast cancer screening Constipation Obesity Lumbar pain Finger infection Neck pain Surgical History History of section Family History Family History Mother No problems noted. Father No problems noted. Social History Social History Housing: House Alcohol intake: never Patient Tobacco Use Status: Never used Tobacco e-Cigarette/Vaping Use: Never Used Second Hand Smoke Exposure: No Advance Directives: No Advance Directives Information Provided: No service: No Current occupational status: employed Current occupation: [employer] Cognitive needs: No Hearing needs: No Vision needs: No Physical Exam Exam: Exam: Appearance: Alert. Oriented X3. No acute distress. Eyes: Pupils equal, round and reactive to light. Patient has photophobia ENT: Pharynx normal. Neck: Normal inspection. Neck supple. No lymph nodes noted. No crepitus, normal range of motion vertically and horizontally, no neck rigidity CVS: Normal heart rate and rhythm. Pulses normal. Normal S1 and S2 Respiratory: No respiratory distress. Breath sounds normal. No Wheezing. No rales Abdomen: Soft and nontender. No rigidity. No distention. Skin: Skin warm and dry. Normal skin color. Normal skin turgor. Extremities: No lower extremity edema. No Lacerations. No Rash Neuro: Oriented X 3. No motor deficit. No sensory deficit. Moving all extremities. No slurred speech. CN 2 through 12 grossly intact Psych: calm, cooperative, normal affect Vital Signs: Vital Signs: Last Vital Signs Temp 97.9 F 06/13/25 20:35 Pulse 78 06/13/25 20:35 Resp 18 06/13/25 23:16 BP 134/78 06/13/25 20:35 Pulse Ox 98 06/13/25 20:35 O2 Del Method Room Air 06/13/25 20:35 BMI result Body Mass Index 35.1 Course Course Course Narrative: Shanti Hernándezhernanyeyo [facility] 06/13 2040 This is a rapid medical exam. Defer additional HPI, ROS and PE to primary provider. 44 yo female w/ PMH of migraines, neck pain, back pain, HTN here with complaints of headache, neck pain, shoulder pain, photophobia, nausea x weeks. Feels similar to previous migraines. Not currently taking anything at home for this. VSS Medications Administered Discontinued Medications Generic Name Dose Route Start Last Admin Trade Name Duncanq PRN Reason Stop Dose Admin Diphenhydramine HCl 25 mg 06/13/25 22:51 06/13/25 23:16 Diphenhydramine Hcl 50 Mg/Ml Vial IVPUSH 06/13/25 22:52 25 mg ONCE ONE Administration Sodium Chloride 1,000 mls @ 999 mls/hr 06/13/25 22:51 06/13/25 23:16 Ns IVCONT 06/13/25 23:51 999 mls/hr .Q1H1M ONE Administration Metoclopramide HCl 10 mg 06/13/25 22:51 06/13/25 23:16 Metoclopramide Hcl 10 Mg/2 Ml Vial IVPUSH 06/13/25 22:52 10 mg ONCE ONE Administration Morphine Sulfate 4 mg 06/13/25 22:51 06/13/25 23:16 Morphine Sulfate 4 Mg/Ml Cartridge IVPUSH 06/13/25 22:52 4 mg ONCE ONE Administration Protocol Medical Decision Making Medical Decision Making MDM Narrative: Patient patient received IV fluids, a migraine cocktail including diphenhydramine, morphine and Reglan. Of note, patient states that she has had issues with NSAIDs before including lip swelling At this time of discharge, patient states that she feels much better, the headache nearly resolved. No longer nauseous or has photophobia. Patient states that she feels well enough to go home. Differential Diagnosis Differential Diagnoses: The differential diagnosis associated with the presentation includes (Tension headache, migraine headache, viral syndrome) Admission/Observation Consideration of admission/observation: Escalation of care including admission/observation considered (Given patient's initial presentation and length of symptoms, observation was considered) Critical Care Time Critical Care Time Critical Care Time: Yes Total Critical Care Time: 40 Attestation: I have personally provided critical care time. Time includes review of lab data, radiology results, discussion with consultants, and monitoring for potential decompensation. Intervention performed as documented. Discharge Plan Discharge Clinical Impression: Migraine Patient Disposition: Home, Self-Care Instructions: Migraine Headache (ED) Additional Instructions: Please follow-up with your primary care physician tomorrow. If you have any worsening or new symptoms, please return to the emergency room or call 911 Prescriptions: New tramadol 50 mg tablet 50 mg PO TID PRN (Reason: pain) Qty: 9 0RF metoclopramide HCl [Reglan] 5 mg tablet 5 mg PO TID PRN (Reason: nausea and vomiting) Qty: 9 0RF Rx Instructions: Take together with tramadol PRN severe pain with nausea No Action lidocaine 5 % adhesive patch,medicated 1 patch topical DAILY 30 Days Qty: 30 2RF Rx Instructions: leave on most painful area for up to 12 hrs multivitamin Tablet 1 tab PO DAILY 90 Days Qty: 90 1RF Wegovy 0.25 mg/0.5 mL pen injector 0.25 mg subcut QWEEK 28 Days Qty: 2 0RF Rx Instructions: administer weeks 1 through 4 of therapy amlodipine 2.5 mg tablet 2.5 mg PO DAILY Qty: 90 0RF omeprazole 20 mg capsule,delayed release(DR/EC) 20 mg PO DAILY Qty: 90 1RF Ubrelvy 100 mg tablet 100 mg PO ONCE PRN (Reason: migraine) Qty: 14 6RF Rx Instructions: 1 tab at onset of migraine , can repeat in 2 hrs as needed Maximum 2 tabs a day fofsqnidsy-deuzsdrppmkyq-bwhs 50-325-40 mg tablet 1 tab PO Q6H PRN (Reason: haeadace) Qty: 20 0RF diazepam [Valium] 5 mg tablet 5 mg PO TID PRN (Reason: muscle spasm) Qty: 10 0RF Rx Instructions: partial fill is okay cyclobenzaprine 5 mg tablet 5 mg PO TID PRN (Reason: muscle spasm) Qty: 15 0RF ondansetron HCl 4 mg tablet 4 mg PO Q8H PRN (Reason: nausea and vomiting) Qty: 15 0RF lvfwwmbmyw-lgcwbgjpdaxsw-hfhc 50-325-40 mg tablet 1 tab PO Q6H PRN (Reason: haeadace) Qty: 20 0RF acetaminophen [Tylenol Arthritis Pain] 650 mg tablet extended release 650 mg PO Q12H 30 Days Qty: 60 2RF sennosides [Senna Lax] 8.6 mg tablet 17.2 mg PO BEDTIME 30 Days Qty: 60 3RF tkttpezsla-lgrscukteembu-enwn 50-325-40 mg tablet 1 tab PO Q6H PRN (Reason: pain) 3 Days Qty: 12 0RF topiramate 25 mg tablet 25 mg PO BEDTIME Qty: 30 6RF magnesium oxide 400 mg (241.3 mg magnesium) tablet 400 mg PO BEDTIME Qty: 90 6RF riboflavin (vitamin B2) 400 mg tablet 400 mg PO QAM Qty: 90 3RF Print Language: Bhutanese
[2025-06-13 23:16] VITALS: RESP 18
[2025-06-14 00:30] VITALS: BP 142/78; PULSE 74; RESP 16; TEMP 37; O2SAT 98
== END 2025-06-14 00:30 | disposition home or self-care (01) ==
PROVIDERS: Emergency Provider Emergency Medicine; PCP Physician Assistant
DX: G43.909 Migraine, unspecified, not intractable, without status migrainosus (principal); R10.2 Pelvic and perineal pain; R11.0 Nausea; H53.143 Visual discomfort, bilateral; M54.2 Cervicalgia; M54.50 Low back pain, unspecified; M25.512 Pain in left shoulder; M25.511 Pain in right shoulder
CPT/HCPCS: 96361; 96374; 96375; 99284; J1200; J2270; J2765

== ENCOUNTER 2025-07-10 10:56 | Outpatient (AMB) | payer OTHER, SELFPAY ==
--- NOTE | 2025-07-10 11:01 | A.OFFVIS_ITS ---
Vital Signs 07/10/25 11:02 Height 5 ft 2 in Weight 197 lb 6 oz BMI 36.1 BP 120/74 Blood Pressure Location Rt brachial Position Sitting Pulse 82 Pulse Source Pulse Oximeter Pulse Oximetry (%) 97 Oxygen Delivery Method Room Air Intake Visit Reasons: Follow up Intake Note: Patient presents follow up for migraines [employer] Required: Yes [employer] Services: [employer] Offered & Declined [employer] Name: Daughter to jayda Perkins Accompanied by: Daughter Allergies sumatriptan (From IMITREX) Allergy (Severe, Verified 07/10/25 11:08) PALPITAITONS, palpitations aspirin (ASA) Allergy (Intermediate, Verified 07/10/25 11:08) HIVES, rash ibuprofen (IBUPROFEN) Allergy (Intermediate, Verified 07/10/25 11:08) LIP SWELLING/RASH rizatriptan Allergy (Intermediate, Verified 07/10/25 11:08) swelling, pruritus Medication List - Last Reconciled 07/10/25 by COURTNEY Schultz acetaminophen ER (Tylenol Arthritis Pain) 650 mg PO Q12H 30 days vihdppkhwv-wzqhuxcppliay-yrdm 50-325-40 mg 1 tab PO Q6H PRN zqfzkolzhs-fnkeumzfbukrq-rllo 50-325-40 mg 1 tab PO Q6H PRN 3 days diazepam (Valium) 5 mg PO TID PRN lidocaine 5% 1 patch topical DAILY 30 days magnesium oxide 400 mg PO BEDTIME metoclopramide HCl (Reglan) 5 mg PO TID PRN multivitamin 1 tab PO DAILY 90 days omeprazole 20 mg PO DAILY ondansetron HCl 4 mg PO Q8H PRN riboflavin (vitamin B2) 400 mg PO QAM semaglutide (weight loss) (Wegovy) 0.25 mg (0.5 mL) subcut QWEEK 4 weeks sennosides (Senna Lax) 17.2 mg (2 x 8.6 mg) PO BEDTIME 30 days topiramate 25 mg PO BEDTIME tramadol 50 mg PO TID PRN ubrogepant (Ubrelvy) 100 mg PO ONCE PRN HPI Comments Details: 44-year-old female presents for follow-up of migraine. Patient is accompanied by her daughter. The patient reports that she continues to have frequent migraine attacks. She reports five migraine headache days per week. Patient confirms that her typical migraine starts with tightness in the bilateral shoulders and radiates to the back of the neck and occipital region, then becomes throbbing holocranial and accompanied by pressure in the bilateral eyes and retro-orbital area, with a visual aura. She experiences flashes of light and lines, blurry vision, severe photophobia, nausea, and occasional vomiting. She reports she did not tolerate the topiramate-it caused strange sensations. She reports she tried Ubrelvy 50 mg once, at the onset of the migraine; however, she felt worse, so she went to the ER. She states the ER told her to stop taking the Ubrelvy. She has not taken the Fioricet since her initial consult appointment here in April. She has not started PT, states she did not hear anything on this. 05/21/2025, initial HPI by Dr. Anton: 44y/o female comes for further management of headaches she started having frequent headaches since she was 17 .The headaches start in neelima shoulders, radiates to back of the neck , occipital region and involves the whole head,throbbing pain with retroorbital pressure and eye pain with severe light sensitivity noise sensitivty, nausea, occasional vomiting.she also has visual aura- sees flashes of lights and lines. The headaches last 2-3 days- she used to take fioricet but when she does not respond she goes to ER. she has 5-6 headaches each lasting 2-3 days . She also has some sensory symptoms - in her UE and LE during her headaches. sleep deprivation, dehydration, stress triggers migraines. No recent head injury Her mother had frequent headaches. she has loud snoring and frequent arousals and wakes up with headaches She tried sumatriptan - had severe palpitations she has tried amitriptyline (poor response) zanaflex [facility] Medical History Cervicalgia Hypersomnia Snoring Chronic migraine with aura Umbilical hernia H. pylori infection Cervical cancer screening Annual physical exam Screening for diabetes mellitus (DM) Bad odor of urine Back pain Right foot pain Pre-syncope Abnormal urine odor Cervical spine pain Screening for hypercholesterolemia Screening for hypothyroidism Breast cancer screening Constipation Obesity Lumbar pain Finger infection Neck pain Surgical History History of section Family History Mother No problems noted. Father No problems noted. Social History Housing: House Alcohol intake: never Patient Tobacco Use Status: Never used Tobacco e-Cigarette/Vaping Use: Never Used Second Hand Smoke Exposure: No service: No Current occupational status: employed Current occupation: [employer] Cognitive needs: No Hearing needs: No Vision needs: No Physical Exam Vital Signs: Last Vital Signs Pulse 82 07/10/25 11:02 BP 120/74 07/10/25 11:02 Pulse Ox 97 07/10/25 11:02 Oxygen Delivery Method Room Air 07/10/25 11:02 BMI result Body Mass Index 36.1 Const General: cooperative, comfortable, no acute distress and anxious Nutritional Appearance: obese Orientation/consciousness: patient oriented x3 Neuro Other: Photophobic Cervical- tightness and pain in neelima trapezius and semispinalis General: patient oriented x3, gait normal, moves all extremities and no focal motor deficits Gait exam (Neuro): Normal gait present Assessment & Plan Assessment & Plan (1) Chronic migraine with aura: Code(s): G43.E09 - Chronic migraine with aura, not intractable, without status migrainosus Category: Medical Qualifiers: Intractability: intractable Status migrainosus presence: without status migrainosus Qualified Code(s): G43.E19 - Chronic migraine with aura, intractable, without status migrainosus (2) Snoring: Code(s): R06.83 - Snoring Category: Medical (3) Hypersomnia: Code(s): G47.10 - Hypersomnia, unspecified Category: Medical (4) Cervicalgia: Code(s): M54.2 - Cervicalgia Category: Medical (5) Worsening headaches: Code(s): R51.9 - Headache, unspecified Category: Medical (6) Blurry vision: Code(s): H53.8 - Other visual disturbances Category: Medical Plan You are advised to undergo the following: MRI brain with and without contrast to rule out secondary underlying central etiologies for worsening headache attacks associated with blurry vision PT eval and treat as ordered-we will re-initiate order Home sleep study as scheduled Headache Management Tips Combining good self-care with some helpful tools can make managing headaches much easier. Healthy Habits ? Eat a balanced diet ? Drink enough water throughout the day, typically at least 64 oz of fluid per day ? Get regular, adequate sleep consisting of 7-9 hours of sleep per night ? Stay active with routine physical activity, typically at least 30 minutes 5 days per week ? Stay connected with friends and family, enjoy meaningful activities, and take care of your mood Tracking Your Headaches ? Write down when headaches happen, what helps, and any side effects of new treatments ? Tracking is most important after changes in your treatment plan ? Options: - Apps such as D-Sight - A simple paper calendar Non-Medication Strategies ? Light sensitivity: special glasses may help (blue-light or FL-41 filters, green lenses) or green-light therapy - Avoid wearing dark sunglasses indoors ? Sound sensitivity: noise-canceling earplugs can reduce bothersome noise ? Neuromodulation devices: certain medical devices can be used alone or with medications to lower headache frequency and severity ? Neuromodulation devices: specific medical devices can be used alone or with medications to lower headache frequency and severity These strategies may not stop every attack, but over time, they can reduce headache frequency, intensity, and impact. For acute (as needed) headache treatment: It is important to take acute medications at the first sign of headache. However, please be aware that frequently using most acute medications may increase the frequency of your headache attacks, as well as make your other treatments less effective. * Discontinue Ubrely 50mg prn order- ? ineffective versus not tolerated. * Trial Rimegepant ODT (Nurtec ODT) 75mg, 1 tab at onset of headache. * Max of 1 tabs (75mg) per 24 hours. May adjunct with OTC Tylenol 650mg q 4 hours, Ibuprofen 600mg q 6 hours, or Naproxen 440mg q 12 hrs prn. Do not take w/ Butalbital (Fioricet or Fiorinal). Potential adverse effects, include but are not limited to fatigue, nausea, dry mouth, constipation. * Continue ondansetron (Zofran) 4 mg 3 times a day as needed for nausea Previous acute migraine medication trials: fioriect- some effect, sumatriptan tolerated-palpitations, rizatriptan not tolerated-itching. Acute migraine medication contraindications: All NSAIDs due to aspirin and ibuprofen allergy. For headache prevention medication: Preventative medications should be taken routinely as prescribed for best effect, it may take several weeks for full effect to take effect. * Continue Riboflavin 400mg daily in the morning * Start Propranolol ER 60mg daily at bedtime. * Potential side effects include but are not limited to fatigue, lightheadedness, low blood pressure, low heart rate, asthma/respiratory disease exacerbation, weight gain, hair loss, sexual dysfunction. * Stop topiramate 25 mg order-not tolerated * Start magnesium 400 mg order- ? Not tolerated (likely intolerance was due to topiramate rather magnesium) Previous migraine prevention medication trials: Topiramate 25 mg-not tolerated Migraine prevention medication contraindications: None at this time We will follow-up upon review of above and with a follow-up clinic visit in 3 months or sooner as needed. Orders: Orders MR head/brain wo/w con Today H53.8 - Other visual disturbances, R51.9 - Headache, unspecified PT Evaluation and Treatment 05/21/25 M54.2 - Cervicalgia PT Evaluation and Treatment Today G43.E19 - Chronic migraine with aura, intractable, without status migrainosus, M54.2 - Cervicalgia Medications: New propranolol ER 60 mg PO BEDTIME 30 caps 3RF 30 days rimegepant (Nurtec ODT) 75 mg PO ONCE PRN 16 tabs 3RF migraine headache 30 days MDD 1 tab Changed From ondansetron HCl 4 mg PO Q8H PRN 15 tabs 0RF nausea and vomiting To ondansetron HCl 4 mg PO Q8H PRN 20 tabs 3RF nausea and vomiting 30 days Discontinued hgqgpdrrox-qheqbjzuhmune-fdyb 50-325-40 mg Discontinued Reason: Doctor's Order 1 tab PO Q6H PRN 20 tabs 0RF haeadace cljisyffsc-clcuxipufiscy-qhhp 50-325-40 mg Discontinued Reason: Doctor's Order 1 tab PO Q6H 3 days PRN 12 tabs 0RF pain G43.909 - Migraine, unspecified, not intractable, without status migrainosus ubrogepant (Ubrelvy) 1 tab at onset of migraine , can repeat in 2 hrs as needed Maximum 2 tabs a day Discontinued Reason: Doctor's Order 100 mg PO ONCE PRN 14 tabs 6RF migraine magnesium oxide Discontinued Reason: Doctor's Order 400 mg PO BEDTIME 90 tabs 6RF topiramate Discontinued Reason: Doctor's Order 25 mg PO BEDTIME 30 tabs 6RF Coding Level of Care Code Est Pt Level 4 (46840) Diagnoses Intractable chronic migraine with aura and without status migrainosus G43.E19 Intractability: intractable Status migrainosus presence: without status migrainosus Snoring R06.83 Hypersomnia G47.10 Cervicalgia M54.2 Worsening headaches R51.9 Blurry vision H53.8
[2025-07-10 11:02] VITALS: BP 120/74; PULSE 82; O2SAT 97; BMI 36.1
== END 2025-07-10 12:07 | disposition home or self-care (01) ==
LOC: HO.HSMS 10:57
PROVIDERS: PCP Physician Assistant; Visit Provider Nurse Practitioner Family
DX: G43.E19 Chronic migraine with aura, intractable, without status migrainosus (principal); R06.83 Snoring; G47.10 Hypersomnia, unspecified; M54.2 Cervicalgia; R51.9 Headache, unspecified; H53.8 Other visual disturbances
CPT/HCPCS: 99214

== ENCOUNTER → 2025-07-10 10:56 | Outpatient (BNVA) | payer OTHER, SELFPAY | PROVIDERS: PCP Physician Assistant; Visit Provider Nurse Practitioner Family | DX: G43.E19 Chronic migraine with aura, intractable, without status migrainosus (principal); R06.83 Snoring; G47.10 Hypersomnia, unspecified; H53.8 Other visual disturbances; M54.2 Cervicalgia | CPT/HCPCS: 99212 ==

== ENCOUNTER 2025-07-13 23:37 | Emergency (ER) | payer OTHER, SELFPAY ==
[2025-07-13 23:52] VITALS: BP 135/64; PULSE 70; RESP 18; TEMP 36.5; O2SAT 98; BMI 34.1
--- NOTE | 2025-07-14 01:28 | ED_ITS ---
HPI - Headache General Chief Complaint: Headache Stated Complaint: migraine Time Seen by Provider: 07/14/25 01:21 History of Present Illness HPI Narrative: Patient is a 44-year-old female with a history of migraine. Complaining of headache on the right side in the neck area radiating to the occipital radiating to the frontal area light makes it worse positive nausea symptoms been ongoing for the last 2 days patient took Inderal but to no avail. Complaining of pain not improving. Took a Zofran did not help came to the ED. no history of intracranial bleed. History of multiple allergies including to NSAIDs. Patient claims her lip swells with my ibuprofen. No fever no chills. Pain is very typical for migraine Related Data Previous Rx's ?Medication ?Instructions ?Recorded acetaminophen 650 mg 650 mg PO Q12H 30 days #60 t abs 05/14/24 tablet,extended release (Tylenol Arthritis Pain) sennosides 8.6 mg tablet (Senna 17.2 mg (2 x 8.6 mg) P O BEDTIME 30 07/03/24 Lax) days #60 tabs lidocaine 5 % topical patch 1 patch topical DAILY 30 d ays #30 11/24/24 ea multivitamin 1 tab PO DAILY 90 days #90 t abs 01/22/25 semaglutide (weight loss) 0.25 0.25 mg (0.5 mL) subcut QWEEK 4 03/17/25 mg/0.5 mL subcutaneous pen weeks #2 mL injector (Kristie) omeprazole 20 mg capsule,delayed 20 mg PO DAILY #90 ca ps 05/11/25 release diazepam 5 mg tablet (Valium) 5 mg PO TID PRN muscle s pasm #10 05/19/25 tabs riboflavin (vitamin B2) 400 mg 400 mg PO QAM #90 tabs 05/21/25 tablet metoclopramide HCl 5 mg tablet 5 mg PO TID PRN nausea and 06/14/25 (Reglan) vomiting #9 tabs tramadol 50 mg tablet 50 mg PO TID PRN pain #9 tab s 06/14/25 ondansetron HCl 4 mg tablet 4 mg PO Q8H PRN nausea and 07/10/25 vomiting 30 days #20 tabs propranolol 60 mg capsule,24 60 mg PO BEDTIME 30 days #30 caps 07/10/25 hr,extended release rimegepant 75 mg disintegrating 75 mg PO ONCE PRN migr jamal 07/10/25 tablet (Nurtec ODT) headache 30 days #16 tabs Allergies Allergy/AdvReac Type Severity Reaction Status Date / Time sumatriptan (From IMITREX) Allergy Severe PALPITAITONS, Verified 07/13/25 23:53 palpitations aspirin (ASA) Allergy Intermediate HIVES, rash Verified 07/13/25 23:53 ibuprofen (IBUPROFEN) Allergy Intermediate LIP Verified 07/13/25 23:53 SWELLING/RASH rizatriptan Allergy Intermediate swelling, Verified 07/13/25 23:53 pruritus Review of Systems 2 Review of Systems: Positive headache Positive nausea Yes all other systems are reviewed and are negative PMFSH Past Medical History Attestation statement: The following information was validated with the patient. Medical History Cervicalgia Hypersomnia Snoring Chronic migraine with aura Umbilical hernia H. pylori infection Cervical cancer screening Annual physical exam Screening for diabetes mellitus (DM) Bad odor of urine Back pain Right foot pain Pre-syncope Abnormal urine odor Cervical spine pain Screening for hypercholesterolemia Screening for hypothyroidism Breast cancer screening Constipation Obesity Lumbar pain Finger infection Neck pain Surgical History History of section Family History Family History Mother No problems noted. Father No problems noted. 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 Oriented X3. No acute distress. Eyes: Pupils equal, round and reactive to light. ENT: Pharynx normal. Neck: Normal inspection. Neck supple. No lymph nodes noted. No crepitus CVS: Normal heart rate and rhythm. Pulses normal. Normal S1 and S2 Respiratory: No respiratory distress. Breath sounds normal. No Wheezing. No rales Abdomen: Soft and nontender. No rigidity. No distention. good BS x4 Skin: Skin warm and dry. Normal skin color. Normal skin turgor. Extremities: No lower extremity edema. Neurovascular intact to all extremities. No Lacerations. No Rash Neuro: Oriented X 3. No motor deficit. No sensory deficit. Moving all extermities. No slurred speech Vital Signs: Vital Signs: Last Vital Signs Temp 97.7 F 07/13/25 23:52 Pulse 70 07/13/25 23:52 Resp 18 07/13/25 23:52 BP 135/64 07/13/25 23:52 Pulse Ox 98 07/13/25 23:52 O2 Del Method Room Air 07/13/25 23:52 BMI result Body Mass Index 34.1 Course Reevaluation(s) Reevaluation #1: Assumed care from previous provider after a detailed discussion regarding patient's case.? [id number] evaluation has taken place with no new change in management.? Patient is awaiting medication effect, blood work and final disposition. Time: 02:00 Reevaluation #2: Patient feeling improved after migraine cocktail. Blood work is reassuring. Using shared decision making, plan for discharge home to follow-up with primary care and/or specialist. Patient understands and agrees with plan for discharge. Discharged home in stable condition. Time: 04:34 Medications Administered Discontinued Medications Generic Name Dose Route Start Last Admin Trade Name Freq PRN Reason Stop Dose Admin Dexamethasone Sodium Phosphate 10 mg 07/14/25 01:27 07/14/25 01:42 Dexamethasone Sod Phosphate 10 Mg/Ml Vial IVPUSH 07/14/25 01:28 10 mg ONCE ONE Administration Diphenhydramine HCl 50 mg 07/14/25 01:27 07/14/25 01:42 Diphenhydramine Hcl 50 Mg/Ml Vial IVPUSH 07/14/25 01:28 50 mg ONCE ONE Administration Sodium Chloride 1,000 mls @ 999 mls/hr 07/14/25 01:30 07/14/25 02:43 Ns IV 07/14/25 02:30 Infused .Q1H1M TANVI Infusion Metoclopramide HCl 10 mg 07/14/25 01:27 07/14/25 01:42 Metoclopramide Hcl 10 Mg/2 Ml Vial IVPUSH 07/14/25 01:28 10 mg ONCE ONE Administration Medical Decision Making Medical Decision Making [facility] Narrative: Patient's symptoms consistent with migraine headache. Will give patient a dose of Reglan some Benadryl a dose of Decadron. Monitor carefully. History not consistent with meningitis. No focal neurological deficit noted. History not consistent with bleed. I reviewed patient's previous record multiple visits for migraine headache in the past. Presented very similar Differential Diagnosis Differential Diagnoses: The differential diagnosis associated with the presentation includes Intracranial bleed, migraine Lab Data 07/14/25 01:48 07/14/25 01:48 Labs: Lab Results 07/14/25 Range/Units 01:48 WBC 6.4 (4.8-10.8) X10*3/uL RBC 4.17 L (4.20-5.50) X10*6/uL Hgb 11.2 L (12.0-16.0) g/dl Hct 34.4 L (37.0-47.0) % MCV 82.5 (80.0-98.0) fL MCH 26.9 L (27.0-33.0) pg MCHC 32.6 (31.0-35.0) g/dl RDW 14.4 (11.0-16.0) % Plt Count 282 (160-400) X10*3/uL MPV 11.2 (9.4-12.3) fL Immature Gran % (Auto) 0.2 (0.0-0.4) % Neut % (Auto) 68.3 (45-73) % Lymph % (Auto) 18.0 L (20-40) % Slope % (Auto) 10.5 (2-11) % Eos % (Auto) 2.7 (0-4) % Baso % (Auto) 0.3 (0-2) % Lymph # (Auto) 1.2 (1.2-4.9) X10*3/uL Slope # (Auto) 0.7 (0.1-1.2) X10*3/uL Eos # (Auto) 0.2 (0.0-0.4) X10*3/uL Baso # (Auto) 0.0 (0.0-0.2) X10*3/uL Abs Immat Gran (auto) 0.01 (0.00-0.03) X10*3/uL Absolute Neuts (auto) 4.4 (2.0-8.3) x10*3/uL Absolute Nucleated RBC 0.000 (0.0-0.012) X10*3/uL Nucleated RBC % (auto) 0.0 (0.0-0.2) /100WBC Sodium 139 (135-145) mmol/L Potassium 4.0 (3.3-5.1) mmol/L Chloride 106 (96-108) mmol/L Carbon Dioxide 26 (22-29) mmol/L Anion Gap 11 L (12-20) BUN 12 (9-16) mg/dL Creatinine 0.64 (0.5-1.4) mg/dL Estim Creat Clear Calc 117.6 Estimated GFR > 60 Random Glucose 117 H (60-115) mg/dL Calcium 9.2 D (8.4-10.2) mg/dL Beta HCG, Quant < 2 mIU/mL External Record Review External record reviewed: Inpatient record and Office record Chronic Conditions History of migraine, hypertension, larger in size. BMI is 34.1 Social Determinants Patient?s care significantly limited by Social Determinants of Health including: Problems related to primary support group Discharge Plan Discharge Clinical Impression: Migraine headache Patient Disposition: Home, Self-Care Instructions: Migraine Headache (ED) Additional Instructions: Return to the emergency department with any new or worsening symptoms including: Worsening headaches despite medications, fevers greater than 100?, stiff neck, vomiting, any new symptom that concerns you. Call 911 with any medical emergency. Prescriptions: No Action lidocaine 5 % adhesive patch,medicated 1 patch topical DAILY 30 Days Qty: 30 2RF Rx Instructions: leave on most painful area for up to 12 hrs multivitamin Tablet 1 tab PO DAILY 90 Days Qty: 90 1RF Wegovy 0.25 mg/0.5 mL pen injector 0.25 mg subcut QWEEK 28 Days Qty: 2 0RF Rx Instructions: administer weeks 1 through 4 of therapy omeprazole 20 mg capsule,delayed release(DR/EC) 20 mg PO DAILY Qty: 90 1RF diazepam [Valium] 5 mg tablet 5 mg PO TID PRN (Reason: muscle spasm) Qty: 10 0RF Rx Instructions: partial fill is okay tramadol 50 mg tablet 50 mg PO TID PRN (Reason: pain) Qty: 9 0RF metoclopramide HCl [Reglan] 5 mg tablet 5 mg PO TID PRN (Reason: nausea and vomiting) Qty: 9 0RF Rx Instructions: Take together with tramadol PRN severe pain with nausea acetaminophen [Tylenol Arthritis Pain] 650 mg tablet extended release 650 mg PO Q12H 30 Days Qty: 60 2RF sennosides [Senna Lax] 8.6 mg tablet 17.2 mg PO BEDTIME 30 Days Qty: 60 3RF riboflavin (vitamin B2) 400 mg tablet 400 mg PO QAM Qty: 90 3RF propranolol 60 mg capsule,extended release 24 hr 60 mg PO BEDTIME 30 Days Qty: 30 3RF Nurtec ODT 75 mg tablet,disintegrating 75 mg PO ONCE MDD 1 tab PRN (Reason: migraine headache) 30 Days Qty: 16 3RF ondansetron HCl 4 mg tablet 4 mg PO Q8H PRN (Reason: nausea and vomiting) 30 Days Qty: 20 3RF Print Language: Romansh
[2025-07-14 01:54] LABS: Hematocrit 34.4 % (37.0-47.0); Hemoglobin 11.2 g/dl (12.0-16.0); Imm Gran Abs Auto 0.01 X10*3/uL (0.00-0.03); Imm Gran Pct Auto 0.2 % (0.0-0.4); Lymphocytes Absolute Auto 1.2 X10*3/uL (1.2-4.9); MANUAL DIFF FLAG NO; Mean Corpuscular HGB Conc 32.6 g/dl (31.0-35.0); Mean Corpuscular Hemoglobin 26.9 pg (27.0-33.0); Mean Corpuscular Volume 82.5 fL (80.0-98.0); NRBC Abs Auto 0.000 X10*3/uL (0.0-0.012); NRBC Pct Auto 0.0 /100WBC (0.0-0.2); Platelet Count 282 X10*3/uL (160-400); Red Blood Count 4.17 X10*6/uL (4.20-5.50); White Blood Count 6.4 X10*3/uL (4.8-10.8)
[2025-07-14 02:12] LABS: Anion Gap 11 (12-20); Blood Urea Nitrogen 12 mg/dL (9-16); Calcium 9.2 mg/dL (8.4-10.2); Carbon Dioxide 26 mmol/L (22-29); Chloride 106 mmol/L (96-108); Creatinine Clr Calc Pharmacy 117.6; Estimated Glomerular Filt Rate > 60; Potassium 4.0 mmol/L (3.3-5.1); Sodium 139 mmol/L (135-145)
--- NOTE | 2025-07-14 02:35 | PC.NURSE ---
pain improved to a 3/10. ambulated to bathroom independently, steady gait
[2025-07-14 04:53] VITALS: BP 108/49; PULSE 68; RESP 20; TEMP 36.8; O2SAT 96
[2025-07-14 05:37] VITALS: BP 116/63; PULSE 68; RESP 20; TEMP 36.8; O2SAT 96
== END 2025-07-14 05:39 | disposition home or self-care (01) ==
PROVIDERS: Emergency Medicine Emergency Medical Services; Emergency Provider Emergency Medicine; PCP Physician Assistant
DX: G43.909 Migraine, unspecified, not intractable, without status migrainosus (principal); Z88.6 Allergy status to analgesic agent
CPT/HCPCS: 36415; 80048; 84702; 85025; 96127; 96361; 96374; 96375; 99212; 99284; J1100; J1200; J2765

== ENCOUNTER 2025-07-14 09:58 | Outpatient (AMB) | payer OTHER, SELFPAY ==
--- NOTE | 2025-07-14 10:02 | A.OFFPC_ITS ---
Vital Signs 07/14/25 10:04 Height 5 ft 3 in Weight 193 lb 4 oz BMI 34.2 BP 122/68 Blood Pressure Location Lt brachial Position Sitting Pulse 72 Pulse Source Pulse Oximeter Temp 97.3 F Temp Source Temporal Artery Scan Pulse Oximetry (%) 96 Oxygen Delivery Method Room Air Intake Visit Reasons: f/u HTN Intake Note: Patient is here to follow up on HTN. Hunting Sales Associate Required: Yes Hunting Sales Associate Language: Video Journalist Name: Maddie (Daughter) Information Interpreted: non-clinical & clinical (Pt decline mainframe systems administrator service prefer daughter to translate) Belt Machine Operator: Present Accompanied by: Daughter Allergies sumatriptan (From IMITREX) Allergy (Severe, Verified 07/14/25 10:24) PALPITAITONS, palpitations aspirin (ASA) Allergy (Intermediate, Verified 07/14/25 10:24) HIVES, rash ibuprofen (IBUPROFEN) Allergy (Intermediate, Verified 07/14/25 10:24) LIP SWELLING/RASH rizatriptan Allergy (Intermediate, Verified 07/14/25 10:24) swelling, pruritus Medication List - Last Reconciled 07/14/25 by Ryan Dhillon PA-C acetaminophen ER (Tylenol Arthritis Pain) 650 mg PO Q12H 30 days diazepam (Valium) 5 mg PO TID PRN metoclopramide HCl (Reglan) 5 mg PO TID PRN multivitamin 1 tab PO DAILY 90 days omeprazole 20 mg PO DAILY ondansetron HCl 4 mg PO Q8H PRN 30 days propranolol ER 60 mg PO BEDTIME 30 days riboflavin (vitamin B2) 400 mg PO QAM rimegepant (Nurtec ODT) 75 mg PO ONCE PRN 30 days MDD 1 tab sennosides (Senna Lax) 17.2 mg (2 x 8.6 mg) PO BEDTIME 30 days tramadol 50 mg PO TID PRN Tobacco use date assessed: 07/14/25 Dental Screening Dental Screen Date: 01/08/25 HPI f/u HTN HPI Details Patient is a 44-year-old female here today for follow-up visit. Concerns-- patient recently seen at the [facility] over the last 2 months for migraines. She did get a CT of her head April of 2025 which did not have any intracranial pathology. Patient has followed by a migraine specialist in his currently on propranolol, vitamin B2, Nurtec. The migraines are described as originating from the back of the head, suggesting occipital neuralgia, and are being managed by a neurologist with medication. The initial medication caused significant side effects, including weakness and fainting, leading to a change in prescription. The patient reports symptoms suggestive of cervical spine issues, which may be contributing to her migraines. Physical therapy has been suggested as a potential intervention to alleviate these symptoms. .. Shortness of breath on exertion: Additionally, the patient experiences dyspnea and chest pain during exertion, such as climbing stairs, raising concerns about potential cardiac issues. Despite normal EKG results, further cardiac evaluation has been recommended, including a stress test and echocardiogram, to rule out heart failure. Hypertension: Last visit patient started amlodipine 2.5 mg. Today's blood pressure much improved. She reports having less headaches. PLAN: Will continue current dose of amlodipine .. Laboratory Tests 09/03/23 10/06/23 07/26/24 17:54 06:28 23:29 RBC 4.75 Hgb Creatinine 0.68 0.68 Random Glucose Alkaline Phosphata se 151 H Beta HCG, Quant 06/06/25 07/14/25 09:33 01:48 RBC 4.17 L Hgb 11.2 L Creatinine Random Glucose 127 H 117 H Alkaline Phosphata se Beta HCG, Quant < 2 PFSH Medical History Cervicalgia Hypersomnia Snoring Chronic migraine with aura Umbilical hernia H. pylori infection Cervical cancer screening Annual physical exam Screening for diabetes mellitus (DM) Bad odor of urine Back pain Right foot pain Pre-syncope Abnormal urine odor Cervical spine pain Screening for hypercholesterolemia Screening for hypothyroidism Breast cancer screening Constipation Obesity Lumbar pain Finger infection Neck pain Surgical History History of section Family History Mother No problems noted. Father No problems noted. 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 1. Little interest or pleasure in doing things: several days 2. Feeling down, depressed, or hopeless: not at all 3. Trouble falling or staying asleep, or sleeping too much: nearly every day 4. Feeling tired or having little energy: nearly every day 5. Poor appetite or overeating: nearly every day 6. Feeling bad about yourself - or that you are a failure or have let yourself or your family down: not at all 7. Trouble concentrating on things, such as reading the newspaper or watching television: not at all 8. Moving or speaking so slowly that other people could have noticed. Or the opposite - being so fidgety or restless that you have been moving around a lot more than usual: not at all 9. Thoughts that you would be better off or of hurting yourself in some way: not at all Total score: 10 Depression Screening Interpretation: Positive Depression Screening Follow-up: Existing condition Depression Screening Done: Yes 81330 - PHQ-9 Billing: Yes Source: Developed by Drs. Joby Gottlieb, Kristel Parada, Deshawn Zabala and colleagues, with an educational alex from [employer]. Thrive Questionnaire Date Thrive assessed: 01/08/25 I am a: Patient What is your living situation today?: I choose not to answer this question Within the past 12 months, did the food you bought not last and you didn't have the money to get more?: I choose not to answer this question Within the past 12 months, did you worry whether your food would run out before you got money to buy more?: I choose not to answer this question Do you have trouble paying for medicines?: I choose not to answer this question Do you have trouble getting transportation to medical appointments?: I choose not to answer this question Do you have trouble paying your heating and electricity bill?: I choose not to answer this question Do you have trouble taking care of your child, family member or friend?: I choose not to answer this question Do you have trouble with day-to-day activities such as bathing, preparing meals, shopping, managing finances, etc.?: I choose not to answer this question Are you currently unemployed and looking for a job?: I choose not to answer this question Are you interested in more education?: I choose not to answer this question Please select the resources that you would like help with: None Currently or been in a relationship where the following occur: I choose not to answer THRIVE Score: 0 VIVIAN-7 AMB Questionnaire VIVIAN-7 Date VIVIAN - 7 assessed: 01/08/25 Source: Developed by Drs. Joby Gottlieb, Kristel Parada, Deshawn Zabala and colleagues, with an educational alex from [employer]. Review of Systems Const Reports headache(s) Eyes Denies loss of vision ENT Denies vertigo, Denies dizziness, Reports headache(s) and Denies sore throat Card Denies chest pain, Reports chest pain with activity, Denies leg edema, Denies lightheadedness and Reports dyspnea on exertion Resp Denies cough, Denies hemoptysis, Reports dyspnea on exertion and Denies wheezing GI Denies abdominal pain, Denies melena, Denies constipation, Denies diarrhea and Denies vomiting Denies urinary frequency, Denies dysuria and Denies urinary urgency Musc Denies arthralgias, Denies joint swelling, Denies numbness and Denies tingling Neuro Denies Abnormal speech present, Denies behavioral changes, Denies vertigo, Denies dizziness, Reports headache(s), Denies loss of vision, Denies memory los s, Denies numbness and Denies tingling Psych Denies anxiety, Denies behavioral changes, Denies depression, Denies memory loss and Denies panic attacks [place]/Lymph Denies easy bleeding and Denies easy bruising Aller/Immun Denies wheezing Physical exam (Primary Care) Vital Signs: Last Vital Signs Temp 97.3 F 07/14/25 10:04 Pulse 72 07/14/25 10:04 BP 122/68 07/14/25 10:04 Pulse Ox 96 07/14/25 10:04 Oxygen Delivery Method Room Air 07/14/25 10:04 BMI result Body Mass Index 34.2 BMI Assessment/Plan discussion: High BMI High, discussed plan: lifestyle, weight reduction, dietary and physical activity Tobacco/Smoking Status: Tobacco use Status Tobacco use date assessed 07/14/25 07/14/25 10:20 Patient Tobacco Use Status Never used Tobacco 07/14/25 10:20 Tobacco use type 01/08/25 11:25 e-Cigarette/Vaping Use Never Used 07/14/25 10:20 PHQ-9: PHQ-9 Score PHQ-9: Total score 10 07/14/25 10:20 Depression Screening Interpretation: Positive Depression Screening Follow-up: Existing condition Thrive Assessment: Date of Thrive Assessment Date Thrive assessed 01/08/25 07/14/25 10:20 Currently or been in a relationship where the following occur: I choose not to answer Const General: healthy appearing, no acute distress, alert and awake Nutritional Appearance: well nourished Orientation/consciousness: oriented to person, oriented to place and oriented to time HENMT Ears: TM's normal bilaterally General nose exam: Normal nasal mucous membranes and turbinates present Eyes Conjunctivae: conjunctivae normal Sclerae: sclerae normal Pupils: Equal, round and reactive pupils present Neck Neck: Yes no lymphadenopathy and Yes no JVD Thyroid: Thyroid normal Carotids: no bruits Resp Effort & Inspection: normal respiratory effort and not tachypneic Auscultation: no crackles, no rales, no rhonchi and no wheezes Cardio Rate: regular rate Rhythm: regular rhythm Heart sounds: no murmurs and normal S1 and S2 GI Palpation (GI): Soft to palpation, nontender, no hepatomegaly and no splenomegaly Auscultation: normal bowel sounds Skin General skin exam: no rashes or lesions noted and dry skin Neuro General: oriented to person, oriented to place and oriented to time Cranial nerves: Yes Equal, round and reactive pupils present Speech: No Abnormal speech present Gait exam (Neuro): Normal gait present Motor exam (neuro): no tremor noted Extrem Right upper extremity: full ROM Left upper extremity: full ROM Right lower extremity: full ROM; no edema Left lower extremity: full ROM; no edema Psych Mental Status: mental status grossly normal Speech and movement: Normal speech and movement present Affect: normal affect Attitude: cooperative Thought process: Normal thought process present Coding Level of Care Code Est Pt Level 4 (32186) Diagnoses Cervicalgia M54.2 Primary hypertension I10 Hypertension type: primary hypertension Chest pain on exertion R07.9 Lower extremity edema R60.0 Migraine without aura and without status migrainosus, not intractable G43.909 Migraine type: unspecified Status migrainosus presence: without status migrainosus Intractability: not intractable Additional Codes PHQ-9 - 33407 - PHQ-9 Billing: Yes ([id number]) Assessment & Plan Assessment & Plan (1) Cervicalgia: Code(s): M54.2 - Cervicalgia Category: Medical Plan: Physical therapy is recommended to address cervical spine issues, which may be contributing to migraine symptoms. (2) HTN (hypertension): Code(s): I10 - Essential (primary) hypertension Category: Medical Qualifiers: Hypertension type: primary hypertension Qualified Code(s): I10 - Essential (primary) hypertension Plan: Patient's blood pressure acceptable today in office. Will continue her current dose of antihypertensive medication with goal blood pressure to be below 140/90, (3) Chest pain on exertion: Code(s): R07.9 - Chest pain, unspecified Category: Medical Plan: A cardiac stress test and echocardiogram are recommended to evaluate for potential heart failure, given the symptoms of dyspnea and chest pain during exertion. The patient is advised to discuss with her neurologist the possibility of adjusting or discontinuing propranolol due to side effects such as fatigue and bradycardia. (4) Lower extremity edema: Code(s): R60.0 - Localized edema Category: Medical Plan: As above (5) Migraines: Code(s): G43.909 - Migraine, unspecified, not intractable, without status migrainosus Category: Medical Qualifiers: Migraine type: unspecified Status migrainosus presence: without status migrainosus Intractability: not intractable Qualified Code(s): G43.909 - Migraine, unspecified, not intractable, without status migrainosus Plan: Patient reports her migraines not been well controlled lately, recent ER visits both for migraines. Currently on propranolol, Nurtec and vitamin B2. Reports having fatigue as of late though unclear if this is related to a side effect from propranolol Will discuss with her neurologist her propranolol. Orders: Orders CA echo transthoracic complete Today R60.0 - Localized edema CA stress test Today R07.9 - Chest pain, unspecified PT Evaluation and Treatment Today M54.2 - Cervicalgia
[2025-07-14 10:04] VITALS: BP 122/68; PULSE 72; TEMP 36.3; O2SAT 96; BMI 34.2
== END 2025-07-14 10:54 | disposition home or self-care (01) ==
LOC: HO.HMCH 09:59
PROVIDERS: PCP Physician Assistant; Visit Provider Physician Assistant
DX: M54.2 Cervicalgia (principal); I10 Essential (primary) hypertension; R07.9 Chest pain, unspecified; R60.0 Localized edema; G43.909 Migraine, unspecified, not intractable, without status migrainosus

== ENCOUNTER → 2025-07-29 10:48 | Outpatient (BNV) | payer OTHER, SELFPAY | PROVIDERS: PCP Physician Assistant; Visit Provider Radiology Diagnostic Radiology | DX: R51.0 Headache with orthostatic component, not elsewhere classified (principal); J34.1 Cyst and mucocele of nose and nasal sinus | CPT/HCPCS: 70553 ==

== ENCOUNTER 2025-07-29 10:53 | Outpatient (REF) | payer OTHER, SELFPAY ==
--- NOTE | ~2025-07-29 | MR_ITS ---
EXAMINATION: MR BRAIN WITHOUT AND WITH CONTRAST CLINICAL INFORMATION: Headache COMPARISON: None available. TECHNIQUE: Multiplanar, multisequence MRI of the brain was obtained before and after the intravenous administration of 9.0 mL gadolinium based (Gadavist) without reported immediate complications. FINDINGS: No restricted diffusion. No acute intracranial hemorrhage, mass effect, midline shift, hydrocephalus or herniation. Sheets-white matter differentiation is normal. Posterior cranial fossa contents demonstrated no gross signal abnormality or enhancing lesion. Normal position of the cerebellar tonsils. Sellar/suprasellar region is normal. Flow-void signal within the main cerebral vessels is normal. No abnormal enhancement within the intra-axial or the extra-axial compartment of the cranium. Small retention cyst, left maxillary sinus. MR/MR head/brain wo/w con IMPRESSION: No abnormal enhancing lesion. No acute or structural brain abnormality. Electronically signed by: Enio Merrill MD 07/29/2025 12:12 PM EDT
== END 2025-07-29 10:54 | disposition home or self-care (01) ==
LOC: HO.MRI 10:53
PROVIDERS: PCP Physician Assistant; Visit Provider Nurse Practitioner Family
DX: R51.9 Headache, unspecified (principal); H53.8 Other visual disturbances
CPT/HCPCS: 70553; A9585

== ENCOUNTER → 2025-08-22 08:40 | Outpatient (REF) | payer OTHER, SELFPAY ==
--- NOTE | 2025-08-22 08:59 | CA_ITS ---
Acquisition Time: 2025-08-22 09:39:21 Total Exercise Time: 00:06:12 Test Indications: CP,Dyspnea Medications: SEE H&P Protocol: EMILY Max HR: 137 BPM 88% of Pred: 155 BPM Max BP: 132/84 mmHG Max Work Load: 7.2 METS Exercise stress test with exercise 6 mins 12 secs of Emily Protocol, achieving 88% MPHR, with reports of SOB, no chest pain, without any arrythmias, with normotensive response to exercise. Without any EKG changes meeting criteria for ischemia. In recovery, breathing returned to baseline. Test reviewed with Dr. Valdez. Referred By: Ryan Dhillon Electronically Signed By: Diego Marino
--- NOTE | 2025-08-22 08:59 | CA_ITS ---
Transthoracic Echocardiogram Patient (Last, First, Middle): Maru Rudd, Gender: Female Date of : 1980 Age: 45 Procedure Date: 08/22/2025 Procedure Type: Transthoracic Echocardiogram Location: OP Height: 157.48 cm Weight: 89.36 kg BSA: 1.90 m2 Heart Rate: 73 bpm BP: 122 / 68 mmHg Roll Tender: ANDREW Referring MD: Ryan Dhillon PA-C Manager Game: Mk Valdez MD Symptoms: R60.0 - Localized edema Study Quality: Adequate ECG Rhythm: Sinus Conclusions: - Essentially normal study Findings Procedure Information The quality of the study was technically difficult. The study quality is limited by lung artifact. Left Ventricle Normal left ventricular size, thickness, and systolic function. The visually estimated ejection fraction is between 60-65%. Spectral Doppler is indicative of a normal filling pattern. Right Ventricle Normal right ventricular cavity size and systolic function. Atria Both atria are normal in size. Interatrial shunt cannot be excluded. Aortic Valve Normal aortic valve structure and function. There is no aortic valve stenosis. There is no aortic valve regurgitation. Mitral Valve Normal mitral valve structure and function. There is trace mitral valve regurgitation. There is no mitral valve stenosis. Tricuspid Valve Normal tricuspid valve structure. There is trace tricuspid valve regurgitation. The right ventricular systolic pressure is normal. The right ventricular systolic pressure is 17 mmHg. Normal right atrial pressure. There is no evidence of pulmonary hypertension. Great Vessels All visible segments of the aorta are normal in size. The pulmonary artery was not well visualized. Venous The inferior vena cava is normal in size. Pericardium/Pleural There is no evidence of pericardial effusion. Measurements 2D Linear Measurements IVSd: 0.84 0.6-0.9/0.6-1.0 cm LVIDd: 4.23 3.9-5.3/4.2-5.9 cm LVIDd Index: 2.23 2.4-3.2/2.2-3.1 cm/m2 LVIDs: 2.59 2.0-3.6 cm LVPWd: 0.82 0.7-1.1 cm LA Diam: 3.90 2.7-3.8/3.0-4.0 cm LAIDs Index: 2.05 1.5-2.3 cm/m2 LV Mass: 133.47 67-162/88-224 g LV Mass Index: 70.25 43-95/49-115 g/m2 LVOT Diam: 1.90 3.0+(-)1.3 cm 2D Systolic Function EF 4C: 59.30 >55% EF 2C: 61.70 >55% EF BiP: 60.00 >55% Mitral Valve MV Pk E: 0.66 MV PK A: 0.39 MV Decel Time: 168.00 E/A: 1.70 E'Lateral: 12.60 E'Medial: 9.14 E/E' Med: 7.20 E/E' Lat: 5.20 PHT: 49.00 MVA PHT: 4.49 Decel [place]: 3.90 Aortic Valve AoV Pk Jn: 1.16 AoV Pk Grad: 5.00 JACK: 2.50 LVOT LVOT Pk Jn: 1.02 LVOT Mn Jn: 0.72 LVOT VTI: 0.21 LVOT Pk Grad: 4.00 LVOT Mn Grad: 2.00 LVOT Diam: 1.90 LVOT Area: 2.84 Diastolic Function MV Pk E: 0.66 MV Pk A: 0.39 E/A: 1.70 E'Medial: 9.14 E/E' Med: 7.20 E' Laterial: 12.60 E/E' Lat: 5.20 Right Ventricle TAPSE (mm): 20.70 TVS' Jn: 10.30 Tricuspid Valve TR Pk Jn: 1.88 TR Pk Grad: 14.00 RA Press: 3.00 RVSP: 17.00 Great Vessels Aorta Sinus of Valsalva: 2.10 2.0-3.5 cm Ao Asc: 2.90 2.1-3.4 cm Ao Arch: 2.50 Pulmonary Veins Pulm Vein S/D 1.40 Pulmonary Valve PV Pk Jn: 0.75 Peak PV Grad: 2.00 Updated in Other Vendor System with Status of Final Mk Valdez MD electronically signed on 08/22/2025 3:54:22 PM with status of Final
== END ==
LOC: HO.CARD 08:40
PROVIDERS: PCP Physician Assistant; Visit Provider Physician Assistant
DX: R60.0 Localized edema (principal); R07.9 Chest pain, unspecified
CPT/HCPCS: 93017; 93306

== ENCOUNTER → 2025-08-22 08:59 | Outpatient (BNV) | payer OTHER, SELFPAY | PROVIDERS: PCP Physician Assistant | DX: R07.9 Chest pain, unspecified (principal); R60.0 Localized edema; R06.02 Shortness of breath | CPT/HCPCS: 93016; 93018; 93306 ==

== ENCOUNTER 2025-09-04 14:09 | Emergency (ER) | payer OTHER, SELFPAY ==
--- OUTSIDE RECORDS SUMMARY | 2025-06-02 08:30 | XMS_ITS | Continuity of Care Document ---
Author Organization [facility] Address [address] [place] [address] Phone Care Team Providers Care Rn Hemodialysis Name Role Phone Suraj HUDSON, RVT, RPALMA DELIA, Joby Unavailable U navailable Allergies, Adverse Reactions, Alerts Substance Reaction Status Criticality aspirin Active No Information Medications Medication Instructions Dosage Effective Dates (start - stop) Status Comments No Drug Therapy Prescribed Procedures Procedure Date Offic Cons New/estab Mod-hi 60- CT & [place] Duplex Scan-extrem Veins; Comp- CT & [place] Office/Outpt E&M Established 15 Mins Jul Duplex [...] Diagnoses Date Provider Providers Copied on Encounter Offic Cons New/estab Mod-hi 60- CT & [place] [facility], [address], [id number], [place] tel:[phone] [facility] Chronic venous hypertension (idiopathic) with other complications of bilateral lower extremityEssen tial (primary) hypertensionVe nous insufficiency (chronic) (peripheral) 5 Suraj HUDSON RVT, RENA Hemphill. [address] [place] [address], [place] [address], [place], [place], [id number] , [place]. tel:[phone] Referring Provider: Ryan Rossi, [address] [place] [address], suite [facility], [place], [address]. tel:[phone] [facility], [address] [place] [address] [address], [id number], [place] tel:[phone] CVR - [facility] Chronic venous hypertension (idiopathic) with other complications of bilateral lower extremity 5 Suraj HUDSON RVT, RENA Hemphill. [facility] [facility], [place] [address], [place], [place], [id number] , [place]. tel:[phone] Referring Provider: Ryan Rossi, [address] [place] [address], [address], [place], [address]. tel:[phone] Office/Outpt E&M Established 15 Mins [facility], [address] [place] [address] [address], [id number], [place] tel:[phone] [facility] - [facility] Chronic venous hypertension (idiopathic) with other complications of bilateral lower extremity Jul-3 3 Lei HUDSON FACS NURAT RENA Mares. [address] [place] [address], [facility] [address], [place], [address], [place]. tel:[phone] Referring Provider: Ryan Rossi, [address] [place] [address], [address], [place], [address]. tel:[phone] [facility], [address] [place] [address] [address], [id number], [place] tel:[phone] [facility] - [facility] Encntr for f/u exam aft trtmt for cond oth than malig neoplmPain in left leg Sep- 3 Lei HUDSON FACS RVT RPVI Tequila Mares. [address] [facility], [address], [place], [address], [place]. [phone] Referring Provider: Ryan Rossi, [facility], [address], [place], [address]. tel:[phone] [facility], [address] [place] [address] Dr [address], [place], [id number], [place] tel:[phone] CVR - [facility] Varicose veins of left lower extremity with inflammation Sep- 3 Lei HUDSON FACS RVT RPVI Tequila Mares. [address] [facility], [address], [place], [address], [place]. [phone] Referring Provider: Ryan Rossi, [address] [place] [address], [address], [place], [address]. tel:[phone] [facility], [address] [place] [address] [address], [place], [id number], [place] tel:[phone] CVR - [facility] Encntr for f/u exam aft trtmt for cond oth than malig neoplmChronic venous hypertension w oth comp of r low extrem May- 3 Lei HUDSON FACS RVT RENA Mares. [address] [facility], [address], [place], [address], [place]. [phone] Referring Provider: Ryan Rossi, [address] [place] [address], [address], [place], [address]. tel:[phone] [facility], [address] [place] [address] [address], [id number], [place] tel:[phone] [facility] - [facility] Chronic venous hypertension w inflammation of r low extrem May- 3 Lei HUDSON FACS RVT RPVI Tequila Mares. [address] [facility], [address], [place], [address], [place]. [phone] Referring Provider: Ryan Rossi [address], [address], [place], [address]. tel:[phone] Offic/outpt E&m Estab 5 Min Trial - Telemedicine [facility], [address] [place] [address] [address], [id number], tel:[phone] [facility] - [place] [facility] [place] Venous insufficiency (chronic) (peripheral) 3 Lei HUDSON FACS RVT RENA Mares. [address] [facility], [address], [place], [address], [place]. tel:[phone] Referring Provider: Ryan Rossi, [address] [place] [address], [address], [place], [address]. tel:[phone] Office/Outpt E&M Established 15 Mins [facility], [address] [place] [address] [address], [id number], [place] tel:[phone] [facility] - [place] [facility] [place] Venous insufficiency (chronic) (peripheral) 3 Lei LYMANT RENA Mares. [address] [facility], [address], [place], [address], [place]. tel:[phone] Referring Provider: Ryan Rossi, [facility], [address], [place], [address]. tel:[phone] [facility], [address] [place] [address] [address], [id number], [place] tel:[phone] CV[facility] - [place] [facility] [place] Encntr for f/u exam aft trtmt for cond oth than malig neoplmVenous insufficiency (chronic) (peripheral) 3 Lei Mares. [address] [facility], [address], [place], [address], [place]. tel:[phone] Referring Provider: Ryan Rossi, [facility] [address], [address], [place], [address]. tel:[phone] Offic Cons New/estab Low 30 Pr [facility], [address], [place], [id number], [place] tel:[phone] [facility] - [place] [facility] [place] Venous insufficiency (chronic) (peripheral)Pa in in right legPain in left legFlail joint, unspecified jointCramp and spasm 3 Lei HUDSON FACS RVT RP Tequila Mares. [address] [facility], [address], [place], [address], [place]. tel:[phone] Referring Provider: Ryan Rossi, [address], [address], [place], [address]. tel:[phone] Family History Family Member Type Diagnosis Age At Onset No Information Payers Payer name Insurance type Covered green party ID Jimmie linder(s) [facility] [id number] Social History Type Description Quantity Date Captured Comments Alcohol Use Details Unknown Caffeine Use Details Unknown Tobacco Use Status Current non-smoker Smoking Status Never Smoker Non-Smoking Tobacco Use Details : No Details Available : No Details Available Sex Female Vital Signs Date / Time: Height Weight BMI Pulse Rate Blood Pressure Temperature Respiratory Rate Body Surface Area Head Circumference Head Circ. Percentile Wt./Jm. Percentile BMI percentile Pulse Ox Inhaled Ox 89.810 kg (198.00 lbs) 35.1 3 kg/m eter (2) 130/86 mm[Hg] Chief Complaint And Reason For Visit No Information Reason For Referral Reason For Referral No Information Plan Of Treatment Date Type Action Status Goal Diet education completed Goal Diet education completed Goal Diet education completed Referral Ordered: Weight management: Referral to physician timeframe: 3 Months (related to Body mass index (BMI) 35.0-35.9, adult) ordered Referral Ordered: Weight management: Referral to physician timeframe: 3 Months (related to Body mass index (BMI) 34.0-34.9, adult) ordered Referral Ordered: Ryan Dhillon timeframe: 3 Months (related to Essential (primary) hypertension) ordered History Of Present Illness Encounter Date Complaint History Of Prese nt Illness No Information Functional Status Date Functional Assessmen t No Information Medications Administered Medication Instructions Dosage Effective Dates (start - stop) Status Comments No Drug Therapy Prescribed Instructions Date Instruction Additional Infor mation Giving Encouragement to exercise Related to Body mass index (BMI) 35.0-35.9, adult Lifestyle education Related to B rani mass index (BMI) 35.0-35.9, adult Compression stocking usage as conservative measure Related to Chronic venous hypertension (idiopathic) with other complications of bilateral lower extremity Patient education booklet given Related to Chronic venous hypertension (idiopathic) with other complications of bilateral lower extremity Diet education Related to Body mass index (BMI) 35.0-35.9, adult Continue compression stocking us e Related to [...] measure Related to Venous insufficiency (chronic) (peripheral) Patient education booklet given Related to Venous [...] education Related to Essen tial (primary) hypertension Assessments Type Assessment Date No Information Patient Care Teams Name Effective Dates (start - stop) Status Members No Information
[2025-09-04 14:26] VITALS: BP 163/80; PULSE 79; RESP 18; TEMP 36.4; O2SAT 98; BMI 36.5
--- NOTE | 2025-09-04 14:26 | ED.GENADULT ---
HPI - General Adult General Chief complaint: Headache Stated complaint: migraine Time Seen by Provider: 09/04/25 17:41 Source: patient, RN notes reviewed and old records reviewed Mode of arrival: ambulatory Limitations: no limitations History of Present Illness ED Provider: Willis RAGLAND narrative: 45-year-old female with past medical history significant for migraines, obesity, hypertension, asthma presents for evaluation of a headache pain She reports a posterior headache for the last 3 days pain She reports pain behind her eyes and light sensitivity She denies any trauma to the head or neck. She reports that she does take it medication prescribed by a neurologist but it has not been helping. She is not sure the name of the medication, but external med reconciliation show that she is prescribed Nurtec Denies any weakness, difficulty with speech, flight in his, nausea vomiting. She made an appointment with her doctor but would not be seen until October Related Data Previous Rx's ?Medication ?Instructions ?Recorded acetaminophen 650 mg 650 mg PO Q12H 30 days #60 tabs 05/14/24 tablet,extended release (Tylenol Arthritis Pain) sennosides 8.6 mg tablet (Senna 17.2 mg (2 x 8.6 mg) PO BEDTIME 30 07/03/24 Lax) days #60 tabs multivitamin 1 tab PO DAILY 90 days #90 tabs 01/22/25 omeprazole 20 mg capsule,delayed 20 mg PO DAILY #90 caps 05/11/25 release diazepam 5 mg tablet (Valium) 5 mg PO TID PRN muscle spasm #10 05/19/25 tabs riboflavin (vitamin B2) 400 mg 400 mg PO QAM #90 tabs 05/21/25 tablet metoclopramide HCl 5 mg tablet 5 mg PO TID PRN nausea and 06/14/25 (Reglan) vomiting #9 tabs tramadol 50 mg tablet 50 mg PO TID PRN pain #9 tabs 06/14/25 ondansetron HCl 4 mg tablet 4 mg PO Q8H PRN nausea and 07/10/25 vomiting 30 days #20 tabs propranolol 60 mg capsule,24 60 mg PO BEDTIME 30 days #30 caps 07/10/25 hr,extended release rimegepant 75 mg disintegrating 75 mg PO ONCE PRN migraine 07/10/25 tablet (Nurtec ODT) headache 30 days #16 tabs Allergies Allergy/AdvReac Type Severity Reaction Status Date / Time sumatriptan (From IMITREX) Allergy Severe PALPITAITONS, Verified 09/04/25 14:28 palpitations aspirin (ASA) Allergy Intermediate HIVES, rash Verified 09/04/25 14:28 ibuprofen (IBUPROFEN) Allergy Intermediate LIP Verified 09/04/25 14:28 SWELLING/RASH rizatriptan Allergy Intermediate swelling, Verified 09/04/25 14:28 pruritus Review of Systems Constitutional: Constitutional: Denies body ache(s), Denies chills, Denies fever(s), Denies frequent falls and Reports headache(s) Eyes: Eyes: Reports blurry vision and Reports photophobia Comments: Reports pain behind her eyes ENT: Denies dizziness and Reports headache(s) Cardiovascular: Cardiovascular: Denies chest pain and Denies dyspnea on exertion Respiratory: Respiratory: Denies cough and Denies dyspnea on exertion Gastrointestinal: Gastrointestinal: Denies abdominal pain, Denies nausea and Denies vomiting Musculoskeletal: Musculoskeletal: Denies back pain Integumentary/Breasts: Skin/Breast: Denies rash Neurologic: Denies dizziness, Denies frequent falls and Reports headache(s) Psychiatric: Psychiatric: Denies anxiety PMFSH Past Medical History Medical History Cervicalgia Hypersomnia Snoring Chronic migraine with aura Umbilical hernia H. pylori infection Cervical cancer screening Annual physical exam Screening for diabetes mellitus (DM) Bad odor of urine Back pain Right foot pain Pre-syncope Abnormal urine odor Cervical spine pain Screening for hypercholesterolemia Screening for hypothyroidism Breast cancer screening Constipation Obesity Lumbar pain Finger infection Neck pain Surgical History History of section Family History Family History Mother No problems noted. Father No problems noted. 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[employer] Cognitive needs: No Hearing needs: No Vision needs: No Physical Exam ED Vital Signs: Vital Signs - 24 hr 09/04/25 14:26 09/04/25 16:55 09/04/25 19:52 Temperature 97.6 F 97.8 F Pulse Rate 79 69 Respiratory Rate 18 16 18 Blood Pressure 163/80 H 130/75 Pulse Oximetry 98 100 Oxygen Delivery Method Room Air Room Air 09/04/25 20:05 Temperature 97.8 F Pulse Rate 62 Respiratory Rate 16 Blood Pressure 118/55 L Pulse Oximetry 99 Oxygen Delivery Method Room Air BMI result Body Mass Index 36.5 Const General: healthy appearing, comfortable, no acute distress, alert and awake Nutritional Appearance: well nourished Orientation/consciousness: patient oriented x3 HENMT Head: Yes normocephalic and Yes atraumatic Eyes Eyelids: Yes eyelids normal Conjunctivae: conjunctivae normal Sclerae: sclerae normal Corneas: corneas normal Pupils: Equal, round and reactive pupils present EOM: EOMs intact bilaterally Direct Ophthalmoscopy: photophobia Neck Neck: Yes full ROM Resp Effort & Inspection: normal respiratory effort, able to speak in complete sentences and not labored Skin General skin exam: elasticity normal Neuro General: patient oriented x3 Cranial nerves: Yes CN's II-XII intact bilaterally, Yes Equal, round and reactive pupils present and Yes Bilaterally intact EOM present Cognition (Neuro): normal cognition Extrem Other: Moving all extremities well without any obvious deformities Course Course Course Narrative: Rapid medical examination performed in triage by Adriane Titus PA-C: Patient is a 45 year old assigned female at presenting to the emergency department with a migraine headache. Detailed physical exam and review of systems are deferred to the mma fighter. Labs ordered. Patient placed back in the waiting room pending room availability and results. Reevaluation(s) Reevaluation #1: The patient re-evaluating reports that her headache has resolved. She is stable for discharge Time: 21:47 Medications Administered Discontinued Medications Generic Name Dose Route Start Last Admin Trade Name Freq PRN Reason Stop Dose Admin Dexamethasone Sodium Phosphate 10 mg 09/04/25 18:41 09/04/25 19:01 Dexamethasone Sod Phosphate 10 Mg/Ml Vial IVPUSH 09/04/25 18:42 10 mg ONCE ONE Administration Diphenhydramine HCl 50 mg 09/04/25 18:41 09/04/25 19:01 Diphenhydramine Hcl 50 Mg/Ml Vial IVPUSH 09/04/25 18:42 50 mg ONCE ONE Administration Sodium Chloride 1,000 mls @ 999 mls/hr 09/04/25 18:45 09/04/25 20:14 Ns IV 09/04/25 19:45 Infused .Q1H1M TANVI Infusion Acetaminophen 1,000 mg in 100 mls @ 400 mls/hr 09/04/25 18:43 09/04/25 19:44 Ofirmev IV 09/04/25 18:57 Infused ONCE ONE Infusion Metoclopramide HCl 10 mg 09/04/25 18:41 09/04/25 19:02 Metoclopramide Hcl 10 Mg/2 Ml Vial IVPUSH 09/04/25 18:42 10 mg ONCE ONE Administration Medical Decision Making Medical Decision Making [facility] Narrative: 45-year-old female presents for evaluation of a headache. She does have a diagnosis of migraines. She had an MRI of her brain on 07/29/2025 that did not show any acute abnormalities. The patient has neurologic exam is reassuring. Her symptoms are most consistent with a migraine. She has no infectious symptoms, no fever or chills. Doubt meningitis or encephalitis. Her labs are reassuring, she has no leukocytosis. Your symptoms with a migraine cocktail consisting of Benadryl, Reglan, Tylenol and dexamethasone. Plan for re-evaluation Differential Diagnosis Differential Diagnoses: The differential diagnosis associated with the presentation includes Migraine headache Concussion Intracranial hemorrhage Tension headache Cluster headache Sinusitis Lab Data [facility] Lab Attestation statement: I reviewed the patient's lab results. As above 09/04/25 14:39 09/04/25 14:39 Labs: Lab Results 09/04/25 Range/Units 14:39 WBC 5.7 (4.8-10.8) X10*3/uL RBC 4.43 (4.20-5.50) X10*6/uL Hgb 11.9 L (12.0-16.0) g/dl Hct 37.1 (37.0-47.0) % MCV 83.7 (80.0-98.0) fL MCH 26.9 L (27.0-33.0) pg MCHC 32.1 (31.0-35.0) g/dl RDW 15.2 (11.0-16.0) % Plt Count 309 (160-400) X10*3/uL MPV 10.9 (9.4-12.3) fL Immature Gran % (Auto) 0.2 (0.0-0.4) % Neut % (Auto) 70.9 (45-73) % Lymph % (Auto) 18.9 L (20-40) % Hand % (Auto) 7.2 (2-11) % Eos % (Auto) 2.3 (0-4) % Baso % (Auto) 0.5 (0-2) % Lymph # (Auto) 1.1 L (1.2-4.9) X10*3/uL Hand # (Auto) 0.4 (0.1-1.2) X10*3/uL Eos # (Auto) 0.1 (0.0-0.4) X10*3/uL Baso # (Auto) 0.0 (0.0-0.2) X10*3/uL Abs Immat Gran (auto) 0.01 (0.00-0.03) X10*3/uL Absolute Neuts (auto) 4.0 (2.0-8.3) x10*3/uL Absolute Nucleated RBC 0.000 (0.0-0.012) X10*3/uL Nucleated RBC % (auto) 0.0 (0.0-0.2) /100WBC Sodium 138 (135-145) mmol/L Potassium 3.7 (3.3-5.1) mmol/L Chloride 107 (96-108) mmol/L Carbon Dioxide 25 (22-29) mmol/L Anion Gap 10 L (12-20) BUN 9 (9-16) mg/dL Creatinine 0.64 (0.5-1.4) mg/dL Estim Creat Clear Calc 116.1 Estimated GFR > 60 Random Glucose 120 H (60-115) mg/dL Calcium 8.7 (8.4-10.2) mg/dL Magnesium 1.9 (1.6-2.6) mg/dL Total Bilirubin 0.3 (0.0-1.0) mg/dL AST 19 (5-31) U/L ALT 18 (0-31) U/L Alkaline Phosphatase 127 H (39-117) U/L Total Protein 7.0 (6.5-8.0) g/dL Albumin 4.0 (3.5-5.0) g/dL Tests considered The following testing was considered but not selected: Consider CT scan of the brain but ultimately due to reassuring exam, lack of trauma and recent brain MRI this was deferred Discharge Plan Discharge Clinical Impression: Headache Patient Disposition: Home, Self-Care Instructions: Acute Headache (ED) Additional Instructions: Your workup in the ER today was reassuring. You were treated with a combination of Tylenol, Reglan, Benadryl and steroids to treat your headache. Follow up with your primary doctor, return for new or worsening symptom Prescriptions: No Action multivitamin Tablet 1 tab PO DAILY 90 Days Qty: 90 1RF omeprazole 20 mg capsule,delayed release(DR/EC) 20 mg PO DAILY Qty: 90 1RF diazepam [Valium] 5 mg tablet 5 mg PO TID PRN (Reason: muscle spasm) Qty: 10 0RF Rx Instructions: partial fill is okay tramadol 50 mg tablet 50 mg PO TID PRN (Reason: pain) Qty: 9 0RF metoclopramide HCl [Reglan] 5 mg tablet 5 mg PO TID PRN (Reason: nausea and vomiting) Qty: 9 0RF Rx Instructions: Take together with tramadol PRN severe pain with nausea acetaminophen [Tylenol Arthritis Pain] 650 mg tablet extended release 650 mg PO Q12H 30 Days Qty: 60 2RF sennosides [Senna Lax] 8.6 mg tablet 17.2 mg PO BEDTIME 30 Days Qty: 60 3RF riboflavin (vitamin B2) 400 mg tablet 400 mg PO QAM Qty: 90 3RF propranolol 60 mg capsule,extended release 24 hr 60 mg PO BEDTIME 30 Days Qty: 30 3RF Nurtec ODT 75 mg tablet,disintegrating 75 mg PO ONCE MDD 1 tab PRN (Reason: migraine headache) 30 Days Qty: 16 3RF ondansetron HCl 4 mg tablet 4 mg PO Q8H PRN (Reason: nausea and vomiting) 30 Days Qty: 20 3RF Print Language: Icelandic
[2025-09-04 14:45] LABS: MANUAL DIFF FLAG NO
[2025-09-04 14:54] LABS: Hematocrit 37.1 % (37.0-47.0); Hemoglobin 11.9 g/dl (12.0-16.0); Imm Gran Abs Auto 0.01 X10*3/uL (0.00-0.03); Imm Gran Pct Auto 0.2 % (0.0-0.4); Lymphocytes Absolute Auto 1.1 X10*3/uL (1.2-4.9); Mean Corpuscular HGB Conc 32.1 g/dl (31.0-35.0); Mean Corpuscular Hemoglobin 26.9 pg (27.0-33.0); Mean Corpuscular Volume 83.7 fL (80.0-98.0); NRBC Abs Auto 0.000 X10*3/uL (0.0-0.012); NRBC Pct Auto 0.0 /100WBC (0.0-0.2); Platelet Count 309 X10*3/uL (160-400); Red Blood Count 4.43 X10*6/uL (4.20-5.50); White Blood Count 5.7 X10*3/uL (4.8-10.8)
[2025-09-04 15:05] LABS: Alanine Aminotransferase 18 U/L (0-31); Albumin Level 4.0 g/dL (3.5-5.0); Alkaline Phosphatase 127 U/L (39-117); Anion Gap 10 (12-20); Aspartate Amino Transferase 19 U/L (5-31); Blood Urea Nitrogen 9 mg/dL (9-16); Calcium 8.7 mg/dL (8.4-10.2); Carbon Dioxide 25 mmol/L (22-29); Chloride 107 mmol/L (96-108); Creatinine Clr Calc Pharmacy 116.1; Estimated Glomerular Filt Rate > 60; Magnesium 1.9 mg/dL (1.6-2.6); Potassium 3.7 mmol/L (3.3-5.1); Sodium 138 mmol/L (135-145); Total Protein 7.0 g/dL (6.5-8.0)
[2025-09-04 16:55] VITALS: BP 130/75; PULSE 69; RESP 16; TEMP 36.6; O2SAT 100
--- NOTE | 2025-09-04 19:24 | PC.NURSE ---
this RN assumed care of this pt @1900, pt noted to be sitting upright in hospital stretcher, lights off, medicated per MAR, pt appears to be in no apparent / respiratory distress at this time, respirations even and unlabored, call light provided for safety
--- NOTE | 2025-09-04 19:46 | PC.NURSE ---
pt noted to be laying on her left side, eyes closed, room lights off, respirations even and unlabored
[2025-09-04 19:52] VITALS: RESP 18
[2025-09-04 20:05] VITALS: BP 118/55; PULSE 62; RESP 16; TEMP 36.6; O2SAT 99
[2025-09-04 22:08] VITALS: BP 118/81; PULSE 72; RESP 17; TEMP 36.8; O2SAT 94
== END 2025-09-04 22:10 | disposition home or self-care (01) ==
PROVIDERS: Physician Assistant Medical; Emergency Provider Emergency Medicine; PCP Physician Assistant
DX: R51.9 Headache, unspecified (principal); I10 Essential (primary) hypertension; J45.909 Unspecified asthma, uncomplicated
CPT/HCPCS: 36415; 80053; 83735; 85025; 96361; 96365; 96375; 99284; J0131; J1100; J1200; J2765

== ENCOUNTER 2025-10-10 09:40 | Outpatient (REF) | payer OTHER, SELFPAY ==
[2025-10-10 11:56] LABS: Lipase 24 U/L (8-78)
[2025-10-10 12:24] LABS: Folate 11.3 ng/mL (> or = 4.0); Vitamin B12 314 pg/mL (200-900)
== END 2025-10-10 09:41 | disposition home or self-care (01) ==
LOC: HO.LAB 09:40
PROVIDERS: PCP Physician Assistant; Visit Provider Nurse Practitioner Family
DX: K21.9 Gastro-esophageal reflux disease without esophagitis (principal); R14.0 Abdominal distension (gaseous); K59.01 Slow transit constipation; E55.9 Vitamin D deficiency, unspecified
CPT/HCPCS: 36415; 82306; 82607; 82746; 83690; 84443; 86364; 99202

== ENCOUNTER 2025-10-10 09:40 | Outpatient (AMB) | payer OTHER, SELFPAY ==
--- NOTE | 2025-10-10 09:48 | MHC.OFFVIS ---
Vital Signs 10/10/25 09:49 Height 5 ft 2 in Weight 204 lb BMI 37.3 BP 128/74 Blood Pressure Location Rt brachial Position Sitting Pulse 70 Pulse Source Pulse Oximeter Pulse Oximetry (%) 98 Oxygen Delivery Method Room Air Intake Visit Reasons: stool burden in colon. ? IBS Intake Note: New pt for initial eval of GERD + Abd distention. Prev mgmt w/ Reglan and omeprazole. CC; C/O abd bloating, RUQ pain + epigastric pain, GERD, and intermittent constipation despite current therapies. Pt denies ever having colo or egd. Psychiatry Adult Physician Required: No Accompanied by: Self / Same As Patient Allergies sumatriptan (From IMITREX) Allergy (Severe, Verified 10/10/25 09:49) PALPITAITONS, palpitations aspirin (ASA) Allergy (Intermediate, Verified 10/10/25 09:49) HIVES, rash ibuprofen (IBUPROFEN) Allergy (Intermediate, Verified 10/10/25 09:49) LIP SWELLING/RASH rizatriptan Allergy (Intermediate, Verified 10/10/25 09:49) swelling, pruritus Medication List - Last Reconciled 10/10/25 by COURTNEY Alvarez-BC acetaminophen ER (Tylenol Arthritis Pain) 650 mg PO Q12H 30 days diazepam (Valium) 5 mg PO TID PRN metoclopramide HCl (Reglan) 5 mg PO TID PRN multivitamin 1 tab PO DAILY 90 days omeprazole 20 mg PO DAILY ondansetron HCl 4 mg PO Q8H PRN 30 days propranolol ER 60 mg PO BEDTIME 30 days riboflavin (vitamin B2) 400 mg PO QAM rimegepant (Nurtec ODT) 75 mg PO ONCE PRN 30 days MDD 1 tab tramadol 50 mg PO TID PRN HPI HPI stool burden in colon. ? IBS: Details: 45-year-old female with past medical history asthma, headaches, hypersomnia, hypertension abdominal bloating, hemiplegia,, obesity is here today for initial consultation. Patient was sent by PCP for abdominal pain and discomfort. Patient reports epigastric pain and severe bloating. Patient was diagnosed last year with H pylori, was treated with antibiotics, however never retest that. She is currently on omeprazole 20 mg and reports that her symptoms are pretty severe periods acid reflux all the way into her throat. Patient reports dyspepsia with occasional dysphagia without odynophagia. Patient reports severe abdominal bloating. Reports that she is moving her bowels, however occasionally she feels like she does not empty her bowels completely. Occasional constipation as well. Patient denies melena, hematochezia, unintentional weight loss or ribbon like stools. Patient reports that after she eats she is very bloated. Feels very gassy. Patient reports that this happens with anything that she eats. Patient denies any nausea or vomiting. Denies any mucus in her stools or diarrhea. [facility] Medical History (Updated 10/10/25 @ 10:18 by Arlene Shankar [facility]) GERD (gastroesophageal reflux disease) Cervicalgia Hypersomnia Snoring Chronic migraine with aura Umbilical hernia H. pylori infection Cervical cancer screening Annual physical exam Screening for diabetes mellitus (DM) Bad odor of urine Back pain Right foot pain Pre-syncope Abnormal urine odor Cervical spine pain Screening for hypercholesterolemia Screening for hypothyroidism Breast cancer screening Constipation Obesity Lumbar pain Finger infection Neck pain Surgical History History of section Family History Mother No problems noted. Father No problems noted. Social History Housing: House Alcohol intake: never Patient Tobacco Use Status: Never used Tobacco e-Cigarette/Vaping Use: Never Used Second Hand Smoke Exposure: No service: No Current occupational status: employed Current occupation: [employer] Cognitive needs: No Hearing needs: No Vision needs: No Review of Systems Const Denies weight gain and Denies weight loss ENT Reports no additional complaints, Denies dysphagia and Denies odynophagia Card Reports no additional complaints Resp Reports no additional complaints GI Reports abdominal pain, Denies belching, Denies melena, Reports bloating, Denies change in bowel habits, Reports constipation, Denies dysphagia, Denies excessive flatus, Reports dyspepsia, Reports heartburn, Denies diarrhea, Denies loose stools, Denies nausea, Denies odynophagia and Denies vomiting Reports no additional complaints Musc Reports no additional complaints Neuro Reports no additional complaints Psych Reports no additional complaints Endo Reports no additional complaints Physical Exam Const General: healthy appearing, no acute distress and well developed Nutritional Appearance: well nourished Orientation/consciousness: patient oriented x3 Resp Effort & Inspection: normal respiratory effort, able to speak in complete sentences, no tracheal deviation and symmetric chest movement Auscultation: clear to auscultation bilaterally Cardio Rate: regular rate GI Inspection: Yes normal to inspection and No distended Palpation (GI): Soft to palpation, not firm, nontender and No hepatosplenomegaly present Auscultation: normal bowel sounds General: Yes no CVA tenderness Back/Spine/Pelvis Back: no CVA tenderness Skin General skin exam: elasticity normal, turgor normal and dry skin Neuro General: patient oriented x3 Psych Appearance: grossly normal Mental Status: mental status grossly normal Assessment & Plan Assessment & Plan (1) Abdominal bloating: Code(s): R14.0 - Abdominal distension (gaseous) Category: Medical (2) Abdominal distension: Code(s): R14.0 - Abdominal distension (gaseous) Category: Medical (3) GERD (gastroesophageal reflux disease): Code(s): K21.9 - Gastro-esophageal reflux disease without esophagitis Category: Medical Qualifiers: Esophagitis presence: esophagitis presence not specified Qualified Code(s): K21.9 - Gastro-esophageal reflux disease without esophagitis (4) Constipation: Code(s): K59.00 - Constipation, unspecified Qualifiers: Constipation type: slow transit constipation Qualified Code(s): K59.01 - Slow transit constipation Plan Patient will return in 2 weeks to check H pylori. She will take famotidine the meantime. She will stop omeprazole. After testing patient will start taking pantoprazole every morning. Patient will get her blood work done today which includes vitamin B12, folate, transglutaminase, lipase, vitamin-D. Patient reports severe abdominal bloating will send her for KUB most likely patient is very constipated. She can start taking Dulcolax daily. She is 45 and is due to go for colonoscopy. I will send her for endoscopy as well. She will return in 2 months and will discuss the prep and re-evaluate patient. If positive for H pylori I will treat empirically. Patient is agreeable to this plan and verbalizes understanding of instructions. She was given the opportunity to ask questions and all questions answered. Thank you for allowing me to participate in her care Orders: Orders H Pylori Breath Test Today K21.9 - Gastro-esophageal reflux disease without esophagitis Vitamin B12 and Folate Today R19.7 - Diarrhea, unspecified XR KUB Today K59.00 - Constipation, unspecified TSH reflex Free T4 Today K59.00 - Constipation, unspecified Transglutaminase IgA Today R10.9 - Unspecified abdominal pain Lipase Today R10.9 - Unspecified abdominal pain Vitamin D 25-OH (D2 and D3) Today E55.9 - Vitamin D deficiency, unspecified Medications: New bisacodyl (Dulcolax (bisacodyl)) 10 mg (2 x 5 mg) PO BEDTIME 180 tabs 4RF pantoprazole take one tablet half an hour before breakfast 40 mg PO DAILY 30 tabs 3RF K21.9 - Gastro-esophageal reflux disease without esophagitis famotidine (Pepcid) 20 mg PO BID 30 tabs 0RF K29.70 - Gastritis, unspecified, without bleeding Discontinued omeprazole Discontinued Reason: Doctor's Order 20 mg PO DAILY 90 caps 1RF R14.0 - Abdominal distension (gaseous) Coding Level of Care Code New Pt Level 4 (56667) Diagnoses Abdominal bloating R14.0 Abdominal distension R14.0 Gastroesophageal reflux disease, unspecified whether esophagitis present K21.9 Esophagitis presence: esophagitis presence not specified Slow transit constipation K59.01 Constipation type: slow transit constipation Time Spent (min) 50 Comment 35 minutes spent with patient and additional 15 minutes spent reviewing her records
[2025-10-10 09:49] VITALS: BP 128/74; PULSE 70; O2SAT 98; BMI 37.3
== END 2025-10-10 10:23 | disposition home or self-care (01) ==
LOC: HO.HGI 09:41
PROVIDERS: PCP Physician Assistant; Visit Provider Nurse Practitioner Family
DX: R14.0 Abdominal distension (gaseous) (principal); K21.9 Gastro-esophageal reflux disease without esophagitis; K59.01 Slow transit constipation
CPT/HCPCS: 99204

== ENCOUNTER 2025-10-17 09:00 | Outpatient (AMB) | payer OTHER, SELFPAY ==
[2025-10-17 09:09] VITALS: BP 120/80; BMI 37.1
--- NOTE | 2025-10-17 09:09 | A.OFFVIS_ITS ---
Vital Signs 10/17/25 09:09 Height 5 ft 2 in Weight 203 lb BMI 37.1 BP 120/80 Blood Pressure Location Rt brachial Position Sitting Intake Visit Reasons: 3mnth fu Intake Note: Patient presents follow up for migraines Agile Test Lead Required: Yes Agile Test Lead Services: Agile Test Lead Present Agile Test Lead Name: Praitma Accompanied by: Self / Same As Patient Allergies sumatriptan (From IMITREX) Allergy (Severe, Verified 10/10/25 09:49) PALPITAITONS, palpitations aspirin (ASA) Allergy (Intermediate, Verified 10/10/25 09:49) HIVES, rash ibuprofen (IBUPROFEN) Allergy (Intermediate, Verified 10/10/25 09:49) LIP SWELLING/RASH rizatriptan Allergy (Intermediate, Verified 10/10/25 09:49) swelling, pruritus HPI Comments Details: 45-year-old female presents for follow-up of migraine. 07/29/2025: MR head/brain wo/w con * No abnormal enhancing lesion. * No acute or structural brain abnormality She reports she is currently having 3 migraine headache days per week. Unfortunately, she did not tolerate propranolol er 60mg qhs, as this caused OH and dizziness- which prompted an ER visit where she was advised to stop it. She states B2 is causing sleep difficulties- but she is taking it daily at bedtime She states Mag is helpful and well-tolerated. She was scared to try Nurtec due to the reaction to the Propanolol, although does have it at home. 07/10/2025, HPI: The patient reports that she continues to have frequent migraine attacks. She reports five migraine headache days per week. Patient confirms that her typical migraine starts with tightness in the bilateral shoulders and radiates to the back of the neck and occipital region, then becomes throbbing holocranial and accompanied by pressure in the bilateral eyes and retro-orbital area, with a visual aura. She experiences flashes of light and lines, blurry vision, severe photophobia, nausea, and occasional vomiting. She reports she did not tolerate the topiramate-it caused strange sensations. She reports she tried Ubrelvy 50 mg once, at the onset of the migraine; however, she felt worse, so she went to the ER. She states the ER told her to stop taking the Ubrelvy. She has not taken the Fioricet since her initial consult appointment here in April. She has not started PT, states she did not hear anything on this. 05/21/2025, initial HPI by Dr. Anton: 44y/o female comes for further management of headaches she started having frequent headaches since she was 17 .The headaches start in neelima shoulders, radiates to back of the neck , occipital region and involves the whole head,throbbing pain with retroorbital pressure and eye pain with severe light sensitivity noise sensitivity, nausea, occasional vomiting.she also has visual aura- sees flashes of lights and lines. The headaches last 2-3 days- she used to take fioricet but when she does not respond she goes to ER. she has 5-6 headaches each lasting 2-3 days . She also has some sensory symptoms - in her UE and LE during her headaches. sleep deprivation, dehydration, stress triggers migraines. No recent head injury Her mother had frequent headaches. she has loud snoring and frequent arousals and wakes up with headaches She tried sumatriptan - had severe palpitations she has tried amitriptyline (poor response) zanaflex [facility] Medical History (Updated 10/10/25 @ 10:18 by Arlene Shankar [facility]) GERD (gastroesophageal reflux disease) Cervicalgia Hypersomnia Snoring Chronic migraine with aura Umbilical hernia H. pylori infection Cervical cancer screening Annual physical exam Screening for diabetes mellitus (DM) Bad odor of urine Back pain Right foot pain Pre-syncope Abnormal urine odor Cervical spine pain Screening for hypercholesterolemia Screening for hypothyroidism Breast cancer screening Constipation Obesity Lumbar pain Finger infection Neck pain Surgical History History of section Family History Mother No problems noted. Father No problems noted. Social History Housing: House Alcohol intake: never Patient Tobacco Use Status: Never used Tobacco e-Cigarette/Vaping Use: Never Used Second Hand Smoke Exposure: No service: No Current occupational status: employed Current occupation: [employer] Cognitive needs: No Hearing needs: No Vision needs: No Physical Exam Vital Signs: Last Vital Signs BP 120/80 10/17/25 09:09 BMI result Body Mass Index 37.1 Const General: cooperative, comfortable, no acute distress and anxious Nutritional Appearance: obese Orientation/consciousness: patient oriented x3 Neuro General: patient oriented x3, gait normal, moves all extremities and no focal motor deficits Gait exam (Neuro): Normal gait present Assessment & Plan Assessment & Plan (1) Chronic migraine with aura: Code(s): G43.E09 - Chronic migraine with aura, not intractable, without status migrainosus Category: Medical Qualifiers: Intractability: intractable Status migrainosus presence: without status migrainosus Qualified Code(s): G43.E19 - Chronic migraine with aura, intractable, without status migrainosus (2) Snoring: Code(s): R06.83 - Snoring Category: Medical (3) Hypersomnia: Code(s): G47.10 - Hypersomnia, unspecified Category: Medical (4) Cervicalgia: Code(s): M54.2 - Cervicalgia Category: Medical Plan Discussion Discussed that interval MRI brain with and without contrast results did not reveal an underlying secondary cause for her headache symptoms, which is reassuring. Discussed that Nurtec does not carry the same side effect risk as Propranolol, and she agrees to try it on an as-needed basis. Will f/u on status of Home sleep study Headache Management Tips Combining good self-care with some helpful tools can make managing headaches much easier. Healthy Habits ? Eat a balanced diet ? Drink enough water throughout the day, typically at least 64 oz of fluid per day ? Get regular, adequate sleep consisting of 7-9 hours of sleep per night ? Stay active with routine physical activity, typically at least 30 minutes 5 days per week ? Stay connected with friends and family, enjoy meaningful activities, and take care of your mood Tracking Your Headaches ? Write down when headaches happen, what helps, and any side effects of new treatments ? Tracking is most important after changes in your treatment plan ? Options: - Apps such as [employer] - A simple paper calendar Non-Medication Strategies ? Light sensitivity: special glasses may help (blue-light or FL-41 filters, green lenses) or green-light therapy - Avoid wearing dark sunglasses indoors ? Sound sensitivity: noise-canceling earplugs can reduce bothersome noise ? Neuromodulation devices: certain medical devices can be used alone or with medications to lower headache frequency and severity ? Neuromodulation devices: specific medical devices can be used alone or with medications to lower headache frequency and severity These strategies may not stop every attack, but over time, they can reduce headache frequency, intensity, and impact. For acute (as needed) headache treatment: It is important to take acute medications at the first sign of headache. However, please be aware that frequently using most acute medications may increase the frequency of your headache attacks, as well as make your other treatments less effective. * Start Rimegepant ODT (Nurtec ODT) 75mg, 1 tab at onset of headache. * Max of 1 tabs (75mg) per 24 hours. May adjunct with OTC Tylenol 650mg q 4 hours, Ibuprofen 600mg q 6 hours, or Naproxen 440mg q 12 hrs prn. Do not take w/ Butalbital (Fioricet or Fiorinal). Potential adverse effects, include but are not limited to fatigue, nausea, dry mouth, constipation. * Continue ondansetron (Zofran) 4 mg 3 times a day as needed for nausea Previous acute migraine medication trials: fioriect- some effect, sumatriptan tolerated-palpitations, rizatriptan not tolerated-itching. Acute migraine medication contraindications: All NSAIDs due to aspirin and ibuprofen allergy. For headache prevention medication: Preventative medications should be taken routinely as prescribed for best effect, it may take several weeks for full effect to take effect. * Continue Riboflavin 400mg daily- take in the morning * Discontinue Propranolol ER 60mg daily at bedtime- caused OH. * Potential side effects include but are not limited to fatigue, lightheadedness, low blood pressure, low heart rate, asthma/respiratory disease exacerbation, weight gain, hair loss, sexual dysfunction. * Stop topiramate 25 mg order-not tolerated * Continue magnesium 400 mg order * Start Emgality 120mg/ml auto-injection: * Loading dose: 240mg (2 120mg/ml auto-injections) via subcutaneous injection in 2 different sites). * Then 30 days after loading dose, start Maintenance dose: 120mg (120mg/ml autoinjector) subcutaneous injection every month. Patient requests injection training once Emgality available. * Important considerations for Emgality: * Emgality will likely require insurance prior authorization prior to receiving it from the pharmacy. * Potential side effects include allergic reaction and injection site reactions. * Emgality injection training educational video is available to view on [employer] * Store Emgality in the refrigerator in it's original packaging in order to protect from light. * Remove Emgality at least 1 hour prior to taking the injection. * Emgality can be left out of the fridge for?up to 7 days at a temperature not above 86?F. If either of these conditions are exceeded, then Emgality must be thrown away. * Once Emgality has been stored out of refrigeration, do not place it back in the refrigerator. Previous migraine prevention medication trials: Topiramate 25 mg-not tolerated. Propranolol ER 60mg daily at bedtime- caused OH. Migraine prevention medication contraindications: None at this time We will follow-up upon review of above and with a follow-up clinic visit in 3 months or sooner as needed. Medications: New galcanezumab-gnlm (Emgality Pen) Loading dose: 120 mg subcu injection x2 in alternate sites (total 240 mg). To be followed by maintenance dose of 120 mg subcu q.month. 240 mg (2 mL) subcut ONCE 2 mL 0RF 30 days Discontinued propranolol ER Discontinued Reason: Doctor's Order 60 mg PO BEDTIME 30 days 90 caps 3RF Coding Level of Care Code Est Pt Level 4 (34414) Diagnoses Intractable chronic migraine with aura and without status migrainosus G43.E19 Intractability: intractable Status migrainosus presence: without status migrainosus Snoring R06.83 Hypersomnia G47.10 Cervicalgia M54.2
== END 2025-10-17 09:43 | disposition home or self-care (01) ==
LOC: HO.HSMS 09:01
PROVIDERS: PCP Physician Assistant; Visit Provider Nurse Practitioner Family
DX: G43.E19 Chronic migraine with aura, intractable, without status migrainosus (principal); R06.83 Snoring; G47.10 Hypersomnia, unspecified; M54.2 Cervicalgia
CPT/HCPCS: 99214

== ENCOUNTER → 2025-10-17 09:00 | Outpatient (BNVA) | payer OTHER, SELFPAY | PROVIDERS: PCP Physician Assistant; Visit Provider Nurse Practitioner Family | DX: G43.E19 Chronic migraine with aura, intractable, without status migrainosus (principal); R06.83 Snoring; G47.10 Hypersomnia, unspecified; M54.2 Cervicalgia | CPT/HCPCS: 99212 ==

== ENCOUNTER 2025-10-27 10:10 | Outpatient (REF) | payer OTHER, SELFPAY | END 2025-10-27 10:11 | LOC: HO.LNP 10:10 | PROVIDERS: PCP Physician Assistant; Visit Provider Nurse Practitioner Family | DX: K21.9 Gastro-esophageal reflux disease without esophagitis (principal) | CPT/HCPCS: 83013; 99211 ==

== ENCOUNTER 2025-10-27 10:10 | Outpatient (AMB) | payer OTHER, SELFPAY ==
[2025-10-27 10:24] VITALS: BP 109/66; PULSE 80
--- NOTE | 2025-10-27 10:24 | AM.OFFVISNUR ---
Vital Signs 10/27/25 10:24 Height 5 ft 2 in BP 109/66 Blood Pressure Location Rt brachial Position Sitting Pulse 80 Intake Visit Reasons: H Pylori Intake Note: Patient presents for collection of?H Pylori?breath test. Patient has been fasting for 1 hour (nothing to eat, drink, no chewing gum or smoking) has not taken any antacid medication for at least 2 weeks and has no allergies to artificial sweeteners.?? Allergies sumatriptan (From IMITREX) Allergy (Severe, Verified 10/10/25 09:49) PALPITAITONS, palpitations aspirin (ASA) Allergy (Intermediate, Verified 10/10/25 09:49) HIVES, rash ibuprofen (IBUPROFEN) Allergy (Intermediate, Verified 10/10/25 09:49) LIP SWELLING/RASH rizatriptan Allergy (Intermediate, Verified 10/10/25 09:49) swelling, pruritus Assessment & Plan Assessment & Plan (1) GERD (gastroesophageal reflux disease): Code(s): K21.9 - Gastro-esophageal reflux disease without esophagitis Category: Medical Qualifiers: Esophagitis presence: esophagitis presence not specified Qualified Code(s): K21.9 - Gastro-esophageal reflux disease without esophagitis Plan Patient presents for collection of?H Pylori?breath test. Patient has been fasting for 1 hour (nothing to eat, drink, no chewing gum or smoking) has not taken any antacid medication for at least 2 weeks and has no allergies to artificial sweeteners.???This test checks for an overgrowth of bacteria in your stomach. We all have bacteria but some may have more than others. It is treatable. if the test comes back negative there is nothing else to do. If the test result is positive we will treat you with 2 antibiotics and a medication to decrease the acid in your stomach (PPI) for 2 weeks. Two weeks after you have completed the treatment we will retest you to make sure the overgrowth has resolved. Patient Instructions: Process for specimen collection and reason for testing was explained to the patient. Specimen collection. Patient instructed to take a deep breath and then exhale into the blue bag, filling it up as much as possible. Patient instructed to drink a mixture of water and the artificial sweetener with a straw. A 15 minute wait period was observed. Patient instructed to take a deep breath and then exhale into the pink bag, filling it up as much as possible.?? Coding Level of Care Code Established Pt Est Pt Level 1 (60443) Patient Type Established Diagnoses Gastroesophageal reflux disease, unspecified whether esophagitis present K21.9 Esophagitis presence: esophagitis presence not specified
== END 2025-10-27 13:16 | disposition home or self-care (01) ==
LOC: HO.HGI 10:11
PROVIDERS: PCP Physician Assistant; Visit Provider Nurse Practitioner Family
DX: K21.9 Gastro-esophageal reflux disease without esophagitis (principal)